=== PATIENT | female | born 1975 | race Caucasian/White ===

== ENCOUNTER → 2016-05-04 | Outpatient (REF) | payer OTHER, MEDICAID ==
[~2016-05-04] MED LIST: /LOR25TA OR; BUDE150T OR; BUTACAP PO; CELE20TA OR; DEPA250C OR; DEPA500T2 PO; DIVA500T9 PO; DULE100A IN; EPIP0.3I2 IJ; HYDR-3565 PO; IBUP80TA PO; MOBI15TA PO; NEUR300C PO; NORCOBULK PO; PERC10TA17 PO; PERC5TAB6 PO; VALI10TA OR; VALI10TA PO; VICOBULK PO; VOLT1GEL24 TOP; WELLTAB40 PO; seroquel PO
[2016-05-04 13:43] LABS: BASO % 0.6 % (0.0-1.0); EOS # 0.2 K/mm3 (0.0-0.50); LYMPH # 3.1 K/mm3 (1.5-4.5); LYMPH % 37.3 % (24.0-44.0); MEAN CORPUSCULAR HEMOGLOBIN 30.4 pg (27.0-33.0); MEAN CORPUSCULAR HGB CONC 33.1 g/dl (32.0-36.5); MEAN CORPUSCULAR VOLUME 91.7 fl (80.0-96.0); MONO # 0.4 K/mm3 (0.0-0.8); MONO % 4.6 % (0.0-5.0); NEUTROPHILS # 4.3 K/mm3 (1.8-7.7); NEUTROPHILS % 51.4 % (36.0-66.0); WHITE BLOOD COUNT 8.3 K/mm3 (4.0-10.0)
[2016-05-04 13:55] LABS: VITAMIN B12 LEVEL 524 PG/ML
[2016-05-04 13:56] LABS: FOLATE 9.6 NG/ML
[2016-05-04 14:04] LABS: ALBUMIN 4.1 GM/DL (3.2-5.2); ALBUMIN/GLOBULIN RATIO 1.24 (1.00-1.93); ALKALINE PHOSPHATASE 85 U/L (45-117); ALT/SGPT 21 U/L (12-78); ANION GAP 9 MEQ/L (8-16); AST/SGOT 9 U/L (15-37); BILIRUBIN,TOTAL 0.6 MG/DL (0.2-1.0); BLOOD UREA NITROGEN 10 MG/DL (7-18); CALCIUM LEVEL 8.8 MG/DL (8.5-10.1); CARBON DIOXIDE LEVEL 24 MEQ/L (21-32); CHLORIDE LEVEL 108 MEQ/L (98-107); CHOLESTEROL LEVEL 209 MG/DL (<200); CREATININE FOR GFR 0.87 MG/DL (0.55-1.02); FERRITIN 54 NG/ML (8-252); GLOMERULAR FILTRATION RATE > 60.0 (>60); GLUCOSE, FASTING 79 MG/DL (70-105); POTASSIUM SERUM 4.2 MEQ/L (3.5-5.1); SODIUM LEVEL 141 MEQ/L (136-145); TOTAL PROTEIN 7.4 GM/DL (6.4-8.2); TRIGLYCERIDES LEVEL 225 MG/DL (<150)
== END | disposition home or self-care (01) ==
LOC: M LABDRAW1 12:46 → M LABNEURO 12:46
PROVIDERS: ATTEND Physician Assistant Medical
DX: R63.5 Abnormal weight gain (principal); E78.2 Mixed hyperlipidemia

== ENCOUNTER → 2016-05-21 | Outpatient (CLI) | payer OTHER, MEDICAID ==
[~2016-05-21] MED LIST changes: -HYDR-3565 PO; +HYDR-3719 PO
== END ==
LOC: M PAIN 10:20
PROVIDERS: ATTEND Nurse Practitioner Family
DX: Z09 Encounter for follow-up examination after completed treatment for conditions other than malignant neoplasm (principal); M79.601 Pain in right arm; G89.28 Other chronic postprocedural pain; F17.200 Nicotine dependence, unspecified, uncomplicated; Z91.030 Bee allergy status; Z88.8 Allergy status to other drugs, medicaments and biological substances; Z79.891 Long term (current) use of opiate analgesic; Z79.899 Other long term (current) drug therapy

== ENCOUNTER 2016-05-24 22:11 | Emergency (ER) | payer OTHER, MEDICAID ==
[2016-05-24 23:36] LABS: BASO # 0.2 K/mm3 (0.0-0.2); BASO % 2.3 % (0.0-1.0); EOS # 0.3 K/mm3 (0.0-0.50); EOS % 3.6 % (0.0-3.0); LARGE UNSTAINED CELL # 0.2 K/mm3 (0.0-0.4); LARGE UNSTAINED CELL % 2.9 % (0.0-4.0); LYMPH # 3.2 K/mm3 (1.5-4.5); LYMPH % 41.1 % (24.0-44.0); MEAN CORPUSCULAR HEMOGLOBIN 29.8 pg (27.0-33.0); MEAN CORPUSCULAR HGB CONC 33.2 g/dl (32.0-36.5); MEAN CORPUSCULAR VOLUME 89.8 fl (80.0-96.0); MONO # 0.4 K/mm3 (0.0-0.8); NEUTROPHILS # 3.3 K/mm3 (1.8-7.7); NEUTROPHILS % 44.2 % (36.0-66.0); PLATELET COUNT, AUTOMATED 205 k/mm3 (150-450); RED CELL DISTRIBUTION WIDTH 12.8 % (11.5-14.5); WHITE BLOOD COUNT 7.4 K/mm3 (4.0-10.0)
[2016-05-24 23:55] LABS: CONTROL LINE HCG INT CTR LINE PRESENT
[2016-05-24 23:59] LABS: ANION GAP 8 MEQ/L (8-16); BLOOD UREA NITROGEN 9 MG/DL (7-18); CALCIUM LEVEL 8.8 MG/DL (8.5-10.1); CARBON DIOXIDE LEVEL 29 MEQ/L (21-32); CHLORIDE LEVEL 108 MEQ/L (98-107); CREATININE FOR GFR 0.88 MG/DL (0.55-1.02); GLOMERULAR FILTRATION RATE > 60.0 (>60); GLUCOSE, FASTING 87 MG/DL (70-105); POTASSIUM SERUM 3.9 MEQ/L (3.5-5.1); SODIUM LEVEL 145 MEQ/L (136-145)
[2016-05-25] MEDS ORDERED: methylPREDNISolone INJ 125 MG/2 ML VIAL (J2930) As Ordered ONE (00:10)
[2016-05-25] MEDS ORDERED: MORPHINE 4 MG/ML 1ML SYRINGE As Ordered ONE (00:10)
[2016-05-25 00:14] LABS: ERYTHROCYTE SEDIMENTATION RATE 3 mm/hr (0-20)
--- NOTE | 2016-05-25 00:46 | REP ---
Clinical: Chest pain . Comparison: 07/15/2014 . Technique: PA and lateral. Findings: The mediastinum and cardiac silhouette are normal. The lung lopez are clear and without acute consolidation, effusion, or pneumothorax. The skeletal structures are intact and normal. Impression: 1. No acute cardiopulmonary process. Signed by Abraham Sanchez MD 05/25/2016 12:37 A
--- NOTE | 2016-05-25 04:08 | EDDOCDS ---
Physician Documentation [facility] Name: Fariha Yanez Age: 40 yrs Sex: Female : 1975 Arrival Date: 05/24/2016 Time: 22:11 Bed 8 Private MD: Gail Clemons C Disposition: 05/25/16 03:44 Discharged to Home/Self Care. Impression: Chest pain, unspecified. - Condition is Stable. - Discharge Instructions: Angina Pectoris, Nonspecific Chest Pain, Chest Wall Pain, Nonspecific Chest Pain, [id number]. - Prescriptions for Prednisone 20 mg Oral Tablet - take 2 tablet by ORAL route once daily for 5 days; 10 tablet. - Medication Reconciliation, Local Pharmacy Hours form. - Follow up: Jasbir Marion; When: Call to arrange an appointment; Reason: Continuance of care. - Problem is an acute exacerbation. - Symptoms have improved. Historical: - Allergies: Cipro PO; Macrobid; seafood; Toradol; - Home Meds: 1. Depakote 500 mg Oral TbEC 1 tab 2 times per day 2. Valium 10 mg Oral tab (Last dose: 05/24/2016 08:00) 3. Wellbutrin SR 150 mg Oral TbER 2 tab once daily - PMHx: Migraine Headaches; pericarditis; - PSHx: Hysterectomy; arm surgery; dorsal column; head surgery; - Social history: Smoking status: Patient uses tobacco products, light tobacco smoker. No barriers to communication noted, The patient speaks fluent Frisian, Speaks appropriately for age. - Family history: Not pertinent. - : The pt / caregiver states he / she is not on anticoagulants. Home medication list is obtained from the patient. - Exposure Risk Screening:: None identified. 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 2 in. (157.48 cm) (R); Pain 9/10; 05/25 00:23 BP 162 / 83 (auto/); ko2 00:25 Pulse 80 MON; Pulse Ox 100% ; ko2 00:53 BP 128 / 76 (auto/); ko2 00:53 Pulse 80 MON; Pulse Ox 97% ; ko2 01:23 BP 138 / 83 (auto/); ko2 01:23 Pulse 80 MON; Pulse Ox 96% ; ko2 01:53 BP 127 / 80 (auto/); ko2 01:53 Pulse 84 MON; Pulse Ox 96% ; ko2 02:23 BP 135 / 67 (auto/); ko2 02:23 Pulse 80 MON; Pulse Ox 96% ; ko2 02:53 Pulse 82 MON; Pulse Ox 96% ; mlc 02:53 BP 110 / 65 (auto/); mlc 03:23 BP 107 / 65 (auto/); mlc 03:24 Pulse 78 MON; Pulse Ox 95% ; mlc 03:50 BP 106 / 60 LA Supine (auto/reg); Pulse 78 MON; Resp 18 S; Temp 98.0(TE); Pulse Ox 92% cln on R/A; Pain 10/02; 05/24 22:13 Body Mass Index 25.61 (63.50 kg, 157.48 cm) gr2 MDM: 05/24 22:22 ECG WITH READING ER PHYS+CARDIAG ordered. EDMS 22:58 Storage Center Manager/Pulse Ox/q 30 min VS ordered. mm11 22:58 IV Saline Lock ordered. mm11 22:58 Rhythm Strip to chart ordered. mm11 22:58 Undress patient appropriately for examination ordered. mm11 22:59 Basic Metabolic Profile Ordered. EDMS 22:59 CBC with Diff Ordered. EDMS 22:59 Cardiac Injury Profile Ordered. EDMS 22:59 Troponin Ordered. EDMS 22:59 HCG,Serum Qualitative Ordered. EDMS 22:59 ESR Ordered. EDMS 22:59 CRP Ordered. EDMS 22:59 Chest, 2 View (pa\E\lat) Ordered. EDMS 23:43 CBC with Diff Reviewed. mm11 23:56 HCG,Serum Qualitative Reviewed. mm11 05/25 00:06 Basic Metabolic Profile Reviewed. mm11 00:06 Troponin Reviewed. mm11 00:06 HCG,Serum Qualitative Reviewed. mm11 00:06 CRP Reviewed. mm11 00:07 morphine 4 mg IVP every 30 minutes; Document pain score/vitals after each dose (Hold if mm11 SBP < 90mmHg) x2 ordered. 00:07 Solu-MEDROL 125 mg IVP once ordered. mm11 00:08 CT Chest Angio R/O PE Ordered. EDMS 00:25 Basic Metabolic Profile Reviewed. mm11 00:25 CBC with Diff Reviewed. mm11 00:25 Cardiac Injury Profile Reviewed. mm11 00:25 Troponin Reviewed. mm11 00:25 HCG,Serum Qualitative Reviewed. mm11 00:25 ESR Reviewed. mm11 00:25 CRP Reviewed. mm11 00:31 Financial registration complete. hs2 01:29 [facility] Payment Agreement was scanned into [employer] and attached to record. hs2 03:42 Chest, 2 View (pa\E\lat) Reviewed. mm11 03:42 CT Chest Angio R/O PE Reviewed. mm11 Administered Medications: 00:20 Drug: morphine 4 mg [morphine 4 mg/mL intravenous cartridge (1 mL)] Route: IVP; Site: ko2 left antecubital; 00:20 Drug: Solu-MEDROL 125 mg [Solu-Medrol 500 mg intravenous solution (125 mg)] Route: IVP; ko2 Site: left antecubital; Signatures: Dispatcher [employer] EDNJ Saul Arceo RN RN cz Marcus Mackenzie, DO DO mm11 Carlie Chaparro RN RN [facility] [place] Barbara Zhou RN RN ko2 Jaymie Hameed, Reg Reg hs2 The chart was reviewed and I authenticate all verbal orders and agree with the evaluation and treatment provided.Attachments: 01:29 [facility] Payment Agreement hs2 MTDD
--- NOTE | 2016-05-25 04:08 | EDDOCDS ---
Nurse's Notes [facility] Name: Fariha Yanez Age: 40 yrs Sex: Female : 1975 Arrival Date: 05/24/2016 Time: 22:11 Bed 8 Private MD: Gail Clemons C Diagnosis: Chest pain, unspecified Presentation: 05/24 22:16 Presenting complaint: Friend states: pt states that around 1900 tonight developed chest cz pain s.o. states pt has history of pericarditis. Aspirin was not taken prior to arrival. Adult Sepsis Screening: The patient does not have new or worsening altered mentation. Patient's respiratory rate is less than 22. Systolic blood pressure is greater than 100. Patient has a qSOFA score of 0- Negative Sepsis Screen. Suicide/Homicide risk assessment- the patient denies having any suicidal and/or homicidal ideations and does not present with any other emotional, behavioral or mental health complaints. Status: Patient is not a park services specialist or dependent. Transition of care: patient was not received from another setting of care. 22:16 Method Of Arrival: Walkin/Carried/Asstd cz 22:25 Acuity: IZABELLA Level 2 cz Triage Assessment: 22:20 General: Appears uncomfortable. Pain: Location: chest Pain currently is 9 out of 10 on cz a pain scale. HIV screening NA for this visit Offered previously. 05/25 00:04 Cardiovascular: Chest pain is described as Pain is 10 out of 10 on a pain scale. ko2 radiates Does not radiate. episodes are continuous began. 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 Depakote 500 mg Oral TbEC 1 tab 2 times per day 2. Valium 10 mg Oral tab (Last dose: 05/24/2016 08:00) 3. Wellbutrin SR 150 mg Oral TbER 2 tab once daily - PMHx: Migraine Headaches; pericarditis; - PSHx: Hysterectomy; arm surgery; dorsal column; head surgery; - Social history: Smoking status: Patient uses tobacco products, light tobacco smoker. No barriers to communication noted, The patient speaks fluent Senegalese, Speaks appropriately for age. - Family history: Not pertinent. - : The pt / caregiver states he / she is not on anticoagulants. Home medication list is obtained from the patient. - Exposure Risk Screening:: None identified. Screenin/31 00:04 Screening information is obtained from the patient. Fall risk: No risks identified. ko2 Assistance ADL's: requires no assistance with activities of daily living. Abuse/DV Screen: The patient / caregiver reports he/she is: not in a situation that causes fear, pain or injury. Nutritional screening: No deficits noted. Advance Directives: Currently, there is no health care proxy. There is no active DNR order. There is no living will. There is no Power of Communications Strategist. home support is adequate. Assessment: 05/24 22:30 General: Appears in no apparent distress, Behavior is appropriate for age, cooperative. ko2 Pain: Location: chest Pain currently is 10 out of 10 on a pain scale. Pain does not radiate. Neurological: Level of Consciousness is awake, alert. Respiratory: Airway is patent Respiratory effort is even, unlabored. Derm: Skin is pink, warm & dry. Musculoskeletal: Range of motion intact in all except right hand in cast. 23:30 General: Appears in no apparent distress, Behavior is appropriate for age, cooperative. ko2 Neurological: Level of Consciousness is awake, alert. Cardiovascular: Rhythm is sinus rhythm. Respiratory: Airway is patent Respiratory effort is even, unlabored. Derm: Skin is normal. 05/25 00:30 General: Appears in no apparent distress, pt resting on stretcher, appears to be ko2 asleep. No concerns at this time.. 01:30 General: Appears in no apparent distress, Behavior is appropriate for age, cooperative, ko2 pt asked how her pain was and pt stated "eh". Pt states the pain is intermittent and not continuous at this time. Pt asked if it hurts more when she takes a deep breath and she states yes that she can't take a breath due to the pain. 02:45 General: Appears in no apparent distress, Behavior is cooperative. Pain: Location: ko2 chest Pain currently is 8 out of 10 on a pain scale. Cardiovascular: Rhythm is sinus rhythm. Derm: Skin is normal. 04:05 General: Appears in no apparent distress, comfortable, Behavior is cooperative. mlc Neurological: Level of Consciousness is awake, alert, Oriented to person, place, time. Respiratory: Airway is patent Respiratory effort is even, unlabored, Respiratory pattern is regular. Vital Signs: 05/24 22:13 BP 111 / 84; Pulse 97; Resp 18 S; Temp 96.9(O); Pulse Ox 100% on R/A; Weight 63.5 kg gr2 (R); Height 5 ft. 2 in. (157.48 cm) (R); Pain 9/10; 05/25 00:23 BP 162 / 83 (auto/); ko2 00:25 Pulse 80 MON; Pulse Ox 100% ; ko2 00:53 BP 128 / 76 (auto/); ko2 00:53 Pulse 80 MON; Pulse Ox 97% ; ko2 01:23 BP 138 / 83 (auto/); ko2 01:23 Pulse 80 MON; Pulse Ox 96% ; ko2 01:53 BP 127 / 80 (auto/); ko2 01:53 Pulse 84 MON; Pulse Ox 96% ; ko2 02:23 BP 135 / 67 (auto/); ko2 02:23 Pulse 80 MON; Pulse Ox 96% ; ko2 02:53 Pulse 82 MON; Pulse Ox 96% ; mlc 02:53 BP 110 / 65 (auto/); mlc 03:23 BP 107 / 65 (auto/); mlc 03:24 Pulse 78 MON; Pulse Ox 95% ; mlc 03:50 BP 106 / 60 LA Supine (auto/reg); Pulse 78 MON; Resp 18 S; Temp 98.0(TE); Pulse Ox 92% cln on R/A; Pain 6/10; 05/24 22:13 Body Mass Index 25.61 (63.50 kg, 157.48 cm) gr2 Vitals: 05/24 22:13 Log In Time: May 24, 2016 at 22:13. RN notified that patient meets Red Flag gr2 criteria. ED Course: 22:13 Patient visited by Rigoberto Macdonald. gr2 22:13 Gail Clemons is Private Physician. gr2 22:13 Patient moved to Waiting gr2 22:15 Patient visited by Rigoberto Macdonald. gr2 22:15 Patient moved to Pre RCE gr2 22:21 Patient moved to PD2 / cz 22:25 Triage Initiated cz 22:28 EKG done. (by ED staff). Reviewed by Marcus Mackenzie DO. ar3 22:34 Patient moved to Pre RCE ar3 22:37 Barbara Zhou,RN is Primary Nurse. apr 22:37 Patient moved to 8 apr 22:40 Marcus Mackenzie DO is Attending Physician. mm11 22:40 Patient visited by Marcus Mackenzie DO. mm11 22:55 Patient visited by Marcus Mackenzie DO. mm11 23:04 Patient moved to Radiology nena 23:12 Patient moved to 8 nena 23:32 CRP Sent. ko2 23:32 ESR Sent. ko2 23:32 HCG,Serum Qualitative Sent. ko2 23:32 Basic Metabolic Profile Sent. ko2 23:32 CBC with Diff Sent. ko2 23:32 Cardiac Injury Profile Sent. ko2 23:32 Troponin Sent. ko2 23:54 Patient visited by Barbara Zhou RN. ko2 05/25 00:04 Inserted saline lock: 20 gauge in left antecubital area and blood collected. The ko2 patient tolerated the procedure well. 00:25 Patient visited by Marcus Mackenzie DO. mm11 01:10 Patient visited by Marcus Mackenzie DO. mm11 01:20 Chest, 2 View (pa\\E\\lat) Returned. EDMS 01:20 CT Chest Angio R/O PE Returned. EDMS 01:29 [facility] was scanned into [employer] and attached to record. hs2 01:32 The patient / caregiver is instructed regarding the plan of care and ED course. Cardiac ko2 monitor on. Pulse ox on. NIBP on. 02:09 Patient visited by Barbara Zhou RN. ko2 02:46 Patient visited by Barbara Zhou RN. ko2 03:37 Patient visited by Marcus Mackenzie DO. mm11 03:43 Jasbir Marion is Referral Physician. mm11 04:05 Discontinued IV lock intact, bleeding controlled, pressure dressing applied, No mlc redness/swelling at site. No procedures done that require assistance. Administered Medications: 00:20 Drug: morphine 4 mg [morphine 4 mg/mL intravenous cartridge (1 mL)] Route: IVP; Site: ko2 left antecubital; 00:20 Drug: Solu-MEDROL 125 mg [Solu-Medrol 500 mg intravenous solution (125 mg)] Route: IVP; ko2 Site: left antecubital; Order Results: Lab Order: Basic Metabolic Profile; SPEC'M 05/24/16 23:23 Test: GLUCOSE, FASTING; Value: 87; Range: 70-105; Units: MG/DL; Status: F Test: BLOOD UREA NITROGEN; Value: 9; Range: 7-18; Units: MG/DL; Status: F Test: CREATININE FOR GFR; Value: 0.88; Range: 0.55-1.02; Units: MG/DL; Status: F Test: SODIUM LEVEL; Range: 136-145; Units: MEQ/L; Status: I Test: POTASSIUM SERUM; Range: 3.5-5.1; Units: MEQ/L; Status: I Test: CHLORIDE LEVEL; Range: 98-107; Units: MEQ/L; Status: I Test: CARBON DIOXIDE LEVEL; Range: 21-32; Units: MEQ/L; Status: I Test: ANION GAP; Range: 8-16; Units: MEQ/L; Status: I Test: CALCIUM LEVEL; Range: 8.5-10.1; Units: MG/DL; Status: I Test: GLOMERULAR FILTRATION RATE; Value: > 60.0; Range: >60; Status: F Test: SODIUM LEVEL; Value: 145; Range: 136-145; Units: MEQ/L; Status: F Test: POTASSIUM SERUM; Value: 3.9; Range: 3.5-5.1; Units: MEQ/L; Status: F Test: CHLORIDE LEVEL; Value: 108; Range: 98-107; Abnormal: Above high normal; Units: MEQ/L; Status: F Test: CARBON DIOXIDE LEVEL; Value: 29; Range: 21-32; Units: MEQ/L; Status: F Test: ANION GAP; Value: 8; Range: 8-16; Units: MEQ/L; Status: F Test: CALCIUM LEVEL; Value: 8.8; Range: 8.5-10.1; Units: MG/DL; Status: F Test Note: ; Units are mL/min/1.73 m2 Chronic Kidney Disease Staging per NKF: Stage I & II GFR >=60 Normal to Mildly Decreased Stage III GFR 30-59 Moderately Decreased Stage IV GFR 15-29 Severely Decreased Stage V GFR <15 Very Little GFR Left ESRD GFR <15 on SKEINS YARN EXAMINER Lab Order: CBC with Diff; SPEC'M 01/30/17 23:23 Test: WHITE BLOOD COUNT; Value: 7.4; Range: 4.0-10.0; Units: K/mm3; Status: F Test: RED BLOOD COUNT; Value: 5.01; Range: 4.00-5.40; Units: M/mm3; Status: F Test: HEMOGLOBIN; Value: 15.0; Range: 12.0-16.0; Units: g/dl; Status: F Test: HEMATOCRIT; Value: 45.0; Range: 36.0-47.0; Units: %; Status: F Test: MEAN CORPUSCULAR VOLUME; Value: 89.8; Range: 80.0-96.0; Units: fl; Status: F Test: MEAN CORPUSCULAR HEMOGLOBIN; Value: 29.8; Range: 27.0-33.0; Units: pg; Status: F Test: MEAN CORPUSCULAR HGB CONC; Value: 33.2; Range: 32.0-36.5; Units: g/dl; Status: F Test: RED CELL DISTRIBUTION WIDTH; Value: 12.8; Range: 11.5-14.5; Units: %; Status: F Test: PLATELET COUNT, AUTOMATED; Value: 205; Range: 150-450; Units: k/mm3; Status: F Test: NEUTROPHILS %; Value: 44.2; Range: 36.0-66.0; Units: %; Status: F Test: LYMPH %; Value: 41.1; Range: 24.0-44.0; Units: %; Status: F Test: MONO %; Value: 6.0; Range: 0.0-5.0; Abnormal: Above high normal; Units: %; Status: F Test: EOS %; Value: 3.6; Range: 0.0-3.0; Abnormal: Above high normal; Units: %; Status: F Test: BASO %; Value: 2.3; Range: 0.0-1.0; Abnormal: Above high normal; Units: %; Status: F Test: LARGE UNSTAINED CELL %; Value: 2.9; Range: 0.0-4.0; Units: %; Status: F Test: NEUTROPHILS #; Value: 3.3; Range: 1.8-7.7; Units: K/mm3; Status: F Test: LYMPH #; Value: 3.2; Range: 1.5-4.5; Units: K/mm3; Status: F Test: MONO #; Value: 0.4; Range: 0.0-0.8; Units: K/mm3; Status: F Test: EOS #; Value: 0.3; Range: 0.0-0.50; Units: K/mm3; Status: F Test: BASO #; Value: 0.2; Range: 0.0-0.2; Units: K/mm3; Status: F Test: LARGE UNSTAINED CELL #; Value: 0.2; Range: 0.0-0.4; Units: K/mm3; Status: F Lab Order: Cardiac Injury Profile; [facility] 05/24/16 23: Test: CPK CREATINE PHOSPHOKINASE; Value: 48; Range: 26-192; Units: U/L; Status: F Test: CK-MB VALUE MASS; Value: < 1.0; Range: 0.0-3.6; Units: NG/ML; Status: F Test Note: ; --- 05/25/16 0019 --- CK-MB MASS previously reported as: 1.0 NG/ML Test: MB/CK RELATIVE INDEX; Range: < OR =4; Status: I Lab Order: Troponin; [facility] 05/24/16 23: Test: TROPONIN I; Value: < 0.02; Range: < 0.10; Units: NG/ML; Status: F Test Note: ; Troponin I Reference Interval for AIM LOCI: 99th Percentile= 0.00-0.045 ng/ml Risk Stratification: <= 0.10 ng/ml Decreased Risk for Adverse Clinical Events. 0.10-1.50 ng/ml Increased Risk for Adverse Clinical Events. Evaluation of additional criterion and/or repeat testing in 2-6 hours is suggested to rule out myocardial damage. >= 1.50 ng/ml Indicative of Myocardial Injury. Lab Order: HCG,Serum Qualitative; [facility] 23:23 Test: HCG, SERUM QUALITATIVE; Value: NEGATIVE; Range: NEGATIVE; Status: F Lab Order: ESR; [facility] 05/24/16 23:23 Test: ERYTHROCYTE SEDIMENTATION RATE; Value: 3; Range: 0-20; Units: mm/hr; Status: F Lab Order: CRP; SPEC'M 05/24/16 23:23 Test: C REACTIVE PROTEIN QUANTITATIV; Value: < 0.30; Range: 0.00-0.30; Units: MG/DL; Status: F Radiology Order: Chest, 2 View (pa\\E\\lat) Test: Chest, 2 View (pa\\E\\lat) REASON FOR EXAMINATION: Chest Pain; Clinical: Chest pain .; ; Comparison: 07/15/2014 .; ; Technique: PA and lateral.; ; Findings:; The mediastinum and cardiac silhouette are normal. The lung lopez are clear and; without acute consolidation, effusion, or pneumothorax. The skeletal structures; are intact and normal.; ; Impression:; 1. No acute cardiopulmonary process.; ; ; Signed by; Abraham Sanchez MD 05/25/2016 12:37 A; Radiology Order: CT Chest Angio R/O PE Test: CT Chest Angio R/O PE REASON FOR EXAMINATION: Chest Pain; ; CLINICAL HISTORY: Dyspnea, exclude PE.; TECHNIQUE: Multiple incremental axial, coronal and oblique images are obtained from the thoracic inle; t to the upper abdomen. Intravenous contrast material was administered as per pulmonary embolism prot; ocol.; COMMENTS:; There is excellent opacification of pulmonary arterial system without evidence for pulmonary embolism; . Aorta is of normal caliber without evidence for dissection or aneurysm.; There is no evidence of pleural or parenchymal mass. Bilateral basilar atelectatic pulmonary changes.; There are no pleural effusions. There is no evidence of hilar or mediastinal lymphadenopathy. The he; art and great vessels are within normal limits.; Images of the upper abdomen demonstrate no evidence of adrenal mass.; The bony structures are free of lytic or blastic lesions.; IMPRESSION:; No evidence for pulmonary embolism.; Bilateral basilar atelectatic pulmonary changes.; Thank you for your kind referral of this patient.; ; Outcome: 03:21 CT Study completed. ko2 03:44 Discharge ordered by Provider. mm11 04:05 Discharge Assessment: Patient awake, alert and oriented x 3. No cognitive and/or mlc functional deficits noted. Patient verbalized understanding of disposition instructions. patient administered narcotics -. The following High Risk Discharge criteria are identified: None. Discharged to home ambulatory, with significant other. Condition: good Condition: stable. Discharge instructions given to patient, Instructed on discharge instructions, follow up and referral plans. medication usage, Demonstrated understanding of instructions, medications, Pt was receptive of discharge instructions/ teaching. Prescriptions given X 1. Property sent home with patient. 04:06 Discharge Assessment: patient administered narcotics - yes. Pt provided with safe mlc discharge. 04:06 Patient left the ED. mlc Signatures: Dispatcher [employer] EDMS Jessica Mata RN RN jan Zecher, Calvin, RN RN cz Bartlett, Floyd fab Maynard, Matthew, DO mm11 Meng, Marcie, TOWER LOADER OPERATOR TOWER LOADER OPERATOR ar3 Rigoberto Macdonald gr2 Carlie ChaparroRN RN Barbara Wilson RN RN ko2 Jaymie Hameed, Reg Reg hs2 Vielka Eric, TOWER LOADER OPERATOR TOWER LOADER OPERATOR cln MTDD
--- NOTE | 2016-05-25 20:46 | ECGEPIP ---
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
--- NOTE | 2016-05-27 05:07 | EDDOCDS ---
Physician Documentation [facility] Name: Fariha Yanez Age: 40 yrs Sex: Female : 1975 Arrival Date: 05/24/2016 Time: 22:11 Bed 8 Private MD: Gail Clemons C Disposition: 05/25/16 03:44 Discharged to Home/Self Care. Impression: Chest pain, unspecified. - Condition is Stable. - Discharge Instructions: Angina Pectoris, Nonspecific Chest Pain, Chest Wall Pain, Nonspecific Chest Pain, [id number]. - Prescriptions for Prednisone 20 mg Oral Tablet - take 2 tablet by ORAL route once daily for 5 days; 10 tablet. - Medication Reconciliation, Local Pharmacy Hours form. - Follow up: Jasbir Marion; When: Call to arrange an appointment; Reason: Continuance of care. - Problem is an acute exacerbation. - Symptoms have improved. Historical: - Allergies: Cipro PO; Macrobid; seafood; Toradol; - Home Meds: 1. Depakote 500 mg Oral TbEC 1 tab 2 times per day 2. Valium 10 mg Oral tab (Last dose: 05/24/2016 08:00) 3. Wellbutrin SR 150 mg Oral TbER 2 tab once daily - PMHx: Migraine Headaches; pericarditis; - PSHx: Hysterectomy; arm surgery; dorsal column; head surgery; - Social history: Smoking status: Patient uses tobacco products, light tobacco smoker. No barriers to communication noted, The patient speaks fluent Thai, Speaks appropriately for age. - Family history: Not pertinent. - : The pt / caregiver states he / she is not on anticoagulants. Home medication list is obtained from the patient. - Exposure Risk Screening:: None identified. 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 2 in. (157.48 cm) (R); Pain 9/10; 05/25 00:23 BP 162 / 83 (auto/); ko2 00:25 Pulse 80 MON; Pulse Ox 100% ; ko2 00:53 BP 128 / 76 (auto/); ko2 00:53 Pulse 80 MON; Pulse Ox 97% ; ko2 01:23 BP 138 / 83 (auto/); ko2 01:23 Pulse 80 MON; Pulse Ox 96% ; ko2 01:53 BP 127 / 80 (auto/); ko2 01:53 Pulse 84 MON; Pulse Ox 96% ; ko2 02:23 BP 135 / 67 (auto/); ko2 02:23 Pulse 80 MON; Pulse Ox 96% ; ko2 02:53 Pulse 82 MON; Pulse Ox 96% ; mlc 02:53 BP 110 / 65 (auto/); mlc 03:23 BP 107 / 65 (auto/); mlc 03:24 Pulse 78 MON; Pulse Ox 95% ; mlc 03:50 BP 106 / 60 LA Supine (auto/reg); Pulse 78 MON; Resp 18 S; Temp 98.0(TE); Pulse Ox 92% cln on R/A; Pain 10/02; 05/24 22:13 Body Mass Index 25.61 (63.50 kg, 157.48 cm) gr2 MDM: 05/24 22:22 ECG WITH READING ER PHYS+CARDIAG ordered. EDMS 22:58 Big Data Developer/Pulse Ox/q 30 min VS ordered. mm11 22:58 IV Saline Lock ordered. mm11 22:58 Rhythm Strip to chart ordered. mm11 22:58 Undress patient appropriately for examination ordered. mm11 22:59 Basic Metabolic Profile Ordered. EDMS 22:59 CBC with Diff Ordered. EDMS 22:59 Cardiac Injury Profile Ordered. EDMS 22:59 Troponin Ordered. EDMS 22:59 HCG,Serum Qualitative Ordered. EDMS 22:59 ESR Ordered. EDMS 22:59 CRP Ordered. EDMS 22:59 Chest, 2 View (pa\E\lat) Ordered. EDMS 23:43 CBC with Diff Reviewed. mm11 23:56 HCG,Serum Qualitative Reviewed. mm11 05/25 00:06 Basic Metabolic Profile Reviewed. mm11 00:06 Troponin Reviewed. mm11 00:06 HCG,Serum Qualitative Reviewed. mm11 00:06 CRP Reviewed. mm11 00:07 morphine 4 mg IVP every 30 minutes; Document pain score/vitals after each dose (Hold if mm11 SBP < 90mmHg) x2 ordered. 00:07 Solu-MEDROL 125 mg IVP once ordered. mm11 00:08 CT Chest Angio R/O PE Ordered. EDMS 00:25 Basic Metabolic Profile Reviewed. mm11 00:25 CBC with Diff Reviewed. mm11 00:25 Cardiac Injury Profile Reviewed. mm11 00:25 Troponin Reviewed. mm11 00:25 HCG,Serum Qualitative Reviewed. mm11 00:25 ESR Reviewed. mm11 00:25 CRP Reviewed. mm11 00:31 Financial registration complete. hs2 01:29 [facility] Payment Agreement was scanned into MED[employer] and attached to record. hs2 03:42 Chest, 2 View (pa\E\lat) Reviewed. mm11 03:42 CT Chest Angio R/O PE Reviewed. mm11 09:18 T-Sheet-- Draft Copy was scanned into MEDHOST and attached to record. gb 09:19 ECG/EKG was scanned into [employer] and attached to record. gb 09:19 Radiology Report was scanned into [employer] and attached to record. gb Administered Medications: 00:20 Drug: morphine 4 mg [morphine 4 mg/mL intravenous cartridge (1 mL)] Route: IVP; Site: ko2 left antecubital; 00:20 Drug: Solu-MEDROL 125 mg [Solu-Medrol 500 mg intravenous solution (125 mg)] Route: IVP; ko2 Site: left antecubital; Signatures: Dispatcher [employer]Host EDMS Saul Arceo RN RN Madelin Pinzon, Reg Reg gb Marcus Mcakenzie DO DO mm11 Carlie Chaparro RN RN [facility] Barbara Zhou RN RN ko2 Jaymie Hameed, Reg Reg hs2 The chart was reviewed and I authenticate all verbal orders and agree with the evaluation and treatment provided.Attachments: : [facility] Payment Agreement hs2 09:18 T-Sheet-- Draft Copy gb 09:19 ECG/EKG gb Chart Complete MTDD
--- NOTE | 2016-05-27 05:07 | EDDOCDS ---
Nurse's Notes [facility] Name: Gurwinder Swann Age: 40 yrs Sex: Female : 1975 Arrival Date: 05/24/2016 Time: 22:11 Bed 8 Private MD: Gail Clemons C Diagnosis: Chest pain, unspecified Presentation: 05/24 22:16 Presenting complaint: Friend states: pt states that around 1900 tonight developed chest cz pain s.o. states pt has history of pericarditis. Aspirin was not taken prior to arrival. Adult Sepsis Screening: The patient does not have new or worsening altered mentation. Patient's respiratory rate is less than 22. Systolic blood pressure is greater than 100. Patient has a qSOFA score of 0- Negative Sepsis Screen. Suicide/Homicide risk assessment- the patient denies having any suicidal and/or homicidal ideations and does not present with any other emotional, behavioral or mental health complaints. Status: Patient is not a manufacturers service representative or dependent. Transition of care: patient was not received from another setting of care. 22:16 Method Of Arrival: Walkin/Carried/Asstd cz 22:25 Acuity: IZABELLA Level 2 cz Triage Assessment: 22:20 General: Appears uncomfortable. Pain: Location: chest Pain currently is 9 out of 10 on cz a pain scale. HIV screening NA for this visit Offered previously. 05/25 00:04 Cardiovascular: Chest pain is described as Pain is 10 out of 10 on a pain scale. ko2 radiates Does not radiate. episodes are continuous began. 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 Depakote 500 mg Oral TbEC 1 tab 2 times per day 2. Valium 10 mg Oral tab (Last dose: 05/24/2016 08:00) 3. Wellbutrin SR 150 mg Oral TbER 2 tab once daily - PMHx: Migraine Headaches; pericarditis; - PSHx: Hysterectomy; arm surgery; dorsal column; head surgery; - Social history: Smoking status: Patient uses tobacco products, light tobacco smoker. No barriers to communication noted, The patient speaks fluent Dutch, Speaks appropriately for age. - Family history: Not pertinent. - : The pt / caregiver states he / she is not on anticoagulants. Home medication list is obtained from the patient. - Exposure Risk Screening:: None identified. Screenin/31 00:04 Screening information is obtained from the patient. Fall risk: No risks identified. ko2 Assistance ADL's: requires no assistance with activities of daily living. Abuse/DV Screen: The patient / caregiver reports he/she is: not in a situation that causes fear, pain or injury. Nutritional screening: No deficits noted. Advance Directives: Currently, there is no health care proxy. There is no active DNR order. There is no living will. There is no Power of Human Geography Faculty Member. home support is adequate. Assessment: 05/24 22:30 General: Appears in no apparent distress, Behavior is appropriate for age, cooperative. ko2 Pain: Location: chest Pain currently is 10 out of 10 on a pain scale. Pain does not radiate. Neurological: Level of Consciousness is awake, alert. Respiratory: Airway is patent Respiratory effort is even, unlabored. Derm: Skin is pink, warm & dry. Musculoskeletal: Range of motion intact in all except right hand in cast. 23:30 General: Appears in no apparent distress, Behavior is appropriate for age, cooperative. ko2 Neurological: Level of Consciousness is awake, alert. Cardiovascular: Rhythm is sinus rhythm. Respiratory: Airway is patent Respiratory effort is even, unlabored. Derm: Skin is normal. 05/25 00:30 General: Appears in no apparent distress, pt resting on stretcher, appears to be ko2 asleep. No concerns at this time.. 01:30 General: Appears in no apparent distress, Behavior is appropriate for age, cooperative, ko2 pt asked how her pain was and pt stated "eh". Pt states the pain is intermittent and not continuous at this time. Pt asked if it hurts more when she takes a deep breath and she states yes that she can't take a breath due to the pain. 02:45 General: Appears in no apparent distress, Behavior is cooperative. Pain: Location: ko2 chest Pain currently is 8 out of 10 on a pain scale. Cardiovascular: Rhythm is sinus rhythm. Derm: Skin is normal. 04:05 General: Appears in no apparent distress, comfortable, Behavior is cooperative. mlc Neurological: Level of Consciousness is awake, alert, Oriented to person, place, time. Respiratory: Airway is patent Respiratory effort is even, unlabored, Respiratory pattern is regular. Vital Signs: 05/24 22:13 BP 111 / 84; Pulse 97; Resp 18 S; Temp 96.9(O); Pulse Ox 100% on R/A; Weight 63.5 kg gr2 (R); Height 5 ft. 2 in. (157.48 cm) (R); Pain 9/10; 05/25 00:23 BP 162 / 83 (auto/); ko2 00:25 Pulse 80 MON; Pulse Ox 100% ; ko2 00:53 BP 128 / 76 (auto/); ko2 00:53 Pulse 80 MON; Pulse Ox 97% ; ko2 01:23 BP 138 / 83 (auto/); ko2 01:23 Pulse 80 MON; Pulse Ox 96% ; ko2 01:53 BP 127 / 80 (auto/); ko2 01:53 Pulse 84 MON; Pulse Ox 96% ; ko2 02:23 BP 135 / 67 (auto/); ko2 02:23 Pulse 80 MON; Pulse Ox 96% ; ko2 02:53 Pulse 82 MON; Pulse Ox 96% ; mlc 02:53 BP 110 / 65 (auto/); mlc 03:23 BP 107 / 65 (auto/); mlc 03:24 Pulse 78 MON; Pulse Ox 95% ; mlc 03:50 BP 106 / 60 LA Supine (auto/reg); Pulse 78 MON; Resp 18 S; Temp 98.0(TE); Pulse Ox 92% cln on R/A; Pain 6/10; 05/24 22:13 Body Mass Index 25.61 (63.50 kg, 157.48 cm) gr2 Vitals: 05/24 22:13 Log In Time: May 24, 2016 at 22:13. RN notified that patient meets Red Flag gr2 criteria. ED Course: 22:13 Patient visited by Rigoberto Macdonald. gr2 22:13 Gail Clemons is Private Physician. gr2 22:13 Patient moved to Waiting gr2 22:15 Patient visited by Rigoberto Macdonald. gr2 22:15 Patient moved to Pre RCE gr2 22:21 Patient moved to PD2 / cz 22:25 Triage Initiated cz 22:28 EKG done. (by ED staff). Reviewed by Tana Mackenzie DO. ar3 22:34 Patient moved to Pre RCE ar3 22:37 Barbara Zhou,RN is Primary Nurse. apr 22:37 Patient moved to 8 apr 22:40 Tana Mackenzie DO is Attending Physician. mm11 22:40 Patient visited by Tana Mackenzie DO. mm11 22:55 Patient visited by Tana Mackenzie DO. mm11 23:04 Patient moved to Radiology nena 23:12 Patient moved to 8 nena 23:32 CRP Sent. ko2 23:32 ESR Sent. ko2 23:32 HCG,Serum Qualitative Sent. ko2 23:32 Basic Metabolic Profile Sent. ko2 23:32 CBC with Diff Sent. ko2 23:32 Cardiac Injury Profile Sent. ko2 23:32 Troponin Sent. ko2 23:54 Patient visited by Barbara Zhou RN. ko2 05/25 00:04 Inserted saline lock: 20 gauge in left antecubital area and blood collected. The ko2 patient tolerated the procedure well. 00:25 Patient visited by Tana Mackenzie DO. mm11 01:10 Patient visited by Tana Mackenzie DO. mm11 01:20 Chest, 2 View (pa\\E\\lat) Returned. EDMS 01:20 CT Chest Angio R/O PE Returned. EDMS 01:29 [facility] Payment Agreement was scanned into [employer] and attached to record. hs2 01:32 The patient / caregiver is instructed regarding the plan of care and ED course. Cardiac ko2 monitor on. Pulse ox on. NIBP on. 02:09 Patient visited by Barbara Zhou RN. ko2 02:46 Patient visited by Barbara Zhou RN. ko2 03:37 Patient visited by Tana Mackenzie DO. mm11 03:43 Jasbir Marion is Referral Physician. mm11 04:05 Discontinued IV lock intact, bleeding controlled, pressure dressing applied, No mlc redness/swelling at site. No procedures done that require assistance. 09:18 T-Sheet-- Draft Copy was scanned into [employer] and attached to record. gb 09:19 ECG/EKG was scanned into [employer] and attached to record. gb 09:19 Radiology Report was scanned into [employer] and attached to record. gb 21:23 EKG-ADULT Returned. EDMS Administered Medications: 00:20 Drug: morphine 4 mg [morphine 4 mg/mL intravenous cartridge (1 mL)] Route: IVP; Site: ko2 left antecubital; 00:20 Drug: Solu-MEDROL 125 mg [Solu-Medrol 500 mg intravenous solution (125 mg)] Route: IVP; ko2 Site: left antecubital; Order Results: Lab Order: Basic Metabolic Profile; SPEC'M 05/24/16 23:23 Test: GLUCOSE, FASTING; Value: 87; Range: 70-105; Units: MG/DL; Status: F Test: BLOOD UREA NITROGEN; Value: 9; Range: 7-18; Units: MG/DL; Status: F Test: CREATININE FOR GFR; Value: 0.88; Range: 0.55-1.02; Units: MG/DL; Status: F Test: SODIUM LEVEL; Range: 136-145; Units: MEQ/L; Status: I Test: POTASSIUM SERUM; Range: 3.5-5.1; Units: MEQ/L; Status: I Test: CHLORIDE LEVEL; Range: 98-107; Units: MEQ/L; Status: I Test: CARBON DIOXIDE LEVEL; Range: 21-32; Units: MEQ/L; Status: I Test: ANION GAP; Range: 8-16; Units: MEQ/L; Status: I Test: CALCIUM LEVEL; Range: 8.5-10.1; Units: MG/DL; Status: I Test: GLOMERULAR FILTRATION RATE; Value: > 60.0; Range: >60; Status: F Test: SODIUM LEVEL; Value: 145; Range: 136-145; Units: MEQ/L; Status: F Test: POTASSIUM SERUM; Value: 3.9; Range: 3.5-5.1; Units: MEQ/L; Status: F Test: CHLORIDE LEVEL; Value: 108; Range: 98-107; Abnormal: Above high normal; Units: MEQ/L; Status: F Test: CARBON DIOXIDE LEVEL; Value: 29; Range: 21-32; Units: MEQ/L; Status: F Test: ANION GAP; Value: 8; Range: 8-16; Units: MEQ/L; Status: F Test: CALCIUM LEVEL; Value: 8.8; Range: 8.5-10.1; Units: MG/DL; Status: F Test Note: ; Units are mL/min/1.73 m2 Chronic Kidney Disease Staging per NKF: Stage I & II GFR >=60 Normal to Mildly Decreased Stage III GFR 30-59 Moderately Decreased Stage IV GFR 15-29 Severely Decreased Stage V GFR <15 Very Little GFR Left ESRD GFR <15 on MILL TENDER SECOND OPERATOR Lab Order: CBC with Diff; SPEC'M 05/24/16 23:23 Test: WHITE BLOOD COUNT; Value: 7.4; Range: 4.0-10.0; Units: K/mm3; Status: F Test: RED BLOOD COUNT; Value: 5.01; Range: 4.00-5.40; Units: M/mm3; Status: F Test: HEMOGLOBIN; Value: 15.0; Range: 12.0-16.0; Units: g/dl; Status: F Test: HEMATOCRIT; Value: 45.0; Range: 36.0-47.0; Units: %; Status: F Test: MEAN CORPUSCULAR VOLUME; Value: 89.8; Range: 80.0-96.0; Units: fl; Status: F Test: MEAN CORPUSCULAR HEMOGLOBIN; Value: 29.8; Range: 27.0-33.0; Units: pg; Status: F Test: MEAN CORPUSCULAR HGB CONC; Value: 33.2; Range: 32.0-36.5; Units: g/dl; Status: F Test: RED CELL DISTRIBUTION WIDTH; Value: 12.8; Range: 11.5-14.5; Units: %; Status: F Test: PLATELET COUNT, AUTOMATED; Value: 205; Range: 150-450; Units: k/mm3; Status: F Test: NEUTROPHILS %; Value: 44.2; Range: 36.0-66.0; Units: %; Status: F Test: LYMPH %; Value: 41.1; Range: 24.0-44.0; Units: %; Status: F Test: MONO %; Value: 6.0; Range: 0.0-5.0; Abnormal: Above high normal; Units: %; Status: F Test: EOS %; Value: 3.6; Range: 0.0-3.0; Abnormal: Above high normal; Units: %; Status: F Test: BASO %; Value: 2.3; Range: 0.0-1.0; Abnormal: Above high normal; Units: %; Status: F Test: LARGE UNSTAINED CELL %; Value: 2.9; Range: 0.0-4.0; Units: %; Status: F Test: NEUTROPHILS #; Value: 3.3; Range: 1.8-7.7; Units: K/mm3; Status: F Test: LYMPH #; Value: 3.2; Range: 1.5-4.5; Units: K/mm3; Status: F Test: MONO #; Value: 0.4; Range: 0.0-0.8; Units: K/mm3; Status: F Test: EOS #; Value: 0.3; Range: 0.0-0.50; Units: K/mm3; Status: F Test: BASO #; Value: 0.2; Range: 0.0-0.2; Units: K/mm3; Status: F Test: LARGE UNSTAINED CELL #; Value: 0.2; Range: 0.0-0.4; Units: K/mm3; Status: F Lab Order: Cardiac Injury Profile; SPEC'M 05/24/16 23:23 Test: CPK CREATINE PHOSPHOKINASE; Value: 48; Range: 26-192; Units: U/L; Status: F Test: CK-MB VALUE MASS; Value: < 1.0; Range: 0.0-3.6; Units: NG/ML; Status: F Test Note: ; --- 05/25/16 0019 --- CK-MB MASS previously reported as: 1.0 NG/ML Test: MB/CK RELATIVE INDEX; Range: < OR =4; Status: I Lab Order: Troponin; SPEC'M 05/24/16 23:23 Test: TROPONIN I; Value: < 0.02; Range: < 0.10; Units: NG/ML; Status: F Test Note: ; Troponin I Reference Interval for [place] LOCI: 99th Percentile= 0.00-0.045 ng/ml Risk Stratification: <= 0.10 ng/ml Decreased Risk for Adverse Clinical Events. 0.10-1.50 ng/ml Increased Risk for Adverse Clinical Events. Evaluation of additional criterion and/or repeat testing in 2-6 hours is suggested to rule out myocardial damage. >= 1.50 ng/ml Indicative of Myocardial Injury. Lab Order: HCG,Serum Qualitative; SPEC'M 05/24/16 23:23 Test: HCG, SERUM QUALITATIVE; Value: NEGATIVE; Range: NEGATIVE; Status: F Lab Order: ESR; SPEC'M 05/24/16 23:23 Test: ERYTHROCYTE SEDIMENTATION RATE; Value: 3; Range: 0-20; Units: mm/hr; Status: F Lab Order: CRP; SPEC'M 05/24/16 23:23 Test: C REACTIVE PROTEIN QUANTITATIV; Value: < 0.30; Range: 0.00-0.30; Units: MG/DL; Status: F Radiology Order: EKG-ADULT Test: EKG-ADULT REASON FOR EXAMINATION: Chest Pain; Stationary ECG Study; [facility] - ED; ; Test Date: 2016-05-24; Pat Name: GURWINDER SWANN Department:; Room: -; Gender: F 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 The lung lopez are clear and; without acute consolidation, effusion, or pneumothorax. The skeletal structures; are intact and normal.; ; Impression:; 1. No acute cardiopulmonary process.; ; ; Signed by; Abraham Sanchez MD 05/25/2016 12:37 A; Radiology Order: CT Chest Angio R/O PE Test: CT Chest Angio R/O PE REASON FOR EXAMINATION: Chest Pain; ; CLINICAL HISTORY: Dyspnea, exclude PE.; TECHNIQUE: Multiple incremental axial, coronal and oblique images are obtained from the thoracic inle; t to the upper abdomen. Intravenous contrast material was administered as per pulmonary embolism prot; ocol.; COMMENTS:; There is excellent opacification of pulmonary arterial system without evidence for pulmonary embolism; . Aorta is of normal caliber without evidence for dissection or aneurysm.; There is no evidence of pleural or parenchymal mass. Bilateral basilar atelectatic pulmonary changes.; There are no pleural effusions. There is no evidence of hilar or mediastinal lymphadenopathy. The he; art and great vessels are within normal limits.; Images of the upper abdomen demonstrate no evidence of adrenal mass.; The bony structures are free of lytic or blastic lesions.; IMPRESSION:; No evidence for pulmonary embolism.; Bilateral basilar atelectatic pulmonary changes.; Thank you for your kind referral of this patient.; ; Outcome: 03:21 CT Study completed. ko2 03:44 Discharge ordered by Provider. mm11 04:05 Discharge Assessment: Patient awake, alert and oriented x 3. No cognitive and/or mlc functional deficits noted. Patient verbalized understanding of disposition instructions. patient administered narcotics -. The following High Risk Discharge criteria are identified: None. Discharged to home ambulatory, with significant other. Condition: good Condition: stable. Discharge instructions given to patient, Instructed on discharge instructions, follow up and referral plans. medication usage, Demonstrated understanding of instructions, medications, Pt was receptive of discharge instructions/ teaching. Prescriptions given X 1. Property sent home with patient. 04:06 Discharge Assessment: patient administered narcotics - yes. Pt provided with safe mlc discharge. 04:06 [place] [facility] [place] Signatures: Dispatcher Med[employer] EDMS Jessica Mata RN RN jan Zecher, Calvin, RN RN cz Bartlett, Floyd fab Barnhardt, Gloria, Reg Reg gb Tana Mackenzie, DO mm11 Marcie Fan, WHITTLING ROOM OPERATOR WHITTLING ROOM OPERATOR ar3 Rigoberto Macdonald gr2 Carlie Chaparro RN RN [facility] Barbara Zhou RN RN ko2 Jaymie Hameed, Reg Reg hs2 Vielka Eric, WHITTLING ROOM OPERATOR WHITTLING ROOM OPERATOR cln Chart Complete MTDD
--- NOTE | 2016-05-27 05:07 | EDDOCDS ---
Physician Documentation [facility] Name: Fariha Yanez Age: 40 yrs Sex: Female : 1975 Arrival Date: 05/24/2016 Time: 22:11 Bed 8 Private MD: Gail Clemons C Disposition: 05/25/16 03:44 Discharged to Home/Self Care. Impression: Chest pain, unspecified. - Condition is Stable. - Discharge Instructions: Angina Pectoris, Nonspecific Chest Pain, Chest Wall Pain, Nonspecific Chest Pain, Lyal-ho-Iblh. - Prescriptions for Prednisone 20 mg Oral Tablet - take 2 tablet by ORAL route once daily for 5 days; 10 tablet. - Medication Reconciliation, Local Pharmacy Hours form. - Follow up: Jasbir Marion; When: Call to arrange an appointment; Reason: Continuance of care. - Problem is an acute exacerbation. - Symptoms have improved. Historical: - Allergies: Cipro PO; Macrobid; seafood; Toradol; - Home Meds: 1. Depakote 500 mg Oral TbEC 1 tab 2 times per day 2. Valium 10 mg Oral tab (Last dose: 05/24/2016 08:00) 3. Wellbutrin SR 150 mg Oral TbER 2 tab once daily - PMHx: Migraine Headaches; pericarditis; - PSHx: Hysterectomy; arm surgery; dorsal column; head surgery; - Social history: Smoking status: Patient uses tobacco products, light tobacco smoker. No barriers to communication noted, The patient speaks fluent Persian, Speaks appropriately for age. - Family history: Not pertinent. - : The pt / caregiver states he / she is not on anticoagulants. Home medication list is obtained from the patient. - Exposure Risk Screening:: None identified. 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 2 in. (157.48 cm) (R); Pain 9/10; 05/25 00:23 BP 162 / 83 (auto/); ko2 00:25 Pulse 80 MON; Pulse Ox 100% ; ko2 00:53 BP 128 / 76 (auto/); ko2 00:53 Pulse 80 MON; Pulse Ox 97% ; ko2 01:23 BP 138 / 83 (auto/); ko2 01:23 Pulse 80 MON; Pulse Ox 96% ; ko2 01:53 BP 127 / 80 (auto/); ko2 01:53 Pulse 84 MON; Pulse Ox 96% ; ko2 02:23 BP 135 / 67 (auto/); ko2 02:23 Pulse 80 MON; Pulse Ox 96% ; ko2 02:53 Pulse 82 MON; Pulse Ox 96% ; mlc 02:53 BP 110 / 65 (auto/); mlc 03:23 BP 107 / 65 (auto/); mlc 03:24 Pulse 78 MON; Pulse Ox 95% ; mlc 03:50 BP 106 / 60 LA Supine (auto/reg); Pulse 78 MON; Resp 18 S; Temp 98.0(TE); Pulse Ox 92% cln on R/A; Pain 10/02; 05/24 22:13 Body Mass Index 25.61 (63.50 kg, 157.48 cm) gr2 MDM: 05/24 22:22 ECG WITH READING ER PHYS+CARDIAG ordered. EDMS 22:58 Overlay Operator/Pulse Ox/q 30 min VS ordered. mm11 22:58 IV Saline Lock ordered. mm11 22:58 Rhythm Strip to chart ordered. mm11 22:58 Undress patient appropriately for examination ordered. mm11 22:59 Basic Metabolic Profile Ordered. EDMS 22:59 CBC with Diff Ordered. EDMS 22:59 Cardiac Injury Profile Ordered. EDMS 22:59 Troponin Ordered. EDMS 22:59 HCG,Serum Qualitative Ordered. EDMS 22:59 ESR Ordered. EDMS 22:59 CRP Ordered. EDMS 22:59 Chest, 2 View (pa\E\lat) Ordered. EDMS 23:43 CBC with Diff Reviewed. mm11 23:56 HCG,Serum Qualitative Reviewed. mm11 05/25 00:06 Basic Metabolic Profile Reviewed. mm11 00:06 Troponin Reviewed. mm11 00:06 HCG,Serum Qualitative Reviewed. mm11 00:06 CRP Reviewed. mm11 00:07 morphine 4 mg IVP every 30 minutes; Document pain score/vitals after each dose (Hold if mm11 SBP < 90mmHg) x2 ordered. 00:07 Solu-MEDROL 125 mg IVP once ordered. mm11 00:08 CT Chest Angio R/O PE Ordered. EDMS 00:25 Basic Metabolic Profile Reviewed. mm11 00:25 CBC with Diff Reviewed. mm11 00:25 Cardiac Injury Profile Reviewed. mm11 00:25 Troponin Reviewed. mm11 00:25 HCG,Serum Qualitative Reviewed. mm11 00:25 ESR Reviewed. mm11 00:25 CRP Reviewed. mm11 00:31 Financial registration complete. hs2 01:29 [facility] Payment Agreement was scanned into [employer] and attached to record. hs2 03:42 Chest, 2 View (pa\E\lat) Reviewed. mm11 03:42 CT Chest Angio R/O PE Reviewed. mm11 09:18 T-Sheet-- Draft Copy was scanned into [employer] and attached to record. gb 09:19 ECG/EKG was scanned into [employer] and attached to record. gb 09:19 Radiology Report was scanned into [employer] and attached to record. gb Administered Medications: 00:20 Drug: morphine 4 mg [morphine 4 mg/mL intravenous cartridge (1 mL)] Route: IVP; Site: ko2 left antecubital; 00:20 Drug: Solu-MEDROL 125 mg [Solu-Medrol 500 mg intravenous solution (125 mg)] Route: IVP; ko2 Site: left antecubital; Signatures: Dispatcher [employer] EDMS Saul Arceo RN RN Madelin Pinzon, Reg Reg gb Marcus Mackenzie DO DO mm11 Carlie Chaparro RN RN [facility] Barbara Zhou RN RN ko2 Jaymie Hameed, Reg Reg hs2 The chart was reviewed and I authenticate all verbal orders and agree with the evaluation and treatment provided.Attachments: : [facility] Payment Agreement hs2 09:18 T-Sheet-- Draft Copy gb 09:19 ECG/EKG gb Chart Complete MTDD
== END 2016-05-25 04:06 | disposition home or self-care (01) ==
LOC: M ED 22:11
DX: R07.89 Other chest pain (principal); G43.909 Migraine, unspecified, not intractable, without status migrainosus; Z72.0 Tobacco use; Z79.891 Long term (current) use of opiate analgesic; Z79.899 Other long term (current) drug therapy; Z88.1 Allergy status to other antibiotic agents; Z88.5 Allergy status to narcotic agent; Z88.8 Allergy status to other drugs, medicaments and biological substances; Z91.013 Allergy to seafood
CPT/HCPCS: 36415; 71020; 71275; 80048; 82550; 82553; 84703; 85025; 85652; 86140; 93005; 93041; 96374; 96375; 99285; J2930; Q9967

== ENCOUNTER → 2016-06-24 | Outpatient (CLI) | payer OTHER, MEDICAID ==
--- NOTE | 2016-06-24 23:39 | ECWPNPC ---
PATIENT NAME: GURWINDER SWANN : 1975 GENDER: FEMALE VISIT DATE: 06/24/2016 DISCHARGE DATE: 06/24/16 1110 VISIT LOCKED DATE TIME: PHYSICIAN: SYED EDOUARD RESOURCE: SYED EDOUARD REASON FOR APPOINTMENT 1. R ARM HISTORY OF PRESENT ILLNESS HISTORY OF PRESENT ILLNESS: PAIN THE PATIENT DESCRIBES THE PAIN... THE PATIENT DESCRIBES THE PAIN... THE PATIENT DESCRIBES THE PAIN... THE PATIENT DESCRIBES THE PAIN... PAIN THE PATIENT DESCRIBES THE PAIN... THE PATIENT DESCRIBES THE PAIN... THE PATIENT DESCRIBES THE PAIN... THE PATIENT DESCRIBES THE PAIN... HERE FOR F/U AND MANAGEMENT OF PERSISTENT RIGHT ARM PAIN AND CHRONIC LBP.RATING PAIN VAS 7/10.USING MS CONTIN 15MG DAILY AND PERCOCET 5/325 PRN.COULD NOT TOLERATE MS CONTIN BID IT CAUSED TOO MUCH FATIGUE.FRACTURED RIGHT 4TH AND 5TH DIGIT AFTER FALL ON ICE 2WKS AGO.FOLLOWING DR. RACHEL DUBON BONE AND JOINT. FALL RISK SCREENING: SCREENING :NO FALLS IN THE PAST YEAR CURRENT MEDICATIONS TAKING WELLBUTRIN XL 300 MG TABLET EXTENDED RELEASE 24 HOUR 1 TABLET IN THE MORNING ORALLY ONCE A DAY TAKING DIAZEPAM 10 MG TABLET 1 TABLET NEEDED ORALLY EVERY 4 HOURS NEEDED TAKING DIVALPROEX SODIUM ER 500 MG TABLET EXTENDED RELEASE 24 HOUR ORALLY BID TAKING EPIPEN 2-DAMIAN 0.3 MG/0.3ML DEVICE INJECTION DIRECTED TAKING LIPITOR 20 MG TABLET 1 TABLET ORALLY ONCE A DAY TAKING MORPHINE SULFATE ER 15 MG TABLET EXTENDED RELEASE 1 TABLET ORALLY ONCE DAILY MDD1 TAKING PERCOCET 5-325 MG TABLET 1 TABLET NEEDED ORALLY Q8H PRN MDD2 NOT-TAKING LYRICA 50 MG CAPSULE 1 CAPSULE ORALLY DAILY NOT-TAKING VITAMIN D 1000 UNIT TABLET 1 TABLET ORALLY ONCE A DAY NOT-TAKING BUTALBITAL COMPOUND/CODEINE 74-550-16-30 MG CAPSULE 1 CAPSULE NEEDED ORALLY DIRECTED NOT-TAKING DULERA 100-5 MCG/ACT AEROSOL 2 PUFFS INHALATION TWICE A DAY NOT-TAKING IBUPROFEN 800 MG TABLET 1 TABLET NEEDED ORALLY THREE TIMES A DAY NOT-TAKING MELOXICAM 15 MG TABLET 1 TABLET ORALLY ONCE A DAY MEDICATION LIST REVIEWED AND RECONCILED WITH THE PATIENT ALLERGIES CYCLOBENZAPRINE HCL: PASSED OUT: ALLERGY GABAPENTIN: NAUSEA/VOMITING: SIDE EFFECTS LAMOTRIGINE: UNKNOWN NITROFURANTOIN: UNKNOWN BEE VENOM: ANAPHYLAXIS MACROBID: PASSED OUT: ALLERGY SOCIAL HISTORY GENERAL: TOBACCO USE ARE YOU A:NONSMOKER LEARNING BARRIERS / SPECIAL NEEDS ORIENTED TO PLAN OF CARE: PATIENT, PAIN MANAGEMENT PATIENT, ORIENTED TO PLAN OF CARE: PATIENT, PAIN MANAGEMENT PATIENT. NEW PATIENT PAIN DIARY TODAY'S VISITNOTES FROM 0-10, WHAT LEVEL IS YOUR PAIN TODAY?0 PAIN CLINIC PFS, CLERGY, PUBLIC HEALTH REFERRALS PFS REFERRAL NEEDED?NO CLERGY REFERRAL NEEDED?NO PUBLIC HEALTH REFERRAL NEEDED?NO WAS THE PROVIDER NOTIFIED OF ANY PERTINENT INFO?NO PFS REFERRAL NEEDED?NO CLERGY REFERRAL NEEDED?NO PUBLIC HEALTH REFERRAL NEEDED?NO WAS THE PROVIDER NOTIFIED OF ANY PERTINENT INFO?NO REVIEW OF SYSTEMS CONSTITUTIONAL: ANY CHANGE IN YOUR MEDICAL CONDITION? YES BLADDER STUDIES PERFORMED-&QUOT;WILL NEED NEW STIMULATOR&QUOT; . CHILLS NO . FEVER NO . INFECTION: DO YOU HAVE NEW INFECTIONS? YES SINUS INFECTION ON ANTIBIOTIC 2 WKS AGO. . DO YOU HAVE HISTORY OF MRSA? NO . MUSCULOSKELETAL: ANY NEW PATTERNS OF PAIN OR NUMBNESS? NO . GASTROENTEROLOGY: ANY NEW CHANGE IN BOWEL CONTROL? NO . GENITOURINARY: ANY NEW CHANGE IN BLADDER CONTROL? YES RECENT BLADDER STUDIES-NOT RECCOGNIZING NEED TO VOID. WILL NEED NEW DCS PER PT. . IS THERE A CHANCE YOU COULD BE ? NO . HEMATOLOGY/LYMPH: DO YOU TAKE ANY BLOOD THINNERS? (FOR EXAMPLE- COUMADIN, PLAVIX, AGGRENOX, PLATEL, PRADAXA, OR XARELTO) NO . WHEN WAS YOUR LAST DOSE? DATE: TIME: . NEUROLOGY: HAVE YOU FALLEN IN THE PAST 6 MONTHS? YES ON ICE -FX'D RIGHT 4TH/5TH FINGERS&NBSP;. ANY NEW EXTREMITY NUMBNESS OR WEAKNESS? &NBSP;&NBSP; NO&NBSP;. CARDIOLOGY: DO YOU HAVE A PACEMAKER OR DEFIBRILLATOR? NO . RESPIRATORY: HAVE YOU BEEN SICK IN THE PAST WEEK? NO . FEVER NO . FLU LIKE SYMPTOMS? NO . COUGH NO . INTEGUMENTARY: DO YOU HAVE ANY RASHES OR OPEN SORES? NO . ALLERGIC/IMMUNO: ARE YOU ALLERGIC TO SHELLFISH OR IV DYE? NO . ANY NEW ALLERGIES? NO . PSYCHIATRIC: DO YOU HAVE THOUGHTS OF HURTING YOURSELF OR SOMEONE ELSE? NO . ARE YOU ABUSED, NEGLECTED, OR IN AN UNSAFE ENVIRONMENT? NO . ENDOCRINOLOGY: ARE YOU DIABETIC? NO . OTHER: DO YOU NEED ANY PRESCRIPTIONS? NO . IF YES, PLEASE LIST: ____ . ANY NEW PROBLEMS WITH YOUR MEDICATIONS? NO . WHEN DID YOU LAST EAT? ____ . WHEN DID YOU LAST DRINK? ____ . WHAT DID YOU LAST DRINK? ____ . NAME OF PERSON DRIVING YOU HOME? ____ . DO YOU HAVE ANY OTHER QUESTIONS OR CONCERNS NO . REVIEWED BY: PROVIDER: SYED MOHAN . VITAL SIGNS WT 143.8 LBS, HT 62 IN, BMI 26.30 INDEX, BP 109/66 MM HG, HR 84 /MIN, RR 18 /MIN, TEMP 97.3 F, OXYGEN SAT % 98%, NA INITIALS SC 10:34, REVIEWED BY: MLF. EXAMINATION GENERAL EXAMINATION: LUNGS:LUNG SOUNDS ARE CLEAR. HEART:HEART RATE REGULAR. MUSCULOSKELETAL:CAST OVER RIGHT HAND. 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 BRINGS IN MEDICATIONS WHICH IS APPROPRIATE FOR WHAT WAS DISPENSED. RECENT URINE TOXICOLOGY REVIEWED. NO UNAUTHORIZED MEDICATIONS. NO ILLICIT SUBSTANCES AND PRESCRIBED MEDICATIONS WERE PRESENT. , RISKS AND BENEFITS OF NARCOTIC/OPIOD MEDICATIONS WERE REVIEWED WITH PATIENT - THIS INCLUDES BUT IS NOT LIMITED TO RISK OF DEPENDANCE/DEVELOPMENT OF ADDICTION, MOOD DISTURBANCE AND DEPRESSION, OSTEOPOROSIS, HORMONAL AND LABIDAL CHANGES, RESPIRATORY DEPRESSION AND . PATIENT IS ADVISED NOT TO DRIVE WHILE ON THESE MEDICATIONS. PROCEDURE CODES FA211 ESTABILISHED PATIENT [facility] CHARGE DISPOSITION & COMMUNICATION FOLLOW UP 3 MONTHS ELECTRONICALLY SIGNED BY MARQUES BURCIAGA ON 06/24/2016 AT 11:23 AM EST DISCLAIMER : THIS IS A VISIT SUMMARY EXTRACTED FROM THE [employer] CHART. IT IS NOT A COPY OF THE [employer] PROGRESS NOTE. AJ
== END ==
LOC: M PAIN 10:20
PROVIDERS: ATTEND Nurse Practitioner Family
DX: Z09 Encounter for follow-up examination after completed treatment for conditions other than malignant neoplasm (principal); G89.28 Other chronic postprocedural pain; M79.601 Pain in right arm; Z88.8 Allergy status to other drugs, medicaments and biological substances; Z91.030 Bee allergy status; Z79.891 Long term (current) use of opiate analgesic; Z79.899 Other long term (current) drug therapy

== ENCOUNTER → 2016-09-24 | Outpatient (CLI) | payer OTHER, MEDICAID | LOC: M PAIN 14:00 | PROVIDERS: ATTEND Nurse Practitioner Family | DX: G89.29 Other chronic pain (principal); M79.601 Pain in right arm; Z79.891 Long term (current) use of opiate analgesic; M54.5 Low back pain; Z79.899 Other long term (current) drug therapy; Z91.030 Bee allergy status; Z88.8 Allergy status to other drugs, medicaments and biological substances; Z88.1 Allergy status to other antibiotic agents ==

== ENCOUNTER → 2016-11-24 | Outpatient (CLI) | payer OTHER, MEDICAID ==
[~2016-11-24] MED LIST changes: -PERC10TA17 PO; +PERC10TA26 PO; +PERC5TAB12 PO; -PERC5TAB6 PO; +VOLT1GEL15 TOP; -VOLT1GEL24 TOP
--- NOTE | 2016-12-12 00:26 | ECWPNPC ---
PATIENT NAME: GURWINDER SWANN : 1975 GENDER: FEMALE VISIT DATE: 11/24/2016 DISCHARGE DATE: 11/24/16 1609 VISIT LOCKED DATE TIME: PHYSICIAN: SYED EDOUARD RESOURCE: SYED EDOUARD REASON FOR APPOINTMENT 1. 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 PAIN THE PATIENT DESCRIBES THE PAIN... FALL RISK SCREENING: SCREENING :NO FALLS IN THE PAST YEAR CURRENT MEDICATIONS TAKING WELLBUTRIN XL 300 MG TABLET EXTENDED RELEASE 24 HOUR 1 TABLET IN THE MORNING ORALLY ONCE A DAY TAKING DIAZEPAM 10 MG TABLET 1 TABLET NEEDED ORALLY EVERY 4 HOURS NEEDED TAKING DIVALPROEX SODIUM ER 500 MG TABLET EXTENDED RELEASE 24 HOUR ORALLY BID TAKING EPIPEN 2-DAMIAN 0.3 MG/0.3ML DEVICE INJECTION DIRECTED TAKING MORPHINE SULFATE ER 15 MG TABLET EXTENDED RELEASE 1 TABLET ORALLY ONCE DAILY MDD1 TAKING PERCOCET 5-325 MG TABLET 1 TABLET NEEDED ORALLY Q8H PRN MDD2 NOT-TAKING LIPITOR 20 MG TABLET 1 TABLET ORALLY ONCE A DAY NOT-TAKING LYRICA 50 MG CAPSULE 1 CAPSULE ORALLY DAILY NOT-TAKING VITAMIN D 1000 UNIT TABLET 1 TABLET ORALLY ONCE A DAY NOT-TAKING BUTALBITAL COMPOUND/CODEINE [id number] MG CAPSULE 1 CAPSULE NEEDED ORALLY DIRECTED NOT-TAKING DULERA 100-5 MCG/ACT AEROSOL 2 PUFFS INHALATION TWICE A DAY NOT-TAKING IBUPROFEN 800 MG TABLET 1 TABLET NEEDED ORALLY THREE TIMES A DAY NOT-TAKING MELOXICAM 15 MG TABLET 1 TABLET ORALLY ONCE A DAY MEDICATION LIST REVIEWED AND RECONCILED WITH THE PATIENT PAST MEDICAL HISTORY CHRONIC BACK PAIN ALLERGIES CYCLOBENZAPRINE HCL: PASSED OUT: ALLERGY GABAPENTIN: NAUSEA/VOMITING: SIDE EFFECTS LAMOTRIGINE: UNKNOWN NITROFURANTOIN: UNKNOWN BEE VENOM: ANAPHYLAXIS MACROBID: PASSED OUT: ALLERGY SURGICAL HISTORY HYSTERECTOMY 2012 RIGHT ARM SURGERY 2015 BLADDER STIMULATOR 2014 HEAD SURGERY FOR CRACKED SKULL RIGHT ARM HARDWARE REMOVED. 2016 DORSAL COLUMN STIMULATOR DORSAL COLUMN STIMULATOR MANIPULATION 11/19/16 HOSPITALIZATION/MAJOR DIAGNOSTIC PROCEDURE SURGERY RELATED REVIEW OF SYSTEMS REVIEWED BY: PROVIDER: SYED MOHAN . CONSTITUTIONAL: ANY CHANGE IN YOUR MEDICAL CONDITION? YES, DORSAL COLUMN STIMULATOR MANIPULATION 11/19/16, PT STATES SHE IS ON KEFLEX POST OP, DOSE UNKNOWN . CHILLS NO . FEVER NO . INFECTION: DO YOU HAVE NEW INFECTIONS? NO . DO YOU HAVE HISTORY OF MRSA? NO . MUSCULOSKELETAL: ANY NEW PATTERNS OF PAIN OR NUMBNESS? YES, BOTH ARMS ARE NUMB LEFT CARE HOME, RIGHT MORE RECENT . GASTROENTEROLOGY: ANY NEW CHANGE IN BOWEL CONTROL? NO . GENITOURINARY: ANY NEW CHANGE IN BLADDER CONTROL? YES, URINARY CATHETERIZED . IS THERE A CHANCE YOU COULD BE ? NO . HEMATOLOGY/LYMPH: DO YOU TAKE ANY BLOOD THINNERS? (FOR EXAMPLE- COUMADIN, PLAVIX, AGGRENOX, PLATEL, PRADAXA, OR XARELTO) NO . WHEN WAS YOUR LAST DOSE? DATE: TIME: . NEUROLOGY: HAVE YOU FALLEN IN THE PAST 6 MONTHS? NO . ANY NEW EXTREMITY NUMBNESS OR WEAKNESS? NO . CARDIOLOGY: DO YOU HAVE A PACEMAKER OR DEFIBRILLATOR? NO . RESPIRATORY: HAVE YOU BEEN SICK IN THE PAST WEEK? NO . FEVER NO . FLU LIKE SYMPTOMS? NO . COUGH NO . INTEGUMENTARY: DO YOU HAVE ANY RASHES OR OPEN SORES? NO . ALLERGIC/IMMUNO: ARE YOU ALLERGIC TO SHELLFISH OR IV DYE? NO . ANY NEW ALLERGIES? NO . PSYCHIATRIC: DO YOU HAVE THOUGHTS OF HURTING YOURSELF OR SOMEONE ELSE? NO . ARE YOU ABUSED, NEGLECTED, OR IN AN UNSAFE ENVIRONMENT? NO . ENDOCRINOLOGY: ARE YOU DIABETIC? NO . OTHER: DO YOU NEED ANY PRESCRIPTIONS? NO . IF YES, PLEASE LIST: ____ . ANY NEW PROBLEMS WITH YOUR MEDICATIONS? NO . WHEN DID YOU LAST EAT? ____ . WHEN DID YOU LAST DRINK? ____ . WHAT DID YOU LAST DRINK? ____ . NAME OF PERSON DRIVING YOU HOME? ____ . DO YOU HAVE ANY OTHER QUESTIONS OR CONCERNS NO . VITAL SIGNS WT 138.2 LBS, HT 62 IN, BMI 25.27 INDEX, BP 111/62 MM HG, HR 87 /MIN, RR 16 /MIN, TEMP 97.6 F, OXYGEN SAT % 93%, SAFE IN ENV? (Y/N) Y, NA INITIALS AW 1513, REVIEWED BY: EM. EXAMINATION : DEFERRED DUE TO HER ACUTE SEVERE PAIN. ASSESSMENTS ACUTE POST-OPERATIVE PAIN - G89.18 (PRIMARY) TREATMENT ACUTE POST-OPERATIVE PAIN STOP MORPHINE SULFATE ER TABLET EXTENDED RELEASE, 15 MG, 1 TABLET, ORALLY, ONCE DAILY MDD1 STOP PERCOCET TABLET, 5-325 MG, 1 TABLET NEEDED, ORALLY, Q8H PRN MDD2 START MORPHINE SULFATE TABLET, 15 MG, 1 TABLET NEEDED, ORALLY, EVERY 6H PRN MDD4, 30 DAY(S), 120, REFILLS 0 START TIZANIDINE HCL TABLET, 4 MG, 1 TABLET NEEDED, ORALLY, THREE TIMES A DAY, 30 DAY(S), 90 TABLET, REFILLS 0 PROCEDURE CODES FA211 ESTABILISHED PATIENT [facility] CHARGE DISPOSITION & COMMUNICATION FOLLOW UP FIRST AVAILABLE IN DEC ELECTRONICALLY SIGNED BY MARQUES BURCIAGA ON 12/09/2016 AT 07:31 PM EDT DISCLAIMER : THIS IS A VISIT SUMMARY EXTRACTED FROM THE [employer] CHART. IT IS NOT A COPY OF THE [employer] PROGRESS NOTE. MTDD
== END ==
LOC: M PAIN 14:00
PROVIDERS: ATTEND Nurse Practitioner Family
DX: G89.18 Other acute postprocedural pain (principal); M54.9 Dorsalgia, unspecified; M79.601 Pain in right arm; Z79.891 Long term (current) use of opiate analgesic; Z79.899 Other long term (current) drug therapy; Z91.030 Bee allergy status; Z88.1 Allergy status to other antibiotic agents; Z88.8 Allergy status to other drugs, medicaments and biological substances

== ENCOUNTER → 2017-01-14 | Outpatient (CLI) | payer MEDICAID, OTHER ==
--- NOTE | 2017-02-06 23:57 | ECWPNPC ---
PATIENT NAME: GURWINDER SWANN : 1975 GENDER: FEMALE VISIT DATE: 01/14/2017 DISCHARGE DATE: 01/14/17 1533 VISIT LOCKED DATE TIME: PHYSICIAN: SYED EDOUARD RESOURCE: SYED EDOUARD REASON FOR APPOINTMENT 1. MEDS HISTORY OF PRESENT ILLNESS HISTORY OF PRESENT ILLNESS: HERE FOR F/U OF CHRONIC RIGHT ARM PAIN STATUS POST MULTIPLE SURGERIES.RATING PAIN VAS 8/10.DESCRIBES PAIN CONSTANT BURNING AND ACHING.REPORTS CURRENT PAIN MEDICINE IS TOO STRONG.DISCUSSED MEDICINE AND TREATMENT OPTIONS. PAIN THE PATIENT DESCRIBES THE PAIN... THE PATIENT DESCRIBES THE PAIN... FALL RISK SCREENING: SCREENING :NO FALLS IN THE PAST YEAR CURRENT MEDICATIONS TAKING WELLBUTRIN XL 300 MG TABLET EXTENDED RELEASE 24 HOUR 1 TABLET IN THE MORNING ORALLY ONCE A DAY TAKING DIAZEPAM 10 MG TABLET 1 TABLET NEEDED ORALLY EVERY 4 HOURS NEEDED TAKING DIVALPROEX SODIUM ER 500 MG TABLET EXTENDED RELEASE 24 HOUR ORALLY BID TAKING EPIPEN 2-DAMIAN 0.3 MG/0.3ML DEVICE INJECTION DIRECTED TAKING TIZANIDINE HCL 4 MG TABLET 1 TABLET NEEDED ORALLY THREE TIMES A DAY TAKING MORPHINE SULFATE 15 MG TABLET 1 TABLET NEEDED ORALLY EVERY 6H PRN MDD4 NOT-TAKING LIPITOR 20 MG TABLET 1 TABLET ORALLY ONCE A DAY NOT-TAKING LYRICA 50 MG CAPSULE 1 CAPSULE ORALLY DAILY NOT-TAKING VITAMIN D 1000 UNIT TABLET 1 TABLET ORALLY ONCE A DAY NOT-TAKING BUTALBITAL COMPOUND/CODEINE 27-176-29-30 MG CAPSULE 1 CAPSULE NEEDED ORALLY DIRECTED NOT-TAKING DULERA 100-5 MCG/ACT AEROSOL 2 PUFFS INHALATION TWICE A DAY NOT-TAKING IBUPROFEN 800 MG TABLET 1 TABLET NEEDED ORALLY THREE TIMES A DAY NOT-TAKING MELOXICAM 15 MG TABLET 1 TABLET ORALLY ONCE A DAY MEDICATION LIST REVIEWED AND RECONCILED WITH THE PATIENT PAST MEDICAL HISTORY CHRONIC BACK PAIN ALLERGIES CYCLOBENZAPRINE HCL: PASSED OUT: ALLERGY GABAPENTIN: NAUSEA/VOMITING: SIDE EFFECTS LAMOTRIGINE: UNKNOWN NITROFURANTOIN: UNKNOWN BEE VENOM: ANAPHYLAXIS MACROBID: PASSED OUT: ALLERGY SURGICAL HISTORY HYSTERECTOMY 2012 RIGHT ARM SURGERY 2015 BLADDER STIMULATOR 2014 HEAD SURGERY FOR CRACKED SKULL RIGHT ARM HARDWARE REMOVED. 2016 DORSAL COLUMN STIMULATOR DORSAL COLUMN STIMULATOR MANIPULATION 11/19/16 RIGHT INTERSTIM REPLACED 01/14/17 HOSPITALIZATION/MAJOR DIAGNOSTIC PROCEDURE SURGERY RELATED REVIEW OF SYSTEMS REVIEWED BY: PROVIDER: SYED EDOUARD LABOR RELATIONS TEACHER . CONSTITUTIONAL: ANY CHANGE IN YOUR MEDICAL CONDITION? NEW INTERSTEM TODAY . CHILLS NO . FEVER NO . INFECTION: DO YOU HAVE NEW INFECTIONS? NO . DO YOU HAVE HISTORY OF MRSA? NO . MUSCULOSKELETAL: ANY NEW PATTERNS OF PAIN OR NUMBNESS? YES, ARM . GASTROENTEROLOGY: ANY NEW CHANGE IN BOWEL CONTROL? NO . GENITOURINARY: ANY NEW CHANGE IN BLADDER CONTROL? NO . IS THERE A CHANCE YOU COULD BE ? NO . HEMATOLOGY/LYMPH: DO YOU TAKE ANY BLOOD THINNERS? (FOR EXAMPLE- COUMADIN, PLAVIX, AGGRENOX, PLATEL, PRADAXA, OR XARELTO) NO . WHEN WAS YOUR LAST DOSE? DATE: TIME: . NEUROLOGY: HAVE YOU FALLEN IN THE PAST 6 MONTHS? NO . ANY NEW EXTREMITY NUMBNESS OR WEAKNESS? NO . CARDIOLOGY: DO YOU HAVE A PACEMAKER OR DEFIBRILLATOR? NO . RESPIRATORY: HAVE YOU BEEN SICK IN THE PAST WEEK? NO . FEVER NO . FLU LIKE SYMPTOMS? NO . COUGH NO . INTEGUMENTARY: DO YOU HAVE ANY RASHES OR OPEN SORES? NO . ALLERGIC/IMMUNO: ARE YOU ALLERGIC TO SHELLFISH OR IV DYE? NO . ANY NEW ALLERGIES? NO . PSYCHIATRIC: DO YOU HAVE THOUGHTS OF HURTING YOURSELF OR SOMEONE ELSE? NO . ARE YOU ABUSED, NEGLECTED, OR IN AN UNSAFE ENVIRONMENT? NO . ENDOCRINOLOGY: ARE YOU DIABETIC? NO . OTHER: DO YOU NEED ANY PRESCRIPTIONS? NO . IF YES, PLEASE LIST: ____ . ANY NEW PROBLEMS WITH YOUR MEDICATIONS? NO . WHEN DID YOU LAST EAT? ____ . WHEN DID YOU LAST DRINK? ____ . WHAT DID YOU LAST DRINK? ____ . NAME OF PERSON DRIVING YOU HOME? ____ . DO YOU HAVE ANY OTHER QUESTIONS OR CONCERNS NO . VITAL SIGNS WT 135 LBS, HT 62 IN, BMI 24.69 INDEX, BP 119/76 MM HG, HR 78 /MIN, RR 18 /MIN, TEMP 97.2 F, OXYGEN SAT % 100, REVIEWED BY: NL. EXAMINATION ELBOW/ARM: PALPATION:TENDER OVER RIGHT WRIST. NEUROVASCULAR EXAM:HYPERSENSITIVE TO LIGHT TOUCH OVER ULNAR INCISION RIGHT FOREARM. GENERAL EXAMINATION: LUNGS:LUNG JIMENEZ ARE CLEAR TO AUSCULTATION BILATERALLY. GOOD MOVEMENT OF AIR. HEART:S1, S2 IN A REGULAR RATE AND RHYTHM. NO SIGNIFICANT MURMURS, RUBS OR GALLOPS NOTED. ASSESSMENTS ACUTE POST-OPERATIVE PAIN - G89.18 (PRIMARY) RIGHT ARM PAIN - M79.601 TREATMENT ACUTE POST-OPERATIVE PAIN START PERCOCET TABLET, 5-325 MG, 1 TABLET NEEDED, ORALLY, EVERY 6 HRS PRN MDD4, 30 DAY(S), 60, REFILLS 0 START MS CONTIN TABLET EXTENDED RELEASE, 15 MG, 1 TABLET, ORALLY, DAILY, 30 DAY(S), 30 TABLET, REFILLS 0 NOTES: ISTOP REGISTRY REVIEWED [id number] AND DEMNOSTRATES COMPLLIANCE. BRINGS IN MEDICATIONS WHICH IS APPROPRIATE FOR WHAT WAS DISPENSED. RECENT URINE TOXICOLOGY REVIEWED. NO UNAUTHORIZED MEDICATIONS. NO ILLICIT SUBSTANCES AND PRESCRIBED MEDICATIONS WERE PRESENT. , RISKS AND BENEFITS OF NARCOTIC/OPIOD MEDICATIONS WERE REVIEWED WITH PATIENT - THIS INCLUDES BUT IS NOT LIMITED TO RISK OF DEPENDANCE/DEVELOPMENT OF ADDICTION, MOOD DISTURBANCE AND DEPRESSION, OSTEOPOROSIS, HORMONAL AND LABIDAL CHANGES, RESPIRATORY DEPRESSION AND . PATIENT IS ADVISED NOT TO DRIVE WHILE ON THESE MEDICATIONS. PROCEDURE CODES FA211 ESTABILISHED PATIENT [facility] CHARGE DISPOSITION & COMMUNICATION FOLLOW UP 2 MONTHS ELECTRONICALLY SIGNED BY MARQUES BURCIAGA ON 02/06/2017 AT 07:59 PM EDT DISCLAIMER : THIS IS A VISIT SUMMARY EXTRACTED FROM THE [employer] CHART. IT IS NOT A COPY OF THE [employer] PROGRESS [employer]. AJ
== END ==
LOC: M PAIN 14:15
PROVIDERS: ATTEND Nurse Practitioner Family
DX: G89.18 Other acute postprocedural pain (principal); M79.601 Pain in right arm; Z79.899 Other long term (current) drug therapy; Z79.891 Long term (current) use of opiate analgesic

== ENCOUNTER → 2017-03-25 | Outpatient (CLI) | payer OTHER, MEDICAID ==
--- NOTE | 2017-04-15 01:39 | ECWPNPC ---
PATIENT NAME: GURWINDER SWANN : 1975 GENDER: FEMALE VISIT DATE: 03/25/2017 DISCHARGE DATE: 03/25/17 1527 VISIT LOCKED DATE TIME: PHYSICIAN: SYED EDOUARD RESOURCE: SYED EDOUARD REASON FOR APPOINTMENT 1. BACK HISTORY OF PRESENT ILLNESS HISTORY OF PRESENT ILLNESS: HERE FOR F/U OF CHRONIC RIGHT ARM PAIN STATUS POST MULTIPLE SURGERIES.RATING PAIN VAS 7/10.DESCRIBES PAIN CONSTANT BURNING AND ACHING.FINDS CURRENT MEDICATION SOMEWHAT HELPFUL.CURRENTLY TAKING MS CONTIN 15MG DAILY AND PERCOCET 5/325 Q12H PRN MDD2.DENIES SIDE EFFECTS.HAVING A FLARE UP OF RIGHT ARM PAIN PAST TWO WEEKS.DISCUSSED MEDICINE AND TREATMENT OPTIONS.FOLLOWS WITH DR. RACHEL DUBON BONE/JOINT IN [place]. PAIN THE PATIENT DESCRIBES THE PAIN... THE PATIENT DESCRIBES THE PAIN... THE PATIENT DESCRIBES THE PAIN... FALL RISK SCREENING: SCREENING :NO FALLS IN THE PAST YEAR CURRENT MEDICATIONS TAKING DIAZEPAM 10 MG TABLET 1 TABLET NEEDED ORALLY EVERY 4 HOURS NEEDED TAKING EPIPEN 2-DAMIAN 0.3 MG/0.3ML DEVICE INJECTION DIRECTED TAKING MS CONTIN 15 MG TABLET EXTENDED RELEASE 1 TABLET ORALLY DAILY TAKING PERCOCET 5-325 MG TABLET 1 TABLET NEEDED ORALLY EVERY 6 HRS PRN MDD4 TAKING VALIUM 10 MG TABLET 1 TABLET NEEDED ORALLY FOUR TIMES DAILY NOT-TAKING MORPHINE SULFATE 15 MG TABLET 1 TABLET NEEDED ORALLY EVERY 6H PRN MDD4 NOT-TAKING WELLBUTRIN XL 300 MG TABLET EXTENDED RELEASE 24 HOUR 1 TABLET IN THE MORNING ORALLY ONCE A DAY NOT-TAKING DIVALPROEX SODIUM ER 500 MG TABLET EXTENDED RELEASE 24 HOUR ORALLY BID NOT-TAKING TIZANIDINE HCL 4 MG TABLET 1 TABLET NEEDED ORALLY THREE TIMES A DAY NOT-TAKING MS CONTIN 15 MG TABLET EXTENDED RELEASE 1 TABLET ORALLY ONE DAILY=MDD NOT-TAKING LIPITOR 20 MG TABLET 1 TABLET ORALLY ONCE A DAY NOT-TAKING LYRICA 50 MG CAPSULE 1 CAPSULE ORALLY DAILY NOT-TAKING VITAMIN D 1000 UNIT TABLET 1 TABLET ORALLY ONCE A DAY NOT-TAKING BUTALBITAL COMPOUND/CODEINE [id number] MG CAPSULE 1 CAPSULE NEEDED ORALLY DIRECTED NOT-TAKING DULERA 100-5 MCG/ACT AEROSOL 2 PUFFS INHALATION TWICE A DAY NOT-TAKING IBUPROFEN 800 MG TABLET 1 TABLET NEEDED ORALLY THREE TIMES A DAY NOT-TAKING MELOXICAM 15 MG TABLET 1 TABLET ORALLY ONCE A DAY MEDICATION LIST REVIEWED AND RECONCILED WITH THE PATIENT PAST MEDICAL HISTORY CHRONIC BACK PAIN ALLERGIES CYCLOBENZAPRINE HCL: PASSED OUT: ALLERGY GABAPENTIN: NAUSEA/VOMITING: SIDE EFFECTS LAMOTRIGINE: UNKNOWN NITROFURANTOIN: UNKNOWN BEE VENOM: ANAPHYLAXIS MACROBID: PASSED OUT: ALLERGY SURGICAL HISTORY HYSTERECTOMY 2012 RIGHT ARM SURGERY 2015 BLADDER STIMULATOR 2014 HEAD SURGERY FOR CRACKED SKULL RIGHT ARM HARDWARE REMOVED. 2016 DORSAL COLUMN STIMULATOR DORSAL COLUMN STIMULATOR MANIPULATION 11/19/16 RIGHT INTERSTIM REPLACED 01/14/17 SOCIAL HISTORY GENERAL: TOBACCO USE ARE YOU A:CURRENT SMOKER ARE YOU INTERESTED IN QUITTING?NOT READY TO QUIT COUNSELED THE PATIENT ON SMOKING EFFECTS, EDUCATION [id number]/01/2017 HOW MANY CIGARETTES A DAY DO YOU SMOKE?5 OR LESS PATIENT COUNSELED ON THE DANGERS OF TOBACCO USE AND URGED TO QUIT:03/25/2017 TAOISM [id number] EVANGELICAL LANGUAGE LANGUAGES SPOKEN:[place] LEARNING BARRIERS / SPECIAL NEEDS ORIENTED TO PLAN OF CARE: PATIENT, PAIN MANAGEMENT PATIENT, ORIENTED TO PLAN OF CARE: PATIENT, PAIN MANAGEMENT PATIENT. NEW PATIENT PAIN DIARY TODAY'S VISITNOTES FROM 0-10, WHAT LEVEL IS YOUR PAIN TODAY?0 PAIN CLINIC PFS, CLERGY, PUBLIC HEALTH REFERRALS PFS REFERRAL NEEDED?NO CLERGY REFERRAL NEEDED?NO PUBLIC HEALTH REFERRAL NEEDED?NO WAS THE PROVIDER NOTIFIED OF ANY PERTINENT INFO?NO HAS THE PATIENT BEEN EDUCATED REGARDING HIS/HER PLAN OF CARE?YES HAS THE PATIENT BEEN EDUCATED REGARDING PAIN, THE RISK FOR PAIN, THE IMPORTANCE OF EFFECTIVE PAIN MANAGEMENT, AND THE PAIN ASSESSMENT PROCESS?YES ADVANCE DIRECTIVES HEALTH CARE PROXY?YES NAME OF HCP NELLI ESCUDERO DO YOU HAVE A DNR?NO LIVING WILL?NO POWER OF ACCOUNTANT CONTROLLER?NO HOSPITALIZATION/MAJOR DIAGNOSTIC PROCEDURE SURGERY RELATED REVIEW OF SYSTEMS REVIEWED BY: PROVIDER: SYED MOHAN . CONSTITUTIONAL: ANY CHANGE IN YOUR MEDICAL CONDITION? NO . CHILLS NO . FEVER NO . INFECTION: DO YOU HAVE NEW INFECTIONS? NO . DO YOU HAVE HISTORY OF MRSA? NO . MUSCULOSKELETAL: ANY NEW PATTERNS OF PAIN OR NUMBNESS? YES, PAIN IS WORSE. PT REPORTS EMG DONE 12/2016 AT [facility]. PT REPORTS NERVES ARE NOT WORKING PROPERLY AND SCARRING IS PRESENT FROM MULTIPLE SURGERIES . GASTROENTEROLOGY: ANY NEW CHANGE IN BOWEL CONTROL? YES, DIARRHEA . GENITOURINARY: ANY NEW CHANGE IN BLADDER CONTROL? NO . IS THERE A CHANCE YOU COULD BE ? NO . HEMATOLOGY/LYMPH: DO YOU TAKE ANY BLOOD THINNERS? (FOR EXAMPLE- COUMADIN, PLAVIX, AGGRENOX, PLATEL, PRADAXA, OR XARELTO) NO . WHEN WAS YOUR LAST DOSE? DATE: TIME: . NEUROLOGY: HAVE YOU FALLEN IN THE PAST 6 MONTHS? YES, PT REPORTS FALLING POST OP FROM PAIN AND [place]NC[place]. PT WAS BROUGHT TO HOSPITAL IN [place] . ANY NEW EXTREMITY NUMBNESS OR WEAKNESS? NO . CARDIOLOGY: DO YOU HAVE A PACEMAKER OR DEFIBRILLATOR? NO, INTERSTEM IN PLACE . RESPIRATORY: HAVE YOU BEEN SICK IN THE PAST WEEK? YES, PT IS RECOVERING FROM SINUSITIS. PT STATES SHE IS TAKING ABX AUGMENTIN, PREDNISONE AND TESSELON PEARLS FOR THIS. PT DOES NOT KNOW DOSES OF ANY OF THEM . FEVER NO . FLU LIKE SYMPTOMS? NO . COUGH NO . INTEGUMENTARY: DO YOU HAVE ANY RASHES OR OPEN SORES? NO . ALLERGIC/IMMUNO: ARE YOU ALLERGIC TO SHELLFISH OR IV DYE? NO . ANY NEW ALLERGIES? NO . PSYCHIATRIC: DO YOU HAVE THOUGHTS OF HURTING YOURSELF OR SOMEONE ELSE? NO . ARE YOU ABUSED, NEGLECTED, OR IN AN UNSAFE ENVIRONMENT? NO . ENDOCRINOLOGY: ARE YOU DIABETIC? NO . OTHER: DO YOU NEED ANY PRESCRIPTIONS? YES . IF YES, PLEASE LIST: ____ . ANY NEW PROBLEMS WITH YOUR MEDICATIONS? NO . WHEN DID YOU LAST EAT? ____ . WHEN DID YOU LAST DRINK? ____ . WHAT DID YOU LAST DRINK? ____ . NAME OF PERSON DRIVING YOU HOME? ____ . DO YOU HAVE ANY OTHER QUESTIONS OR CONCERNS NO . VITAL SIGNS WT 135 LBS, HT 62 IN, BMI 24.69 INDEX, BP 118/75 MM HG, HR 83 /MIN, RR 18 /MIN, TEMP 97.5 F, OXYGEN SAT % 99%, NA INITIALS SC 14:04, REVIEWED BY: EM. EXAMINATION ELBOW/ARM: PALPATION:TENDER OVER RIGHT WRIST. NEUROVASCULAR EXAM:HYPERSENSITIVE TO LIGHT TOUCH OVER ULNAR INCISION RIGHT FOREARM. GENERAL EXAMINATION: LUNGS:LUNG JIMENEZ ARE CLEAR TO AUSCULTATION BILATERALLY. GOOD MOVEMENT OF AIR. HEART:S1, S2 IN A REGULAR RATE AND RHYTHM. NO SIGNIFICANT MURMURS, RUBS OR GALLOPS NOTED. ASSESSMENTS ACUTE POST-OPERATIVE PAIN - G89.18 (PRIMARY) RIGHT ARM PAIN - M79.601 CHRONIC PRESCRIPTION OPIATE USE - Z79.891 TREATMENT ACUTE POST-OPERATIVE PAIN REFILL MS CONTIN TABLET EXTENDED RELEASE, 15 MG, 1 TABLET, ORALLY, DAILY, 30 DAY(S), 30 TABLET, REFILLS 0 REFILL PERCOCET TABLET, 5-325 MG, 1 TABLET NEEDED, ORALLY, EVERY 6 HRS PRN MDD4, 30 DAY(S), 60, REFILLS 0 NOTES: ISTOP REGISTRY REVIEWED [id number] AND DEMNOSTRATES COMPLLIANCE. BRINGS IN MEDICATIONS WHICH IS APPROPRIATE FOR WHAT WAS DISPENSED. RECENT URINE TOXICOLOGY REVIEWED. NO UNAUTHORIZED MEDICATIONS. NO ILLICIT SUBSTANCES AND PRESCRIBED MEDICATIONS WERE PRESENT.RISKS AND BENEFITS OF NARCOTIC/OPIOD MEDICATIONS WERE REVIEWED WITH PATIENT - THIS INCLUDES BUT IS NOT LIMITED TO RISK OF DEPENDANCE/DEVELOPMENT OF ADDICTION, MOOD DISTURBANCE AND DEPRESSION, OSTEOPOROSIS, HORMONAL AND LABIDAL CHANGES, RESPIRATORY DEPRESSION AND . PATIENT IS ADVISED NOT TO DRIVE WHILE ON THESE MEDICATIONS, URINE TOX TODAY/NARC AGREEMENT. PROCEDURE CODES FA211 ESTABILISHED PATIENT [facility] CHARGE DISPOSITION & COMMUNICATION FOLLOW UP 2 MONTHS ELECTRONICALLY SIGNED BY MARQUES BURCIAGA ON 04/14/2017 AT 03:47 PM EST DISCLAIMER : THIS IS A VISIT SUMMARY EXTRACTED FROM THE [employer] CHART. IT IS NOT A COPY OF THE [employer] PROGRESS NOTE. AJ
== END ==
LOC: M PAIN 14:15
PROVIDERS: ATTEND Nurse Practitioner Family
DX: G89.18 Other acute postprocedural pain (principal); M79.601 Pain in right arm; F17.210 Nicotine dependence, cigarettes, uncomplicated; Z79.891 Long term (current) use of opiate analgesic; Z79.899 Other long term (current) drug therapy; Z88.8 Allergy status to other drugs, medicaments and biological substances; Z91.030 Bee allergy status; Z88.1 Allergy status to other antibiotic agents

== ENCOUNTER → 2017-05-26 | Outpatient (CLI) | payer OTHER, MEDICAID | LOC: M PAIN 13:30 | DX: G89.18 Other acute postprocedural pain (principal); M79.601 Pain in right arm; F17.210 Nicotine dependence, cigarettes, uncomplicated; Z88.8 Allergy status to other drugs, medicaments and biological substances; Z91.030 Bee allergy status; Z79.891 Long term (current) use of opiate analgesic; Z79.899 Other long term (current) drug therapy | CPT/HCPCS: G0463 ==

== ENCOUNTER → 2017-07-25 | Outpatient (CLI) | payer OTHER, MEDICAID | LOC: M PAIN 13:00 | DX: G89.28 Other chronic postprocedural pain (principal); G62.9 Polyneuropathy, unspecified; M79.601 Pain in right arm; F17.210 Nicotine dependence, cigarettes, uncomplicated; Z79.899 Other long term (current) drug therapy; Z88.1 Allergy status to other antibiotic agents; Z88.8 Allergy status to other drugs, medicaments and biological substances; Z91.040 Latex allergy status | CPT/HCPCS: G0463 ==

== ENCOUNTER → 2017-10-21 | Outpatient (CLI) | payer OTHER, MEDICAID | LOC: M PAIN 10:30 | DX: G89.28 Other chronic postprocedural pain (principal); M79.601 Pain in right arm; F17.210 Nicotine dependence, cigarettes, uncomplicated; Z79.891 Long term (current) use of opiate analgesic; Z79.899 Other long term (current) drug therapy; Z88.8 Allergy status to other drugs, medicaments and biological substances; Z91.030 Bee allergy status; Z87.820 Personal history of traumatic brain injury | CPT/HCPCS: G0463 ==

== ENCOUNTER → 2018-01-20 | Outpatient (CLI) | payer OTHER, MEDICAID | LOC: M PAIN 14:00 | DX: G89.28 Other chronic postprocedural pain (principal); M79.601 Pain in right arm; F17.210 Nicotine dependence, cigarettes, uncomplicated; Z79.891 Long term (current) use of opiate analgesic; Z79.899 Other long term (current) drug therapy; Z88.8 Allergy status to other drugs, medicaments and biological substances; Z91.030 Bee allergy status; Z91.013 Allergy to seafood; Z87.820 Personal history of traumatic brain injury | CPT/HCPCS: G0463 ==

== ENCOUNTER → 2018-07-26 | Outpatient (CLI) | payer OTHER, MEDICAID ==
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
== END ==
LOC: M PAIN 13:15
PROVIDERS: ATTEND Nurse Practitioner Family
DX: M79.601 Pain in right arm (principal); G89.28 Other chronic postprocedural pain; F17.210 Nicotine dependence, cigarettes, uncomplicated; Z88.1 Allergy status to other antibiotic agents; Z88.8 Allergy status to other drugs, medicaments and biological substances; Z91.030 Bee allergy status; Z91.013 Allergy to seafood; Z79.891 Long term (current) use of opiate analgesic; Z79.899 Other long term (current) drug therapy

== ENCOUNTER → 2019-02-26 | Outpatient (CLI) | payer OTHER, MEDICAID ==
--- NOTE | 2019-03-14 01:03 | ECWPNPC ---
PATIENT NAME: GURWINDER SWANN : 1975 GENDER: FEMALE VISIT DATE: 02/26/2019 DISCHARGE DATE: 02/26/19 1533 VISIT LOCKED DATE TIME: PHYSICIAN: SYED EDOUARD RESOURCE: SYED EDOUARD REASON FOR APPOINTMENT 1. MED MGMT HISTORY OF PRESENT ILLNESS HISTORY OF PRESENT ILLNESS: HERE FOR F/U OF CHRONIC RIGHT ARM PAIN STATUS POST MULTIPLE SURGERIES.RATING PAIN VAS 6/10.DESCRIBES PAIN CONSTANT BURNING AND ACHING.FINDS CURRENT MEDICATION SOMEWHAT HELPFUL.CURRENTLY TAKING MS CONTIN 15MG DAILY AND PERCOCET 5/325 Q12H PRN MDD2.UNABLE TO TOLERATE GABAPENTIN.RECENT TRIAL OF LYRICA CAUSED SEVERE MENTAL CHANGES.HAS TRIALED NSAIDS WITHOUT IMPROVEMENT.DENIES SIDE EFFECTS.DISCUSSED MEDICINE AND TREATMENT OPTIONS.FOLLOWS WITH DR. RACHEL DUBON BONE/JOINT IN [place].HAD RIGHT ARM SURGERY ON APRIL 04 2018.HAS HAD A TOTAL OF 7 RIGHT ARM SURGEIES 2 OF WHICH WERE ON HER HAND.RECENT ISSUES WITH KIDNEYS WITH STENTS PLACED AND EVALUATION FOR LEFT RENAL CYST. PAIN THE PATIENT DESCRIBES THE PAIN... THE PATIENT DESCRIBES THE PAIN... THE PATIENT DESCRIBES THE PAIN... THE PATIENT DESCRIBES THE PAIN... THE PATIENT DESCRIBES THE PAIN... THE PATIENT DESCRIBES THE PAIN... THE PATIENT DESCRIBES THE PAIN... THE PATIENT DESCRIBES THE PAIN... THE PATIENT DESCRIBES THE PAIN... THE PATIENT DESCRIBES THE PAIN... FALL RISK SCREENING: SCREENING :NO FALLS REPORTED IN THE LAST YEAR CURRENT MEDICATIONS TAKING DIAZEPAM 10 MG TABLET 2 TABLETS NEEDED ORALLY TWICE A DAY NEEDED MDD=4 TAKING EPIPEN 2-DAMIAN 0.3 MG/0.3ML DEVICE INJECTION DIRECTED TAKING COLACE 100 MG CAPSULE 1 CAPSULE NEEDED ORALLY TWICE DAILY TAKING PERCOCET 5-325 MG TABLET 1 TABLET NEEDED ORALLY EVERY 6 HRS PRN MDD4 TAKING MS CONTIN 15 MG TABLET EXTENDED RELEASE 1 TABLET ORALLY DAILY TAKING OXYBUTYNIN CHLORIDE ER 15 MG TABLET EXTENDED RELEASE 24 HOUR 1 TABLET ORALLY ONCE A DAY NOT-TAKING POTASSIUM CITRATE ER 15 MEQ (1620 MG) TABLET EXTENDED RELEASE 1 TABLET WITH MEALS ORALLY TWICE A DAY MEDICATION LIST REVIEWED AND RECONCILED WITH THE PATIENT PAST MEDICAL HISTORY CHRONIC BACK PAIN KIDNEY STONES LEFT KIDNEY CYST NON-FUNCTIONING BLADDER ALLERGIES CYCLOBENZAPRINE HCL: PASSED OUT - ALLERGY GABAPENTIN: NAUSEA/VOMITING - SIDE EFFECTS LAMOTRIGINE: UNKNOWN NITROFURANTOIN: UNKNOWN BEE VENOM: ANAPHYLAXIS MACROBID: PASSED OUT - ALLERGY LYRICA: MEMORY LOSS, VOMITING - SIDE EFFECTS SHELLFISH SURGICAL HISTORY HYSTERECTOMY 2011 RIGHT ARM SURGERY 2014 BLADDER STIMULATOR 2013 HEAD SURGERY FOR CRACKED SKULL RIGHT ARM HARDWARE REMOVED. 2015 DORSAL COLUMN STIMULATOR DORSAL COLUMN STIMULATOR MANIPULATION 11/19/16 RIGHT INTERSTIM REPLACED 01/14/17 LITHOTRIPSY & STENT PLACEMENT 04/2018 RIGHT ARM SURGERY - RELEASE & NERVE TYING 04/2018 RIGHT KIDNEY STENT PLACEMENT & REMOVAL 01/2019 FAMILY HISTORY MOTHER: ALIVE, DIAGNOSED WITH UNSPECIFIED HEART DISEASE 1 SON(S) , 4 DAUGHTER(S) - HEALTHY. CHILDREN - ASTHMA. SOCIAL HISTORY GENERAL: TOBACCO USE ARE YOU A:FORMER SMOKER CURRENTLY VAPING OTHERS AT HOME: CHILDREN, OTHER NON-RELATIVE. DIET: LOW CHOLESTEROL. LANGUAGE LANGUAGES SPOKEN:SAMI NEW PATIENT PAIN DIARY TODAY'S VISITNOTES FROM 0-10, WHAT LEVEL IS YOUR PAIN TODAY?7 RECREATIONAL DRUG USE DRUG USE?NO EXERCISE: DAILY, GYM. LEARNING BARRIERS / SPECIAL NEEDS BARRIERS TO LEARNING?NO HEARING IMPAIRED?NO VISION IMPAIRED?NO COGNITIVELY IMPAIRED?NO READINESS TO LEARN?YES LEARNING PREFERENCES?NO LEARNING CAPABILITIES PRESENT?YES EMOTIONAL BARRIERS?NO SPECIAL DEVICES?NO BEAVER TRAPPER NEEDED?NO PAIN CLINIC PFS, CLERGY, PUBLIC HEALTH REFERRALS PFS REFERRAL NEEDED?NO CLERGY REFERRAL NEEDED?NO PUBLIC HEALTH REFERRAL NEEDED?NO WAS THE PROVIDER NOTIFIED OF ANY PERTINENT INFO?NO HAS THE PATIENT BEEN EDUCATED REGARDING HIS/HER PLAN OF CARE?YES HAS THE PATIENT BEEN EDUCATED REGARDING PAIN, THE RISK FOR PAIN, THE IMPORTANCE OF EFFECTIVE PAIN MANAGEMENT, AND THE PAIN ASSESSMENT PROCESS?YES LATEX QUESTIONNAIRE LATEX ALLERGY : HAVE YOU EVER DEVELOPED ANY TYPE OF REACTION AFTER HANDLING LATEX PRODUCTS SUCH RUBBER GLOVES, CONDOMS, DIAPHRAGMS, BALLOONS, SOCKS, OR UNDERWEAR?NO LATEX ALLERGY : HAVE YOU EVER DEVELOPED ANY TYPE OF REACTION DURING OR AFTER DENTAL APPOINTMENT, VAGINAL/RECTAL EXAMINATION, SURGICAL PROCEDURE, OR ANY OTHER EXPOSURE?NO LATEX RISK : HAVE YOU EVER HAD ANY DIFFICULTY BREATHING OR HIVES AFTER EATING OR HANDLING ANY FRUITS, OR VEGETABLES; SUCH KIWI, BANANAS, STONE FRUITS, OR CHESTNUTSNO LATEX RISK : DO YOU HAVE A PREVIOUS PERSONAL HISTORY OF MORE THAN NINE SURGERIES, SPINA BIFIDA, OR REPEATED CATHERIZATIONS? YES - PLEASE INDICATE : > 9 SURGERIES LATEX RISK : ARE YOU FREQUENTLY EXPOSED TO LATEX PRODUCTS IN YOUR OCCUPATION?NO DATE ASKED : 07/26/2018 ADVANCE DIRECTIVE ADVANCE DIRECTIVE DISCUSSED WITH PATIENT:YES HCP - NELLI ESCUDERO & ASHLIE CHANG BUDDHIST [id number] JEHOVAH'S WITNESS ALCOHOL SCREENING DID YOU HAVE A DRINK CONTAINING ALCOHOL IN THE PAST YEAR?NO POINTS0 INTERPRETATIONNEGATIVE REVIWED WITH PT 1405REVIEWED WITH PATIENT 07/26/18 1355 JSREVIEWED WITH PATIENT 02/26/19 1442 JS. HOSPITALIZATION/MAJOR DIAGNOSTIC PROCEDURE SURGERY RELATED SURGERY RELATED 04/2018 SURGERY RELATED/COMPLICATIONS 01/2019 REVIEW OF SYSTEMS REVIEWED BY: PROVIDER: SYED MOHAN . CONSTITUTIONAL: ANY CHANGE IN YOUR MEDICAL CONDITION? NO . CHILLS NO . FEVER NO . INFECTION: DO YOU HAVE NEW INFECTIONS? YES, POST-SURGERY INFECTION OF STENT . DO YOU HAVE HISTORY OF MRSA? NO . MUSCULOSKELETAL: ANY NEW PATTERNS OF PAIN OR NUMBNESS? YES, STATES PAIN WORSENING . GASTROENTEROLOGY: ANY NEW CHANGE IN BOWEL CONTROL? NO . GENITOURINARY: ANY NEW CHANGE IN BLADDER CONTROL? NO . IS THERE A CHANCE YOU COULD BE ? NO . HEMATOLOGY/LYMPH: DO YOU TAKE ANY BLOOD THINNERS? (FOR EXAMPLE- COUMADIN, PLAVIX, AGGRENOX, PLATEL, PRADAXA, OR XARELTO) NO . WHEN WAS YOUR LAST DOSE? DATE: TIME: . NEUROLOGY: HAVE YOU FALLEN IN THE PAST 12 MONTHS? NO . ANY NEW EXTREMITY NUMBNESS OR WEAKNESS? YES, INCREASED WEAKNESS AND MORE INTENSE PAIN TO RIGHT ARM . CARDIOLOGY: DO YOU HAVE A PACEMAKER OR DEFIBRILLATOR? INTERSTIM . RESPIRATORY: HAVE YOU BEEN SICK IN THE PAST WEEK? NO . FEVER NO . FLU LIKE SYMPTOMS? NO . COUGH NO . INTEGUMENTARY: DO YOU HAVE ANY RASHES OR OPEN SORES? NO . ALLERGIC/IMMUNO: ARE YOU ALLERGIC TO IV DYE? NO . ANY NEW ALLERGIES? NO . PSYCHIATRIC: DO YOU HAVE THOUGHTS OF HURTING YOURSELF OR SOMEONE ELSE? NO . ARE YOU ABUSED, NEGLECTED, OR IN AN UNSAFE ENVIRONMENT? NO . ENDOCRINOLOGY: ARE YOU DIABETIC? NO . OTHER: DO YOU NEED ANY PRESCRIPTIONS? YES . IF YES, PLEASE LIST: ____OXYCODONE . ANY NEW PROBLEMS WITH YOUR MEDICATIONS? NO . WHEN DID YOU LAST EAT? ____ . WHEN DID YOU LAST DRINK? ____ . WHAT DID YOU LAST DRINK? ____ . NAME OF PERSON DRIVING YOU HOME? ____ . DO YOU HAVE ANY OTHER QUESTIONS OR CONCERNS NO . VITAL SIGNS WT 132.4 LBS, HT 62 IN, BMI 24.21 INDEX, BP 132/77 MM HG, HR 96 /MIN, RR 16 /MIN, TEMP 96.6 F, OXYGEN SAT % 99%, NA INITIALS SC 14:50. EXAMINATION GENERAL EXAMINATION: GENERALAWAKE,ALERT ,PLEAASANT . PSYCHAFFECT NORMAL . LUNGS:LUNG JIMENEZ ARE CLEAR TO AUSCULTATION BILATERALLY. GOOD MOVEMENT OF AIR . HEART:S1, S2 IN A REGULAR RATE AND RHYTHM. NO SIGNIFICANT MURMURS, RUBS OR GALLOPS NOTED . ASSESSMENTS CHRONIC POST-OPERATIVE PAIN - G89.28 (PRIMARY) TREATMENT CHRONIC POST-OPERATIVE PAIN CONTINUE MS CONTIN TABLET EXTENDED RELEASE, 15 MG, 1 TABLET, ORALLY, DAILY REFILL PERCOCET TABLET, 5-325 MG, 1 TABLET NEEDED, ORALLY, EVERY 6 HRS PRN MDD4, 30 DAY(S), 60, REFILLS 0 NOTES: ISTOP REGISTRY REVIEWED AND DEMONSTRATES COMPLLIANCE. BRINGS IN MEDICATIONS WHICH IS APPROPRIATE FOR WHAT WAS DISPENSED. RECENT URINE TOXICOLOGY REVIEWED. NO UNAUTHORIZED MEDICATIONS. NO ILLICIT SUBSTANCES AND PRESCRIBED MEDICATIONS WERE PRESENT. , RISKS OF NARCOTIC/OPIOD MEDICATIONS INCLUDES BUT IS NOT LIMITED TO RISK OF DEPENDANCE/DEVELOPMENT OF ADDICTION, MOOD DISTURBANCE AND DEPRESSION, OSTEOPOROSIS, HORMONAL AND LABIDAL CHANGES, RESPIRATORY DEPRESSION AND . PATIENT IS ADVISED NOT TO DRIVE OR DRINK ALCOHOL WHILE ON THESE MEDICATIONS. REFERRAL TO:[facility] REASON:CHRONIC RIGHT ARM PAIN S/P MULTIPLE RIGHT ARM SURGERIES-CHRONIC OPIATE THERAPY PROCEDURE CODES FA211 ESTABILISHED PATIENT [facility] CHARGE DISPOSITION & COMMUNICATION FOLLOW UP REFER TO STAR PROGRAM ELECTRONICALLY SIGNED BY MARQUES CENTENO ON 03/13/2019 AT 08:50 AM EST DISCLAIMER : THIS IS A VISIT SUMMARY EXTRACTED FROM THE [employer] CHART. IT IS NOT A COPY OF THE [employer] PROGRESS NOTE. AJ
== END ==
LOC: M PAIN 14:30
PROVIDERS: ATTEND Nurse Practitioner Family
DX: G89.28 Other chronic postprocedural pain (principal); F17.290 Nicotine dependence, other tobacco product, uncomplicated; Z88.1 Allergy status to other antibiotic agents; Z88.8 Allergy status to other drugs, medicaments and biological substances; Z91.013 Allergy to seafood; Z91.030 Bee allergy status; Z79.891 Long term (current) use of opiate analgesic; Z79.899 Other long term (current) drug therapy

== ENCOUNTER → 2021-03-09 | Outpatient (CLI) | payer MEDICAID, OTHER ==
[~2021-03-09] MED LIST changes: +ATOR1TAB21 PO; +OXYC1TAB23 PO
== END ==
LOC: M LABSMTC 09:51
PROVIDERS: ATTEND Anesthesiology
DX: Z01.818 Encounter for other preprocedural examination (principal); Z11.52 Encounter for screening for COVID-19

== ENCOUNTER 2021-03-13 09:39 | Day surgery (SDC) | payer OTHER ==
[~2021-03-13] VITALS: Ht 157.5 cm; Wt 64.1 kg
[~2021-03-13 09:39] MED LIST changes: +NS 1,000 ML IV ONE
--- OUTSIDE RECORDS SUMMARY | 2021-03-13 09:44 | CCD | Summary of Care ---
Author Author [facility] Organization [facility] Address Unknown Phone Unavailable Care Team Providers Care Finding Fastener Name Role Phone Misha Weller MD PCP Reason for Visit * Reason Onset Date Comments scheduled COVID test 01/28/2021 Encounter Details Care Team Description Date Type Department Gallo Valero NP [address] [place] [address] scheduled COVID test 01/28/2021 Telephone [facility] [address] [facility] [address] [place] [address] Allergies Comments Active Allergy Reactions Severity Noted Date Bee Venom Protein (Honey Anaphylaxis, High 01/10 Bee) Throat Swelling Ciprofloxacin Hives, Medium 09/25/2010 Dizziness passes out Cyclobenzaprine Hives, Nausea Medium 04/12/2012 And Vomiting Gabapentin Anxiety, Low 11/19/2016 Confusion Ketorolac Tromethamine Palpitations Medium 015 Other reaction(s): "passes out" Severity: Hives - Moderate; Ingredients: Nitrofurantoin; Type: Drug; Nitrofurantoin Hives, 04/12/2012 Monohyd/M-Cryst Dizziness Pregabalin Confusion Medium 10/12/2017 Shellfish Containing Anaphylaxis, High 3 Products Hives documented as of this encounter (statuses as of 03/02/2021) Medications End Date Status Medication Sig Dispensed Refills Start Date Active diazePAM (Valium) 10 mg Take 1 tablet 0 tablet by mouth 3 3 times a day. 05/21/2021 Active albuterol (PROVENTIL) 90 Inhale 2 6.7 g 0 0 mcg/actuation puffs every 4 1 inhalerIndications: (four) hours Encounter for observation if needed for for suspected exposure to wheezing or other biological agents shortness of ruled out breath. Active oxyCODONE (ROXICODONE) 5 Take by 0 mg immediate release mouth. tablet documented as of this encounter (statuses as of 03/02/2021) Active Problems Problem Noted Date Acute recurrent maxillary sinusitis 02/25/2021 Last Assessment & Plan: Formatting of this note might be differ ent from the original. Augmentin sent to patient's pharmacy. Advised to take Chata as well as Flon ase every day. Per patient she tried taking Flonase th at gave her migraine headaches. She is advised to follow-up with ENT. Patient had surgery of her sinuses in t he past. Skin lesion 02/25/2021 Last Assessment & Plan: Formatting of this note might be differ ent from the original. Patient requesting dermatology referral . She is not interested in getting them o ut if they are not concerning. Gross hematuria 09/02/2020 Last Assessment & Plan: Formatting of this note might be differ ent from the original. CT urogram demonstrated tiny punctate s tone in the right kidney. Patient was reassured, I do not think she needs surgery at this time, would likely to pass it spontaneously. Cystoscopy was nonrevealing. We will s end urine cytology. Follow-up in 1 year. Essential hypertension 07/29/2020 Last Assessment & Plan: Formatting of this note might be differ ent from the original. BP well controlled at today's visit, not currently on any antihypertensives 1. We recommend you choose low sodium f oods (140 mg of sodium per serving), season your food with spices, herbs, an d remove the saltshaker from the table. Aim for less than 2000 mg of so dium per day. Please avoid highly processed or canned foods, or choose th e lower sodium options if you must Constipation 02/13/2020 Last Assessment & Plan: Formatting of this note might be differ ent from the original. Complete abdominal xray prior to starti ng the Linzess. Start Linzess 145 mcg daily Colonoscopy ordered Epigastric pain 02/13/2020 Last Assessment & Plan: Formatting of this note might be differ ent from the original. Start omeprazole 40 mg by mouth once da octaviano, 30 minutes before breakfast and 1 to 2 hours before other medications EGD ordered Chest pain 01/31/2020 Overview: Formatting of this note might be differ ent from the original. Echocardiogram 07/24/2020: normal biven tricular systolic function, LVEF 55-60%, normal diastolic function, trac e-mild MR Exercise Stress Test 07/24/2020: normal myocardial perfusion study without any evidence of myocardial ischemia/sca r; achieved 13.4 METS with normal hemodynamic response, stress EKG negati ve for ischemia L ast Assessment & Plan: Formatting of this note might be differ ent from the original. 45-year-old female who quit smoking 4 y ears ago was initially seen for chest pain. Stress test showed no evid ence of ischemia ejection fraction was normal. Echocardiogram was unremar kable. Today she comes in for follow-up visit. She is not taking any medications. She was initially diagnosed with hypertension hyperlipide patience but her blood pressure is normal. She is not taking anything for high cholesterol. She has no history of diabetes. She takes some in halers for underlying bronchial asthma. EKG shows normal sinus rhythm examination is unremarkable. All noninvasive cardiac testing was normal. No further cardiac work-up needed follow-up. Annual physical exam 01/31/2020 Last Assessment & Plan: Formatting of this note might be differ ent from the original. Dentist follow-up recommended every 6 m onths. Eye doctor follow-up recommended every 1 to 2 years. Try to do moderate intensity exercise 4 0 to 45 minutes 4-5 times a week. Cut down on carbohydrates and free suga rs. Try to eat diet rich in proteins. Subacute sinusitis 01/31/2020 Last Assessment & Plan: Formatting of this note might be differ ent from the original. Augmentin sent to patient's pharmacy. At risk for falls 01/31/2020 Bipolar disorder 01/31/2020 Overview: Formatting of this note might be differ ent from the original. Follows up with psychiatrist Stevo graves at [place] for bipolar disorder and anxiety and depression. Interstitial cystitis 01/16/2020 Mixed anxiety and depressive disorder 12/26/2019 Overview: Formatting of this note might be differ ent from the original. Problem Description: Anxiety with depre ssion Neurogenic bladder 09/07/2016 Last Assessment & Plan: Formatting of this note might be differ ent from the original. Patient has neurogenic bladder secondar y to during severed nerves during hysterectomy many years ago. This is m anaged by clean intermittent catheterization. She states she is run [place] low on catheter supplies and we will work to resupply her. I recommend catheterizing 4 times daily. Nasal septal deviation 01/21/2015 Wrist pain, chronic 03/14/2014 Female genital symptoms 11/17/2013 Overview: Formatting of this note might be differ ent from the original. Follows up with SURGICAL SCRUB TECH status post hystere ctomy Kidney stone 11/17/2013 Last Assessment & Plan: Formatting of this note might be differ ent from the original. Patient CT scan reveals a punctate nono bstructing calculi in the right kidney. There is no CT evidence of obs tructive uropathy. Patient continues to have right-sided flank marisol n and I explained to her that at this point time I do not see evidence o f urologic cause for this. Hyperlipidemia 11/16/2013 Last Assessment & Plan: Formatting of this note might be differ ent from the original. Lipid panel 01/04/2020: Chol 234, TriG 172, HDL 51, LDL 149 10 year estimated ASCVD risk 0.7% - n o need for statin initiation at this time 1. We recommend a diet emphasizing an i ntake of vegetables, fruits, legumes, nuts, whole grains, and fish, with reduced amounts of cholesterol and sodium intake. Replacement of satu rated fat with dietary mono and polyunsaturated fats can be beneficial. Minimizing the intake of trans-fats, processed meats, refined ca rbohydrates, and sweetened beverages as part of a heart healthy diet is also beneficial. 2. It is recommended to engage in at le ast 150 minutes/week of moderate intensity or 75 minutes/week of vigorou s intensity aerobic physical activity. Moderate intensity activity includes brisk walking, biking, active yoga, or recreational swimming. Vigorous intensity physical activity is considered jogging/running, biking, tennis, swimming. 3. If you are unable to meet these phys ical activity recommendations, it is recommended to engage in at least some form of physical activity (walking 5-10 minutes/day or a couple days/week, increasing this by 1-2 minutes every week). Pelvic pain in female 01/10/2013 Overview: Formatting of this note might be differ ent from the original. Follows up with SURGICAL SCRUB TECH status post hystere ctomy documented as of this encounter (statuses as of 03/02/2021) Resolved Problems Problem Noted Date Resolved Date Angina pectoris 01/16/2020 01/31/2020 Cardiac edema 01/16/2020 01/31/2020 Fingers fractured 01/16/2020 01/31/2020 Personality disorder 01/16/2020 01/31/2020 Social anxiety disorder 01/16/2020 01/31/2020 Migraine 12/26/2019 06/20/2020 Last Assessment & Plan: Formatting of this note might be differ ent from the original. Follows up with neurology get Botox inj ections for migraine Pericarditis 07/04/2015 01/31/2020 Hypertrophy of both inferior nasal turbinates 01/21/2015 01/31/2020 Chronic facial pain 01/07/2015 01/31/2020 Chronic frontal sinusitis 01/07/2015 01/31/2020 Chronic maxillary sinusitis 01/07/2015 01/31/2020 Hx of migraines 01/07/2015 01/31/2020 Cervical radiculopathy 11/07/2014 01/31/2020 Backache 11/16/2013 06/20/2020 Last Assessment & Plan: Formatting of this note might be differ ent from the original. Follows up with pain management at [facility] for pain management Patient was on medical marijuana prescr ibed by Karol Baig. Patient is on morphine sulfate extended release 15 mg tablet as well as on oxycodone acetaminophen. She also take s Valium 10 mg 3 times a day as needed Urinary retention 03/07/2013 01/31/2020 documented as of this encounter (statuses as of 03/02/2021) Immunizations Name Administration Dates Next Due Influenza,18Yrs+ Recomb 01/31/2020 Quad Egg Free-Flublok MMR 05/04/2000 Moderna 10/06/2020, 09/08/2020 Bqam-LQE-2-Vaccination (COVID) Tdap 01/31/2020, 07/25/2000 documented as of this encounter Social History Date Tobacco Use Types Packs/Day Years Used Former Smoker Smokeless Tobacco: Never Used Comments Alcohol Use Standard Drinks/Week Not Currently 0 (1 standard drink = 0.6 o z pure alcohol) Sex Assigned at Date Recorded Female 01/16/2020 11:19 AM EDT Date Recorded COVID-19 Exposure Response 02/25/2021 7:35 AM EDT In the last month, have you been in contact with No / Unsure someone who was confirmed or suspected to have Coronavirus / COVID-19? documented as of this encounter Last Filed Vital Signs Not on filedocumented in this encounter Functional Status Date of Assessment Functional Status Response 08/16/2020 Are you deaf or do you have serious difficulty No hearing? 08/16/2020 Are you blind or do you have serious difficulty No seeing, even when wearing glasses? 08/16/2020 Do you have serious difficulty walking or climbing Y es stairs? 08/16/2020 Do you have serious difficulty dressing or No bathing? 08/16/2020 Because of a physical, mental, or emotional No condition, do you have serious difficul ty doing errands alone such as visiting the doct or? Date of Assessment Cognitive Status Response 08/16/2020 Because of a physical, mental, or emotional No condition, do you have serious difficul ty concentrating, remembering, or making d ecisions? (5 years old or older) documented as of this encounter Miscellaneous Notes * Telephone Encounter - Nicole Greyson - 01/28/2021 1:22 PM EDT Pt called to schedule her COVID test. Pt is scheduled for today at 4:15 pm. 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 Pt called from the above number, thank you documented in this encounter Plan of Treatment Care Team Description Date Type Specialty 03/18/2021 Appointment Radiology Adam Jiang NP [address] [facility] [address] [place] [address] 02/15/2022 Office Visit Urology Misha Weller MD [address] [place] [id number] 02/26/2022 Office Visit Family Medicine Health Maintenance Due Date Last Done Comments Mammogram 02/27/2021 02/28/2020, 01/05/2019, 01/05/2019, Additional history exists Influenza Vaccine (#1) 2021 01/31/2020 Postpon ed from 12/24/2020 (Patient Refused) Pneumococcal Vaccine: 02/25/2022 Postponed from 0 1982 (Other Patient Reasons) Pediatrics (0 to 5 Years) and At-Risk Patients (6 to 64 Years) (1 of 2 - PPSV23) DTaP,Tdap,and Td Vaccines 02/25/2031 01/31/2020, Post poned from 07/31/2020 (Other Medical Reasons) (3 - Td or Tdap) 07/25/2000 MMR Vaccines Completed 05/04/2000 COVID-19 Vaccine Completed 10/06/2020, 09/08/2020 Lipid Panel Discontinued 02/25/2021, 01/04/2020 HIB Vaccines Aged Out No longer eligible based on patient's age to complete this topic HIV Screening Discontinued HPV Vaccines Aged Out No longer eligible based on patient's age to complete this topic Hepatitis A Vaccines Aged Out No longer eligibl e based on patient's age to complete this topic Hepatitis B Vaccines Aged Out No longer eligibl e based on patient's age to complete this topic Hepatitis C Screening Discontinued IPV Vaccines Aged Out No longer eligible based on patient's age to complete this topic Meningococcal Vaccine Aged Out No longer eligib le based on patient's age to complete this topic documented as of this encounter Results Not on filedocumented in this encounter Additional Health Concerns Onset Date Resolved Time Infection Last Indicated 01/28/2021 01/29/2021 1:35 AM EDT COVID-19 Rule-Out Moderate risk 01/28/2021 documented as of this encounter Insurance Type Payer Benefit Subscriber ID Effective Phone Address Plan / Dates Group [facility] [id number] 2019-P [address] MEDICAID REPLACEMENT [place] [id number] [place] [address] documented as of this encounter Advance Directives 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 Explanation Type Date Recorded Advance Directives and Living Will Power of Burlesque Dancer Cat Bruno 12/26/2019 Advance Directives 01/15/2020 4:05 PM and Living Will 01/29/2019 Advance Directives 01/07/2020 9:46 AM and Living Will Date Inactivated Comments Code Status Date Activated 04/03/2020 2:41 AM Full Code 04/02/2020 7:29 AM Relationship Healthcare Agent Relationship Communicat ion Name Significant Other Health Care Agent [phone] (Mobile ) Cat Kiana Care Teams Start Date End Date Finding Fastener Relationship Specialty 12/26/19 Misha Weller MD PCP - General documented as of this encounter
--- OUTSIDE RECORDS SUMMARY | 2021-03-13 09:44 | CCD | Summary of Care ---
Author Author [facility] Organization [facility] Address Unknown Phone Unavailable Care Team Providers Care Marine Fitter Name Role Phone Misha Weller MD PP Encounter Details Care Team Description Date Type Department Misha Weller MD [address] [place] [address] 02/25/2021 Orders Only S Primary Care Ve stal [address] [place] [address] [address] [place] [address] Allergies Comments Active Allergy Reactions Severity Noted [...] as of this encounter (statuses as of 02/25/2021) Medications End Date Status Medication Sig Dispensed [...] by 0 mg immediate release mouth. tablet 03/07/2021 Active amoxicillin-pot Take 1 tablet 20 tablet 0 02/26/20 2 clavulanate (AUGMENTIN) by mouth 1 875-125 mg tablet twice a day for 10 days. 02/25/2022 Active atorvastatin (LIPITOR) 20 Take 1 tablet 90 tablet 3 mg tablet by mouth once 1 a day. documented as of this encounter (statuses as of 02/25/2021) Active Problems Problem Noted Date Acute recurrent [...] original. Dentist follow-up recommended every [address] [facility]. Eye doctor follow-up recommended every 1 to [...] Follows up with psychiatrist Stevo graves at [place] for bipolar disorder and anxiety and depression. [...] ent from the original. Follows up with ASSISTANT PROFESSOR OF RADIOLOGY status post hystere ctomy Kidney stone 11/17/2013 [...] ent from the original. Follows up with ASSISTANT PROFESSOR OF RADIOLOGY status post hystere ctomy documented as of this encounter (statuses as of 02/25/2021) Resolved Problems Problem Noted Date Resolved Date [...] original. Follows up with pain management at [facility] palliative care for pain management Patient was on medical marijuana prescr ibed by Karol Baig. Patient is on morphine sulfate extended release 15 mg tablet as well as on oxycodone acetaminophen. She also take s Valium 10 mg 3 times a day as needed Urinary retention 03/07/2013 01/31/2020 documented as of this encounter (statuses as of 02/25/2021) Immunizations Name Administration Dates Next Due Influenza,18Yrs+,Recombin 01/31/2020 ant,Quadrvlnt,PF,INJ MMR 05/04/2000 Moderna 10/06/2020, 09/08/2020 [id number]-[id number]-Vaccination (COVID) Tdap 01/31/2020, 07/25/2000 documented as of [...] / COVID-19? documented as of this encounter Functional Status Date of Assessment [...] or older) documented as of this encounter Plan of Treatment Care Team Description Date Type Specialty 03/18/2021 Appointment Adam Jiang, TAY [address] [facility] [address] [place] [address] 02/15/2022 Office Visit Misha Weller MD [address] [place] [id number] 02/26/2022 Office Visit Health Maintenance Due Date Last Done Comments [...] Results Not on filedocumented in this encounter Insurance Type Payer Benefit Subscriber ID Effective Phone Address Plan / Dates Group [facility] [id number] 2019-P [address] MEDICAID REPLACEMENT [place] [address] [place] [address] documented as of this encounter Advance Directives Patient It Support Technician Explanation Type Date Recorded Advance Directives and Living Will Power of Nuclear Unit Operator Cat Bruno 12/26/2019 Advance Directives 01/15/2020 4:05 PM and Living Will 01/29/2019 Advance Directives 01/07/2020 9:46 AM and Living Will Date Inactivated Comments Code Status Date Activated 04/03/2020 2:41 AM Full Code 04/02/2020 7:29 AM Relationship Healthcare Agent Relationship Communicat ion Name Significant Other Health Care Agent [phone] (Mobile ) Cat Bruno Care Teams Start Date End Date Marine Fitter Relationship Specialty 12/26/19 Misha Weller MD PCP - General documented as of this encounter
--- OUTSIDE RECORDS SUMMARY | 2021-03-13 09:44 | CCD | Summary of Care ---
Author Author [facility] Organization [facility] Address Unknown Phone Unavailable Care Team Providers Care Turret Punch Press Operator Name Role Phone Misha Weller MD PP Encounter Details Care Team Description Date Type Department Encounter for lipid screenin g for cardiovascular disease 02/25/2021 Lab S Lab Services Ve stal [address] [facility] [address] [place] [address] Allergies Comments Active Allergy Reactions Severity Noted [...] as of this encounter (statuses as of 02/26/2021) Medications End Date Status Medication Sig Dispensed [...] tablet twice a day for 10 days. documented as of this encounter (statuses as of 02/26/2021) Active Problems Problem Noted Date Acute recurrent [...] original. Dentist follow-up recommended every 6 m [facility]. Eye doctor follow-up recommended every 1 to [...] Follows up with psychiatrist Stevo graves at [place] for bipolar disorder and anxiety and depression. [...] ent from the original. Follows up with HOT MIX OPERATOR status post hystere ctomy Kidney stone 11/17/2013 [...] ent from the original. Follows up with HOT MIX OPERATOR status post hystere ctomy documented as of this encounter (statuses as of 02/26/2021) Resolved Problems Problem Noted Date Resolved Date [...] original. Follows up with pain management at [facility] palliative care for pain management Patient was on medical marijuana prescr ibed by Karol Baig. Patient is on morphine sulfate extended release 15 mg tablet as well as on oxycodone acetaminophen. She also take s Valium 10 mg 3 times a day as needed Urinary retention 03/07/2013 01/31/2020 documented as of this encounter (statuses as of 02/26/2021) Immunizations Name Administration Dates Next Due Influenza,18Yrs+ Recomb 01/31/2020 Quad Egg Free-Flublok MMR 05/04/2000 Moderna 10/06/2020, 09/08/2020 Tqwc-[id number]-8-Vaccination (COVID) Tdap 01/31/2020, 07/25/2000 documented as of [...] as of this encounter Miscellaneous Notes * Result QuickNote - Misha Weller MD - 02/25/2021 8:50 AM EDT Please call and advise patient that her cholesterol numbers are very high and I would like to start her on atorvastatin 10 mg at bedtime.If patient agrees pleas e confirm the pharmacy and let me know.Hi Fariha,Your LDL cholesterol is elevat ed at 179.I'm really concerned and would like you to start taking cholesterol me dication atorvastatin 10 mg at bedtime.Last year your bad cholesterol which was LDL was 148.I'm not sure how it has increased so much this year.Rest other liver , kidney, electrolyte and blood sugar results are within normal limits.Please le t me know if you would like to go forward with atorvastatin medication confirm t he pharmacy and I'll send it to your pharmacy. Thanks documented in this encounter Plan of Treatment Care Team Description Date Type Specialty 03/18/2021 Appointment Adam Jiang NP [address] [facility] [address] [place] [address] 02/15/2022 Office Visit Misha Weller MD [address] [place] [address] 02/26/2022 Office Visit Health Maintenance Due Date [...] this topic documented as of this encounter Procedures Comments Procedure Name Priority Date/Time Associated Diag nosis LIPID PANEL Routine 02/25/2021 Encounter for l ipid 8:53 AM EDT screening for cardiovascular disease COMPREHENSIVE METABOLIC Routine 02/25/[address] for lipid PANEL 8:53 AM EDT screening for cardiovascular disease documented in this encounter Results * Comprehensive metabolic panel (02/25/2021 8:53 AM EDT) Sodium 137 135 - 146 mmol/L [facility] Potassium 4.5 3.5 - 5.3 mmol/L [facility] Chloride 104 98 - 107 mmol/L [facility] CO2 23 21 - 32 mmol/L [facility] Anion Gap 10 5 - 15 [facility] BUN 12 7 - 23 mg/dL [facility] Creatinine 0.7 0.5 - 1.0 mg/dL [facility] BUN/Creatinine 17 [facility] Glucose 91 65 - 99 mg/dL [facility] Calcium 9.8 8.4 - 10.4 mg/dL [facility] AST 18 <59 U/L [facility] ALT (SGPT) 14 <35 U/L [facility] Alkaline 82 38 - 126 U/L [facility] Total Protein 8.0 6.3 - 8.2 g/dL [facility] Albumin 4.7 3.5 - 5.0 g/dL [facility] A/G Ratio 1.42 [facility] Total Bilirubin 0.6 0.1 - 1.3 mg/dL [facility] eGFR >60 >60 mL/min/1.73m*2 [facility] Specimen Blood - Blood, Venous Performing Organization Address City/[facility] [place]/[facility] Code P zuhair Number [facility] [address] [address] * Lipid panel (02/25/2021 8:53 AM EDT) Triglycerides 130 <200 mg/dL [facility] Cholesterol 270 (H) <200 mg/dL [facility] LDL Calculated 179 (H) <100 mg/dL mg/dL [facility] HDL 65 >40 mg/dL [facility] RISK 4.2 [facility] Non HDL 205 (H) 60 - 100 mg/dL [facility] Specimen Blood - Blood, Venous Performing Organization Address City/[facility] [place]/[facility] P zuhair Number [facility] [address] [address] documented in this encounter Visit Diagnoses Diagnosis Encounter for lipid screening for cardi ovascular disease documented in this encounter Insurance Type Payer Benefit Subscriber ID Effective Phone Address Plan / Dates Group [facility] [id number] 2019-P [address] MEDICAID REPLACEMENT [facility] [id number] [place] [id number] documented as of this encounter Advance Directives Patient Master Chef Explanation Type Date Recorded Advance Directives and Living Will Power of Line Painting Machine Operator Cat Bruno 12/26/2019 Advance Directives 01/15/2020 4:05 PM and Living Will 01/29/2019 Advance Directives 01/07/2020 9:46 AM and Living Will Date Inactivated Comments Code Status Date Activated 04/03/2020 2:41 AM Full Code 04/02/2020 7:29 AM Relationship Healthcare Agent Relationship Communicat ion Name Significant Other Health Care Agent [phone] (Mobile ) Cat Bruno Care Teams Start Date End Date Turret Punch Press Operator Relationship Specialty 12/26/19 Misha Weller MD PCP - General documented as of this encounter
--- OUTSIDE RECORDS SUMMARY | 2021-03-13 09:44 | CCD | Summary of Care ---
Author Author [facility] Organization [facility] Address Unknown Phone Unavailable Care Team Providers Care Boom Worker Name Role Phone Misha Luke MD PP Reason for Referral * Consultation (Routine) - Pending Review Diagnoses / Procedures Referred By Contact Referred To Conta ct Specialty Diagnoses Skin lesion Misha Luke MD [address] [place] [address] [facility] [address] [place] [address] Dermatology Referral ID Status Reason Start Date Expiration Visits Vi sits Date Requested Authorized [id number] Pending Specialty Services 02/25/2021 02/24/2022 1 1 Review Required Reason for Visit * Reason Comments Annual Exam Pain neurogenic bladder. Has a cyst on bladder. Encounter Details Care Team Description Date Type Department Misha Luke MD [address] [place] [address] Annual physical exam (Primary Dx); Encounter for lipid screening for cardiovascular disease; Skin lesion; Acute recurrent maxillary sinusitis 02/25/2021 Office Visit [facility] Primary Care Ve stal [address] [place] [address] [place] [id number] Allergies Comments Active Allergy Reactions Severity Noted [...] tablet twice a day for 10 days. 02/25/2021 Discontinued ondansetron (ZOFRAN) 4 mg Take 1 tablet 5 tablet 0 tablet (4 mg total) 0 by mouth every 8 (eight) hours. 02/25/2021 Discontinued benzonatate (TESSALON) Take 1 30 capsule 0 100 mg capsule capsule by 1 mouth 3 (three) times a day if needed for cough. Do not crush or chew. 02/25/2021 Discontinued orphenadrine (NORFLEX) Take 1 tablet 20 tablet 0 0 100 mg 12 hr tablet by mouth 2 1 (two) times a day if needed for muscle spasms for up to 10 days. Swallow whole. Do not crush, chew, or split. 02/25/2021 Discontinued dexAMETHasone (DECADRON) Take 1 tablet 10 tablet 0 2 mg tablet by mouth 2 1 (two) times a day with meals for 5 days. 02/25/2021 Discontinued plecanatide 3 mg tablet Take 3 mg by 90 tablet 3 0 mouth 1 (one) 1 time each day. 02/25/2021 Discontinued amoxicillin-pot Take 1 tablet 20 tablet 0 [...] Follows up with psychiatrist Stevo graves at [place] for bipolar disorder and anxiety and depression. [...] ent from the original. Follows up with [facility] status post hystere ctomy Kidney stone 11/17/2013 [...] ent from the original. Follows up with [facility] status post hystere ctomy documented as of [...] original. Follows up with pain management at [facility] palliative care for pain management Patient was [...] 01/31/2020 ant,Quadrvlnt,PF,INJ MMR 05/04/2000 Moderna 10/06/2020, 09/08/2020 Mppo-YHK-5-Vaccination (COVID) Tdap 01/31/2020, 07/25/2000 documented as of [...] of this encounter Last Filed Vital Signs Reading Time Taken Comments Vital Sign 107/75 02/25/2021 8:06 AM EDT Blood Pressure 81 02/25/2021 8:06 AM EDT Pulse 36.7 C (98.1 F) 02/25/2021 8:06 AM EDT Temperature 16 02/25/2021 8:06 AM EDT Respiratory Rate 96% 02/25/2021 8:06 AM EDT Oxygen Saturation - - Inhaled Oxygen Concentration 64.9 kg (143 lb) 02/25/2021 8:06 AM EDT Weight 161.3 cm (5' 3.5") 02/25/2021 8:06 AM EDT Height 24.93 02/25/2021 8:06 AM EDT Body Mass Index documented in this encounter Functional Status Date of [...] or older) documented as of this encounter Patient Instructions * Patient Instructions* Misha Luke MD - 02/25/2021 8:00 AM EDT Images from the original note were not included. Thank you for your visit. Dentist follow-up recommended every 6 months. Eye doctor follow-up recommended every 1 to 2 years. Try to do moderate intensity exercise 40 to 45 minutes 4-5 times a week. Cut down on carbohydrates and free sugars. Try to eat diet rich in proteins. Patient Education Health Maintenance, Female Adopting a healthy lifestyle and getting preventive care are important in promot ing health and wellness. Ask your health care provider about: The right schedule for you to have regular tests and exams. Things you can do on your own to prevent diseases and keep yourself healthy . What should I know about diet, weight, and exercise? Eat a healthy diet Eat a diet that includes plenty of vegetables, fruits, low-fat dairy produc ts, and lean protein. Do not eat a lot of foods that are high in solid fats, added sugars, or sod ium. Maintain a healthy weight Body mass index (BMI) is used to identify weight problems. It estimates body fat based on height and weight. Your health care provider can help determine your B MD and help you achieve or maintain a healthy weight. Get regular exercise Get regular exercise. This is one of the most important things you can do for yo ur health. Most adults should: Exercise for at least 150 minutes each week. The exercise should increase y our heart rate and make you sweat (moderate-intensity exercise). Do strengthening exercises at least twice a week. This is in addition to th e moderate-intensity exercise. Spend less time sitting. Even light physical activity can be beneficial. Watch cholesterol and blood lipids Have your blood tested for lipids and cholesterol at 20 years of age, then have this test every 5 years. Have your cholesterol levels checked more often if: Your lipid or cholesterol levels are high. You are older than 40 years of age. You are at high risk for heart disease. What should I know about cancer screening? Depending on your health history and family history, you may need to have cancer screening at various ages. This may include screening for: Breast cancer. Cervical cancer. Colorectal cancer. Skin cancer. Lung cancer. What should I know about heart disease, diabetes, and high blood pressure? Blood pressure and heart disease High blood pressure causes heart disease and increases the risk of stroke. This is more likely to develop in people who have high blood pressure readings, are of descent, or are overweight. Have your blood pressure checked: ? Every 35 years if you are 1839 years of age. ? Every year if you are 40 years old or older. Diabetes Have regular diabetes screenings. This checks your fasting blood sugar level. Crane ve the screening done: Once every three years after age 40 if you are at a normal weight and have a low risk for diabetes. More often and at a younger age if you are overweight or have a high risk f or diabetes. What should I know about preventing infection? Hepatitis B If you have a higher risk for hepatitis B, you should be screened for this virus . Talk with your health care provider to find out if you are at risk for hepatit is B infection. Hepatitis C Testing is recommended for: Everyone born from 1945 through 1965. Anyone with known risk factors for hepatitis C. Sexually transmitted infections (STIs) Get screened for STIs, including gonorrhea and chlamydia, if: ? You are sexually active and are younger than 24 years of age. ? You are older than 24 years of age and your health care provider tells you inge t you are at risk for this type of infection. ? Your sexual activity has changed since you were last screened, and you are at increased risk for chlamydia or gonorrhea. Ask your health care provider if you are at risk. Ask your health care provider about whether you are at high risk for HIV. Y our health care provider may recommend a prescription medicine to help prevent H IV infection. If you choose to take medicine to prevent HIV, you should first ge t tested for HIV. You should then be tested every 3 months for as long as you ar e taking the medicine. If you are about to stop having your period (premenopausal) and you may bec ome , seek counseling before you get . Take 400 to 800 micrograms (mcg) of folic acid every day if you become preg nant. Ask for control (contraception) if you want to prevent . Osteoporosis and menopause Osteoporosis is a disease in which the bones lose minerals and strength with jamie ng. This can result in bone fractures. If you are 65 years old or older, or if y ou are at risk for osteoporosis and fractures, ask your health care provider if you should: Be screened for bone loss. Take a calcium or vitamin D supplement to lower your risk of fractures. Be given hormone replacement therapy (HRT) to treat symptoms of menopause. Follow these instructions at home: Lifestyle Do not use any products that contain nicotine or tobacco, such as cigarette s, e-cigarettes, and chewing tobacco. If you need help quitting, ask your health care provider. Do not use street drugs. Do not share needles. Ask your health care provider for help if you need support or information a bout quitting drugs. Alcohol use Do not drink alcohol if: ? Your health care provider tells you not to drink. ? You are , may be , or are planning to become . If you drink alcohol: ? Limit how much you use to 01 drink a day. ? Limit intake if you are . Be aware of how much alcohol is in your drink. In the [place] one drink equal s one 12 oz bottle of beer (355 mL), one 5 oz glass of wine (148 mL), or one 1 oz glass of hard liquor (44 mL). General instructions Schedule regular health, dental, and eye exams. Stay current with your vaccines. Tell your health care provider if: ? You often feel depressed. ? You have ever been abused or do not feel safe at home. Summary Adopting a healthy lifestyle and getting preventive care are important in p romoting health and wellness. Follow your health care provider's instructions about healthy diet, exercis ing, and getting tested or screened for diseases. Follow your health care provider's instructions on monitoring your choleste rol and blood pressure. This information is not intended to replace advice given to you by your health c are provider. Make sure you discuss any questions you have with your health care provider. Document Revised: 04/04/2019 Document Reviewed: 04/04/2019 [employer] Patient Education 2020 [employer]. documented in this encounter Progress Notes * Misha Luke MD - 02/25/2021 8:00 AM EDT Images from the original note were not included. Subjective Patient ID: Fariha Yanez is a 45 y.o. female. Chief Complaint: Sinusitis This is a new problem. The current episode started 1 to 4 weeks ago. The problem has been gradually worsening since onset. There has been no fever. Associated s ymptoms include chills and sinus pressure. Pertinent negatives include no conges tion or sore throat. Past treatments include acetaminophen (Chata, Advil). Skin lesions Patient has moved 3 on the back, 1 on the right side of her neck and 1 on her be lly present for last few years. With her last PCP patient was keeping an eye on them. Per patient she feels that one of them is changing color and is getting hyperpig mented. ANNUAL EXAM Phq 2 score: 0 Review of Systems Constitutional: Positive for chills. Negative for decreased appetite, fever and malaise/fatigue. HENT: Positive for sinus pressure. Negative for congestion, ear discharge and so re throat. Eyes: Negative for blurred vision, double vision, pain and photophobia. Skin: Negative for rash. Musculoskeletal: Negative for back pain and joint pain. Gastrointestinal: Negative for bloating, abdominal pain, constipation, diarrhea, nausea and vomiting. Genitourinary: Negative for dysuria. Neurological: Negative for dizziness. Psychiatric/Behavioral: Negative for altered mental status. Objective Examination Visit Vitals BP 107/75 (BP Location: Rt Upper Arm, Patient Position: Sitting, BP Cuff Size: A dult) Pulse 81 Temp 36.7 C (98.1 F) (Oral) Resp 16 Ht 5' 3.5" Wt 143 lb (64.9 kg) SpO2 96% BMI 24.93 kg/m OB Status Hysterectomy Smoking Status Former Smoker BSA 1.71 m Physical Exam Constitutional: General: She is not in acute distress. Appearance: She is well-developed. She is not diaphoretic. HENT: Head: Normocephalic and atraumatic. Right Ear: External ear normal. Left Ear: External ear normal. Nose: Nose normal. Cardiovascular: Rate and Rhythm: Normal rate and regular rhythm. Heart sounds: Normal heart sounds. Pulmonary: Effort: Pulmonary effort is normal. No respiratory distress. Breath sounds: Normal breath sounds. No wheezing. Chest: Chest wall: No tenderness. Abdominal: General: Bowel sounds are normal. There is no distension. Palpations: Abdomen is soft. Tenderness: There is no abdominal tenderness. Musculoskeletal: General: Normal range of motion. Cervical back: Normal range of motion and neck supple. Skin: General: Skin is warm and dry. Findings: No rash. Comments: Single, elevated, raised papular skin tag/wart present to over the upper back, 1 over the right side of the neck as well as there is 1 present over the belly. Neurological: Mental Status: She is alert and oriented to person, place, and time. Deep Tendon Reflexes: Reflexes are normal and symmetric. Psychiatric: Behavior: Behavior normal. Labs: Lab Results Component Value Date WBC 11.3 (H) 01/16/2020 HGB 13.2 01/16/2020 HCT 39.1 01/16/2020 MCV 89.1 01/16/2020 PLT 245 01/16/2020 Lab Results Component Value Date GLUCOSE 75 01/16/2020 CALCIUM 9.0 01/16/2020 NA 138 01/16/2020 K 4.0 01/16/2020 CO2 22 01/16/2020 CL 107 01/16/2020 BUN 5 (L) 01/19/2021 CREATININE 0.6 01/19/2021 No results found for: HGBA1C Assessment/Plan Assessment and Plan Problem List Items Addressed This Visit Respiratory Acute recurrent maxillary sinusitis Current Assessment & Plan Augmentin sent to patient's pharmacy. Advised to take Chata as well as Flonase every day. Per patient she tried taking Flonase that gave her migraine headaches. She is advised to follow-up with ENT. Patient had surgery of her sinuses in the past. Musculoskeletal Skin lesion Current Assessment & Plan Patient requesting dermatology referral. She is not interested in getting them out if they are not concerning. Relevant Orders Ambulatory referral to Dermatology Other Annual physical exam - Primary Current Assessment & Plan Dentist follow-up recommended every 6 months. Eye doctor follow-up recommended every 1 to 2 years. Try to do moderate intensity exercise 40 to 45 minutes 4-5 times a week. Cut down on carbohydrates and free sugars. Try to eat diet rich in proteins. Other Visit Diagnoses Encounter for lipid screening for cardiovascular disease Relevant Orders Lipid panel Comprehensive metabolic panel Medications Current Outpatient Medications: albuterol (PROVENTIL) 90 mcg/actuation inhaler, Inhale 2 puffs every 4 ( four) hours if needed for wheezing or shortness of breath., Disp: 6.7 g, Rfl: 0 diazePAM (Valium) 10 mg tablet, Take 1 tablet by mouth 3 times a day., D isp: , Rfl: oxyCODONE (ROXICODONE) 5 mg immediate release tablet, Take by mouth., Di sp: , Rfl: amoxicillin-pot clavulanate (AUGMENTIN) 875-125 mg tablet, Take 1 tablet by mouth twice a day for 10 days., Disp: 20 tablet, Rfl: 0 Allergies Allergen Reactions Bee Venom Protein (Honey Bee) Anaphylaxis and Throat Swelling Shellfish Containing Products Anaphylaxis and Hives Ciprofloxacin Hives and Dizziness Cyclobenzaprine Hives and Nausea And Vomiting passes out Ketorolac Tromethamine Palpitations Pregabalin Confusion Nitrofurantoin Monohyd/M-Cryst Hives and Dizziness Other reaction(s): "passes out" Severity: Hives - Moderate; Ingredients: Nitrofurantoin; Type: Drug; Gabapentin Anxiety and Confusion Past Medical History: Diagnosis Date Alcoholism ([facility]) Allergies Anemia Anxiety Asthma Bipolar disorder ([facility]) Follows up with psychiatrist at [place] [facility] Chronic back pain Chronically on opiate therapy Headache Hemorrhoids Insomnia Lumbago Multiple fractures Nephrolithiasis S/P craniotomy Spinal cord stimulator x7 ,Arm and forearm surgery ,2 ulnar release surgery, 2 wrist surgeries, fractured ankle, fractured ribs Spontaneous x2 Past Surgical History: Procedure Laterality Date SECTION, LOW TRANSVERSE x2 HYSTERECTOMY Total hysterectomy for pelvic pain VAGINAL DELIVERY x3 Family History Problem Relation Name Age of Onset Ulcerative colitis Mother Allergies Daughter Asthma Daughter Breast cancer Mother's Sister 40 CAUSE OF Colon cancer Maternal Grandmother Heart disease Maternal Grandmother Alcohol abuse Other Hyperlipidemia Other Hypertension Other Mental illness Other Thyroid disease Other Other (torsion of the bowel) Other Uncle from this Breast cancer Mother's Sister MISHA LUKE MD documented in this encounter Miscellaneous Notes * Assessment & Plan Note - Misha Luke MD - 02/25/2021 10:35 AM EDT Associated Problem(s): Skin lesion Patient requesting dermatology referral. She is not interested in getting them out if they are not concerning. * Assessment & Plan Note - Misha Luke MD - 02/25/2021 10:33 AM EDT Associated Problem(s): Acute recurrent maxillary sinusitis Augmentin sent to patient's pharmacy. Advised to take Chata as well as Flonase every day. Per patient she tried taking Flonase that gave her migraine headaches. She is advised to follow-up with ENT. Patient had surgery of her sinuses in the past. * Assessment & Plan Note - Misha Luke MD - 02/25/2021 10:32 AM EDT Associated Problem(s): Annual physical exam Dentist follow-up recommended every 6 months. Eye doctor follow-up recommended every 1 to 2 years. Try to do moderate intensity exercise 40 to 45 minutes 4-5 times a week. Cut down on carbohydrates and free sugars. Try to eat diet rich in proteins. documented in this encounter Plan of Treatment Care Team Description Date Type Specialty 03/18/2021 Appointment Adam Jiang NP [address] [facility] [address] [place] [address] 02/15/2022 Office Visit Misha Luke MD [address] [place] [id number] 02/26/2022 Office Visit Order Schedule Name Type Priority Associated Diag noses 1 Occurrences starting 02/25/2021 until 02/25/2022 Ambulatory referral to Outpatient Routine Skin le eri Dermatology Referral Health Maintenance Due Date Last Done Comments [...] topic documented as of this encounter Results * Comprehensive metabolic panel (02/25/2021 8:53 AM EDT) Sodium 137 135 - 146 mmol/L [facility] Potassium 4.5 3.5 - 5.3 mmol/L [facility] Chloride 104 98 - 107 mmol/L [facility] CO2 23 21 - 32 mmol/L [facility] Anion Gap 10 5 - 15 [facility] BUN 12 7 - 23 mg/dL [facility] Creatinine 0.7 0.5 - 1.0 mg/dL [facility] BUN/Creatinine 17 [facility] Glucose 91 65 - 99 mg/dL [facility] Calcium 9.8 8.4 - 10.4 mg/dL [facility] AST 18 <59 U/L [facility] ALT (SGPT) 14 <35 U/L [facility] Alkaline 82 38 - 126 U/L [facility] Total Protein 8.0 6.3 - 8.2 g/dL [facility] Albumin 4.7 3.5 - 5.0 g/dL [facility] A/G Ratio 1.42 [facility] Total Bilirubin 0.6 0.1 - 1.3 mg/dL [facility] eGFR >60 >60 mL/min/1.73m*2 [facility] Specimen Blood - Blood, Venous Performing Organization Address City/State/ZIP Code P zuahir Number [facility] [address] [place] [address] * Lipid panel (02/25/2021 8:53 AM EDT) Triglycerides 130 <200 mg/dL [facility] Cholesterol 270 (H) <200 mg/dL [facility] LDL Calculated 179 (H) <100 mg/dL mg/dL [facility] HDL 65 >40 mg/dL [facility] RISK 4.2 [facility] Non HDL 205 (H) 60 - 100 mg/dL [facility] Specimen Blood - Blood, Venous Performing Organization Address City/State/ZIP Code P zuhair Number [facility] [phone] [place] [address] documented in this encounter Visit Diagnoses Diagnosis Annual physical exam - Primary Routine general medical examination at a health care facility Encounter for lipid screening for cardi ovascular disease Skin lesion Unspecified disorder of skin and subcut aneous tissue Acute recurrent maxillary sinusitis documented in this encounter Insurance Type Payer Benefit Subscriber ID Effective Phone Address Plan / Dates Group [facility] [id number] 2019-P [address] MEDICAID REPLACEMENT [place] [address] [place] [id number] documented as of this encounter Advance Directives Patient Briquette Molder Explanation Type Date Recorded Advance Directives and Living Will Power of Living Manager Cat Bruno 12/26/2019 Advance Directives 01/15/2020 4:05 PM and Living Will 01/29/2019 Advance Directives 01/07/2020 9:46 AM and Living Will Date Inactivated Comments Code Status Date Activated 04/03/2020 2:41 AM Full Code 04/02/2020 7:29 AM Relationship Healthcare Agent Relationship Communicat ion Name Significant Other Health Care Agent [phone] (Mobile ) Cat Bruno Care Teams Start Date End Date Boom Worker Relationship Specialty 12/26/19 Misha Luke MD PCP - General documented as of this encounter
--- OUTSIDE RECORDS SUMMARY | 2021-03-13 09:44 | CCD | Summary of Care ---
Author Author [facility] Organization [facility] Address Unknown Phone Unavailable Care Team Providers Care Molecular Biology Professor Name Role Phone Misha Luke MD PP Reason for Visit * Reason Comments cysto Encounter Details Care Team Description Date Type Department Ashish Hood MD [address] [address] Gross hematuria (Primary Dx) 02/11/2021 Procedure Visit [facility] [[email or web address]] Urology [address] [place] [address] Allergies Comments Active Allergy Reactions Severity Noted [...] as of this encounter (statuses as of 02/11/2021) Medications End Date Status Medication Sig Dispensed Refills Start Date Active diazePAM (Valium) 10 mg Take 1 tablet 0 tablet by mouth 3 3 times a day. Active ondansetron (ZOFRAN) 4 mg Take 1 tablet 5 tablet 0 tablet (4 mg total) 0 by mouth every 8 (eight) hours. 05/21/2021 Active albuterol (PROVENTIL) 90 Inhale 2 6.7 g 0 0 mcg/actuation puffs every 4 1 inhalerIndications: (four) hours Encounter for observation if needed for for suspected exposure to wheezing or other biological agents shortness of ruled out breath. Active benzonatate (TESSALON) Take 1 30 capsule 0 100 mg capsule capsule by 1 mouth 3 (three) times a day if needed for cough. Do not crush or chew. Active orphenadrine (NORFLEX) Take 1 tablet 20 tablet 0 0 100 mg 12 hr tablet by mouth 2 1 (two) times a day if needed for muscle spasms for up to 10 days. Swallow whole. Do not crush, chew, or split. Active dexAMETHasone (DECADRON) Take 1 tablet 10 tablet 0 2 mg tablet by mouth 2 1 (two) times a day with meals for 5 days. 08/18/2021 Active plecanatide 3 mg tablet Take 3 mg by 90 tablet 3 0 mouth 1 (one) 1 time each day. Active oxyCODONE (ROXICODONE) 5 Take by 0 mg immediate release mouth. tablet documented as of this encounter (statuses as of 02/11/2021) Active Problems Problem Noted Date Gross hematuria 09/02/2020 Last Assessment & Plan: [...] might be differ ent from the original. No Pap smears as patient has hysterecto my. Last mammogram done on 12/2018. Mammog dmitriy ordered today. HIV declined. Patient will be getting Tdap and flu sh ot today. Healthcare proxy on file. Subacute sinusitis 01/31/2020 Last Assessment & Plan: Formatting of this note might be differ ent from the original. Augmentin sent to patient's pharmacy. At risk for falls 01/31/2020 Bipolar disorder 01/31/2020 Overview: Formatting of this note might be differ ent from the original. Follows up with psychiatrist Stevo graves at [facility] for bipolar disorder and anxiety and depression. [...] ent from the original. Follows up with HOSPITAL EDUCATION COORDINATOR status post hystere ctomy Kidney stone 11/17/2013 [...] ent from the original. Follows up with HOSPITAL EDUCATION COORDINATOR status post hystere ctomy documented as of this encounter (statuses as of 02/11/2021) Resolved Problems Problem Noted Date Resolved Date [...] original. Follows up with pain management at [facility] palliative care for pain management Patient was on medical marijuana prescr ibed by Karol Baig. Patient is on morphine sulfate extended release 15 mg tablet as well as on oxycodone acetaminophen. She also take s Valium 10 mg 3 times a day as needed Urinary retention 03/07/2013 01/31/2020 documented as of this encounter (statuses as of 02/11/2021) Immunizations Name Administration Dates Next Due Influenza,18Yrs+,Recombin 01/31/2020 ant,Quadrvlnt,PF,INJ MMR 05/04/2000 Moderna 10/06/2020, 09/08/2020 Vqnw-GWJ-7-Vaccination (COVID) Tdap 01/31/2020, 07/25/2000 documented as of this encounter Social History Date Tobacco Use Types Packs/Day Years Used Former Smoker Smokeless Tobacco: Never Used Comments Alcohol Use Standard Drinks/Week Not Currently 0 (1 standard drink = 0.6 o z pure alcohol) Sex Assigned at Date Recorded Female 01/16/2020 11:19 AM EDT Date Recorded COVID-19 Exposure Response 02/11/2021 2:30 PM EDT In the last month, have you been in contact with No / Unsure someone who was confirmed or suspected to have Coronavirus / COVID-19? documented as of this encounter Last Filed Vital Signs Reading Time Taken Comments Vital Sign 114/82 02/11/2021 3:03 PM EDT Blood Pressure 87 02/11/2021 3:03 PM EDT Pulse 36.6 C (97.8 F) 02/11/2021 3:03 PM EDT Temperature 16 02/11/2021 3:03 PM EDT Respiratory Rate - - Oxygen Saturation - - Inhaled Oxygen Concentration 65.3 kg (144 lb) 02/11/2021 3:03 PM EDT Weight - - Height 26.34 02/05/2021 10:13 AM EDT Body Mass Index documented in [...] or older) documented as of this encounter Progress Notes * Ashish Hood MD - 02/11/2021 2:45 PM EDT DATE: 02/11/2021 ATTENDING: ASHISH HOOD MD PRIMARY CARE PROVIDER: MISHA LUKE MD [phone] HISTORY OF PRESENT ILLNESS: Fariha Yanez is a 45 y.o. female whom I am meeting for the first time, previo usly patient of Dr. Gan: Follows for nephrolithiasis and neurogenic bladder . History of hysterectomy with damage to the nerves, had issues urinating since. She is managed by [facility]. History of gross hematuria while passing stones. In the past Litholink analysis showed low citrate and acidic urine. She was sta rted on potassium citrate. History of ureteroscopy with Dr. Payne in 2019. Patient has recurrent gross hematuria. CT urogram on 02/10/2021 which I sánchez varela reviewed just showed a tiny right-sided nonobstructing kidney stone. Here for cystoscopy. Urinalysis negative. PAST MEDICAL HISTORY: Past Medical History: Diagnosis Date Alcoholism ([facility]) Allergies Anemia Anxiety Asthma Bipolar disorder ([facility]) Follows up with psychiatrist at [facility] Chronic back pain Chronically on opiate therapy Headache Hemorrhoids Insomnia Lumbago Multiple fractures Nephrolithiasis S/P craniotomy Spinal cord stimulator x7 ,Arm and forearm surgery ,2 ulnar release surgery, 2 wrist surgeries, fractured ankle, fractured ribs Spontaneous x2 Past Surgical History: Procedure Laterality Date SECTION, LOW TRANSVERSE x2 HYSTERECTOMY Total hysterectomy for pelvic pain VAGINAL DELIVERY x3 FAMILY HISTORY: Family History Problem Relation Name Age of Onset Ulcerative colitis Mother Allergies Daughter Asthma Daughter Breast cancer Mother's Sister 40 CAUSE OF Colon cancer Maternal Grandmother Heart disease Maternal Grandmother Alcohol abuse Other Hyperlipidemia Other Hypertension Other Mental illness Other Thyroid disease Other Other (torsion of the bowel) Other Uncle from this Breast cancer Mother's Sister SOCIAL HISTORY: Social History Tobacco Use Smoking status: Former Smoker Smokeless tobacco: Never Used Substance Use Topics Alcohol use: Not Currently Drug use: Defer Comment: Medical Marijuana (has card) ALLERGIES: Allergies Allergen Reactions Bee Venom Protein (Honey Bee) Anaphylaxis and Throat Swelling Shellfish Containing Products Anaphylaxis and Hives Ciprofloxacin Hives and Dizziness Cyclobenzaprine Hives and Nausea And Vomiting passes out Ketorolac Tromethamine Palpitations Pregabalin Confusion Nitrofurantoin Monohyd/M-Cryst Hives and Dizziness Other reaction(s): "passes out" Severity: Hives - Moderate; Ingredients: Nitrofurantoin; Type: Drug; Gabapentin Anxiety and Confusion MEDICATIONS: Current Outpatient Medications: albuterol (PROVENTIL) 90 mcg/actuation inhaler, Inhale 2 puffs every 4 ( four) hours if needed for wheezing or shortness of breath., Disp: 6.7 g, Rfl: 0 diazePAM (Valium) 10 mg tablet, Take 1 tablet by mouth 3 times a day., D isp: , Rfl: oxyCODONE (ROXICODONE) 5 mg immediate release tablet, Take by mouth., Di sp: , Rfl: benzonatate (TESSALON) 100 mg capsule, Take 1 capsule by mouth 3 (three) times a day if needed for cough. Do not crush or chew. (Patient not taking: Rep orted on 08/28/2020), Disp: 30 capsule, Rfl: 0 dexAMETHasone (DECADRON) 2 mg tablet, Take 1 tablet by mouth 2 (two) tristin es a day with meals for 5 days. (Patient not taking: Reported on 08/28/2020), Disp : 10 tablet, Rfl: 0 ondansetron (ZOFRAN) 4 mg tablet, Take 1 tablet (4 mg total) by mouth ev teja 8 (eight) hours. (Patient not taking: Reported on 04/07/2020), Disp: 5 table t, Rfl: 0 orphenadrine (NORFLEX) 100 mg 12 hr tablet, Take 1 tablet by mouth 2 (tw o) times a day if needed for muscle spasms for up to 10 days. Swallow whole. Do not crush, chew, or split. (Patient not taking: Reported on 08/28/2020), Disp: 20 tablet, Rfl: 0 plecanatide 3 mg tablet, Take 3 mg by mouth 1 (one) time each day. (Joyd ent not taking: Reported on 02/05/2021), Disp: 90 tablet, Rfl: 3 LABORATORY DATA: Lab Results Component Value Date/Time CREATININE 0.6 01/19/2021 12:12 PM CREATININE 0.6 10/23/2020 01:30 PM CREATININE 0.6 01/16/2020 02:08 PM No results found for: PSA REVIEW OF SYSTEMS: Constitutional: No fevers or chills Respiratory: No shortness of breath or cough Cardiac: No chest pains Abdominal: No pains or distention Genitourinary: As mentioned in the HPI PHYSICAL EXAM: Constitutional: NAD, conversant Eyes: anicteric sclerae, EOMI ENMT: moist oral mucosa, trachea midline Resp: normal respiratory effort, no intercostal retractions CV: no JVD, no chest heaving Muskuloskeletal: no deformities, non-spastic tone Psych: Appropriate affect, alert and oriented Neuro: moving extremities equally, no facial droop Skin: no rashes, no jaundice ASSESSMENT: Ms. Yanez is a 45 y.o. female with intermittent hematuria, neurogenic bladder, nephrolithiasis PLAN: Problem List Items Addressed This Visit Genitourinary Gross hematuria - Primary Current Assessment & Plan CT urogram demonstrated tiny punctate stone in the right kidney. Patient was reassured, I do not think she needs surgery at this time, would likely to pass i t spontaneously. Cystoscopy was nonrevealing. We will send urine cytology. Follow-up in 1 year. Relevant Orders Non-gynecologic cytology Follow up in about 1 year (around 02/11/2022). No orders of the defined types were placed in this encounter. Cystoscopy Procedure Note PROCEDURE DATE: 02/11/2021 PATIENT: Fariha Yanez : 1975 SURGEON: ASHISH HOOD MD PREOPERATIVE DIAGNOSIS(ES): gross hematuria POSTOPERATIVE DIAGNOSIS(ES): same PROCEDURAL ANTIBIOTIC: KEFLEX 500mg PROCEDURE: Cystoscopy The patient is here today for flexible cystoscopy. Risks of the procedure inclu ding but not limited to bleeding, urinary tract infection, and irritative voidin g symptoms were explained to the patient. Informed consent was obtained. The p atient was identified on the table. A time-out was performed prior to the proce dure to confirm the correct patient, procedure and site. The patient was preppe d and draped in sterile fashion. A 18-Albanian flexible cystoscope was passed per meatus. The bladder was thoroughly examined with the flexible scope. The flexi ble cystocope was removed. The patient tolerated the procedure well. FINDINGS: Anterior Urethra: Normal without stricture Bladder: No abnormalities Ureteral orifices: Orthotopic Retroflexion: No abnormalities Cytology: Urine cytology was sent and pending documented in this encounter Miscellaneous Notes * Assessment & Plan Note - Ashish Hood MD - 02/11/2021 3:28 PM EDT Associated Problem(s): Gross hematuria CT urogram demonstrated tiny punctate stone in the right kidney. Patient was re assured, I do not think she needs surgery at this time, would likely to pass it spontaneously. Cystoscopy was nonrevealing. We will send urine cytology. Follow-up in 1 year. documented in this encounter Plan of Treatment Care Team Description Date Type Specialty Misha Luke MD [address] [place] [id number] 02/25/2021 Office Visit Adam Jiang NP 30 [facility] [address] [place] [address] 02/15/2022 Office Visit Order Schedule Name Type Priority Associated Diag noses Ordered: 02/11/2021 Non-gynecologic cytology Pathology and Routine Gross hematuria Cytology Health Maintenance Due Date Last Done Comments Hepatitis C Screening 1975 Pneumococcal Vaccine: 1982 Pediatrics (0 to 5 Years) and At-Risk Patients (6 to 64 Years) (1 of 2 - PPSV23) DTaP,Tdap,and Td Vaccines 07/31/2020 01/31/2020, (3 - Td or Tdap) 07/25/2000 Influenza Vaccine (#1) 2020 01/31/2020 Mammogram 02/27/2021 02/28/2020, 01/05/2019, 01/05/2019, Additional history exists Diabetes Screening 01/03/2023 01/04/2020 MMR Vaccines Completed 05/04/2000 Lipid Panel Discontinued 01/04/2020 COVID-19 Vaccine Completed 10/06/2020, 09/08/2020 HIB Vaccines Aged Out No longer eligible [...] on patient's age to complete this topic IPV Vaccines Aged Out No longer eligible based on patient's age to complete this topic Meningococcal Vaccine Aged Out No longer eligib le based on patient's age to complete this topic documented as of this encounter Results Not on filedocumented in this encounter Visit Diagnoses Diagnosis Gross hematuria - Primary documented in this encounter Insurance Type Payer Benefit Subscriber ID Effective Phone Address Plan / Dates Group [facility] [id number] 2019-P [address] MEDICAID REPLACEMENT [facility] [address] [place] [id number] documented as of this encounter Advance Directives Patient Card Folder Explanation Type Date Recorded Advance Directives and Living Will Power of Director Print Cat Bruno 12/26/2019 Advance Directives 01/15/2020 4:05 PM and Living Will 01/29/2019 Advance Directives 01/07/2020 9:46 AM and Living Will Date Inactivated Comments Code Status Date Activated 04/03/2020 2:41 AM Full Code 04/02/2020 7:29 AM Relationship Healthcare Agent Relationship Communicat ion Name Significant Other Health Care Agent [phone] (Mobile ) Cat Bruno Care Teams Start Date End Date Molecular Biology Professor Relationship Specialty 12/26/19 Misha Luke MD PCP - General documented as of this encounter
--- OUTSIDE RECORDS SUMMARY | 2021-03-13 09:44 | CCD | Summary of Care ---
Author Author [facility] Organization [facility] Address Unknown Phone Unavailable Care Team Providers Care Learning And Development Intern Name Role Phone Misha Weller MD PCP Encounter Details Care Team Description Date Type Department Ashish Farrell MD [address] [address] 03/06/[address] [facility] Urology 30 [place] [address] Allergies Comments Active Allergy Reactions Severity Noted [...] as of this encounter (statuses as of 03/06/2021) Medications End Date Status Medication Sig Dispensed [...] as of this encounter (statuses as of 03/06/2021) Active Problems Problem Noted Date Acute recurrent [...] original. Dentist follow-up recommended every 6 m [facility]. Eye doctor follow-up recommended every 1 to [...] Follows up with psychiatrist Stevo graves at [place] for bipolar disorder and anxiety and depression. Interstitial cystitis 01/16/2020 Mixed anxiety and depressive disorder 12/26/2019 Overview: Formatting of this note might be differ ent from the original. Problem Description: Anxiety with deprdonovan kiseron Neurogenic bladder 09/07/2016 Last Assessment & Plan: [...] ent from the original. Follows up with MOTION PICTURE SET WORKER status post hystere ctomy Kidney stone 11/17/2013 [...] ent from the original. Follows up with MOTION PICTURE SET WORKER status post hystere ctomy documented as of this encounter (statuses as of 03/06/2021) Resolved Problems Problem Noted Date Resolved Date [...] original. Follows up with pain management at [facility] palliative care for pain management Patient was on medical marijuana prescr ibed by Karol Baig. Patient is on morphine sulfate extended release 15 mg tablet as well as on oxycodone acetaminophen. She also take s Valium 10 mg 3 times a day as needed Urinary retention 03/07/2013 01/31/2020 documented as of this encounter (statuses as of 03/06/2021) Immunizations Name Administration Dates Next Due Influenza,18Yrs+ Recomb 01/31/2020 Quad Egg Free-Flublok MMR 05/04/2000 Moderna 10/06/2020, 09/08/2020 Pnxt-QCI-5-Vaccination (COVID) Tdap 01/31/2020, 07/25/2000 documented as of [...] encounter Miscellaneous Notes * Telephone Encounter - Belgica Izquierdo - 03/06/2021 7:53 AM EST Appeals form received for procedure placed in Dr. Farrell folder for action documented in this encounter Plan of Treatment Care Team Description Date Type Specialty 03/18/2021 Appointment Radiology Adam Jiang NP [address] [address] 02/15/2022 [place] [address] [place] [address] 02/26/2022 Office Visit Family Medicine Health Maintenance [...] Effective Phone Address Plan / Dates Group [facility] [id number] 2019-P [address] MEDICAID REPLACEMENT [place] [address] [place] [address] documented as of this encounter Advance Directives Patient Xray Tech Explanation Type Date Recorded Advance Directives and Living Will Power of Aircraft Dispatcher Cat Bruno 12/26/2019 Advance Directives 01/15/2020 4:05 PM and Living Will 01/29/2019 Advance Directives 01/07/2020 9:46 AM and Living Will Date Inactivated Comments Code Status Date Activated 04/03/2020 2:41 AM Full Code 04/02/2020 7:29 AM Relationship Healthcare Agent Relationship Communicat ion Name Significant Other Health Care Agent [phone] (Mobile ) Cat Kiana Care Teams Start Date End Date Learning And Development Intern Relationship Specialty 12/26/19 Misha Weller MD PCP - General documented as of this encounter
--- OUTSIDE RECORDS SUMMARY | 2021-03-13 09:44 | CCD | Summary of Care ---
Author Author [facility] Organization [facility] Address Unknown Phone Unavailable Care Team Providers Care Fire Watcher Name Role Phone Misha Weller MD PP Reason for Visit * Reason Onset Date Comments appt inquiry 02/11/2021 Encounter Details Care Team Description Date Type Department Misha Weller MD [address] [place], [place] [id number] appt inquiry 02/11/2021 Telephone S Primary Care Ve stal [address] [facility] [address] [place], [place] [id number] Allergies Comments Active Allergy Reactions Severity Noted [...] as of this encounter (statuses as of 02/12/2021) Medications End Date Status Medication Sig Dispensed [...] as of this encounter (statuses as of 02/12/2021) Active Problems Problem Noted Date Gross hematuria [...] Follows up with psychiatrist Stevo graves at [place] for bipolar disorder and anxiety and depression. [...] ent from the original. Follows up with CORPORATE ACCOUNTING MANAGER status post hystere ctomy Kidney stone 11/17/2013 [...] ent from the original. Follows up with CORPORATE ACCOUNTING MANAGER status post hystere ctomy documented as of this encounter (statuses as of 02/12/2021) Resolved Problems Problem Noted Date Resolved Date [...] original. Follows up with pain management at [facility] palliative care for pain management Patient was on medical marijuana prescr ibed by Karol Baig. Patient is on morphine sulfate extended release 15 mg tablet as well as on oxycodone acetaminophen. She also take s Valium 10 mg 3 times a day as needed Urinary retention 03/07/2013 01/31/2020 documented as of this encounter (statuses as of 02/12/2021) Immunizations Name Administration Dates Next Due Influenza,18Yrs+,Recombin 01/31/2020 ant,Quadrvlnt,PF,INJ MMR 05/04/2000 Moderna 10/06/2020, 09/08/2020 Ajmz-[id number]-6-Vaccination (COVID) Tdap 01/31/2020, 07/25/2000 documented as of [...] encounter Miscellaneous Notes * Telephone Encounter - Isabella Zheng MA - 02/12/2021 8:31 AM EDT Please see message from the patient. As of today her appointment with you is le ss than 2 weeks. Please advise * Telephone Encounter - Natalia Parnell - 02/11/2021 3:41 PM EDT Pt calling as she had a CT scan yesterday, which found a kidney stone. Pt stated the Urology office told her she needed a follow up with provider soon. Pt has a PH scheduled for 02/25, is this soon enough? Please call pt back at [phone]. documented in this encounter Plan of Treatment Care Team Description Date Type Specialty Misha Weller MD [facility] [place] [address] 02/25/2021 Office Visit 03/18/2021 Appointment Adam Jiang NP 30 [facility] [address] [place] [phone] 02/15/2022 Office Visit Health Maintenance Due Date Last [...] Effective Phone Address Plan / Dates Group [facility] [id number] 2019-P [address] MEDICAID REPLACEMENT [place] [id number] [place] [address] documented as of this encounter Advance Directives Patient Grove Worker Explanation Type Date Recorded Advance Directives and Living Will Power of Media Planner Cat Bruno 12/26/2019 Advance Directives 01/15/2020 4:05 PM and Living Will 01/29/2019 Advance Directives 01/07/2020 9:46 AM and Living Will Date Inactivated Comments Code Status Date Activated 04/03/2020 2:41 AM Full Code 04/02/2020 7:29 AM Relationship Healthcare Agent Relationship Communicat ion Name Significant Other Health Care Agent [phone] (Mobile ) Cat Bruno Care Teams Start Date End Date Fire Watcher Relationship Specialty 12/26/19 Misha Weller MD PCP - General documented as of this encounter
--- OUTSIDE RECORDS SUMMARY | 2021-03-13 09:44 | CCD | Summary of Care ---
Author Author [facility] Organization [facility] Address Unknown Phone Unavailable Care Team Providers Care Sustainable Systems Analyst Name Role Phone Misha Weller MD PP Reason for Visit * Reason Onset Date Comments regarding message in 02/25/2021 U[employer]zhart Encounter Details Care Team Description Date Type Department Misha Weller MD [address] [place] [address] regarding message in '[employer] 02/25/2021 Telephone S Primary Care Ve stal [address] [facility] [address] [place] [address] Allergies Comments Active Allergy Reactions Severity Noted [...] original. Dentist follow-up recommended every 6 m [facility]. Eye doctor follow-up recommended every 1 to [...] Follows up with psychiatrist Stevo graves at [place] for bipolar disorder and anxiety and depression. Interstitial cystitis 01/16/2020 Mixed anxiety and depressive disorder 12/26/2019 Overview: Formatting of this note might be differ ent from the original. Problem Description: Anxiety with natalie de la cruz Neurogenic bladder 09/07/2016 Last Assessment & Plan: [...] ent from the original. Follows up with REMOTELY PILOTED VEHICLE CONTROLLER status post hystere ctomy Kidney stone 11/17/2013 [...] ent from the original. Follows up with REMOTELY PILOTED VEHICLE CONTROLLER status post hystere ctomy documented as of [...] original. Follows up with pain management at palliative care for pain management Patient was [...] 01/31/2020 ant,Quadrvlnt,PF,INJ MMR 05/04/2000 Moderna 10/06/2020, 09/08/2020 Goif-GAT-6-Vaccination (COVID) Tdap 01/31/2020, 07/25/2000 documented as of [...] encounter Miscellaneous Notes * Telephone Encounter - Sona Taveras - 02/25/2021 12:38 PM EDT Pt called, stated she had a message on [employer] regarding cholesterol medication. She states she is fine taking medication for her cholesterol. Preferred pharmacy- [facility]/pharmacy #[id number] [place] [address] - [address] [place] [address] AT [facility] and [facility] documented in this encounter Plan of Treatment Care Team Description Date Type Specialty 03/18/2021 Appointment Adam Jiang NP [address] [facility] [address] [place] [address] 02/15/2022 Office Visit Misha Weller MD [address] [place] [address] 02/26/2022 Office Visit Health Maintenance Due Date [...] Effective Phone Address Plan / Dates Group [facility] [id number] 2019-P [address] MEDICAID REPLACEMENT [facility] [address] [place] [address] documented as of this encounter Advance Directives Patient Automation Design Engineer Explanation Type Date Recorded Advance Directives and Living Will Power of Evp And Chief Operating Officer Cat Kiana 12/26/2019 Advance Directives 01/15/2020 4:05 PM and Living Will 01/29/2019 Advance Directives 01/07/2020 9:46 AM and Living Will Date Inactivated Comments Code Status Date Activated 04/03/2020 2:41 AM Full Code 04/02/2020 7:29 AM Relationship Healthcare Agent Relationship Communicat ion Name Significant Other Health Care Agent [phone] (Mobile ) Cat Kiana Care Teams Start Date End Date Sustainable Systems Analyst Relationship Specialty 12/26/19 Misha Weller MD PCP - General documented as of this encounter
--- OUTSIDE RECORDS SUMMARY | 2021-03-13 09:45 | CCD | Summary of Care ---
Author Author [facility] Organization [facility] Address Unknown Phone Unavailable Care Team Providers Care Department Chairperson Name Role Phone Misha Weller MD PP Reason for Visit * Reason Comments Follow-up 6 month f/u. Patient denie s chest pain and shortness of breath. Patient is complaining of swelling in the feet that started about a month ago Encounter Details Care Team Description Date Type Department Jordan Kelley MD [address] [address] Chest pain, unspecified type (Primary Dx ) 02/05/2021 Office Visit [facility] [place] [address] [place] [id number] Allergies Comments Active Allergy Reactions Severity Noted [...] as of this encounter (statuses as of 02/05/2021) Medications End Date Status Medication Sig Dispensed Refills Start Date Active diazePAM (Valium) 10 mg Take 1 tablet 0 01/14/ 201 tablet by mouth 3 3 times a [...] as of this encounter (statuses as of 02/05/2021) Active Problems Problem Noted Date Gross hematuria 09/02/2020 Last Assessment & Plan: Formatting of this note might be differ ent from the original. This is a 44-year-old patient who mag nues to have episodes of gross hematuria. She had negative hematuria work-up in 2018 and she reports having recent episodes of gross hematur ia which she associates with stone passage. I do not see any clear radiog raphic evidence that stone passage has occurred I do not understand the et iology of her continued gross hematuria. She is not taking any blood thinners. She reports no history of smoking and no close family history of bladder or kidney cancer. Given the uncertainty of this, I recomm end repeating hematuria work-up as it has been approximately 3 years. Thi s includes CT urogram, urine cytology and cystoscopy. After discuss ion, the patient was agreeable to move forward with this. I would like h er to return to see Dr. Farrell in 4 to 6 weeks for cystoscopy and CT result s. She will go to the lab to obtain cytology. Essential hypertension 07/29/2020 Last Assessment & Plan: [...] Follows up with psychiatrist Stevo graves at [place] for bipolar disorder and anxiety and depression. [...] ent from the original. Follows up with SSIS DEVELOPER status post hystere ctomy Kidney stone 11/17/2013 [...] ent from the original. Follows up with SSIS DEVELOPER status post hystere ctomy documented as of this encounter (statuses as of 02/05/2021) Resolved Problems Problem Noted Date Resolved Date [...] original. Follows up with pain management at [facility] palliative care for pain management Patient was on medical marijuana prescr ibed by Karol Baig. Patient is on morphine sulfate extended release 15 mg tablet as well as on oxycodone acetaminophen. She also take s Valium 10 mg 3 times a day as needed Urinary retention 03/07/2013 01/31/2020 documented as of this encounter (statuses as of 02/05/2021) Immunizations Name Administration Dates Next Due Influenza,18Yrs+,Recombin 01/31/2020 ant,Quadrvlnt,PF,INJ MMR 05/04/2000 Moderna 10/06/2020, 09/08/2020 Kije-CYI-0-Vaccination (COVID) Tdap 01/31/2020, 07/25/2000 documented as of this encounter Social History Date Tobacco Use Types Packs/Day Years Used Former Smoker Smokeless Tobacco: Never Used Comments Alcohol Use Standard Drinks/Week Not Currently 0 (1 standard drink = 0.6 o z pure alcohol) Sex Assigned at Date Recorded Female 01/16/2020 11:19 AM EDT Date Recorded COVID-19 Exposure Response 02/05/2021 9:52 AM EDT In the last month, have you been in contact with No / Unsure someone who was confirmed or suspected to have Coronavirus / COVID-19? documented as of this encounter Last Filed Vital Signs Reading Time Taken Comments Vital Sign 104/77 02/05/2021 10:13 AM EDT Blood Pressure 60 02/05/2021 10:13 AM EDT Pulse 36.3 C (97.4 F) 02/05/2021 10:13 AM EDT Temperature 16 02/05/2021 10:13 AM EDT Respiratory Rate 97% 02/05/2021 10:13 AM EDT Oxygen Saturation - - Inhaled Oxygen Concentration 65.2 kg (143 lb 11.8 oz) 02/05/2021 10:13 AM EDT Weight 157.5 cm (5' 2") 02/05/2021 10:13 AM EDT Height 26.29 02/05/2021 10:13 AM EDT Body Mass Index [...] as of this encounter Progress Notes * Jordan Kelley MD - 02/05/2021 10:00 AM EDT Progress Note Patient: Fariha Yanez : 1975 AGE: 45 y.o. Visit Date: 02/05/2021 Chief Complaint: 45-year-old female with strong family history of coronary arter y disease, hypertension hyperlipidemia currently on no medical therapy who was i nitially seen in the office because of ongoing chest pain, chest pressure shortn ess of breath and abnormal EKG. She was diagnosed with Covid infection in the p ast. She had a stress test that showed no evidence of ischemia ejection fractio n was normal and echocardiogram was pretty much unremarkable [facility] Completely asymptomatic. No chest pain chest pressure s hortness of breath orthopnea PND lower extremity edema or syncope. EKG shows no rmal regular sinus rhythm. Blood pressure 104/77, heart rate 60 bpm and her exa mination is unremarkable. Chief Complaint Patient presents with Follow-up 6 month f/u. Patient denies chest pain and shortness of breath. Patient is c omplaining of swelling in the feet that started about a month ago Assessment/Plan Fariha was seen today for follow-up. Diagnoses and associated orders for this visit: 1. Chest pain, unspecified type (Primary) Overview: Echocardiogram 07/24/2020: normal biventricular systolic function, LVEF 55-60 %, normal diastolic function, trace-mild MR Exercise Stress Test 07/24/2020: normal myocardial perfusion study without an y evidence of myocardial ischemia/scar; achieved 13.4 METS with normal hemodynam ic response, stress EKG negative for ischemia Assessment & Plan: 45-year-old female who quit smoking 4 years ago was initially seen for chest marisol n. Stress test showed no evidence of ischemia ejection fraction was normal. Ec hocardiogram was unremarkable. Today she comes in for follow-up visit. She is not taking any medications. She was initially diagnosed with hypertension hyper lipidemia but her blood pressure is normal. She is not taking anything for high cholesterol. She has no history of diabetes. She takes some inhalers for unde rlying bronchial asthma. EKG shows normal sinus rhythm examination is unremarka ble. All noninvasive cardiac testing was normal. No further cardiac work-up ne eded follow-up. Orders: - ECG 12 lead Follow up if symptoms worsen or fail to improve. Subjective: HPI Past Medical Hx: Past Medical History: Diagnosis Date Alcoholism ([facility]) Allergies Anemia Anxiety Asthma Bipolar disorder ([facility]) Follows up with psychiatrist at [facility] Chronic back pain Chronically on opiate therapy Headache Hemorrhoids Insomnia Lumbago Multiple fractures Nephrolithiasis S/P craniotomy Spinal cord stimulator x7 ,Arm and forearm surgery ,2 ulnar release surgery, 2 wrist surgeries, fractured ankle, fractured ribs Spontaneous x2 Medications: Current Outpatient Medications Medication Sig Dispense Refill albuterol (PROVENTIL) 90 mcg/actuation inhaler Inhale 2 puffs every 4 (fo ur) hours if needed for wheezing or shortness of breath. 6.7 g 0 diazePAM (Valium) 10 mg tablet Take 1 tablet by mouth 3 times a day. oxyCODONE (ROXICODONE) 5 mg immediate release tablet Take by mouth. benzonatate (TESSALON) 100 mg capsule Take 1 capsule by mouth 3 (three) t imes a day if needed for cough. Do not crush or chew. (Patient not taking: Repor ramirez on 08/28/2020) 30 capsule 0 dexAMETHasone (DECADRON) 2 mg tablet Take 1 tablet by mouth 2 (two) times a day with meals for 5 days. (Patient not taking: Reported on 08/28/2020) 10 tabl et 0 ondansetron (ZOFRAN) 4 mg tablet Take 1 tablet (4 mg total) by mouth ever y 8 (eight) hours. (Patient not taking: Reported on 04/07/2020) 5 tablet 0 orphenadrine (NORFLEX) 100 mg 12 hr tablet Take 1 tablet by mouth 2 (two) times a day if needed for muscle spasms for up to 10 days. Swallow whole. Do n ot crush, chew, or split. (Patient not taking: Reported on 08/28/2020) 20 tablet 0 plecanatide 3 mg tablet Take 3 mg by mouth 1 (one) time each day. (Patien t not taking: Reported on 02/05/2021) 90 tablet 3 No current facility-administered medications for this visit. Allergies: Allergies Allergen Reactions Bee Venom Protein (Honey Bee) Anaphylaxis and Throat Swelling Shellfish Containing Products Anaphylaxis and Hives Ciprofloxacin Hives and Dizziness Cyclobenzaprine Hives and Nausea And Vomiting passes out Ketorolac Tromethamine Palpitations Pregabalin Confusion Nitrofurantoin Monohyd/M-Cryst Hives and Dizziness Other reaction(s): "passes out" Severity: Hives - Moderate; Ingredients: Nitrofurantoin; Type: Drug; Gabapentin Anxiety and Confusion Review of Systems All other systems reviewed and are negative. Objective: Vitals: Visit Vitals BP 104/77 (BP Location: Lt Upper Arm, Patient Position: Sitting, BP Cuff Size: A dult) Pulse 60 Temp 36.3 C (97.4 F) (Oral) Resp 16 Ht 5' 2" Wt 143 lb 11.8 oz (65.2 kg) SpO2 97% BMI 26.29 kg/m OB Status Hysterectomy Smoking Status Former Smoker BSA 1.69 m Physical Exam Constitutional: General: She is not in acute distress. Appearance: She is well-developed. She is not diaphoretic. HENT: Head: Normocephalic and atraumatic. Nose: Nose normal. Eyes: General: No scleral icterus. Pupils: Pupils are equal, round, and reactive to light. Neck: Thyroid: No thyromegaly. Vascular: No JVD. Cardiovascular: Rate and Rhythm: Normal rate and regular rhythm. Heart sounds: Normal heart sounds. No murmur heard. No friction rub. No gallop. Pulmonary: Effort: Pulmonary effort is normal. No respiratory distress. Breath sounds: Normal breath sounds. No wheezing or rales. Chest: Chest wall: No tenderness. Abdominal: General: Bowel sounds are normal. There is no distension. Palpations: Abdomen is soft. There is no mass. Tenderness: There is no abdominal tenderness. There is no rebound. Musculoskeletal: General: Normal range of motion. Cervical back: Normal range of motion and neck supple. Lymphadenopathy: Cervical: No cervical adenopathy. Skin: General: Skin is warm and dry. Neurological: Mental Status: She is alert and oriented to person, place, and time. Deep Tendon Reflexes: Reflexes normal. JORDAN KELLEY MD documented in this encounter Miscellaneous Notes * Assessment & Plan Note - Jordan Kelley MD - 02/05/2021 10:32 AM EDT Associated Problem(s): Chest pain 45-year-old female who quit smoking 4 years ago was initially seen for chest marisol n. Stress test showed no evidence of ischemia ejection fraction was normal. Ec hocardiogram was unremarkable. Today she comes in for follow-up visit. She is not taking any medications. She was initially diagnosed with hypertension hyper lipidemia but her blood pressure is normal. She is not taking anything for high cholesterol. She has no history of diabetes. She takes some inhalers for unde rlying bronchial asthma. EKG shows normal sinus rhythm examination is unremarka ble. All noninvasive cardiac testing was normal. No further cardiac work-up ne eded follow-up. documented in this encounter Plan of Treatment Care Team Description Date Type Specialty 02/10/2021 Appointment Misha Weller MD [address] [place] [address] 02/25/2021 Office Visit Order Schedule Name Type Priority Associated Diag noses Ordered: 02/05/2021 ECG 12 lead ECG Routine Chest pain, uns pecified type Health Maintenance Due Date Last Done Comments Hepatitis C Screening 1975 Pneumococcal Vaccine: 1982 Pediatrics (0 to 5 Years) and At-Risk Patients (6 to 64 Years) (1 of 2 - PPSV23) DTaP,Tdap,and Td Vaccines 07/31/2020 01/31/2020, (3 - Td or Tdap) 07/25/2000 Influenza Vaccine (#1) 2020 01/31/2020 Mammogram 02/27/2021 02/28/2020, 01/05/2019, 01/05/2019, Additional history exists MMR Vaccines Completed 05/04/2000 Lipid Panel Discontinued [...] filedocumented in this encounter Visit Diagnoses Diagnosis Chest pain, unspecified type - Primary documented in this encounter Insurance Type Payer Benefit Subscriber ID Effective Phone Address Plan / Dates Group [facility] [id number] 2019-P [address] MEDICAID REPLACEMENT [place] [address] [place] [id number] documented as of this encounter Advance Directives Patient Hat Body Sorter Explanation Type Date Recorded Advance Directives and Living Will Power of Varitype Operator 12/26/2019 Advance Directives 01/15/2020 4:05 PM and Living Will 01/29/2019 Advance Directives 01/07/2020 9:46 AM and Living Will Date Inactivated Comments Code Status Date Activated 04/03/2020 2:41 AM Full Code 04/02/2020 7:29 AM Care Teams Start Date End Date Department Chairperson Relationship Specialty 12/26/19 Misha Weller MD PCP - General documented as of this encounter
--- OUTSIDE RECORDS SUMMARY | 2021-03-13 09:45 | CCD | Summary of Care ---
Author Author [facility] Organization [facility] Address Unknown Phone Unavailable Care Team Providers Care Change Number Operator Name Role Phone Misha Weller MD PP Encounter Details Care Team Description Date Type Department Gallo Valero NP [address] [place] [id number] Cough (Primary Dx); Exposure to 2019 novel coronavirus 01/28/2021 Virtual Visit [facility] Walk-In [facility] [address] [place] [address] (Walk-In) [address] [place] [address] Allergies Comments Active Allergy Reactions Severity Noted [...] as of this encounter (statuses as of 01/28/2021) Medications End Date Status Medication Sig Dispensed [...] as of this encounter (statuses as of 01/28/2021) Active Problems Problem Noted Date Gross hematuria [...] be differ ent from the original. Patient describes chest discomfort as sometimes pleuritic, reproducible with certain motions (twisting) and jovan ewhat relieved with lifting her arms up in the air and using a heating pad. 1. Non cardiac in nature, advised her s he could try a short course of NSAIDs to see if this would help reliev e any discomfort as this chest pain is likely d/t musculoskeletal issues Annual physical exam 01/31/2020 Last Assessment & [...] Follows up with psychiatrist Stevo graves at [place] for bipolar disorder and anxiety and depression. [...] ent from the original. Follows up with BIOLOGY INTERN status post hystere ctomy Kidney stone 11/17/2013 [...] ent from the original. Follows up with BIOLOGY INTERN status post hystere ctomy documented as of this encounter (statuses as of 01/28/2021) Resolved Problems Problem Noted Date Resolved Date [...] original. Follows up with pain management at [facility] palliative care for pain management Patient was on medical marijuana prescr ibed by Karol Baig. Patient is on morphine sulfate extended release 15 mg tablet as well as on oxycodone acetaminophen. She also take s Valium 10 mg 3 times a day as needed Urinary retention 03/07/2013 01/31/2020 documented as of this encounter (statuses as of 01/28/2021) Immunizations Name Administration Dates Next Due Influenza,18Yrs+,Recombin 01/31/2020 ant,Quadrvlnt,PF,INJ MMR 05/04/2000 Moderna 10/06/2020, 09/08/2020 Ssjt-OVR-5-Vaccination (COVID) Tdap 01/31/2020, 07/25/2000 documented as of this encounter Social History Date Tobacco Use Types Packs/Day Years Used Former Smoker Smokeless Tobacco: Never Used Comments Alcohol Use Standard Drinks/Week Not Currently 0 (1 standard drink = 0.6 o z pure alcohol) Sex Assigned at Date Recorded Female 01/16/2020 11:19 AM EDT Date Recorded COVID-19 Exposure Response 01/19/2021 11:55 AM EDT In the last month, have [...] as of this encounter Progress Notes * Gallo Valero NP - 01/28/2021 10:25 AM EDT Patient was seen in the virtual walk in. documented in this encounter Plan of Treatment Care Team Description Date Type Specialty Jordan Kelley MD [address] [place] [address] 02/05/2021 Office Visit Misha Weller MD [facility] [place] [address] 02/25/2021 Office Visit Order Schedule Name Type Priority Associated Diag noses 1 Occurrences starting 01/28/2021 until 01/28/2022 COVID-19 ORDERABLE [facility] Lab Routine Cough Exposure to 2019 novel coronavirus Health Maintenance Due Date Last Done Comments [...] filedocumented in this encounter Visit Diagnoses Diagnosis Cough - Primary Exposure to 2019 novel coronavirus documented in this encounter Insurance Type Payer Benefit Subscriber ID Effective Phone Address Plan / Dates Group [facility] [id number] 2019-P [address] MEDICAID REPLACEMENT [place] [address] [place] [address] (Home) [place], [place] [address] documented as of this encounter Advance Directives Patient Perlite Grinder Explanation Type Date Recorded Advance Directives and Living Will Power of Fire Dispatcher 12/26/2019 Advance Directives 01/15/2020 4:05 PM and Living Will 01/29/2019 Advance Directives 01/07/2020 9:46 AM and Living Will Date Inactivated Comments Code Status Date Activated 04/03/2020 2:41 AM Full Code 04/02/2020 7:29 AM Care Teams Start Date End Date Change Number Operator Relationship Specialty 12/26/19 Misha Weller MD PCP - General documented as of this encounter
--- OUTSIDE RECORDS SUMMARY | 2021-03-13 09:45 | CCD | Summary of Care ---
Author Author [facility] Organization [facility] Address Unknown Phone Unavailable Care Team Providers Care Corporate Tutor Name Role Phone Misha Weller MD PP Reason for Visit * Reason Onset Date Comments Referral 11/27/2020 Encounter Details Care Team Description Date Type Department Misha Weller MD [address] [place] [address] Referral 11/27/2020 Telephone [facility] Primary Care Ve stal [address] [facility] [address] [place], [place] [id number] Allergies Comments Active Allergy Reactions Severity Noted [...] as of this encounter (statuses as of 12/22/2020) Medications End Date Status Medication Sig Dispensed [...] for cough. Do not crush or chew. 08/18/2021 Active plecanatide 3 mg tablet Take 3 mg by 90 tablet 3 0 mouth 1 (one) 1 time each day. Active oxyCODONE (ROXICODONE) 5 Take by 0 mg immediate release mouth. tablet documented as of this encounter (statuses as of 12/22/2020) Active Problems Problem Noted Date Gross hematuria [...] Follows up with psychiatrist Stevo graves at [place] for bipolar disorder and anxiety and depression. [...] ent from the original. Follows up with DRY CLIPPER TENDER status post hystere ctomy Kidney stone 11/17/2013 [...] ent from the original. Follows up with DRY CLIPPER TENDER status post hystere ctomy documented as of this encounter (statuses as of 12/22/2020) Resolved Problems Problem Noted Date Resolved Date [...] Follows up with pain management at [facility] palliative care for pain management Patient was on medical marijuana prescr ibed by Karol Baig. Patient is on morphine sulfate extended release 15 mg tablet as well as on oxycodone acetaminophen. She also take s Valium 10 mg 3 times a day as needed Urinary retention 03/07/2013 01/31/2020 documented as of this encounter (statuses as of 12/22/2020) Immunizations Name Administration Dates Next Due Influenza,18Yrs+,Recombin 01/31/2020 ant,Quadrvlnt,PF,INJ MMR 05/04/2000 Moderna 10/06/2020, 09/08/2020 Zils-NXD-6-Vaccination (COVID) Tdap 01/31/2020, 07/25/2000 documented as of this encounter Social History Date Tobacco Use Types Packs/Day Years Used Former Smoker Smokeless Tobacco: Never Used Comments Alcohol Use Standard Drinks/Week Not Currently 0 (1 standard drink = 0.6 o z pure alcohol) Sex Assigned at Date Recorded Female 01/16/2020 11:19 AM EDT documented as of this encounter Functional Status [...] Telephone Encounter - Isabella Zheng MA - 12/04/2020 1:56 PM EDT Thank you * Telephone Encounter - Sophie Henao - 12/04/2020 12:52 PM EDT Still working on getting insurance authorization for this visit. Paperwork has been submitted to insurance. * Telephone Encounter - Isabella Zheng MA - 12/04/2020 12:21 PM EDT Can you look into this please? * Telephone Encounter - Lynn Dawn - 12/04/2020 8:43 AM EDT Jody Lechuga [facility] has not receive fax 12/01/20. Attempted MOA. Requesting authorization re-faxed #[phone]. Thanks. * Telephone Encounter - Isabella Zheng MA - 12/01/2020 2:42 PM EDT Referral faxed to Jody at * Telephone Encounter - Isabella Zheng MA - 12/01/2020 2:17 PM EDT Please advise * Telephone Encounter - César Webb - 12/01/2020 2:06 PM EDT Jody is still looking for the referral from below message please fax referral to [phone] ATTN: Jody * Telephone Encounter - Isabella Zheng MA - 11/27/2020 2:05 PM EDT No appointment seen for this patient. * Telephone Encounter - Pia Clarke - 11/27/2020 11:31 AM EDT Jody from [facility] pt has appointment today and they need a refer ral sent first. Jody requesting that be faxed to documented in this encounter Plan of Treatment Care Team Description Date Type Specialty Jordan Kelley MD [address] [place] [address] 02/05/2021 Office Visit Health Maintenance Due Date Last [...] ID Effective Phone Address Plan / Dates [facility] [id number] 2019-P [address] MEDICAID REPLACEMENT [place] [address] [place] [address] documented as of this encounter Advance Directives Patient Electrician Sound Explanation Type Date Recorded Advance Directives and Living Will Power of Hogshead Dumper 12/26/2019 Advance Directives 01/15/2020 4:05 PM and Living Will 01/29/2019 Advance Directives 01/07/2020 9:46 AM and Living Will Date Inactivated Comments Code Status Date Activated 04/03/2020 2:41 AM Full Code 04/02/2020 7:29 AM Care Teams Start Date End Date Corporate Tutor Relationship Specialty 12/26/19 Misha Weller MD PCP - General documented as of this encounter
--- OUTSIDE RECORDS SUMMARY | 2021-03-13 09:45 | CCD | Summary of Care ---
Author Author [facility] Organization [facility] Address Unknown Phone Unavailable Care Team Providers Care Chief Deputy Court Clerk Name Role Phone Misha Weller MD PP Encounter Details Care Team Description Date Type Department Adam Jiang NP [address] [address] 02/04/2021 Telephone [facility] Urology [address] [place] [address] Allergies Comments Active Allergy Reactions [...] as of this encounter (statuses as of 02/04/2021) Medications End Date Status Medication Sig Dispensed [...] as of this encounter (statuses as of 02/04/2021) Active Problems Problem Noted Date Gross hematuria [...] Follows up with psychiatrist Stevo graves at [place] for bipolar disorder and anxiety and depression. [...] intermittent catheterization. She states she is run [employer] [facility] on catheter supplies and we will work to resupply her. I recommend catheterizing 4 times daily. Nasal septal deviation 01/21/2015 Wrist pain, chronic 03/14/2014 Female genital symptoms 11/17/2013 Overview: Formatting of this note might be differ ent from the original. Follows up with WELDER MANUFACTURE status post hystere ctomy Kidney stone 11/17/2013 [...] ent from the original. Follows up with WELDER MANUFACTURE status post hystere ctomy documented as of this encounter (statuses as of 02/04/2021) Resolved Problems Problem Noted Date Resolved Date [...] pain management at [facility] palliative care for pain management Patient was on medical marijuana prescr ibed by Karol Baig. Patient is on morphine sulfate extended release 15 mg tablet as well as on oxycodone acetaminophen. She also take s Valium 10 mg 3 times a day as needed Urinary retention 03/07/2013 01/31/2020 documented as of this encounter (statuses as of 02/04/2021) Immunizations Name Administration Dates Next Due Influenza,18Yrs+,Recombin 01/31/2020 ant,Quadrvlnt,PF,INJ MMR 05/04/2000 Moderna 10/06/2020, 09/08/2020 Ympu-VZN-8-Vaccination (COVID) Tdap 01/31/2020, 07/25/2000 documented as of [...] * Telephone Encounter - Belgica Izquierdo - 02/04/2021 2:03 PM EDT Patient tried to schedule her CT URO and was told order is closed. 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
--- OUTSIDE RECORDS SUMMARY | 2021-03-13 09:45 | CCD | Summary of Care ---
Author Author [facility] Organization [facility] Address Unknown Phone Unavailable Care Team Providers Care Curtain Feller Blindstitch Name Role Phone Misha Weller MD PP Reason for Referral * Imaging (Routine) - Authorized Diagnoses / Procedures Referred By Contact Referred To Conta ct Specialty Diagnoses Gross hematuria Procedures CT Urogram Adam Jiang NP [address] [place] [address] Radiology Referral ID Status Reason Start Date Expiration Visits Vi sits Date Requested Authorized [id number] Authorized 09/02/2020 03/21/2021 1 1 Reason for Visit * Imaging (Routine) - Authorized Diagnoses / Procedures Referred By Contact Referred To Conta ct Specialty Diagnoses Gross hematuria Procedures CT Urogram Adam Jiang NP [address] [place] [address] Radiology Referral ID Status Reason Start Date Expiration Visits Vi sits Date Requested Authorized [id number] Authorized 09/02/2020 03/21/2021 1 1 Encounter Details Care Team Description Date Type Department Gross hematuria 02/10/2021 [facility] [address] [place] [address] Allergies Comments Active Allergy Reactions Severity Noted [...] Follows up with psychiatrist Stevo graves at [place] for bipolar disorder and anxiety and depression. [...] ent from the original. Follows up with FENCE MANUFACTURE SUPERVISOR status post hystere ctomy Kidney stone 11/17/2013 [...] ent from the original. Follows up with FENCE MANUFACTURE SUPERVISOR status post hystere ctomy documented as of [...] 01/31/2020 ant,Quadrvlnt,PF,INJ MMR 05/04/2000 Moderna 10/06/2020, 09/08/2020 Epze-PJZ-2-Vaccination (COVID) Tdap 01/31/2020, 07/25/2000 documented as of this encounter Social History Date Tobacco Use Types Packs/Day Years Used Former Smoker Smokeless Tobacco: Never Used Comments Alcohol Use Standard Drinks/Week Not Currently 0 (1 standard drink = 0.6 o z pure alcohol) Sex Assigned at Date Recorded Female 01/16/2020 11:19 AM EDT Date Recorded COVID-19 Exposure Response 02/10/2021 7:34 AM EDT In the last month, have [...] encounter Miscellaneous Notes * Result QuickNote - Adam Jiang NP - 02/10/2021 8:15 AM EDT Please schedule for cysto with Dr. Farrell in 3-4 weeks. Thanks documented in this encounter Plan of Treatment Care Team Description Date Type Specialty Ashish Farrell MD [address] [facility] [address] [place] [id number] 02/11/2021 Procedure Visit Misha Weller MD [address] [place] [address] 02/25/2021 Office Visit Health Maintenance Due Date [...] Procedure Name Priority Date/Time Associated Diag nosis CT UROGRAM Routine 02/10/2021 Gross hematuria 8:34 AM EDT documented in this encounter Results * CT Urogram (02/10/2021 8:34 AM EDT) Modality Anatomical Region Laterality Computed Tomography Body N/A Specimen Impressions IMAGING - 02/10/2021 10:04 AM EDT 1. Mild right renal cortical scarring and tiny right upper pole nonobstructing right stone.. DWS: HMI1 ELECTRONIC SIGNATURE: Augustus Ron MD Narrative IMAGING - 02/10/2021 10:04 AM EDT -REPORT: PROCEDURE: CT UROGRAM DATE AND TIME: 02/10/2021 8:15 AM EDT HISTORY: Gross hematuria. Please evaluate for cause. COMPARISON: Nonenhanced CT from September 01, 2020 TECHNIQUE: CT Urogram was performed. Nonenhanced exam was performed through abdomen and pelvis. After contrast injection, venous phase images were obtained through the kidneys and delayed images through abdomen and pelvis. 150 ml of Omnipaque 350 was injected intravenously. No oral contrast was administered. Coronal and sagittal reformatted images and coronal MIP reconstructed images were created and reviewed. This CT exam was performed using one or more of the following dose reduction techniques: automated exposure control, adjustment of the mA and/or kV according to patient size, and/or use iterative reconstruction techniques. FINDINGS: There is no acute disease at the lung bases. A tiny hypodensity in the lateral segment of the liver is likely a cyst. There are no calcified gallstones. The spleen, pancreas and adrenals are unremarkable. There is a tiny faint, roughly 2 mm calcification in right upper pole kidney and there is scattered right renal cortical scarring, mostly upper pole. There is no renal mass or cyst. There is no obstructive uropathy. There is mild fullness of the right extrarenal pelvis. There are no filling defects within the collecting systems. The urinary bladder is normal. There is no appreciable atherosclerosis and renal arteries and veins are unremarkable. The uterus is absent. There are few tiny left follicles and physiologic fluid in the cul-de-sac. There is no acute bowel gas pathology. There is scattered stool. Normal appendix is seen. There is no abdominal mass or adenopathy. There is an implanted device in the left buttocks with left spinal stimulator lead. There is calcifying fat necrosis in the right buttocks. There are no acute bony findings. Procedure Note Augustus Ron MD - 02/10/2021 -REPORT: PROCEDURE: CT UROGRAM DATE AND TIME: 02/10/2021 8:15 AM EDT HISTORY: Gross hematuria. Please evaluate for cause. COMPARISON: Nonenhanced CT from September 01, 2020 TECHNIQUE: CT Urogram was performed. Nonenhanced exam was performed through abdomen and pelvis. After contrast injection, venous phase images were obtained through the kidneys and delayed images through abdomen and pelvis. 150 ml of Omnipaque 350 was injected intravenously. No oral contrast was administered. Coronal and sagittal reformatted images and coronal MIP reconstructed images were created and reviewed. This CT exam was performed using one or more of the following dose reduction techniques: automated exposure control, adjustment of the mA and/or kV according to patient size, and/or use iterative reconstruction techniques. FINDINGS: There is no acute disease at the lung bases. A tiny hypodensity in the lateral segment of the liver is likely a cyst. There are no calcified gallstones. The spleen, pancreas and adrenals are unremarkable. There is a tiny faint, roughly 2 mm calcification in right upper pole kidney and there is scattered right renal cortical scarring, mostly upper pole. There is no renal mass or cyst. There is no obstructive uropathy. There is mild fullness of the right extrarenal pelvis. There are no filling defects within the collecting systems. The urinary bladder is normal. There is no appreciable atherosclerosis and renal arteries and veins are unremarkable. The uterus is absent. There are few tiny left follicles and physiologic fluid in the cul-de-sac. There is no acute bowel gas pathology. There is scattered stool. Normal appendix is seen. There is no abdominal mass or adenopathy. There is an implanted device in the left buttocks with left spinal stimulator lead. There is calcifying fat necrosis in the right buttocks. There are no acute bony findings. IMPRESSION: 1. Mild right renal cortical scarring an d tiny right upper pole nonobstructing right stone.. DWS: HMI1 ELECTRONIC SIGNATURE: Augustus Ron MD Performing Organization Address City/State/ZIP Code P zuhair Number IMAGING documented in this encounter Visit Diagnoses Diagnosis Gross hematuria documented in this encounter Administered Medications Action Date Dose Rate Site Medication Order MAR Action 02/10/2021 8:35 AM EDT 150 mL iohexoL (OMNIPAQUE-350) 350 mg iodine/mL Given injection 100 mL 100 mL, intravenous, Once in imaging, Starting on Tue02/10/21 at 0834, For 1 dose, Imaging Protocol Orders documented in this encounter Insurance Type Payer Benefit Subscriber ID Effective Phone Address Plan / Dates Group [facility] [id number] 2019-P [address] MEDICAID REPLACEMENT [place] [address] [place] [id number] 2 documented as of this encounter 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
--- OUTSIDE RECORDS SUMMARY | 2021-03-13 09:45 | CCD | Summary of Care ---
Author Author [facility] Organization [facility] Address Unknown Phone Unavailable Care Team Providers Care Background Investigator Name Role Phone Misha Weller MD PP Encounter Details Care Team Description Date Type Department Adam Jiang NP [address] [address] 02/10/2021 Telephone [facility] Urology [address] [place] [address] Allergies Comments Active Allergy Reactions [...] as of this encounter (statuses as of 02/10/2021) Medications End Date Status Medication Sig Dispensed [...] as of this encounter (statuses as of 02/10/2021) Active Problems Problem Noted Date Gross hematuria [...] Follows up with psychiatrist Stevo graves at [place] for bipolar disorder and anxiety and depression. [...] ent from the original. Follows up with BRICK TENDER status post hystere ctomy Kidney stone [...] ent from the original. Follows up with BRICK TENDER status post hystere ctomy documented as of this encounter (statuses as of 02/10/2021) Resolved Problems Problem Noted Date Resolved Date [...] Follows up with pain management at [facility] palliative care for pain management Patient was on medical marijuana prescr ibed by Karol Baig. Patient is on morphine sulfate extended release 15 mg tablet as well as on oxycodone acetaminophen. She also take s Valium 10 mg 3 times a day as needed Urinary retention 03/07/2013 01/31/2020 documented as of this encounter (statuses as of 02/10/2021) Immunizations Name Administration Dates Next Due Influenza,18Yrs+,Recombin 01/31/2020 ant,Quadrvlnt,PF,INJ MMR 05/04/2000 Moderna 10/06/2020, 09/08/2020 Diml-XGW-2-Vaccination (COVID) Tdap 01/31/2020, 07/25/2000 documented as of [...] encounter Miscellaneous Notes * Telephone Encounter - Comfort Wilhelm - 02/10/2021 4:34 PM EDT LMOM for pt to call office to advise of appt tomorrow at 2:45 If pt does not return call please cancel appt and if appt date and time is not g ood for pt please reschedule per adam for the next 3-4 weeks documented in this encounter Plan of Treatment Care Team Description Date Type Specialty Ashish Farrell MD [address] [facility] [address] [place] [address] 02/11/2021 Procedure Visit Misha Weller MD [address] [place] [address] 02/25/2021 Office Visit Health Maintenance Due Date [...] Effective Phone Address Plan / Dates Group [facility] [id number] 2019-P [address] MEDICAID REPLACEMENT [place] [address] [place] [address] documented as of this encounter Advance Directives 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
--- OUTSIDE RECORDS SUMMARY | 2021-03-13 09:45 | CCD | Continuity of Care Document ---
Author Author Fariha SOAR[facility]- Organization Unknown Address [address] [place] [address], [address] [place] [address] Phone [phone] Care Team Providers Care Steam Setter Name Role Phone Gail Pena AUTM [phone] Misha Weller M.D. AUTM [phone] Problems Active Problems Provider Date Chronic pansinusitis Cuong Fowler MD Onset: 10/14/2014 Allergic rhinitis Cuong Fowler MD Onset: 10/14/2014 Allergic asthma without status asthmaticus Haim Guillaume Onset: 11/20/2014 Breast lump Gail Oliveira D.O. Onset: 11/26/2014 Fibrocystic disease of breast Gail Oliveira D.O. Onset: Family history of breast cancer Gail Oliveira D.O. Onset: 11/26/2014 Gynecologic examination Isabel Werner CNM Onset: 5 Refractory migraine Cuong Fowler MD Onset: 11/26/2014 Social History Type Date Description Comments Sex Unknown Tobacco Use Start: Unknown 1 [address] ETOH Use Negative For 1 A Week ETOH Use Denies alcohol use Quit Tobacco Use Start: Unknown 2014 Recreational Drug Use Denies Drug Use Exercise Type/Frequency Occasional Mild Exercise Allergies, Adverse Reactions, Alerts Active Allergies Criticality Reaction | Severity Comments Date Macrobid Unable to assess criticality 10/14/2014 Seafood Unable to assess criticality 10/14/2014 Bee Sting Unable to assess criticality 10/14/2014 Cipro Unable to assess criticality 10/14/2014 Flexeril Unable to assess criticality HIVES, PASSED OUT 11/20/2014 Toradol Unable to assess criticality 11/20/2014 Medications Active Medications SIG Qnty Indications Ordering Provide r Date Xanax 1mg Tablets 4 times a d ay Unknown Oxycodone-Acetaminophen 5-325mg Ta blets one tab by mouth every 4-6 hours as needed pain Unknown Trulance 3mg Tablets 1 by mouth every day for irritable bowel with constipation Unknown Immunizations Description No Information Available Vital Signs Date Vital Result Comment 11/27/2020 11:11am BP Systolic 110 mmHg BP Diastolic 80 mmHg Height 62 inches 5'2" Weight 140.00 lb BMI (Body Mass Index) 25.6 kg/m2 [place] Body Weight 110 lb Weight 63.504 kg BSA (Body Surface Area) 1.64 m2 02/27/2016 9:56am BP Systolic 119 mmHg BP Diastolic 83 mmHg Height 62 inches 5'2" Weight 142.25 lb BMI (Body Mass Index) 26.0 kg/m2 [place] Body Weight 110 lb Weight 64.525 kg BSA (Body Surface Area) 1.65 m2 Results Description No Information Available Procedures Date Code Description Status 11/27/2020 37982 Office/Outpatient Established Lo w MDM 20-29 Min Completed Medical Devices Description No Information Available Encounters Type Date Location Provider Dx Diagnosis Office Visit 11/27/2020 11:00a [facility] G[facility] ctice Lashay Britton NIC Soares Z12.11 Encounter for screening for malignant neoplasm of colon Z86.010 Personal history of colonic polyps Z80.0 Family history of malignant neoplasm of digestive organs K21.9 Gastro-esophageal reflux dis ease without esophagitis R11.0 Nausea R68.81 Early satiety R13.10 Dysphagia, unspecified R10.84 Generalized abdominal pain K59.00 Constipation, unspecified Assessments Date Code Description Provider 11/27/2020 Z12.11 Encounter for screening for sabrina gnant neoplasm of colon Lashay Britton NIC Soares 11/27/2020 Z86.010 Personal history of colonic poly ps Lashay Britton NIC Soares 11/27/2020 Z80.0 Family history of malignant neop lasm of digestive organs Lashay NIC [place] 11/27/2020 K21.9 Gastro-esophageal reflux disease without esophagitis Lashay Heinrolo, FREDIS-C 11/27/2020 R11.0 Nausea Lashayshakria chisholm, FREDIS-C 11/27/2020 R68.81 Early satiety Lashayshakira chisholm, FREDIS-C 11/27/2020 R13.10 Dysphagia, unspecified Lashay Reba Soares, RPA-C 11/27/2020 R10.84 Generalized abdominal pain Edel Soares, FREDIS-C 11/27/2020 K59.00 Constipation, unspecified Meliss a Reba Sorianoborolo, RPA-C Plan of Treatment Future Appointment(s):* 03/13/2021 2:00 am - Ye Murillo MD at [facility] 11/27/2020 - Lashay Britton TaniastephanieNIC chisholm* Z12.11 Encounter for screening for malignant neoplasm of colon * Z86.010 Personal history of colonic polyps * Z80.0 Family history of malignant neoplasm of digestive organs * K21.9 Gastro-esophageal reflux disease without esophagitis * R11.0 Nausea * R68.81 Early satiety * R13.10 Dysphagia, unspecified * R10.84 Generalized abdominal pain * K59.00 Constipation, unspecified * * New Orders:* Colonoscopy, Ordered: 11/27/20 * Comments:* Will arrange for upper endoscopy and colonoscopy. Reviewed risks and benefits of the procedures, as well as other options, with the patient. Prep for this procedure was discussed with patient, including risks and side effects associated with the prep. Patient verbalized understanding of all of the above and is in agreement to proceed. Patient will seek medical attention for any acute changes. Will monitor. * Follow up:* As scheduled, sooner if needed. Functional Status Description No Information Available Mental Status Description No Information Available Referrals Refer to Dr Reason for Referral Status Appt Date Ye Murillo M.D. Z12.11-COLO SCREENING Z86.01 0-PERSONAL HX OF COLONIC POLYPS Scheduled 11/27/2020 [facility], Gastroenterology [address], [address] [place] [address] [phone]
--- OUTSIDE RECORDS SUMMARY | 2021-03-13 09:45 | CCD | Summary of Care ---
Author Author [facility] Organization [facility] Address Unknown Phone Unavailable Care Team Providers Care Strip Polisher Name Role Phone Misha Weller MD PP Encounter Details Care Team Description Date Type Department Misha Weller MD [address] [place], [place] [id number] 02/05/2021 Telephone S Primary Care Ve stal [address] [facility] [address] [place], [place] [id number] Allergies Comments Active Allergy Reactions Severity Noted [...] Follows up with psychiatrist Stevo graves at [place] for bipolar disorder and anxiety and depression. [...] ent from the original. 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 Follows up with PLISSE MACHINE OPERATOR status post hystere ctomy documented as [...] pain management at [facility] palliative care for pain management Patient was [...] 01/31/2020 ant,Quadrvlnt,PF,INJ MMR 05/04/2000 Moderna 10/06/2020, 09/08/2020 Cmwe-FIV-1-Vaccination (COVID) Tdap 01/31/2020, 07/25/2000 documented as of [...] encounter Miscellaneous Notes * Telephone Encounter - Augustus Neff - 02/05/2021 2:26 PM EDT Called pt and LMOM regarding February appt. 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
--- OUTSIDE RECORDS SUMMARY | 2021-03-13 09:45 | CCD | Summary of Care ---
Author Author [facility] Organization [facility] Address Unknown Phone Unavailable Care Team Providers Care Health Screener Name Role Phone Misha Weller MD PP Encounter Details Care Team Description Date Type Department Adam Jiang NP [address] [address] 02/05/2021 Telephone [facility] Urology [address] [place] [address] Allergies Comments Active Allergy Reactions [...] Follows up with psychiatrist Stevo graves at [place] for bipolar disorder and anxiety and depression. [...] intermittent catheterization. She states she is run [employer] on catheter supplies and we will work to resupply her. I recommend catheterizing 4 times daily. Nasal septal deviation 01/21/2015 Wrist pain, chronic 03/14/2014 Female genital symptoms 11/17/2013 Overview: Formatting of this note might be differ ent from the original. Follows up with CHEMICAL MAKER status post hystere ctomy Kidney stone 11/17/2013 [...] ent from the original. Follows up with CHEMICAL MAKER status post hystere ctomy documented as of [...] with pain management at [facility] palliative care for pain management Patient was [...] 01/31/2020 ant,Quadrvlnt,PF,INJ MMR 05/04/2000 Moderna 10/06/2020, 09/08/2020 Hppc-QUY-9-Vaccination (COVID) Tdap 01/31/2020, 07/25/2000 documented as of [...] * Telephone Encounter - [place] Izquierdo - 02/05/2021 7:43 AM EDT Fax received from [facility] placed in auth folder up front documented in this encounter Plan of Treatment Care Team Description Date Type Specialty Jordan Kelley MD [address] [place] [address] 02/05/2021 Office Visit 02/10/2021 Appointment Misha Weller MD [address] [place] [address] 02/25/2021 Office Visit Health Maintenance Due Date [...] Effective Phone Address Plan / Dates Group [facility] [id number] 2019-P [address] MEDICAID REPLACEMENT [facility] [address] [place] [address] documented as of this encounter 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
--- OUTSIDE RECORDS SUMMARY | 2021-03-13 09:45 | CCD | Summary of Care ---
Author Author [facility] Organization [facility] Address Unknown Phone Unavailable Care Team Providers Care Social Media Manager Name Role Phone Misha Weller MD PP Encounter Details Care Team Description Date Type Department Gross hematuria 01/19/2021 Lab [facility] Lab Services Ve stal [address] [facility] [address] [place] [address] Allergies Comments Active Allergy Reactions Severity Noted [...] as of this encounter (statuses as of 01/20/2021) Medications End Date Status Medication Sig Dispensed [...] as of this encounter (statuses as of 01/20/2021) Active Problems Problem Noted Date Gross hematuria [...] Follows up with psychiatrist Stevo graves at [place] for bipolar disorder and anxiety and depression. [...] ent from the original. Follows up with NATURAL GAS INSPECTOR status post hystere ctomy Kidney stone 11/17/2013 [...] ent from the original. Follows up with NATURAL GAS INSPECTOR status post hystere ctomy documented as of this encounter (statuses as of 01/20/2021) Resolved Problems Problem Noted Date Resolved Date [...] with pain management at [facility] palliative care for pain management Patient was on medical marijuana prescr ibed by Karol Baig. Patient is on morphine sulfate extended release 15 mg tablet as well as on oxycodone acetaminophen. She also take s Valium 10 mg 3 times a day as needed Urinary retention 03/07/2013 01/31/2020 documented as of this encounter (statuses as of 01/20/2021) Immunizations Name Administration Dates Next Due Influenza,18Yrs+,Recombin 01/31/2020 ant,Quadrvlnt,PF,INJ MMR 05/04/2000 Moderna 10/06/2020, 09/08/2020 Usgy-PKR-2-Vaccination (COVID) Tdap 01/31/2020, 07/25/2000 documented as of [...] Date Type Specialty Jordan Kelley MD [address] [address] 02/05/2021 Office Visit Misha Weller MD [address] [place] [address] 02/25/2021 Office Visit Health Maintenance Due Date [...] Procedure Name Priority Date/Time Associated Diag nosis CREATININE, SERUM Routine 01/19/2021 Gross hematu victor m 12:12 PM EDT BUN Routine 01/19/2021 Gross hematuria 12:12 PM EDT documented in this encounter Results * Creatinine, Serum (01/19/2021 12:12 PM EDT) Creatinine 0.6 0.5 - 1.0 mg/dL [facility] eGFR >60 >60 mL/min/1.73m*2 [facility] Specimen Blood - Blood, Venous Performing Organization Address [facility] P zuhair Number [facility] [address] [place] [address] * BUN (01/19/2021 12:12 PM EDT) BUN 5 (L) 7 - 23 mg/dL [facility] Specimen Blood - Blood, Venous Performing Organization Address [facility] P zuhair Number [facility] [phone] [place] [address] documented in this encounter Visit Diagnoses Diagnosis Gross hematuria documented in this encounter Insurance Type Payer Benefit Subscriber ID Effective Phone Address Plan / Dates Group [facility] [id number] 2019-P [address] MEDICAID REPLACEMENT [place] [address] [place] [id number] documented as of this encounter 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
--- OUTSIDE RECORDS SUMMARY | 2021-03-13 09:45 | CCD | Summary of Care ---
Author Author [facility] Organization [facility] Address Unknown Phone Unavailable Care Team Providers Care Travel Counselor Name Role Phone Misha Weller MD PP Reason for Visit * Reason Onset Date Comments Covid-19 Screening 01/28/2021 Encounter Details Care Team Description Date Type Department Screening for viral disease (Primary Dx); Cough; Exposure to 2019 novel coronavirus 01/28/2021 Clinical S Walk-In [facility] [address] [facility] [address] [place] [address] Allergies Comments Active Allergy Reactions Severity Noted [...] Follows up with psychiatrist Stevo graves at [place] for bipolar disorder and anxiety and depression. [...] intermittent catheterization. She states she is run [employer] on catheter supplies and we will work to resupply her. I recommend catheterizing 4 times daily. Nasal septal deviation 01/21/2015 Wrist pain, chronic 03/14/2014 Female genital symptoms 11/17/2013 Overview: Formatting of this note might be differ ent from the original. Follows up with INTEGRATION ANALYST status post hystere ctomy Kidney stone 11/17/2013 [...] ent from the original. Follows up with INTEGRATION ANALYST status post hystere ctomy documented as of [...] Follows up with pain management at [facility] palliative care for pain management Patient [...] 01/31/2020 ant,Quadrvlnt,PF,INJ MMR 05/04/2000 Moderna 10/06/2020, 09/08/2020 Xkjo-NPF-5-Vaccination (COVID) Tdap 01/31/2020, 07/25/2000 documented as of [...] this encounter Patient Instructions * Patient Instructions* Connie Abarca RN - 01/28/2021 4:15 PM EDT Preventing Al Virus (COVID-19) spread Self-isolation advice:Preventing the spread to others while you are awaiting your results You have been advised by your healthcare provider to self-isolate while awaiting results.Please follow the instructions below to reduce the risk of spreading illness to others: Travel to/from the hospital or healthcare provider's office Do not use public transportation. Drive yourself if possible. If this is not pos sible, arrange a ride with a friend, family member, taxi, car service or ambulan ce. If travelling with another person, you must wear a mask. The healthcare prov ider's office or hospital should provide you with a mask to use during transport ation. Stay home except to get medical care Avoid activities outside your home, except for getting medical care. Do not go t o work, school, or public areas. Avoid using public transportation, ride-sharing , or taxis. Separate yourself from other people in your home As much as possible, stay in a different room from other people in your home. Us e a separate bathroom, if available. Do not have visitors into your home. Call ahead before visiting your doctor Before your medical appointment, call the healthcare provider and tell them that you have, or are being assessed for COVID-19. This will help the healthcare pro viders office take steps to keep other people from getting infected. Wear a facemask Wear a facemask when you are in the same room with other people and when you vis it a healthcare provider. If you cannot wear a facemask, the people who live wit h you should wear one while they are in the same room with you. Cover your coughs and sneezes Cover your mouth and nose with a tissue when you cough or sneeze and throw out t he tissue immediately after use. If there is no tissue available, you can cough or sneeze into your sleeve/arm. Immediately wash your hands with soap and water or use hand dairy cattle farm manager. Wash your hands Wash your hands often and thoroughly with soap and water for at least 20 seconds . You can use an alcohol-based hand dairy cattle farm manager if soap and water are not availabl e and if your hands are not visibly dirty. Avoid touching your eyes, nose, and m outh with unwashed hands. Avoid sharing household items Do not share dishes, drinking glasses, cups, eating utensils, towels, bedding, o r other items with other people in your home. After using these items, you shoul d wash them thoroughly with soap and water. Clean all high-touch surfaces everyday High touch surfaces include counters, tabletops, doorknobs, bathroom fixtures, t oilets, phones, keyboards, tablets, and bedside tables. Monitor your symptoms Seek prompt medical attention if your illness is worsening (e.g., difficulty jena athing).Beforeseeking medical attention, call your healthcare provider o r Emergency Department and tell them that you are being assessed for the 2019 No khris Coronavirus infection. If you have a medical emergency and need to call 911, notify the dispatch person maite that you have, or are being evaluated for COVID-19. https://www.cdc.gov/coronavirus/2019-ncov/about/pcymc-bvos-csfb.html https://www.cdc.gov/coronavirus/2019-ncov/aampdbip-gxximrg-whhkdn.html documented in this encounter Plan of Treatment Care Team Description Date Type Specialty Jordan Kelley MD [address] [facility] [address] [place] [address] 02/05/2021 Office Visit Misha Weller MD [address] [place] [address] 02/25/2021 Office Visit Date/Time Name Type Priority Associated Diag noses 01/28/2021 3:31 PM EDT COVID-19 ORDERABLE [facility] Lab Routine Cough Exposure to 2019 novel coronavirus 01/28/2021 3:31 PM EDT SARS-COV-2 by [facility]AT Microbiology Routine Cough Exposure to 2019 novel coronavirus [...] filedocumented in this encounter Visit Diagnoses Diagnosis Screening for viral disease - Primary Special screening examination for unspe cified viral disease Cough Exposure to 2019 novel coronavirus documented in this encounter Additional Health Concerns Onset Date Resolved Time Infection Last Indicated 01/28/2021 COVID-19 Rule-Out Moderate risk 01/28/2021 documented as of this encounter Insurance Type Payer Benefit Subscriber ID Effective Phone Address Plan / Dates Group [facility] [id number] 2019-P [address] MEDICAID REPLACEMENT [place] [address] [place] [id number] 2 documented as of this encounter 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
--- OUTSIDE RECORDS SUMMARY | 2021-03-13 09:46 | CCD | Summary of Care ---
Author Author [facility] Organization [facility] Address Unknown Phone Unavailable Care Team Providers Care Television Antenna Installer Name Role Phone Misha Weller MD PP Encounter Details Care Team Description Date Type Department Velma Izquierdo PA [address] [place] [address] Arrived 12/13/2020 Virtual Visit [facility] Walk-In [address] (Walk-In) [address] [place] [address] Allergies Comments Active Allergy Reactions Severity Noted [...] as of this encounter (statuses as of 12/13/2020) Medications End Date Status Medication Sig Dispensed [...] as of this encounter (statuses as of 12/13/2020) Active Problems Problem Noted Date Gross hematuria [...] Follows up with psychiatrist Stevo graves at [place] for bipolar disorder and anxiety and depression. [...] ent from the original. Follows up with CRM MARKETING ANALYST status post hystere ctomy Kidney stone [...] ent from the original. Follows up with CRM MARKETING ANALYST status post hystere ctomy documented as of this encounter (statuses as of 12/13/2020) Resolved Problems Problem Noted Date Resolved Date [...] original. Follows up with pain management at [facility] palliative care for pain management Patient was on medical marijuana prescr ibed by Karol Baig. Patient is on morphine sulfate extended release 15 mg tablet as well as on oxycodone acetaminophen. She also take s Valium 10 mg 3 times a day as needed Urinary retention 03/07/2013 01/31/2020 documented as of this encounter (statuses as of 12/13/2020) Immunizations Name Administration Dates Next Due Flu, Recombinant, 01/31/2020 Quadrivalent, PF MMR 05/04/2000 Moderna 10/06/2020, 09/08/2020 Krhs-PNW-2-Vaccination (COVID) Tdap 01/31/2020, 07/25/2000 documented as of [...] Date Type Specialty Jordan Kelley MD [address] [place] [address] 02/05/2021 Office Visit Health Maintenance Due Date [...] Address Plan / Dates Group [facility] [id number] 2019-P [address] MEDICAID REPLACEMENT [place] [address] [place] [id number] 2 documented as of this encounter 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
--- OUTSIDE RECORDS SUMMARY | 2021-03-13 09:47 | CCD ---
Author Author [facility] Organization [facility] Address Unknown Phone Unavailable Care Team Providers Care Associate Of Science In Nursing Name Role Phone CARVER, E RAYNE Unavailable Unavailable CARVER, E RAYNE Unavailable Unavailable Charlebois, A Lashay RPA C Unavailable Unavailable Charlebois, A Lashay RPA C Unavailable Unavailable Charlebois, A Lashay RPA C Unavailable Unavailable Charlebois, A Lashay RPA C Unavailable Unavailable Charlebois, A Lashay RPA C Unavailable Unavailable Charlebois, A Lashay RPA C Unavailable Unavailable Charlebois, A Lashay RPA C Unavailable Unavailable Charlebois, A Lashay RPA C Unavailable Unavailable Charlebois, A Lashay RPA C Unavailable Unavailable Charlebois, A Lashay RPA C Unavailable Unavailable Charlebois, A Lashay RPA C Unavailable Unavailable Charlebois, A Lashay RPA C Unavailable Unavailable Charlebois, A Lashay RPA C Unavailable Unavailable Charlebois, A Lashay RPA C Unavailable Unavailable Charlebois, A Lashay RPA C Unavailable Unavailable Charlebois, A Lashay RPA C Unavailable Unavailable Charlebois, A Lashay RPA C Unavailable Unavailable Charlebois, A Lashay RPA C Unavailable Unavailable Charlebois, A Lashay RPA C Unavailable Unavailable Charlebois, A Lashay RPA C Unavailable Unavailable Charlebois, A Lashay RPA C Unavailable Unavailable Charlebois, A Lashay RPA C Unavailable Unavailable Charlebois, A Lashay RPA C Unavailable Unavailable Charlebois, A Lashay RPA C Unavailable Unavailable Charlebois, A Lashay RPA C Unavailable Unavailable Charlebois, A Lashay RPA C Unavailable Unavailable Charlebois, A Lashay RPA C Unavailable Unavailable Charlebois, A Lashay RPA C Unavailable Unavailable Charlebois, A Lashay RPA C Unavailable Unavailable Charlebois, A Lashay RPA C Unavailable Unavailable Charlebois, A Lashay RPA C Unavailable Unavailable Charlebois, A Lashay RPA C Unavailable Unavailable Charlebois, A Lashay RPA C Unavailable Unavailable Justino Dorman MD Unavailable Unavailable Justino Dorman MD Unavailable Unavailable Justino Dorman MD Unavailable Unavailable Justino Dorman MD Unavailable Unavailable Justino Dorman MD Unavailable Unavailable Justino Dorman MD Unavailable Unavailable Justino Dorman MD Unavailable Unavailable Justino Dorman MD Unavailable Unavailable Justino Dorman MD Unavailable Unavailable Justino Dorman MD Unavailable Unavailable Justino Dorman MD Unavailable Unavailable AhJustino mo MD Unavailable Unavailable AhJustino mo MD Unavailable Unavailable AhJustino mo MD Unavailable Unavailable Kravets, A Zoryana Unavailable Kravets, A Zoryana Unavailable Kravets, A Zoryana Unavailable Kravets, A Zoryana Unavailable Kravets, A Zoryana Unavailable Libin, Georia Unavailable Unavailable Libin, Georia Unavailable Unavailable Libin, Georia Unavailable Unavailable [facility], [id number] Unavailable Unavailable Clint MD CHAITANYA Austin Unavailable Clint MD CHAITANYA Austin Unavailable Clint MD CHAITANYA Austin Unavailable Clint MD CHAITANYA Austin Unavailable Clint MD CHAITANYA Austin Unavailable Clint MD CHAITANYA Austin Unavailable Clint MD CHAITANYA Austin Unavailable Clint MD CHAITANYA Austin Unavailable Clint MD CHAITANYA Austin Unavailable Clint MD CHAITANYA Austin Unavailable Clint MD CHAITANYA Austin Unavailable Clint MD CHAITANYA Austin Unavailable HEENA MONAE Unavailable Unavailable Nithin, Upasana Unavailable Nithin, Upasana Unavailable Nithin, Upasana Unavailable Nithin, Upasana Unavailable Nithin, Upasana Unavailable Nithin, Upasana Unavailable Nithin, Upasana Unavailable Nithin, Upasana Unavailable Nithin, Upasana Unavailable Nithin, Upasana Unavailable Nithin, Upasana Unavailable Vineet Alexandre Unavailable Unavailable Isabella Brown Unavailable Isabella Brown Unavailable [facility], [id number] Unavailable [phone] [facility], [id number] Unavailable [phone] [facility], [id number] Unavailable [phone] Iofred, Ashish TAVARES Unavailable Unavailable Ioffe, Ashish TAVARES Unavailable Unavailable Ioffe, Ashish TAVARES Unavailable Unavailable Ioffe, Ashish TAVARES Unavailable Unavailable Ioffe, Ashish TAVARES Unavailable Unavailable Ioffe, Ashish TAVARES Unavailable Unavailable Ioffe, Ashish TAVARES Unavailable Unavailable Ioffe, Ashish TAVARES Unavailable Unavailable Ioffe, Ashish TAVARES Unavailable Unavailable Ioffe, Ashish TAVARES Unavailable Unavailable Ioffe, sAhish TAVARES Unavailable Unavailable Ioffe, Ashish TAVARES Unavailable Unavailable Ioffe, Ashish TAVARES Unavailable Unavailable Ioffe, Ashish MD Unavailable Unavailable Indira Jiang SALES FLOOR ASSOCIATE Unavailable Indira Jiang SALES FLOOR ASSOCIATE Unavailable Indira Jiang SALES FLOOR ASSOCIATE Unavailable Indira Jiang SALES FLOOR ASSOCIATE Unavailable Indira Jiang SALES FLOOR ASSOCIATE Unavailable YAYO BENEDICT Unavailable Unavailable Snow Carbajal Unavailable Snow Carbajal Maryanne Unavailable Snow Carbajal Maryanne Unavailable Snow Carbajal Maryanne Unavailable Snow Carbajal Unavailable + Snow Carbajal Unavailable + Snow Carbajal Unavailable + TAYLOR BARBOZA DO Unavailable Unavailable TAYLOR BARBOZA DO Unavailable Unavailable ALFREDA Ildefonso NAVARRO Unavailable Unavailable Krunal HUTSON Unavailable Unavailable Krunal HUTSON Unavailable Unavailable [facility], [id number] Unavailable [phone] [facility], [id number] Unavailable [phone] [facility], [id number] Unavailable [phone] [facility], [id number] Unavailable [phone] Re-disclosure Warning The records that you are about to access may contain information from federally-assisted alcohol or drug abuse programs. If such information is present, then the following federally mandated warning applies: This information has been disclosed to you from records protected by federal confidentiality rules (42 CFR part 2). The federal rules prohibit you from making any further disclosure of this information unless further disclosure is expressly permitted by the written consent of the person to whom it pertains or as otherwise permitted by 42 CFR part 2. A general authorization for the release of medical or other information is NOT sufficient for this purpose. The Federal rules restrict any use of the information to criminally investigate or prosecute any alcohol or drug abuse patient.The records that you are about to access may contain highly sensitive health information, the redisclosure of which is protected by Article 27-F of the [facility] Public Health law. If you continue you may have access to information: Regarding HIV / AIDS; Provided by facilities licensed or operated by the [facility] Office of Mental Health; or Provided by the [facility] Office for People With Developmental Disabilities. If such information is present, then the following [facility] mandated warning applies: This information has been disclosed to you from confidential records which are protected by state law. State law prohibits you from making any further disclosure of this information without the specific written consent of the person to whom it pertains, or as otherwise permitted by law. Any unauthorized further disclosure in violation of state law may result in a fine or snf sentence or both. A general authorization for the release of medical or other information is NOT sufficient authorization for further disc losure. Allergies and Adverse Reactions Type Description Substance Reaction Status Data Source(s ) Propensity to adverse reactions ALLERGIES NOT ON FILE ALLERGIES NOT O N FILE [facility] Family History Family Member Name Family Member Gender Family Member Status Date o f Status Description Data Source(s) Unknown Diagnosis 11/17/2011 12:00:00 AM EDT [facility] Encounters Encounter Providers Location Date Indications Data Source(s ) Outpatient 02/25/2021 08:45:59 AM EDT - 08:53:57 AM EDT [facility] Patient discharged. Outpatient Attender: Misha Weller 07:36:10 AM EDT - 02/25/2021 08:42:24 AM EDT Annual Exam [facility] Annual Exam Patient discharged. Outpatient Attender: Ashish Farrell MD 2020 02:31:38 PM EDT - 02/11/2021 03:34:36 PM EDT cysto [facility] cysto Patient discharged. Outpatient 02/10/2021 07:35:36 AM EDT - 11:59:00 PM EDT [facility] Patient discharged. Outpatient Attender: Justino Dorman MD 09:52:25 AM EDT - 02/05/2021 11:23:39 AM EDT Follow-up [facility] Follow-up Patient discharged. Outpatient 01/28/2021 01:51:25 PM EDT - 01/28/2021 05:51:49 PM EDT Covid-19 Screening [facility] Covid-19 Screening Patient discharged. Outpatient Attender: Gallo Valero 10:24:25 AM EDT - 01/28/2021 10:58:23 AM EDT [facility] Patient discharged. Outpatient 01/19/2021 11:55:59 AM EDT - 12:12:47 PM EDT [facility] Patient discharged. Outpatient Attender: [id number] [facility] 12/13/2020 10:26:41 AM EDT - 12/13/2020 10:43:50 AM EDT [facility] Patient discharged. Outpatient Attender: [id number] [facility] 12/11/2020 01:08:56 PM EDT - 12/11/2020 01:42:26 PM EDT [facility] Patient discharged. Outpatient Attender: Lashay Guevara/Malcolm/Reba mansfield/Lidia 11/27/2020 11:00:00 AM EDT [facility] ([facility] ) Outpatient 10/23/2020 01:23:37 PM EDT - 01:31:17 PM EDT [facility] Patient discharged. Outpatient Attender: Adam Jiang NP 08/23 12:37:33 PM EDT - 09/02/2020 01:16:15 PM EDT [facility] Patient discharged. Outpatient 09/01/2020 10:03:21 AM EDT - 11:59:00 PM EDT [facility] Patient discharged. Outpatient Attender: Gallo Valero 12:20:07 PM EDT - 08/28/2020 01:46:25 PM EDT Urinary Problem [facility] Urinary Problem Patient discharged. Emergency Attender: TAYLOR MICHEL DO 08/16/2020 02:29:00 PM EDT - 08/16/2020 06:45:00 PM EDT Back Pain [facility] Back Pain Patient discharged. 08/15/2020 09:36:57 AM EDT [facility] Outpatient Attender: Adam Jiang NP 07/24 02:37:44 PM EDT - 08/11/2020 03:59:17 PM EDT [facility] Patient discharged. Outpatient 08/06/2020 05:42:05 PM EDT - 11:59:00 PM EDT [facility] Patient discharged. Outpatient Attender: Isabella Brown 07/30/2020 03:16:56 PM EDT - 07/30/2020 03:42:19 PM EDT Follow-up [facility] Follow-up Patient discharged. Emergency Attender: Pablito Lubin tender: AMAR PATELAdmitter: Pablito Alexandre ACC-ACC 07/25/2020 12:24:00 PM EDT - 07/25/2020 03:46:00 PM EDT [facility]ia [facility] - [facility] Patient discharged. Outpatient 07/24/2020 09:10:44 AM EDT - 021 11:59:00 PM EDT [facility] Patient discharged. Outpatient 07/24/2020 09:10:25 AM EDT - 021 11:59:00 PM EDT [facility] Patient discharged. Outpatient 07/24/2020 09:10:09 AM EDT - 021 11:59:00 PM EDT [facility] Patient discharged. Outpatient 07/24/2020 09:09:15 AM EDT - 021 09:09:00 AM EDT [facility] Patient discharged. Outpatient 07/24/2020 08:19:05 AM EDT - 021 08:59:00 AM EDT [facility] Patient discharged. 07/22/2020 12:50:00 PM EDT [facility] Outpatient 07/21/2020 07:46:49 AM EDT - 07/21/2020 03:28:06 PM EDT Covid-19 Screening [facility] Covid-19 Screening Patient discharged. Outpatient Attender: HEENA MONAE 02:14:34 PM EST - 06/29/2020 02:18:07 PM EST [facility] Patient discharged. Outpatient Attender: Justino Dorman MD 11:21:56 AM EST - 06/20/2020 12:03:49 PM EST Chest Pain [facility] Chest Pain Patient discharged. Outpatient 06/18/2020 10:26:20 AM EST - 11:59:00 PM EST [facility] Patient discharged. Outpatient Attender: Maryanne Carbajal 06/17/2020 03:42:49 PM EST - 06/17/2020 04:14:27 PM EST [facility] Patient discharged. Outpatient Attender: JANIE HUTSON 09:37:30 AM EST - 05/21/2020 09:40:39 AM EST [facility] Patient discharged. Outpatient Attender: RAYNE ECHEVERRIA 04/07/20 10:53:32 AM EST - 04/07/2020 12:16:46 PM EST Sinusitis [facility] Sinusitis Patient discharged. Outpatient Attender: MD Austin Jaramillo MD 12/2019 06:17:59 AM EST - 04/02/2020 11:59:00 PM EST [facility] Patient discharged. Outpatient 03/28/2020 06:44:59 AM EST - 03/28/2020 08:45:31 AM EST Covid-19 Screening [facility] Covid-19 Screening Patient discharged. Attender: Benito Desouza 03/24/2020 09:16:07 A M EST [facility] 03/07/2020 09:50:43 AM EST [facility] Outpatient Attender: [id number] [facility] 03/04/2020 12:00:39 AM EST [facility] Outpatient 02/28/2020 12:55:10 PM EST - 11:59:00 PM EST [facility] Patient discharged. Outpatient 02/28/2020 12:24:05 PM EST - 12:54:00 PM EST [facility] Patient discharged. Outpatient Attender: Benito Desouza 02/11/2020 11:1 7:21 AM EDT Abdominal Pain [facility] Abdominal Pain Outpatient Attender: Misha Weller 12:30:56 PM EDT - 01/31/2020 02:43:22 PM EDT Follow-up [facility] Follow-up Patient discharged. Emergency Attender: YAYO BENEDICT 01/16/20 11:10:00 AM EDT - 01/16/2020 03:52:00 PM EDT Fall [facility] Fall Patient discharged. Immunizations Vaccine Date Status Description Data Source(s) 207 10/06/2020 12:00:00 AM EDT completed <td I D="[id number]">Moderna Aecu-MBF-9-Vaccination (COVID)</td><td>10/06/2020, 09/08/2020</td><td></td> [facility] COVID-19 VACCINE Moderna 10/06/2020 12:00:00 AM EDT completed NYSIIS Vaccine Series Complete: YESThis Data wa s Submitted to [facility] Via [employer]. 207 09/08/2020 12:00:00 AM EDT completed <td I D="[id number]">Moderna Zosk-QFO-7-Vaccination (COVID)</td><td>10/06/2020, 09/08/2020</td><td></td> [facility] COVID-19 VACCINE Moderna 09/08/2020 12:00:00 AM EDT completed NYSIIS Vaccine Series Complete: NOThis Data was Submitted to [facility] Via [employer]. Tdap 01/31/2020 12:00:00 AM EDT completed <td ID="[id number]">Tdap</td><td>01/31/2020, 07/25/2000</td><td></td> [facility] influenza, recombinant, quadrIvalent,injectable, prese rvative free 01/31/2020 12:00:00 AM EDT completed <td ID="[id number]"> Influenza,18Yrs+ Recomb Quad Egg Free-Flublok</td><td>01/31/2020</td><td></td> [facility] Medications Medication Brand Name Start Date Product Form Dose Route Admi nistrative Instructions Pharmacy Instructions Status Indications Reaction Description Data Source(s) Amoxicillin 875 MG / Clavulanate 125 MG Oral Tablet amoxicillin-pot clavulanate (AUGMENTIN) 875-125 mg tablet amoxicillin-pot clavulanate (AUGMENTIN) 875-125 mg tablet 02/25/2021 12:00:00 AM EDT 1 {tbl} oral completed Take 1 tablet by mouth twice a day for 10 days. [facility] Take 1 tablet by mouth twice a day for 1 0 days. Amoxicillin 875 MG / Clavulanate 125 MG Oral Tablet amoxicillin-pot clavulanate (AUGMENTIN) 875-125 mg tablet amoxicillin-pot clavulanate (AUGMENTIN) 875-125 mg tablet 02/25/2021 12:00:00 AM EDT 1 {tbl} oral completed Take 1 tablet by mouth twice a day for 10 days. [facility] Take 1 tablet by mouth twice a day for 1 0 days. Amoxicillin 875 MG / Clavulanate 125 MG Oral Tablet amoxicillin-pot clavulanate (AUGMENTIN) 875-125 mg tablet amoxicillin-pot clavulanate (AUGMENTIN) 875-125 mg tablet 02/25/2021 12:00:00 AM EDT 1 {tbl} oral completed Take 1 tablet by mouth twice a day for 10 days. [facility] Take 1 tablet by mouth twice a day for 1 0 days. Amoxicillin 875 MG / Clavulanate 125 MG Oral Tablet amoxicillin-pot clavulanate (AUGMENTIN) 875-125 mg tablet amoxicillin-pot clavulanate (AUGMENTIN) 875-125 mg tablet 02/25/2021 12:00:00 AM EDT 1 {tbl} oral completed Take 1 tablet by mouth twice a day for 10 days. [facility] Take 1 tablet by mouth twice a day for 1 0 days. atorvastatin 20 MG Oral Tablet atorvastatin (LIPITOR) 20 mg tablet atorvastatin (LIPITOR) 20 mg tablet 02/25/2021 12:00:00 AM EDT 20 mg oral completed Take 1 tablet by [facility] a [facility] Take 1 tablet by mouth once a day. atorvastatin 20 MG Oral Tablet atorvastatin (LIPITOR) 20 mg tablet atorvastatin (LIPITOR) 20 mg tablet 02/25/2021 12:00:00 AM EDT 20 mg oral completed Take 1 tablet by mouth once a day. [facility] Take 1 tablet by mouth once a day. Amoxicillin 875 MG / Clavulanate 125 MG Oral Tablet amoxicillin-pot clavulanate (AUGMENTIN) 875-125 mg tablet amoxicillin-pot clavulanate (AUGMENTIN) 875-125 mg tablet 02/25/2021 12:00:00 AM EDT 1 {tbl} oral completed Take 1 tablet by mouth twice a day for 10 days. [facility] Take 1 tablet by mouth twice a day for 1 0 days. Prednisone 50 MG Oral Tablet predniSONE (DELTASONE) 50 mg tablet predniSONE (DELTASONE) 50 mg tablet 11/17/2020 12:00:00 AM EDT 50 mg oral completed Take 1 tablet by mouth if ne eded (premedication) for up to 1 day. Take one tab po 13 hours, 7 hours and [address] [facility] Take 1 tablet by mouth if needed (premed ication) for up to 1 day. Take one tab po 13 hours, 7 hours and [address] Prednisone 50 MG Oral Tablet predniSONE (DELTASONE) 50 mg tablet predniSONE (DELTASONE) 50 mg tablet 11/17/2020 12:00:00 AM EDT 50 mg oral completed Take 1 tablet by mouth if ne eded (premedication) for up to 1 day. Take one tab po 13 hours, 7 hours and [address] [facility] Take 1 tablet by mouth if needed (premed ication) for up to 1 day. Take one tab po 13 hours, 7 hours and [address] Prednisone 50 MG Oral Tablet predniSONE (DELTASONE) 50 mg tablet predniSONE (DELTASONE) 50 mg tablet 11/17/2020 12:00:00 AM EDT 50 mg oral completed Take 1 tablet by mouth if ne eded (premedication) for up to 1 day. Take one tab po 13 hours, 7 hours and [address] [facility] Take 1 tablet by mouth if needed (premed ication) for up to 1 day. Take one tab po 13 hours, 7 hours and [address] Sulfamethoxazole 800 MG / Trimethoprim 1 60 MG Oral Tablet sulfamethoxazole- trimethoprim (Bactrim DS) 800-160 mg tablet sulfamethoxazole-trimethoprim (Bactrim DS) 800-160 mg tablet 08/28/2020 12:00:00 AM EDT 1 {tbl} or al completed Acute UTI Take 1 tablet by mouth 2 (two) t imes a day for 7 days. [facility] Acute UTI Take 1 tablet by mouth 2 (two) times a d ay for 7 days. Sulfamethoxazole 800 MG / Trimethoprim 1 60 MG Oral Tablet sulfamethoxazole- trimethoprim (Bactrim DS) 800-160 mg tablet sulfamethoxazole-trimethoprim (Bactrim DS) 800-160 mg tablet 08/28/2020 12:00:00 AM EDT 1 {tbl} or al completed Acute UTI Take 1 tablet by mouth 2 (two) t imes a day for 7 days. [facility] Acute UTI Take 1 tablet by mouth 2 (two) times a d ay for 7 days. Sulfamethoxazole 800 MG / Trimethoprim 1 60 MG Oral Tablet sulfamethoxazole- trimethoprim (Bactrim DS) 800-160 mg tablet sulfamethoxazole-trimethoprim (Bactrim DS) 800-160 mg tablet 08/28/2020 12:00:00 AM EDT 1 {tbl} or al completed Acute UTI Take 1 tablet by mouth 2 (two) t imes a day for 7 days. [facility] Acute UTI Take 1 tablet by mouth 2 (two) times a d ay for 7 days. plecanatide 3 mg tablet [id number] 08/18/2020 12:00:00 AM EDT 3 mg oral completed Take 3 mg by mouth 1 (one) time each day. [facility] Take 3 mg by mouth 1 (one) time each day . plecanatide 3 mg tablet [id number] 08/18/2020 12:00:00 AM EDT 3 mg oral completed Take 3 mg by mouth 1 (one) time each day. [facility] Take 3 mg by mouth 1 (one) time each day . plecanatide 3 mg tablet [id number] 08/18/2020 12:00:00 AM EDT 3 mg oral completed Take 3 mg by mouth 1 (one) time each day. [facility] Take 3 mg by mouth 1 (one) time each day . plecanatide 3 mg tablet [id number] 08/18/2020 12:00:00 AM EDT 3 mg oral completed Take 3 mg by mouth 1 (one) time each day. [facility] Take 3 mg by mouth 1 (one) time each day . plecanatide 3 mg tablet [id number] 08/18/2020 12:00:00 AM EDT 3 mg oral completed Take 3 mg by mouth 1 (one) time each day. [facility] Take 3 mg by mouth 1 (one) time each day . plecanatide 3 mg tablet [id number] 08/18/2020 12:00:00 AM EDT 3 mg oral completed Take 3 mg by mouth 1 (one) time each day. [facility] Take 3 mg by mouth 1 (one) time each day . plecanatide 3 mg tablet [id number] 08/18/2020 12:00:00 AM EDT 3 mg oral completed Take 3 mg by mouth 1 (one) time each day. [facility] Take 3 mg by mouth 1 (one) time each day . plecanatide 3 mg tablet [id number] 08/18/2020 12:00:00 AM EDT 3 mg oral completed Take 3 mg by mouth 1 (one) time each day. [facility] Take 3 mg by mouth 1 (one) time each day . plecanatide 3 mg tablet [id number] 08/18/2020 12:00:00 AM EDT 3 mg oral completed Take 3 mg by mouth 1 (one) time each day. [facility] Take 3 mg by mouth 1 (one) time each day . plecanatide 3 mg tablet [id number] 08/18/2020 12:00:00 AM EDT 3 mg oral completed Take 3 mg by mouth 1 (one) time each day. [facility] Take 3 mg by mouth 1 (one) time each day . plecanatide 3 mg tablet [id number] 08/18/2020 12:00:00 AM EDT 3 mg oral completed Take 3 mg by mouth 1 (one) time each day. [facility] Take 3 mg by mouth 1 (one) time each day . plecanatide 3 mg tablet [id number] 08/18/2020 12:00:00 AM EDT 3 mg oral completed Take 3 mg by mouth 1 (one) time each day. [facility] Take 3 mg by mouth 1 (one) time each day . plecanatide 3 mg tablet [id number] 08/18/2020 12:00:00 AM EDT 3 mg oral completed Take 3 mg by mouth 1 (one) time each day. [facility] Take 3 mg by mouth 1 (one) time each day . plecanatide 3 mg tablet [id number] 08/18/2020 12:00:00 AM EDT 3 mg oral completed Take 3 mg by mouth 1 (one) time each day. [facility] Take 3 mg by mouth 1 (one) time each day . plecanatide 3 mg tablet [id number] 08/18/2020 12:00:00 AM EDT 3 mg oral completed Take 3 mg by mouth 1 (one) time each day. [facility] Take 3 mg by mouth 1 (one) time each day . plecanatide 3 mg tablet [id number] 08/18/2020 12:00:00 AM EDT 3 mg oral completed Take 3 mg by mouth 1 (one) time each day. [facility] Take 3 mg by mouth 1 (one) time each day . plecanatide 3 mg tablet [id number] 08/18/2020 12:00:00 AM EDT 3 mg oral completed Take 3 mg by mouth 1 (one) time each day. [facility] Take 3 mg by mouth 1 (one) time each day . plecanatide 3 mg tablet [id number] 08/18/2020 12:00:00 AM EDT 3 mg oral completed Take 3 mg by mouth 1 (one) time each day. [facility] Take 3 mg by mouth 1 (one) time each day . plecanatide 3 mg tablet [id number] 08/18/2020 12:00:00 AM EDT 3 mg oral completed Take 3 mg by mouth 1 (one) time each day. [facility] Take 3 mg by mouth 1 (one) time each day . plecanatide 3 mg tablet [id number] 08/18/2020 12:00:00 AM EDT 3 mg oral completed Take 3 mg by mouth 1 (one) time each day. [facility] Take 3 mg by mouth 1 (one) time each day . plecanatide 3 mg tablet [id number] 08/18/2020 12:00:00 AM EDT 3 mg oral completed Take 3 mg by mouth 1 (one) time each day. [facility] Take 3 mg by mouth 1 (one) time each day . plecanatide 3 mg tablet [id number] 08/18/2020 12:00:00 AM EDT 3 mg oral completed Take 3 mg by mouth 1 (one) time each day. [facility] Take 3 mg by mouth 1 (one) time each day . plecanatide 3 mg tablet [id number] 08/18/2020 12:00:00 AM EDT 3 mg oral completed Take 3 mg by mouth 1 (one) time each day. [facility] Take 3 mg by mouth 1 (one) time each day . plecanatide 3 mg tablet [id number] 08/18/2020 12:00:00 AM EDT 3 mg oral completed Take 3 mg by mouth 1 (one) time each day. [facility] Take 3 mg by mouth 1 (one) time each day . plecanatide 3 mg tablet [id number] 08/18/2020 12:00:00 AM EDT 3 mg oral completed Take 3 mg by mouth 1 (one) time each day. [facility] Take 3 mg by mouth 1 (one) time each day . plecanatide 3 mg tablet [id number] 08/18/2020 12:00:00 AM EDT 3 mg oral completed Take 3 mg by mouth 1 (one) time each day. [facility] Take 3 mg by mouth 1 (one) time each day . plecanatide 3 mg tablet [id number] 08/18/2020 12:00:00 AM EDT 3 mg oral completed Take 3 mg by mouth 1 (one) time each day. [facility] Take 3 mg by mouth 1 (one) time each day . plecanatide 3 mg tablet [id number] 08/18/2020 12:00:00 AM EDT 3 mg oral completed Take 3 mg by mouth 1 (one) time each day. [facility] Take 3 mg by mouth 1 (one) time each day . plecanatide 3 mg tablet [id number] 08/18/2020 12:00:00 AM EDT 3 mg oral completed Take 3 mg by mouth 1 (one) time each day. [facility] Take 3 mg by mouth 1 (one) time each day . plecanatide 3 mg tablet [id number] 08/18/2020 12:00:00 AM EDT 3 mg oral completed Take 3 mg by mouth 1 (one) time each day. [facility] Take 3 mg by mouth 1 (one) time each day . plecanatide 3 mg tablet [id number] 08/18/2020 12:00:00 AM EDT 3 mg oral completed Take 3 mg by mouth 1 (one) time each day. [facility] Take 3 mg by mouth 1 (one) time each day . plecanatide 3 mg tablet [id number] 08/18/2020 12:00:00 AM EDT 3 mg oral completed Take 3 mg by mouth 1 (one) time each day. [facility] Take 3 mg by mouth 1 (one) time each day . plecanatide 3 mg tablet [id number] 08/18/2020 12:00:00 AM EDT 3 mg oral completed Take 3 mg by mouth 1 (one) time each day. [facility] Take 3 mg by mouth 1 (one) time each day . 12 HR Orphenadrine Citrate 100 MG Extend ed Release Oral Tablet orphenadrine (NORFLEX) 100 mg 12 hr tablet orphenadrine (NORFLEX) 100 mg 12 hr tablet 08/16/2020 12:00:00 AM EDT 100 mg oral completed Take 1 tablet by mouth 2 (two) times a day if needed for muscle spasms for up to 10 days. Swallow whole. Do not crush, chew, or split. [facility] Take 1 tablet by mouth 2 (two) times a d ay if needed for muscle spasms for up to 10 days. Swallow whole. Do not crush, chew, or split. Dexamethasone 2 MG Oral Tablet dexAMETHasone (DECADRON ) 2 mg tablet dexAMETHasone (DECADRON) 2 mg tablet 08/16/2020 12:00:00 AM EDT 2 mg oral completed Take 1 tablet by mouth 2 (two) t imes a day with meals for 5 days. [facility] Take 1 tablet by mouth 2 (two) times a d ay with meals for 5 days. 12 HR Orphenadrine Citrate 100 MG Extend ed Release Oral Tablet orphenadrine (NORFLEX) 100 mg 12 hr tablet orphenadrine (NORFLEX) 100 mg 12 hr tablet 08/16/2020 12:00:00 AM EDT 100 mg oral completed Take 1 tablet by mouth 2 (two) times a day if needed for muscle spasms for up to 10 days. Swallow whole. Do not crush, chew, or split. [facility] Take 1 tablet by mouth 2 (two) times a d ay if needed for muscle spasms for up to 10 days. Swallow whole. Do not crush, chew, or split. 12 HR Orphenadrine Citrate 100 MG Extend ed Release Oral Tablet orphenadrine (NORFLEX) 100 mg 12 hr tablet orphenadrine (NORFLEX) 100 mg 12 hr tablet 08/16/2020 12:00:00 AM EDT 100 mg oral completed Take 1 tablet by mouth 2 (two) times a day if needed for muscle spasms for up to 10 days. Swallow whole. Do not crush, chew, or split. [facility] Take 1 tablet by mouth 2 (two) times a d ay if needed for muscle spasms for up to 10 days. Swallow whole. Do not crush, chew, or split. 12 HR Orphenadrine Citrate 100 MG Extend ed Release Oral Tablet orphenadrine (NORFLEX) 100 mg 12 hr tablet orphenadrine (NORFLEX) 100 mg 12 hr tablet 08/16/2020 12:00:00 AM EDT 100 mg oral completed Take 1 tablet by mouth 2 (two) times a day if needed for muscle spasms for up to 10 days. Swallow whole. Do not crush, chew, or split. [facility] Take 1 tablet by mouth 2 (two) times a d ay if needed for muscle spasms for up to 10 days. Swallow whole. Do not crush, chew, or split. Dexamethasone 2 MG Oral Tablet dexAMETHasone (DECADRON ) 2 mg tablet dexAMETHasone (DECADRON) 2 mg tablet 08/16/2020 12:00:00 AM EDT 2 mg oral completed Take 1 tablet by mouth 2 (two) t imes a day with meals for 5 days. [facility] Take 1 tablet by mouth 2 (two) times a d ay with meals for 5 days. Dexamethasone 2 MG Oral Tablet dexAMETHasone (DECADRON ) 2 mg tablet dexAMETHasone (DECADRON) 2 mg tablet 08/16/2020 12:00:00 AM EDT 2 mg oral completed Take 1 tablet by mouth 2 (two) t imes a day with meals for 5 days. [facility] Take 1 tablet by mouth 2 (two) times a d ay with meals for 5 days. 12 HR Orphenadrine Citrate 100 MG Extend ed Release Oral Tablet orphenadrine (NORFLEX) 100 mg 12 hr tablet orphenadrine (NORFLEX) 100 mg 12 hr tablet 08/16/2020 12:00:00 AM EDT 100 mg oral completed Take 1 tablet by mouth 2 (two) times a day if needed for muscle spasms for up to 10 days. Swallow whole. Do not crush, chew, or split. [facility] Take 1 tablet by mouth 2 (two) times a d ay if needed for muscle spasms for up to 10 days. Swallow whole. Do not crush, chew, or split. Dexamethasone 2 MG Oral Tablet dexAMETHasone (DECADRON ) 2 mg tablet dexAMETHasone (DECADRON) 2 mg tablet 08/16/2020 12:00:00 AM EDT 2 mg oral completed Take 1 tablet by mouth 2 (two) t imes a day with meals for 5 days. [facility] Take 1 tablet by mouth 2 (two) times a d ay with meals for 5 days. Dexamethasone 2 MG Oral Tablet dexAMETHasone (DECADRON ) 2 mg tablet dexAMETHasone (DECADRON) 2 mg tablet 08/16/2020 12:00:00 AM EDT 2 mg oral completed Take 1 tablet by mouth 2 (two) t imes a day with meals for 5 days. [facility] Take 1 tablet by mouth 2 (two) times a d ay with meals for 5 days. 12 HR Orphenadrine Citrate 100 MG Extend ed Release Oral Tablet orphenadrine (NORFLEX) 100 mg 12 hr tablet orphenadrine (NORFLEX) 100 mg 12 hr tablet 08/16/2020 12:00:00 AM EDT 100 mg oral completed Take 1 tablet by mouth 2 (two) times a day if needed for muscle spasms for up to 10 days. Swallow whole. Do not crush, chew, or split. [facility] Take 1 tablet by mouth 2 (two) times a d ay if needed for muscle spasms for up to 10 days. Swallow whole. Do not crush, chew, or split. Dexamethasone 2 MG Oral Tablet dexAMETHasone (DECADRON ) 2 mg tablet dexAMETHasone (DECADRON) 2 mg tablet 08/16/2020 12:00:00 AM EDT 2 mg oral completed Take 1 tablet by mouth 2 (two) t imes a day with meals for 5 days. [facility] Take 1 tablet by mouth 2 (two) times a d ay with meals for 5 days. 12 HR Orphenadrine Citrate 100 MG Extend ed Release Oral Tablet orphenadrine (NORFLEX) 100 mg 12 hr tablet orphenadrine (NORFLEX) 100 mg 12 hr tablet 08/16/2020 12:00:00 AM EDT 100 mg oral completed Take 1 tablet by mouth 2 (two) times a day if needed for muscle spasms for up to 10 days. Swallow whole. Do not crush, chew, or split. [facility] Take 1 tablet by mouth 2 (two) times a d ay if needed for muscle spasms for up to 10 days. Swallow whole. Do not crush, chew, or split. Dexamethasone 2 MG Oral Tablet dexAMETHasone (DECADRON ) 2 mg tablet dexAMETHasone (DECADRON) 2 mg tablet 08/16/2020 12:00:00 AM EDT 2 mg oral completed Take 1 tablet by mouth 2 (two) t imes a day with meals for 5 days. [facility] Take 1 tablet by mouth 2 (two) times a d ay with meals for 5 days. Dexamethasone 2 MG Oral Tablet dexAMETHasone (DECADRON ) 2 mg tablet dexAMETHasone (DECADRON) 2 mg tablet 08/16/2020 12:00:00 AM EDT 2 mg oral completed Take 1 tablet by mouth 2 (two) t imes a day with meals for 5 days. [facility] Take 1 tablet by mouth 2 (two) times a d ay with meals for 5 days. 12 HR Orphenadrine Citrate 100 MG Extend ed Release Oral Tablet orphenadrine (NORFLEX) 100 mg 12 hr tablet orphenadrine (NORFLEX) 100 mg 12 hr tablet 08/16/2020 12:00:00 AM EDT 100 mg oral completed Take 1 tablet by mouth 2 (two) times a day if needed for muscle spasms for up to 10 days. Swallow whole. Do not crush, chew, or split. [facility] Take 1 tablet by mouth 2 (two) times a d ay if needed for muscle spasms for up to 10 days. Swallow whole. Do not crush, chew, or split. 12 HR Orphenadrine Citrate 100 MG Extend ed Release Oral Tablet orphenadrine (NORFLEX) 100 mg 12 hr tablet orphenadrine (NORFLEX) 100 mg 12 hr tablet 08/16/2020 12:00:00 AM EDT 100 mg oral completed Take 1 tablet by mouth 2 (two) times a day if needed for muscle spasms for up to 10 days. Swallow whole. Do not crush, chew, or split. [facility] Take 1 tablet by mouth 2 (two) times a d ay if needed for muscle spasms for up to 10 days. Swallow whole. Do not crush, chew, or split. 12 HR Orphenadrine Citrate 100 MG Extend ed Release Oral Tablet orphenadrine (NORFLEX) 100 mg 12 hr tablet orphenadrine (NORFLEX) 100 mg 12 hr tablet 08/16/2020 12:00:00 AM EDT 100 mg oral completed Take 1 tablet by mouth 2 (two) times a day if needed for muscle spasms for up to 10 days. Swallow whole. Do not crush, chew, or split. [facility] Take 1 tablet by mouth 2 (two) times a d ay if needed for muscle spasms for up to 10 days. Swallow whole. Do not crush, chew, or split. Dexamethasone 2 MG Oral Tablet dexAMETHasone (DECADRON ) 2 mg tablet dexAMETHasone (DECADRON) 2 mg tablet 08/16/2020 12:00:00 AM EDT 2 mg oral completed Take 1 tablet by mouth 2 (two) t imes a day with meals for 5 days. [facility] Take 1 tablet by mouth 2 (two) times a d ay with meals for 5 days. Dexamethasone 2 MG Oral Tablet dexAMETHasone (DECADRON ) 2 mg tablet dexAMETHasone (DECADRON) 2 mg tablet 08/16/2020 12:00:00 AM EDT 2 mg oral completed Take 1 tablet by mouth 2 (two) t imes a day with meals for 5 days. [facility] Take 1 tablet by mouth 2 (two) times a d ay with meals for 5 days. Dexamethasone 2 MG Oral Tablet dexAMETHasone (DECADRON ) 2 mg tablet dexAMETHasone (DECADRON) 2 mg tablet 08/16/2020 12:00:00 AM EDT 2 mg oral completed Take 1 tablet by mouth 2 (two) t imes a day with meals for 5 days. [facility] Take 1 tablet by mouth 2 (two) times a d ay with meals for 5 days. Dexamethasone 2 MG Oral Tablet dexAMETHasone (DECADRON ) 2 mg tablet dexAMETHasone (DECADRON) 2 mg tablet 08/16/2020 12:00:00 AM EDT 2 mg oral completed Take 1 tablet by mouth 2 (two) t imes a day with meals for 5 days. [facility] Take 1 tablet by mouth 2 (two) times a d ay with meals for 5 days. 12 HR Orphenadrine Citrate 100 MG Extend ed Release Oral Tablet orphenadrine (NORFLEX) 100 mg 12 hr tablet orphenadrine (NORFLEX) 100 mg 12 hr tablet 08/16/2020 12:00:00 AM EDT 100 mg oral completed Take 1 tablet by mouth 2 (two) times a day if needed for muscle spasms for up to 10 days. Swallow whole. Do not crush, chew, or split. [facility] Take 1 tablet by mouth 2 (two) times a d ay if needed for muscle spasms for up to 10 days. Swallow whole. Do not crush, chew, or split. 12 HR Orphenadrine Citrate 100 MG Extend ed Release Oral Tablet orphenadrine (NORFLEX) 100 mg 12 hr tablet orphenadrine (NORFLEX) 100 mg 12 hr tablet 08/16/2020 12:00:00 AM EDT 100 mg oral completed Take 1 tablet by mouth 2 (two) times a day if needed for muscle spasms for up to 10 days. Swallow whole. Do not crush, chew, or split. [facility] Take 1 tablet by mouth 2 (two) times a d ay if needed for muscle spasms for up to 10 days. Swallow whole. Do not crush, chew, or split. 12 HR Orphenadrine Citrate 100 MG Extend ed Release Oral Tablet orphenadrine (NORFLEX) 100 mg 12 hr tablet orphenadrine (NORFLEX) 100 mg 12 hr tablet 08/16/2020 12:00:00 AM EDT 100 mg oral completed Take 1 tablet by mouth 2 (two) times a day if needed for muscle spasms for up to 10 days. Swallow whole. Do not crush, chew, or split. [facility] Take 1 tablet by mouth 2 (two) times a d ay if needed for muscle spasms for up to 10 days. Swallow whole. Do not crush, chew, or split. Dexamethasone 2 MG Oral Tablet dexAMETHasone (DECADRON ) 2 mg tablet dexAMETHasone (DECADRON) 2 mg tablet 08/16/2020 12:00:00 AM EDT 2 mg oral completed Take 1 tablet by mouth 2 (two) t imes a day with meals for 5 days. [facility] Take 1 tablet by mouth 2 (two) times a d ay with meals for 5 days. 12 HR Orphenadrine Citrate 100 MG Extend ed Release Oral Tablet orphenadrine (NORFLEX) 100 mg 12 hr tablet orphenadrine (NORFLEX) 100 mg 12 hr tablet 08/16/2020 12:00:00 AM EDT 100 mg oral completed Take 1 tablet by mouth 2 (two) times a day if needed for muscle spasms for up to 10 days. Swallow whole. Do not crush, chew, or split. [facility] Take 1 tablet by mouth 2 (two) times a d ay if needed for muscle spasms for up to 10 days. Swallow whole. Do not crush, chew, or split. Dexamethasone 2 MG Oral Tablet dexAMETHasone (DECADRON ) 2 mg tablet dexAMETHasone (DECADRON) 2 mg tablet 08/16/2020 12:00:00 AM EDT 2 mg oral completed Take 1 tablet by mouth 2 (two) t imes a day with meals for 5 days. [facility] Take 1 tablet by mouth 2 (two) times a d ay with meals for 5 days. 12 HR Orphenadrine Citrate 100 MG Extend ed Release Oral Tablet orphenadrine (NORFLEX) 100 mg 12 hr tablet orphenadrine (NORFLEX) 100 mg 12 hr tablet 08/16/2020 12:00:00 AM EDT 100 mg oral completed Take 1 tablet by mouth 2 (two) times a day if needed for muscle spasms for up to 10 days. Swallow whole. Do not crush, chew, or split. [facility] Take 1 tablet by mouth 2 (two) times a d ay if needed for muscle spasms for up to 10 days. Swallow whole. Do not crush, chew, or split. Dexamethasone 2 MG Oral Tablet dexAMETHasone (DECADRON ) 2 mg tablet dexAMETHasone (DECADRON) 2 mg tablet 08/16/2020 12:00:00 AM EDT 2 mg oral completed Take 1 tablet by mouth 2 (two) t imes a day with meals for 5 days. [facility] Take 1 tablet by mouth 2 (two) times a d ay with meals for 5 days. Dexamethasone 2 MG Oral Tablet dexAMETHasone (DECADRON ) 2 mg tablet dexAMETHasone (DECADRON) 2 mg tablet 08/16/2020 12:00:00 AM EDT 2 mg oral completed Take 1 tablet by mouth 2 (two) t imes a day with meals for 5 days. [facility] Take 1 tablet by mouth 2 (two) times a d ay with meals for 5 days. 12 HR Orphenadrine Citrate 100 MG Extend ed Release Oral Tablet orphenadrine (NORFLEX) 100 mg 12 hr tablet orphenadrine (NORFLEX) 100 mg 12 hr tablet 08/16/2020 12:00:00 AM EDT 100 mg oral completed Take 1 tablet by mouth 2 (two) times a day if needed for muscle spasms for up to 10 days. Swallow whole. Do not crush, chew, or split. [facility] Take 1 tablet by mouth 2 (two) times a d ay if needed for muscle spasms for up to 10 days. Swallow whole. Do not crush, chew, or split. 12 HR Orphenadrine Citrate 100 MG Extend ed Release Oral Tablet orphenadrine (NORFLEX) 100 mg 12 hr tablet orphenadrine (NORFLEX) 100 mg 12 hr tablet 08/16/2020 12:00:00 AM EDT 100 mg oral completed Take 1 tablet by mouth 2 (two) times a day if needed for muscle spasms for up to 10 days. Swallow whole. Do not crush, chew, or split. [facility] Take 1 tablet by mouth 2 (two) times a d ay if needed for muscle spasms for up to 10 days. Swallow whole. Do not crush, chew, or split. 12 HR Orphenadrine Citrate 100 MG Extend ed Release Oral Tablet orphenadrine (NORFLEX) 100 mg 12 hr tablet orphenadrine (NORFLEX) 100 mg 12 hr tablet 08/16/2020 12:00:00 AM EDT 100 mg oral completed Take 1 tablet by mouth 2 (two) times a day if needed for muscle spasms for up to 10 days. Swallow whole. Do not crush, chew, or split. [facility] Take 1 tablet by mouth 2 (two) times a d ay if needed for muscle spasms for up to 10 days. Swallow whole. Do not crush, chew, or split. 12 HR Orphenadrine Citrate 100 MG Extend ed Release Oral Tablet orphenadrine (NORFLEX) 100 mg 12 hr tablet orphenadrine (NORFLEX) 100 mg 12 hr tablet 08/16/2020 12:00:00 AM EDT 100 mg oral completed Take 1 tablet by mouth 2 (two) times a day if needed for muscle spasms for up to 10 days. Swallow whole. Do not crush, chew, or split. [facility] Take 1 tablet by mouth 2 (two) times a d ay if needed for muscle spasms for up to 10 days. Swallow whole. Do not crush, chew, or split. 12 HR Orphenadrine Citrate 100 MG Extend ed Release Oral Tablet orphenadrine (NORFLEX) 100 mg 12 hr tablet orphenadrine (NORFLEX) 100 mg 12 hr tablet 08/16/2020 12:00:00 AM EDT 100 mg oral completed Take 1 tablet by mouth 2 (two) times a day if needed for muscle spasms for up to 10 days. Swallow whole. Do not crush, chew, or split. [facility] Take 1 tablet by mouth 2 (two) times a d ay if needed for muscle spasms for up to 10 days. Swallow whole. Do not crush, chew, or split. Dexamethasone 2 MG Oral Tablet dexAMETHasone (DECADRON ) 2 mg tablet dexAMETHasone (DECADRON) 2 mg tablet 08/16/2020 12:00:00 AM EDT 2 mg oral completed Take 1 tablet by mouth 2 (two) t imes a day with meals for 5 days. [facility] Take 1 tablet by mouth 2 (two) times a d ay with meals for 5 days. 12 HR Orphenadrine Citrate 100 MG Extend ed Release Oral Tablet orphenadrine (NORFLEX) 100 mg 12 hr tablet orphenadrine (NORFLEX) 100 mg 12 hr tablet 08/16/2020 12:00:00 AM EDT 100 mg oral completed Take 1 tablet by mouth 2 (two) times a day if needed for muscle spasms for up to 10 days. Swallow whole. Do not crush, chew, or split. [facility] Take 1 tablet by mouth 2 (two) times a d ay if needed for muscle spasms for up to 10 days. Swallow whole. Do not crush, chew, or split. 12 HR Orphenadrine Citrate 100 MG Extend ed Release Oral Tablet orphenadrine (NORFLEX) 100 mg 12 hr tablet orphenadrine (NORFLEX) 100 mg 12 hr tablet 08/16/2020 12:00:00 AM EDT 100 mg oral completed Take 1 tablet by mouth 2 (two) times a day if needed for muscle spasms for up to 10 days. Swallow whole. Do not crush, chew, or split. [facility] Take 1 tablet by mouth 2 (two) times a d ay if needed for muscle spasms for up to 10 days. Swallow whole. Do not crush, chew, or split. 12 HR Orphenadrine Citrate 100 MG Extend ed Release Oral Tablet orphenadrine (NORFLEX) 100 mg 12 hr tablet orphenadrine (NORFLEX) 100 mg 12 hr tablet 08/16/2020 12:00:00 AM EDT 100 mg oral completed Take 1 tablet by mouth 2 (two) times a day if needed for muscle spasms for up to 10 days. Swallow whole. Do not crush, chew, or split. [facility] Take 1 tablet by mouth 2 (two) times a d ay if needed for muscle spasms for up to 10 days. Swallow whole. Do not crush, chew, or split. Dexamethasone 2 MG Oral Tablet dexAMETHasone (DECADRON ) 2 mg tablet dexAMETHasone (DECADRON) 2 mg tablet 08/16/2020 12:00:00 AM EDT 2 mg oral completed Take 1 tablet by mouth 2 (two) t imes a day with meals for 5 days. [facility] Take 1 tablet by mouth 2 (two) times a d ay with meals for 5 days. Dexamethasone 2 MG Oral Tablet dexAMETHasone (DECADRON ) 2 mg tablet dexAMETHasone (DECADRON) 2 mg tablet 08/16/2020 12:00:00 AM EDT 2 mg oral completed Take 1 tablet by mouth 2 (two) t imes a day with meals for 5 days. [facility] Take 1 tablet by mouth 2 (two) times a d ay with meals for 5 days. Dexamethasone 2 MG Oral Tablet dexAMETHasone (DECADRON ) 2 mg tablet dexAMETHasone (DECADRON) 2 mg tablet 08/16/2020 12:00:00 AM EDT 2 mg oral completed Take 1 tablet by mouth 2 (two) t imes a day with meals for 5 days. [facility] Take 1 tablet by mouth 2 (two) times a d ay with meals for 5 days. 12 HR Orphenadrine Citrate 100 MG Extend ed Release Oral Tablet orphenadrine (NORFLEX) 100 mg 12 hr tablet orphenadrine (NORFLEX) 100 mg 12 hr tablet 08/16/2020 12:00:00 AM EDT 100 mg oral completed Take 1 tablet by mouth 2 (two) times a day if needed for muscle spasms for up to 10 days. Swallow whole. Do not crush, chew, or split. [facility] Take 1 tablet by mouth 2 (two) times a d ay if needed for muscle spasms for up to 10 days. Swallow whole. Do not crush, chew, or split. 12 HR Orphenadrine Citrate 100 MG Extend ed Release Oral Tablet orphenadrine (NORFLEX) 100 mg 12 hr tablet orphenadrine (NORFLEX) 100 mg 12 hr tablet 08/16/2020 12:00:00 AM EDT 100 mg oral completed Take 1 tablet by mouth 2 (two) times a day if needed for muscle spasms for up to 10 days. Swallow whole. Do not crush, chew, or split. [facility] Take 1 tablet by mouth 2 (two) times a d ay if needed for muscle spasms for up to 10 days. Swallow whole. Do not crush, chew, or split. Dexamethasone 2 MG Oral Tablet dexAMETHasone (DECADRON ) 2 mg tablet dexAMETHasone (DECADRON) 2 mg tablet 08/16/2020 12:00:00 AM EDT 2 mg oral completed Take 1 tablet by mouth 2 (two) t imes a day with meals for 5 days. [facility] Take 1 tablet by mouth 2 (two) times a d ay with meals for 5 days. 12 HR Orphenadrine Citrate 100 MG Extend ed Release Oral Tablet orphenadrine (NORFLEX) 100 mg 12 hr tablet orphenadrine (NORFLEX) 100 mg 12 hr tablet 08/16/2020 12:00:00 AM EDT 100 mg oral completed Take 1 tablet by mouth 2 (two) times a day if needed for muscle spasms for up to 10 days. Swallow whole. Do not crush, chew, or split. [facility] Take 1 tablet by mouth 2 (two) times a d ay if needed for muscle spasms for up to 10 days. Swallow whole. Do not crush, chew, or split. Dexamethasone 2 MG Oral Tablet dexAMETHasone (DECADRON ) 2 mg tablet dexAMETHasone (DECADRON) 2 mg tablet 08/16/2020 12:00:00 AM EDT 2 mg oral completed Take 1 tablet by mouth 2 (two) t imes a day with meals for 5 days. [facility] Take 1 tablet by mouth 2 (two) times a d ay with meals for 5 days. Dexamethasone 2 MG Oral Tablet dexAMETHasone (DECADRON ) 2 mg tablet dexAMETHasone (DECADRON) 2 mg tablet 08/16/2020 12:00:00 AM EDT 2 mg oral completed Take 1 tablet by mouth 2 (two) t imes a day with meals for 5 days. [facility] Take 1 tablet by mouth 2 (two) times a d ay with meals for 5 days. 12 HR Orphenadrine Citrate 100 MG Extend ed Release Oral Tablet orphenadrine (NORFLEX) 100 mg 12 hr tablet orphenadrine (NORFLEX) 100 mg 12 hr tablet 08/16/2020 12:00:00 AM EDT 100 mg oral completed Take 1 tablet by mouth 2 (two) times a day if needed for muscle spasms for up to 10 days. Swallow whole. Do not crush, chew, or split. [facility] Take 1 tablet by mouth 2 (two) times a d ay if needed for muscle spasms for up to 10 days. Swallow whole. Do not crush, chew, or split. 12 HR Orphenadrine Citrate 100 MG Extend ed Release Oral Tablet orphenadrine (NORFLEX) 100 mg 12 hr tablet orphenadrine (NORFLEX) 100 mg 12 hr tablet 08/16/2020 12:00:00 AM EDT 100 mg oral completed Take 1 tablet by mouth 2 (two) times a day if needed for muscle spasms for up to 10 days. Swallow whole. Do not crush, chew, or split. [facility] Take 1 tablet by mouth 2 (two) times a d ay if needed for muscle spasms for up to 10 days. Swallow whole. Do not crush, chew, or split. 12 HR Orphenadrine Citrate 100 MG Extend ed Release Oral Tablet orphenadrine (NORFLEX) 100 mg 12 hr tablet orphenadrine (NORFLEX) 100 mg 12 hr tablet 08/16/2020 12:00:00 AM EDT 100 mg oral completed Take 1 tablet by mouth 2 (two) times a day if needed for muscle spasms for up to 10 days. Swallow whole. Do not crush, chew, or split. [facility] Take 1 tablet by mouth 2 (two) times a d ay if needed for muscle spasms for up to 10 days. Swallow whole. Do not crush, chew, or split. Dexamethasone 2 MG Oral Tablet dexAMETHasone (DECADRON ) 2 mg tablet dexAMETHasone (DECADRON) 2 mg tablet 08/16/2020 12:00:00 AM EDT 2 mg oral completed Take 1 tablet by mouth 2 (two) t imes a day with meals for 5 days. [facility] Take 1 tablet by mouth 2 (two) times a d ay with meals for 5 days. Dexamethasone 2 MG Oral Tablet dexAMETHasone (DECADRON ) 2 mg tablet dexAMETHasone (DECADRON) 2 mg tablet 08/16/2020 12:00:00 AM EDT 2 mg oral completed Take 1 tablet by mouth 2 (two) t imes a day with meals for 5 days. [facility] Take 1 tablet by mouth 2 (two) times a d ay with meals for 5 days. Dexamethasone 2 MG Oral Tablet dexAMETHasone (DECADRON ) 2 mg tablet dexAMETHasone (DECADRON) 2 mg tablet 08/16/2020 12:00:00 AM EDT 2 mg oral completed Take 1 tablet by mouth 2 (two) t imes a day with meals for 5 days. [facility] Take 1 tablet by mouth 2 (two) times a d ay with meals for 5 days. Dexamethasone 2 MG Oral Tablet dexAMETHasone (DECADRON ) 2 mg tablet dexAMETHasone (DECADRON) 2 mg tablet 08/16/2020 12:00:00 AM EDT 2 mg oral completed Take 1 tablet by mouth 2 (two) t imes a day with meals for 5 days. [facility] Take 1 tablet by mouth 2 (two) times a d ay with meals for 5 days. Dexamethasone 2 MG Oral Tablet dexAMETHasone (DECADRON ) 2 mg tablet dexAMETHasone (DECADRON) 2 mg tablet 08/16/2020 12:00:00 AM EDT 2 mg oral completed Take 1 tablet by mouth 2 (two) t imes a day with meals for 5 days. [facility] Take 1 tablet by mouth 2 (two) times a d ay with meals for 5 days. 12 HR Orphenadrine Citrate 100 MG Extend ed Release Oral Tablet orphenadrine (NORFLEX) 100 mg 12 hr tablet orphenadrine (NORFLEX) 100 mg 12 hr tablet 08/16/2020 12:00:00 AM EDT 100 mg oral completed Take 1 tablet by mouth 2 (two) times a day if needed for muscle spasms for up to 10 days. Swallow whole. Do not crush, chew, or split. [facility] Take 1 tablet by mouth 2 (two) times a d ay if needed for muscle spasms for up to 10 days. Swallow whole. Do not crush, chew, or split. Dexamethasone 2 MG Oral Tablet dexAMETHasone (DECADRON ) 2 mg tablet dexAMETHasone (DECADRON) 2 mg tablet 08/16/2020 12:00:00 AM EDT 2 mg oral completed Take 1 tablet by mouth 2 (two) t imes a day with meals for 5 days. [facility] Take 1 tablet by mouth 2 (two) times a d ay with meals for 5 days. Dexamethasone 2 MG Oral Tablet dexAMETHasone (DECADRON ) 2 mg tablet dexAMETHasone (DECADRON) 2 mg tablet 08/16/2020 12:00:00 AM EDT 2 mg oral completed Take 1 tablet by mouth 2 (two) t imes a day with meals for 5 days. [facility] Take 1 tablet by mouth 2 (two) times a d ay with meals for 5 days. 12 HR Orphenadrine Citrate 100 MG Extend ed Release Oral Tablet orphenadrine (NORFLEX) 100 mg 12 hr tablet orphenadrine (NORFLEX) 100 mg 12 hr tablet 08/16/2020 12:00:00 AM EDT 100 mg oral completed Take 1 tablet by mouth 2 (two) times a day if needed for muscle spasms for up to 10 days. Swallow whole. Do not crush, chew, or split. [facility] Take 1 tablet by mouth 2 (two) times a d ay if needed for muscle spasms for up to 10 days. Swallow whole. Do not crush, chew, or split. Dexamethasone 2 MG Oral Tablet dexAMETHasone (DECADRON ) 2 mg tablet dexAMETHasone (DECADRON) 2 mg tablet 08/16/2020 12:00:00 AM EDT 2 mg oral completed Take 1 tablet by mouth 2 (two) t imes a day with meals for 5 days. [facility] Take 1 tablet by mouth 2 (two) times a d ay with meals for 5 days. Metoclopramide 10 MG Oral Tablet metoclopramide (SONDRA N) 10 mg tablet metoclopramide (REGLAN) 10 mg tablet 08/14/2020 12:00:00 AM EDT completed TAKE 1 TABLET BY MOUTH 3 TIMES A DAY NEEDED FOR NAUSEA. [facility] TAKE 1 TABLET BY MOUTH 3 TIMES A DAY NEEDED FOR NAUSEA. 24 HR Divalproex Sodium 500 MG Extended Release Oral Tablet divalproex (DEPAKOTE) 500 mg 24 hr tablet divalproex (DEPAKOTE) 500 mg 24 hr tablet 08/14/2020 12:00:00 AM EDT completed TAKE 1 TABLET BY MOUTH TWICE A DAY . MAX 2 TABS PER DAY. [facility] TAKE 1 TABLET BY MOUTH TWICE A DAY . MAX 2 TABS PER DAY. plecanatide 3 mg tablet [id number] 08/08/2020 12:00:00 AM EDT 3 mg oral completed Take 3 mg by mouth 1 (one) time each day. [facility] Take 3 mg by mouth 1 (one) time each day . plecanatide 3 mg tablet [id number] 08/08/2020 12:00:00 AM EDT 3 mg oral completed Take 3 mg by mouth 1 (one) time each day. [facility] Take 3 mg by mouth 1 (one) time each day . plecanatide 3 mg tablet [id number] 08/08/2020 12:00:00 AM EDT 3 mg oral completed Take 3 mg by mouth 1 (one) time each day. [facility] Take 3 mg by mouth 1 (one) time each day . plecanatide 3 mg tablet [id number] 08/08/2020 12:00:00 AM EDT 3 mg oral completed Take 3 mg by mouth 1 (one) time each day. [facility] Take 3 mg by mouth 1 (one) time each day . Acetaminophen 325 MG Oral Tablet acetaminophen (TYLENO L) 325 mg tablet acetaminophen (TYLENOL) 325 mg tablet 07/25/2020 12:00:00 AM EDT completed TAKE 2 TABLETS BY MOUTH EVERY 4 HOURS NEEDED FOR PAIN . [facility] TAKE 2 TABLETS BY MOUTH EVERY 4 HOURS NEEDED FOR PAIN . benzonatate 100 MG Oral Capsule benzonatate (TESSALON) 100 mg capsule benzonatate (TESSALON) 100 mg capsule 06/17/2020 12:00:00 AM EST 10 0 mg oral completed Take 1 capsule by mouth 3 (three) times a day if needed for cough. Do not crush or chew. [facility] Take 1 capsule by mouth 3 (three) times a day if needed for cough. Do not crush or chew. benzonatate 100 MG Oral Capsule benzonatate (TESSALON) 100 mg capsule benzonatate (TESSALON) 100 mg capsule 06/17/2020 12:00:00 AM EST 10 0 mg oral completed Take 1 capsule by mouth 3 (three) times a day if needed for cough. Do not crush or chew. [facility] Take 1 capsule by mouth 3 (three) times a day if needed for cough. Do not crush or chew. benzonatate 100 MG Oral Capsule benzonatate (TESSALON) 100 mg capsule benzonatate (TESSALON) 100 mg capsule 06/17/2020 12:00:00 AM EST 10 0 mg oral completed Take 1 capsule by mouth 3 (three) times a day if needed for cough. Do not crush or chew. [facility] Take 1 capsule by mouth 3 (three) times a day if needed for cough. Do not crush or chew. Prednisone 20 MG Oral Tablet predniSONE (DELTASONE) 20 mg tablet predniSONE (DELTASONE) 20 mg tablet 06/17/2020 12:00:00 AM EST 40 mg oral completed Take 2 tablets by mouth 1 (one) time eac h day for 5 days. [facility] Take 2 tablets by mouth 1 (one) time eac h day for 5 days. benzonatate 100 MG Oral Capsule benzonatate (TESSALON) 100 mg capsule benzonatate (TESSALON) 100 mg capsule 06/17/2020 12:00:00 AM EST 10 0 mg oral completed Take 1 capsule by mouth 3 (three) times a day if needed for cough. Do not crush or chew. [facility] Take 1 capsule by mouth 3 (three) times a day if needed for cough. Do not crush or chew. benzonatate 100 MG Oral Capsule benzonatate (TESSALON) 100 mg capsule benzonatate (TESSALON) 100 mg capsule 06/17/2020 12:00:00 AM EST 10 0 mg oral completed Take 1 capsule by mouth 3 (three) times a day if needed for cough. Do not crush or chew. [facility] Take 1 capsule by mouth 3 (three) times a day if needed for cough. Do not crush or chew. benzonatate 100 MG Oral Capsule benzonatate (TESSALON) 100 mg capsule benzonatate (TESSALON) 100 mg capsule 06/17/2020 12:00:00 AM EST 10 0 mg oral completed Take 1 capsule by mouth 3 (three) times a day if needed for cough. Do not crush or chew. [facility] Take 1 capsule by mouth 3 (three) times a day if needed for cough. Do not crush or chew. benzonatate 100 MG Oral Capsule benzonatate (TESSALON) 100 mg capsule benzonatate (TESSALON) 100 mg capsule 06/17/2020 12:00:00 AM EST 10 0 mg oral completed Take 1 capsule by mouth 3 (three) times a day if needed for cough. Do not crush or chew. [facility] Take 1 capsule by mouth 3 (three) times a day if needed for cough. Do not crush or chew. benzonatate 100 MG Oral Capsule benzonatate (TESSALON) 100 mg capsule benzonatate (TESSALON) 100 mg capsule 06/17/2020 12:00:00 AM EST 10 0 mg oral completed Take 1 capsule by mouth 3 (three) times a day if needed for cough. Do not crush or chew. [facility] Take 1 capsule by mouth 3 (three) times a day if needed for cough. Do not crush or chew. benzonatate 100 MG Oral Capsule benzonatate (TESSALON) 100 mg capsule benzonatate (TESSALON) 100 mg capsule 06/17/2020 12:00:00 AM EST 10 0 mg oral completed Take 1 capsule by mouth 3 (three) times a day if needed for cough. Do not crush or chew. [facility] Take 1 capsule by mouth 3 (three) times a day if needed for cough. Do not crush or chew. benzonatate 100 MG Oral Capsule benzonatate (TESSALON) 100 mg capsule benzonatate (TESSALON) 100 mg capsule 06/17/2020 12:00:00 AM EST 10 0 mg oral completed Take 1 capsule by mouth 3 (three) times a day if needed for cough. Do not crush or chew. [facility] Take 1 capsule by mouth 3 (three) times a day if needed for cough. Do not crush or chew. benzonatate 100 MG Oral Capsule benzonatate (TESSALON) 100 mg capsule benzonatate (TESSALON) 100 mg capsule 06/17/2020 12:00:00 AM EST 10 0 mg oral completed Take 1 capsule by mouth 3 (three) times a day if needed for cough. Do not crush or chew. [facility] Take 1 capsule by mouth 3 (three) times a day if needed for cough. Do not crush or chew. benzonatate 100 MG Oral Capsule benzonatate (TESSALON) 100 mg capsule benzonatate (TESSALON) 100 mg capsule 06/17/2020 12:00:00 AM EST 10 0 mg oral completed Take 1 capsule by mouth 3 (three) times a day if needed for cough. Do not crush or chew. [facility] Take 1 capsule by mouth 3 (three) times a day if needed for cough. Do not crush or chew. benzonatate 100 MG Oral Capsule benzonatate (TESSALON) 100 mg capsule benzonatate (TESSALON) 100 mg capsule 06/17/2020 12:00:00 AM EST 10 0 mg oral completed Take 1 capsule by mouth 3 (three) times a day if needed for cough. Do not crush or chew. [facility] Take 1 capsule by mouth 3 (three) times a day if needed for cough. Do not crush or chew. benzonatate 100 MG Oral Capsule benzonatate (TESSALON) 100 mg capsule benzonatate (TESSALON) 100 mg capsule 06/17/2020 12:00:00 AM EST 10 0 mg oral completed Take 1 capsule by mouth 3 (three) times a day if needed for cough. Do not crush or chew. [facility] Take 1 capsule by mouth 3 (three) times a day if needed for cough. Do not crush or chew. benzonatate 100 MG Oral Capsule benzonatate (TESSALON) 100 mg capsule benzonatate (TESSALON) 100 mg capsule 06/17/2020 12:00:00 AM EST 10 0 mg oral completed Take 1 capsule by mouth 3 (three) times a day if needed for cough. Do not crush or chew. [facility] Take 1 capsule by mouth 3 (three) times a day if needed for cough. Do not crush or chew. Prednisone 20 MG Oral Tablet predniSONE (DELTASONE) 20 mg tablet predniSONE (DELTASONE) 20 mg tablet 06/17/2020 12:00:00 AM EST 40 mg oral completed Take 2 tablets by mouth 1 (one) time eac h day for 5 days. [facility] Take 2 tablets by mouth 1 (one) time eac h day for 5 days. benzonatate 100 MG Oral Capsule benzonatate (TESSALON) 100 mg capsule benzonatate (TESSALON) 100 mg capsule 06/17/2020 12:00:00 AM EST 10 0 mg oral completed Take 1 capsule by mouth 3 (three) times a day if needed for cough. Do not crush or chew. [facility] Take 1 capsule by mouth 3 (three) times a day if needed for cough. Do not crush or chew. benzonatate 100 MG Oral Capsule benzonatate (TESSALON) 100 mg capsule benzonatate (TESSALON) 100 mg capsule 06/17/2020 12:00:00 AM EST 10 0 mg oral completed Take 1 capsule by mouth 3 (three) times a day if needed for cough. Do not crush or chew. [facility] Take 1 capsule by mouth 3 (three) times a day if needed for cough. Do not crush or chew. benzonatate 100 MG Oral Capsule benzonatate (TESSALON) 100 mg capsule benzonatate (TESSALON) 100 mg capsule 06/17/2020 12:00:00 AM EST 10 0 mg oral completed Take 1 capsule by mouth 3 (three) times a day if needed for cough. Do not crush or chew. [facility] Take 1 capsule by mouth 3 (three) times a day if needed for cough. Do not crush or chew. benzonatate 100 MG Oral Capsule benzonatate (TESSALON) 100 mg capsule benzonatate (TESSALON) 100 mg capsule 06/17/2020 12:00:00 AM EST 10 0 mg oral completed Take 1 capsule by mouth 3 (three) times a day if needed for cough. Do not crush or chew. [facility] Take 1 capsule by mouth 3 (three) times a day if needed for cough. Do not crush or chew. benzonatate 100 MG Oral Capsule benzonatate (TESSALON) 100 mg capsule benzonatate (TESSALON) 100 mg capsule 06/17/2020 12:00:00 AM EST 10 0 mg oral completed Take 1 capsule by mouth 3 (three) times a day if needed for cough. Do not crush or chew. [facility] Take 1 capsule by mouth 3 (three) times a day if needed for cough. Do not crush or chew. benzonatate 100 MG Oral Capsule benzonatate (TESSALON) 100 mg capsule benzonatate (TESSALON) 100 mg capsule 06/17/2020 12:00:00 AM EST 10 0 mg oral completed Take 1 capsule by mouth 3 (three) times a day if needed for cough. Do not crush or chew. [facility] Take 1 capsule by mouth 3 (three) times a day if needed for cough. Do not crush or chew. benzonatate 100 MG Oral Capsule benzonatate (TESSALON) 100 mg capsule benzonatate (TESSALON) 100 mg capsule 06/17/2020 12:00:00 AM EST 10 0 mg oral completed Take 1 capsule by mouth 3 (three) times a day if needed for cough. Do not crush or chew. [facility] Take 1 capsule by mouth 3 (three) times a day if needed for cough. Do not crush or chew. benzonatate 100 MG Oral Capsule benzonatate (TESSALON) 100 mg capsule benzonatate (TESSALON) 100 mg capsule 06/17/2020 12:00:00 AM EST 10 0 mg oral completed Take 1 capsule by mouth 3 (three) times a day if needed for cough. Do not crush or chew. [facility] Take 1 capsule by mouth 3 (three) times a day if needed for cough. Do not crush or chew. benzonatate 100 MG Oral Capsule benzonatate (TESSALON) 100 mg capsule benzonatate (TESSALON) 100 mg capsule 06/17/2020 12:00:00 AM EST 10 0 mg oral completed Take 1 capsule by mouth 3 (three) times a day if needed for cough. Do not crush or chew. [facility] Take 1 capsule by mouth 3 (three) times a day if needed for cough. Do not crush or chew. benzonatate 100 MG Oral Capsule benzonatate (TESSALON) 100 mg capsule benzonatate (TESSALON) 100 mg capsule 06/17/2020 12:00:00 AM EST 10 0 mg oral completed Take 1 capsule by mouth 3 (three) times a day if needed for cough. Do not crush or chew. [facility] Take 1 capsule by mouth 3 (three) times a day if needed for cough. Do not crush or chew. benzonatate 100 MG Oral Capsule benzonatate (TESSALON) 100 mg capsule benzonatate (TESSALON) 100 mg capsule 06/17/2020 12:00:00 AM EST 10 0 mg oral completed Take 1 capsule by mouth 3 (three) times a day if needed for cough. Do not crush or chew. [facility] Take 1 capsule by mouth 3 (three) times a day if needed for cough. Do not crush or chew. benzonatate 100 MG Oral Capsule benzonatate (TESSALON) 100 mg capsule benzonatate (TESSALON) 100 mg capsule 06/17/2020 12:00:00 AM EST 10 0 mg oral completed Take 1 capsule by mouth 3 (three) times a day if needed for cough. Do not crush or chew. [facility] Take 1 capsule by mouth 3 (three) times a day if needed for cough. Do not crush or chew. benzonatate 100 MG Oral Capsule benzonatate (TESSALON) 100 mg capsule benzonatate (TESSALON) 100 mg capsule 06/17/2020 12:00:00 AM EST 10 0 mg oral completed Take 1 capsule by mouth 3 (three) times a day if needed for cough. Do not crush or chew. [facility] Take 1 capsule by mouth 3 (three) times a day if needed for cough. Do not crush or chew. benzonatate 100 MG Oral Capsule benzonatate (TESSALON) 100 mg capsule benzonatate (TESSALON) 100 mg capsule 06/17/2020 12:00:00 AM EST 10 0 mg oral completed Take 1 capsule by mouth 3 (three) times a day if needed for cough. Do not crush or chew. [facility] Take 1 capsule by mouth 3 (three) times a day if needed for cough. Do not crush or chew. Prednisone 20 MG Oral Tablet predniSONE (DELTASONE) 20 mg tablet predniSONE (DELTASONE) 20 mg tablet 06/17/2020 12:00:00 AM EST 40 mg oral completed Take 2 tablets by mouth 1 (one) time eac h day for 5 days. [facility] Take 2 tablets by mouth 1 (one) time eac h day for 5 days. benzonatate 100 MG Oral Capsule benzonatate (TESSALON) 100 mg capsule benzonatate (TESSALON) 100 mg capsule 06/17/2020 12:00:00 AM EST 10 0 mg oral completed Take 1 capsule by mouth 3 (three) times a day if needed for cough. Do not crush or chew. [facility] Take 1 capsule by mouth 3 (three) times a day if needed for cough. Do not crush or chew. benzonatate 100 MG Oral Capsule benzonatate (TESSALON) 100 mg capsule benzonatate (TESSALON) 100 mg capsule 06/17/2020 12:00:00 AM EST 10 0 mg oral completed Take 1 capsule by mouth 3 (three) times a day if needed for cough. Do not crush or chew. [facility] Take 1 capsule by mouth 3 (three) times a day if needed for cough. Do not crush or chew. Prednisone 20 MG Oral Tablet predniSONE (DELTASONE) 20 mg tablet predniSONE (DELTASONE) 20 mg tablet 06/17/2020 12:00:00 AM EST 40 mg oral completed Take 2 tablets by mouth 1 (one) time eac h day for 5 days. [facility] Take 2 tablets by mouth 1 (one) time eac h day for 5 days. benzonatate 100 MG Oral Capsule benzonatate (TESSALON) 100 mg capsule benzonatate (TESSALON) 100 mg capsule 06/17/2020 12:00:00 AM EST 10 0 mg oral completed Take 1 capsule by mouth 3 (three) times a day if needed for cough. Do not crush or chew. [facility] Take 1 capsule by mouth 3 (three) times a day if needed for cough. Do not crush or chew. benzonatate 100 MG Oral Capsule benzonatate (TESSALON) 100 mg capsule benzonatate (TESSALON) 100 mg capsule 06/17/2020 12:00:00 AM EST 10 0 mg oral completed Take 1 capsule by mouth 3 (three) times a day if needed for cough. Do not crush or chew. [facility] Take 1 capsule by mouth 3 (three) times a day if needed for cough. Do not crush or chew. benzonatate 100 MG Oral Capsule benzonatate (TESSALON) 100 mg capsule benzonatate (TESSALON) 100 mg capsule 06/17/2020 12:00:00 AM EST 10 0 mg oral completed Take 1 capsule by mouth 3 (three) times a day if needed for cough. Do not crush or chew. [facility] Take 1 capsule by mouth 3 (three) times a day if needed for cough. Do not crush or chew. benzonatate 100 MG Oral Capsule benzonatate (TESSALON) 100 mg capsule benzonatate (TESSALON) 100 mg capsule 06/17/2020 12:00:00 AM EST 10 0 mg oral completed Take 1 capsule by mouth 3 (three) times a day if needed for cough. Do not crush or chew. [facility] Take 1 capsule by mouth 3 (three) times a day if needed for cough. Do not crush or chew. benzonatate 100 MG Oral Capsule benzonatate (TESSALON) 100 mg capsule benzonatate (TESSALON) 100 mg capsule 06/17/2020 12:00:00 AM EST 10 0 mg oral completed Take 1 capsule by mouth 3 (three) times a day if needed for cough. Do not crush or chew. [facility] Take 1 capsule by mouth 3 (three) times a day if needed for cough. Do not crush or chew. benzonatate 100 MG Oral Capsule benzonatate (TESSALON) 100 mg capsule benzonatate (TESSALON) 100 mg capsule 06/17/2020 12:00:00 AM EST 10 0 mg oral completed Take 1 capsule by mouth 3 (three) times a day if needed for cough. Do not crush or chew. [facility] Take 1 capsule by mouth 3 (three) times a day if needed for cough. Do not crush or chew. benzonatate 100 MG Oral Capsule benzonatate (TESSALON) 100 mg capsule benzonatate (TESSALON) 100 mg capsule 06/17/2020 12:00:00 AM EST 10 0 mg oral completed Take 1 capsule by mouth 3 (three) times a day if needed for cough. Do not crush or chew. [facility] Take 1 capsule by mouth 3 (three) times a day if needed for cough. Do not crush or chew. benzonatate 100 MG Oral Capsule benzonatate (TESSALON) 100 mg capsule benzonatate (TESSALON) 100 mg capsule 06/17/2020 12:00:00 AM EST 10 0 mg oral completed Take 1 capsule by mouth 3 (three) times a day if needed for cough. Do not crush or chew. [facility] Take 1 capsule by mouth 3 (three) times a day if needed for cough. Do not crush or chew. benzonatate 100 MG Oral Capsule benzonatate (TESSALON) 100 mg capsule benzonatate (TESSALON) 100 mg capsule 06/17/2020 12:00:00 AM EST 10 0 mg oral completed Take 1 capsule by mouth 3 (three) times a day if needed for cough. Do not crush or chew. [facility] Take 1 capsule by mouth 3 (three) times a day if needed for cough. Do not crush or chew. benzonatate 100 MG Oral Capsule benzonatate (TESSALON) 100 mg capsule benzonatate (TESSALON) 100 mg capsule 06/17/2020 12:00:00 AM EST 10 0 mg oral completed Take 1 capsule by mouth 3 (three) times a day if needed for cough. Do not crush or chew. [facility] Take 1 capsule by mouth 3 (three) times a day if needed for cough. Do not crush or chew. benzonatate 100 MG Oral Capsule benzonatate (TESSALON) 100 mg capsule benzonatate (TESSALON) 100 mg capsule 06/17/2020 12:00:00 AM EST 10 0 mg oral completed Take 1 capsule by mouth 3 (three) times a day if needed for cough. Do not crush or chew. [facility] Take 1 capsule by mouth 3 (three) times a day if needed for cough. Do not crush or chew. benzonatate 100 MG Oral Capsule benzonatate (TESSALON) 100 mg capsule benzonatate (TESSALON) 100 mg capsule 06/17/2020 12:00:00 AM EST 10 0 mg oral completed Take 1 capsule by mouth 3 (three) times a day if needed for cough. Do not crush or chew. [facility] Take 1 capsule by mouth 3 (three) times a day if needed for cough. Do not crush or chew. benzonatate 100 MG Oral Capsule benzonatate (TESSALON) 100 mg capsule benzonatate (TESSALON) 100 mg capsule 06/17/2020 12:00:00 AM EST 10 0 mg oral completed Take 1 capsule by mouth 3 (three) times a day if needed for cough. Do not crush or chew. [facility] Take 1 capsule by mouth 3 (three) times a day if needed for cough. Do not crush or chew. benzonatate 100 MG Oral Capsule benzonatate (TESSALON) 100 mg capsule benzonatate (TESSALON) 100 mg capsule 06/17/2020 12:00:00 AM EST 10 0 mg oral completed Take 1 capsule by mouth 3 (three) times a day if needed for cough. Do not crush or chew. [facility] Take 1 capsule by mouth 3 (three) times a day if needed for cough. Do not crush or chew. benzonatate 100 MG Oral Capsule benzonatate (TESSALON) 100 mg capsule benzonatate (TESSALON) 100 mg capsule 06/17/2020 12:00:00 AM EST 10 0 mg oral completed Take 1 capsule by mouth 3 (three) times a day if needed for cough. Do not crush or chew. [facility] Take 1 capsule by mouth 3 (three) times a day if needed for cough. Do not crush or chew. Prednisone 20 MG Oral Tablet predniSONE (DELTASONE) 20 mg tablet predniSONE (DELTASONE) 20 mg tablet 06/17/2020 12:00:00 AM EST 40 mg oral completed Take 2 tablets by mouth 1 (one) time eac h day for 5 days. [facility] Take 2 tablets by mouth 1 (one) time eac h day for 5 days. benzonatate 100 MG Oral Capsule benzonatate (TESSALON) 100 mg capsule benzonatate (TESSALON) 100 mg capsule 06/17/2020 12:00:00 AM EST 10 0 mg oral completed Take 1 capsule by mouth 3 (three) times a day if needed for cough. Do not crush or chew. [facility] Take 1 capsule by mouth 3 (three) times a day if needed for cough. Do not crush or chew. benzonatate 100 MG Oral Capsule benzonatate (TESSALON) 100 mg capsule benzonatate (TESSALON) 100 mg capsule 06/17/2020 12:00:00 AM EST 10 0 mg oral completed Take 1 capsule by mouth 3 (three) times a day if needed for cough. Do not crush or chew. [facility] Take 1 capsule by mouth 3 (three) times a day if needed for cough. Do not crush or chew. Lidocaine 0.05 MG/MG Topical Ointment lidocaine (XYLOC MICHELLE) 5 % ointment lidocaine (XYLOCAINE) 5 % ointment 05/24/2020 12:00:00 AM EST completed SMALL AMOUNT TO PAINFUL ARM TWIC E A DAY NEEDED [facility] SMALL AMOUNT TO PAINFUL ARM TWICE A DAY NEEDED Lidocaine 0.05 MG/MG Topical Ointment lidocaine (XYLOC MICHELLE) 5 % ointment lidocaine (XYLOCAINE) 5 % ointment 05/24/2020 12:00:00 AM EST completed SMALL AMOUNT TO PAINFUL ARM TWIC E A DAY NEEDED [facility] SMALL AMOUNT TO PAINFUL ARM TWICE A DAY NEEDED Lidocaine 0.05 MG/MG Topical Ointment lidocaine (XYLOC MICHELLE) 5 % ointment lidocaine (XYLOCAINE) 5 % ointment 05/24/2020 12:00:00 AM EST completed SMALL AMOUNT TO PAINFUL ARM TWIC E A DAY NEEDED [facility] SMALL AMOUNT TO PAINFUL ARM TWICE A DAY NEEDED Lidocaine 0.05 MG/MG Topical Ointment lidocaine (XYLOC MICHELLE) 5 % ointment lidocaine (XYLOCAINE) 5 % ointment 05/24/2020 12:00:00 AM EST completed SMALL AMOUNT TO PAINFUL ARM TWIC E A DAY NEEDED [facility] SMALL AMOUNT TO PAINFUL ARM TWICE A DAY NEEDED Lidocaine 0.05 MG/MG Topical Ointment lidocaine (XYLOC MICHELLE) 5 % ointment lidocaine (XYLOCAINE) 5 % ointment 05/24/2020 12:00:00 AM EST completed SMALL AMOUNT TO PAINFUL ARM TWIC E A DAY NEEDED [facility] SMALL AMOUNT TO PAINFUL ARM TWICE A DAY NEEDED Lidocaine 0.05 MG/MG Topical Ointment lidocaine (XYLOC MICHELLE) 5 % ointment lidocaine (XYLOCAINE) 5 % ointment 05/24/2020 12:00:00 AM EST completed SMALL AMOUNT TO PAINFUL ARM TWIC E A DAY NEEDED [facility] SMALL AMOUNT TO PAINFUL ARM TWICE A DAY NEEDED Lidocaine 0.05 MG/MG Topical Ointment lidocaine (XYLOC MICHELLE) 5 % ointment lidocaine (XYLOCAINE) 5 % ointment 05/24/2020 12:00:00 AM EST completed SMALL AMOUNT TO PAINFUL ARM TWIC E A DAY NEEDED [facility] SMALL AMOUNT TO PAINFUL ARM TWICE A DAY NEEDED Lidocaine 0.05 MG/MG Topical Ointment lidocaine (XYLOC MICHELLE) 5 % ointment lidocaine (XYLOCAINE) 5 % ointment 05/24/2020 12:00:00 AM EST completed SMALL AMOUNT TO PAINFUL ARM TWIC E A DAY NEEDED [facility] SMALL AMOUNT TO PAINFUL ARM TWICE A DAY NEEDED Lidocaine 0.05 MG/MG Topical Ointment lidocaine (XYLOC MICHELLE) 5 % ointment lidocaine (XYLOCAINE) 5 % ointment 05/24/2020 12:00:00 AM EST completed SMALL AMOUNT TO PAINFUL ARM TWIC E A DAY NEEDED [facility] SMALL AMOUNT TO PAINFUL ARM TWICE A DAY NEEDED Lidocaine 0.05 MG/MG Topical Ointment lidocaine (XYLOC MICHELLE) 5 % ointment lidocaine (XYLOCAINE) 5 % ointment 05/24/2020 12:00:00 AM EST completed SMALL AMOUNT TO PAINFUL ARM TWIC E A DAY NEEDED [facility] SMALL AMOUNT TO PAINFUL ARM TWICE A DAY NEEDED Lidocaine 0.05 MG/MG Topical Ointment lidocaine (XYLOC MICHELLE) 5 % ointment lidocaine (XYLOCAINE) 5 % ointment 05/24/2020 12:00:00 AM EST completed SMALL AMOUNT TO PAINFUL ARM TWIC E A DAY NEEDED [facility] SMALL AMOUNT TO PAINFUL ARM TWICE A DAY NEEDED albuterol (PROVENTIL) 90 mcg/actuation inhaler [id number] 05/21/2020 12:00:00 AM EST 2 {puff} inhalation completed Encounter for observation for suspected exposure to other biological agents ruled out Inhale 2 puffs every 4 (four) hours if needed for wheezing or shortness of breath. [facility] Encounter for observation for suspected exposure to other biological agents ruled out Inhale 2 puffs every 4 (four) hours if n eeded for wheezing or shortness of breath. albuterol (PROVENTIL) 90 mcg/actuation inhaler [id number] 05/21/2020 12:00:00 AM EST 2 {puff} inhalation completed Encounter for observation for suspected exposure to other biological agents ruled out Inhale 2 puffs every 4 (four) hours if needed for wheezing or shortness of breath. [facility] Encounter for observation for suspected exposure to other biological agents ruled out Inhale 2 puffs every 4 (four) hours if n eeded for wheezing or shortness of breath. albuterol (PROVENTIL) 90 mcg/actuation inhaler [id number] 05/21/2020 12:00:00 AM EST 2 {puff} inhalation completed Encounter for observation for suspected exposure to other biological agents ruled out Inhale 2 puffs every 4 (four) hours if needed for wheezing or shortness of breath. [facility] Encounter for observation for suspected exposure to other biological agents ruled out Inhale 2 puffs every 4 (four) hours if n eeded for wheezing or shortness of breath. albuterol (PROVENTIL) 90 mcg/actuation inhaler [id number] 05/21/2020 12:00:00 AM EST 2 {puff} inhalation completed Encounter for observation for suspected exposure to other biological agents ruled out Inhale 2 puffs every 4 (four) hours if needed for wheezing or shortness of breath. [facility] Encounter for observation for suspected exposure to other biological agents ruled out Inhale 2 puffs every 4 (four) hours if n eeded for wheezing or shortness of breath. albuterol (PROVENTIL) 90 mcg/actuation inhaler [id number] 05/21/2020 12:00:00 AM EST 2 {puff} inhalation completed Encounter for observation for suspected exposure to other biological agents ruled out Inhale 2 puffs every 4 (four) hours if needed for wheezing or shortness of breath. [facility] Encounter for observation for suspected exposure to other biological agents ruled out Inhale 2 puffs every 4 (four) hours if n eeded for wheezing or shortness of breath. albuterol (PROVENTIL) 90 mcg/actuation inhaler [id number] 05/21/2020 12:00:00 AM EST 2 {puff} inhalation completed Encounter for observation for suspected exposure to other biological agents ruled out Inhale 2 puffs every 4 (four) hours if needed for wheezing or shortness of breath. [facility] Encounter for observation for suspected exposure to other biological agents ruled out Inhale 2 puffs every 4 (four) hours if n eeded for wheezing or shortness of breath. albuterol (PROVENTIL) 90 mcg/actuation inhaler [id number] 05/21/2020 12:00:00 AM EST 2 {puff} inhalation completed Encounter for observation for suspected exposure to other biological agents ruled out Inhale 2 puffs every 4 (four) hours if needed for wheezing or shortness of breath. [facility] Encounter for observation for suspected exposure to other biological agents ruled out Inhale 2 puffs every 4 (four) hours if n eeded for wheezing or shortness of breath. albuterol (PROVENTIL) 90 mcg/actuation inhaler [id number] 05/21/2020 12:00:00 AM EST 2 {puff} inhalation completed Encounter for observation for suspected exposure to other biological agents ruled out Inhale 2 puffs every 4 (four) hours if needed for wheezing or shortness of breath. [facility] Encounter for observation for suspected exposure to other biological agents ruled out Inhale 2 puffs every 4 (four) hours if n eeded for wheezing or shortness of breath. albuterol (PROVENTIL) 90 mcg/actuation inhaler [id number] 05/21/2020 12:00:00 AM EST 2 {puff} inhalation completed Encounter for observation for suspected exposure to other biological agents ruled out Inhale 2 puffs every 4 (four) hours if needed for wheezing or shortness of breath. [facility] Encounter for observation for suspected exposure to other biological agents ruled out Inhale 2 puffs every 4 (four) hours if n eeded for wheezing or shortness of breath. albuterol (PROVENTIL) 90 mcg/actuation inhaler [id number] 05/21/2020 12:00:00 AM EST 2 {puff} inhalation completed Encounter for observation for suspected exposure to other biological agents ruled out Inhale 2 puffs every 4 (four) hours if needed for wheezing or shortness of breath. [facility] Encounter for observation for suspected exposure to other biological agents ruled out Inhale 2 puffs every 4 (four) hours if n eeded for wheezing or shortness of breath. albuterol (PROVENTIL) 90 mcg/actuation inhaler [id number] 05/21/2020 12:00:00 AM EST 2 {puff} inhalation completed Encounter for observation for suspected exposure to other biological agents ruled out Inhale 2 puffs every 4 (four) hours if needed for wheezing or shortness of breath. [facility] Encounter for observation for suspected exposure to other biological agents ruled out Inhale 2 puffs every 4 (four) hours if n eeded for wheezing or shortness of breath. albuterol (PROVENTIL) 90 mcg/actuation inhaler [id number] 05/21/2020 12:00:00 AM EST 2 {puff} inhalation completed Encounter for observation for suspected exposure to other biological agents ruled out Inhale 2 puffs every 4 (four) hours if needed for wheezing or shortness of breath. [facility] Encounter for observation for suspected exposure to other biological agents ruled out Inhale 2 puffs every 4 (four) hours if n eeded for wheezing or shortness of breath. albuterol (PROVENTIL) 90 mcg/actuation inhaler [id number] 05/21/2020 12:00:00 AM EST 2 {puff} inhalation completed Encounter for observation for suspected exposure to other biological agents ruled out Inhale 2 puffs every 4 (four) hours if needed for wheezing or shortness of breath. [facility] Encounter for observation for suspected exposure to other biological agents ruled out Inhale 2 puffs every 4 (four) hours if n eeded for wheezing or shortness of breath. albuterol (PROVENTIL) 90 mcg/actuation inhaler [id number] 05/21/2020 12:00:00 AM EST 2 {puff} inhalation completed Encounter for observation for suspected exposure to other biological agents ruled out Inhale 2 puffs every 4 (four) hours if needed for wheezing or shortness of breath. [facility] Encounter for observation for suspected exposure to other biological agents ruled out Inhale 2 puffs every 4 (four) hours if n eeded for wheezing or shortness of breath. albuterol (PROVENTIL) 90 mcg/actuation inhaler [id number] 05/21/2020 12:00:00 AM EST 2 {puff} inhalation completed Encounter for observation for suspected exposure to other biological agents ruled out Inhale 2 puffs every 4 (four) hours if needed for wheezing or shortness of breath. [facility] Encounter for observation for suspected exposure to other biological agents ruled out Inhale 2 puffs every 4 (four) hours if n eeded for wheezing or shortness of breath. albuterol (PROVENTIL) 90 mcg/actuation inhaler [id number] 05/21/2020 12:00:00 AM EST 2 {puff} inhalation completed Encounter for observation for suspected exposure to other biological agents ruled out Inhale 2 puffs every 4 (four) hours if needed for wheezing or shortness of breath. [facility] Encounter for observation for suspected exposure to other biological agents ruled out Inhale 2 puffs every 4 (four) hours if n eeded for wheezing or shortness of breath. albuterol (PROVENTIL) 90 mcg/actuation inhaler [id number] 05/21/2020 12:00:00 AM EST 2 {puff} inhalation completed Encounter for observation for suspected exposure to other biological agents ruled out Inhale 2 puffs every 4 (four) hours if needed for wheezing or shortness of breath. [facility] Encounter for observation for suspected exposure to other biological agents ruled out Inhale 2 puffs every 4 (four) hours if n eeded for wheezing or shortness of breath. albuterol (PROVENTIL) 90 mcg/actuation inhaler [id number] 05/21/2020 12:00:00 AM EST 2 {puff} inhalation completed Encounter for observation for suspected exposure to other biological agents ruled out Inhale 2 puffs every 4 (four) hours if needed for wheezing or shortness of breath. [facility] Encounter for observation for suspected exposure to other biological agents ruled out Inhale 2 puffs every 4 (four) hours if n eeded for wheezing or shortness of breath. albuterol (PROVENTIL) 90 mcg/actuation inhaler [id number] 05/21/2020 12:00:00 AM EST 2 {puff} inhalation completed Encounter for observation for suspected exposure to other biological agents ruled out Inhale 2 puffs every 4 (four) hours if needed for wheezing or shortness of breath. [facility] Encounter for observation for suspected exposure to other biological agents ruled out Inhale 2 puffs every 4 (four) hours if n eeded for wheezing or shortness of breath. albuterol (PROVENTIL) 90 mcg/actuation inhaler [id number] 05/21/2020 12:00:00 AM EST 2 {puff} inhalation completed Encounter for observation for suspected exposure to other biological agents ruled out Inhale 2 puffs every 4 (four) hours if needed for wheezing or shortness of breath. [facility] Encounter for observation for suspected exposure to other biological agents ruled out Inhale 2 puffs every 4 (four) hours if n eeded for wheezing or shortness of breath. albuterol (PROVENTIL) 90 mcg/actuation inhaler [id number] 05/21/2020 12:00:00 AM EST 2 {puff} inhalation completed Encounter for observation for suspected exposure to other biological agents ruled out Inhale 2 puffs every 4 (four) hours if needed for wheezing or shortness of breath. [facility] Encounter for observation for suspected exposure to other biological agents ruled out Inhale 2 puffs every 4 (four) hours if n eeded for wheezing or shortness of breath. albuterol (PROVENTIL) 90 mcg/actuation inhaler [id number] 05/21/2020 12:00:00 AM EST 2 {puff} inhalation completed Encounter for observation for suspected exposure to other biological agents ruled out Inhale 2 puffs every 4 (four) hours if needed for wheezing or shortness of breath. [facility] Encounter for observation for suspected exposure to other biological agents ruled out Inhale 2 puffs every 4 (four) hours if n eeded for wheezing or shortness of breath. albuterol (PROVENTIL) 90 mcg/actuation inhaler [id number] 05/21/2020 12:00:00 AM EST 2 {puff} inhalation completed Encounter for observation for suspected exposure to other biological agents ruled out Inhale 2 puffs every 4 (four) hours if needed for wheezing or shortness of breath. [facility] Encounter for observation for suspected exposure to other biological agents ruled out Inhale 2 puffs every 4 (four) hours if n eeded for wheezing or shortness of breath. albuterol (PROVENTIL) 90 mcg/actuation inhaler [id number] 05/21/2020 12:00:00 AM EST 2 {puff} inhalation completed Encounter for observation for suspected exposure to other biological agents ruled out Inhale 2 puffs every 4 (four) hours if needed for wheezing or shortness of breath. [facility] Encounter for observation for suspected exposure to other biological agents ruled out Inhale 2 puffs every 4 (four) hours if n eeded for wheezing or shortness of breath. albuterol (PROVENTIL) 90 mcg/actuation inhaler [id number] 05/21/2020 12:00:00 AM EST 2 {puff} inhalation completed Encounter for observation for suspected exposure to other biological agents ruled out Inhale 2 puffs every 4 (four) hours if needed for wheezing or shortness of breath. [facility] Encounter for observation for suspected exposure to other biological agents ruled out Inhale 2 puffs every 4 (four) hours if n eeded for wheezing or shortness of breath. albuterol (PROVENTIL) 90 mcg/actuation inhaler [id number] 05/21/2020 12:00:00 AM EST 2 {puff} inhalation completed Encounter for observation for suspected exposure to other biological agents ruled out Inhale 2 puffs every 4 (four) hours if needed for wheezing or shortness of breath. [facility] Encounter for observation for suspected exposure to other biological agents ruled out Inhale 2 puffs every 4 (four) hours if n eeded for wheezing or shortness of breath. albuterol (PROVENTIL) 90 mcg/actuation inhaler [id number] 05/21/2020 12:00:00 AM EST 2 {puff} inhalation completed Encounter for observation for suspected exposure to other biological agents ruled out Inhale 2 puffs every 4 (four) hours if needed for wheezing or shortness of breath. [facility] Encounter for observation for suspected exposure to other biological agents ruled out Inhale 2 puffs every 4 (four) hours if n eeded for wheezing or shortness of breath. albuterol (PROVENTIL) 90 mcg/actuation inhaler [id number] 05/21/2020 12:00:00 AM EST 2 {puff} inhalation active Encounter for observation for suspected exposure to other biological agents ruled out Inhale 2 puffs every 4 (four) hours if needed for wheezing or shortness of breath. [facility] Encounter for observation for suspected exposure to other biological agents ruled out albuterol (PROVENTIL) 90 mcg/actuation inhaler [id number] 05/21/2020 12:00:00 AM EST 2 {puff} inhalation completed Encounter for observation for suspected exposure to other biological agents ruled out Inhale 2 puffs every 4 (four) hours if needed for wheezing or shortness of breath. [facility] Encounter for observation for suspected exposure to other biological agents ruled out Inhale 2 puffs every 4 (four) hours if n eeded for wheezing or shortness of breath. albuterol (PROVENTIL) 90 mcg/actuation inhaler [id number] 05/21/2020 12:00:00 AM EST 2 {puff} inhalation completed Encounter for observation for suspected exposure to other biological agents ruled out Inhale 2 puffs every 4 (four) hours if needed for wheezing or shortness of breath. [facility] Encounter for observation for suspected exposure to other biological agents ruled out Inhale 2 puffs every 4 (four) hours if n eeded for wheezing or shortness of breath. albuterol (PROVENTIL) 90 mcg/actuation inhaler [id number] 05/21/2020 12:00:00 AM EST 2 {puff} inhalation completed Encounter for observation for suspected exposure to other biological agents ruled out Inhale 2 puffs every 4 (four) hours if needed for wheezing or shortness of breath. [facility] Encounter for observation for suspected exposure to other biological agents ruled out Inhale 2 puffs every 4 (four) hours if n eeded for wheezing or shortness of breath. albuterol (PROVENTIL) 90 mcg/actuation inhaler [id number] 05/21/2020 12:00:00 AM EST 2 {puff} inhalation completed Encounter for observation for suspected exposure to other biological agents ruled out Inhale 2 puffs every 4 (four) hours if needed for wheezing or shortness of breath. [facility] Encounter for observation for suspected exposure to other biological agents ruled out Inhale 2 puffs every 4 (four) hours if n eeded for wheezing or shortness of breath. albuterol (PROVENTIL) 90 mcg/actuation inhaler [id number] 05/21/2020 12:00:00 AM EST 2 {puff} inhalation completed Encounter for observation for suspected exposure to other biological agents ruled out Inhale 2 puffs every 4 (four) hours if needed for wheezing or shortness of breath. [facility] Encounter for observation for suspected exposure to other biological agents ruled out Inhale 2 puffs every 4 (four) hours if n eeded for wheezing or shortness of breath. albuterol (PROVENTIL) 90 mcg/actuation inhaler [id number] 05/21/2020 12:00:00 AM EST 2 {puff} inhalation completed Encounter for observation for suspected exposure to other biological agents ruled out Inhale 2 puffs every 4 (four) hours if needed for wheezing or shortness of breath. [facility] Encounter for observation for suspected exposure to other biological agents ruled out Inhale 2 puffs every 4 (four) hours if n eeded for wheezing or shortness of breath. albuterol (PROVENTIL) 90 mcg/actuation inhaler [id number] 05/21/2020 12:00:00 AM EST 2 {puff} inhalation completed Encounter for observation for suspected exposure to other biological agents ruled out Inhale 2 puffs every 4 (four) hours if needed for wheezing or shortness of breath. [facility] Encounter for observation for suspected exposure to other biological agents ruled out Inhale 2 puffs every 4 (four) hours if n eeded for wheezing or shortness of breath. albuterol (PROVENTIL) 90 mcg/actuation inhaler [id number] 05/21/2020 12:00:00 AM EST 2 {puff} inhalation completed Encounter for observation for suspected exposure to other biological agents ruled out Inhale 2 puffs every 4 (four) hours if needed for wheezing or shortness of breath. [facility] Encounter for observation for suspected exposure to other biological agents ruled out Inhale 2 puffs every 4 (four) hours if n eeded for wheezing or shortness of breath. albuterol (PROVENTIL) 90 mcg/actuation inhaler [id number] 05/21/2020 12:00:00 AM EST 2 {puff} inhalation completed Encounter for observation for suspected exposure to other biological agents ruled out Inhale 2 puffs every 4 (four) hours if needed for wheezing or shortness of breath. [facility] Encounter for observation for suspected exposure to other biological agents ruled out Inhale 2 puffs every 4 (four) hours if n eeded for wheezing or shortness of breath. albuterol (PROVENTIL) 90 mcg/actuation inhaler [id number] 05/21/2020 12:00:00 AM EST 2 {puff} inhalation completed Encounter for observation for suspected exposure to other biological agents ruled out Inhale 2 puffs every 4 (four) hours if needed for wheezing or shortness of breath. [facility] Encounter for observation for suspected exposure to other biological agents ruled out Inhale 2 puffs every 4 (four) hours if n eeded for wheezing or shortness of breath. albuterol (PROVENTIL) 90 mcg/actuation inhaler [id number] 05/21/2020 12:00:00 AM EST 2 {puff} inhalation completed Encounter for observation for suspected exposure to other biological agents ruled out Inhale 2 puffs every 4 (four) hours if needed for wheezing or shortness of breath. [facility] Encounter for observation for suspected exposure to other biological agents ruled out Inhale 2 puffs every 4 (four) hours if n eeded for wheezing or shortness of breath. albuterol (PROVENTIL) 90 mcg/actuation inhaler [id number] 05/21/2020 12:00:00 AM EST 2 {puff} inhalation completed Encounter for observation for suspected exposure to other biological agents ruled out Inhale 2 puffs every 4 (four) hours if needed for wheezing or shortness of breath. [facility] Encounter for observation for suspected exposure to other biological agents ruled out Inhale 2 puffs every 4 (four) hours if n eeded for wheezing or shortness of breath. albuterol (PROVENTIL) 90 mcg/actuation inhaler [id number] 05/21/2020 12:00:00 AM EST 2 {puff} inhalation completed Encounter for observation for suspected exposure to other biological agents ruled out Inhale 2 puffs every 4 (four) hours if needed for wheezing or shortness of breath. [facility] Encounter for observation for suspected exposure to other biological agents ruled out Inhale 2 puffs every 4 (four) hours if n eeded for wheezing or shortness of breath. albuterol (PROVENTIL) 90 mcg/actuation inhaler [id number] 05/21/2020 12:00:00 AM EST 2 {puff} inhalation completed Encounter for observation for suspected exposure to other biological agents ruled out Inhale 2 puffs every 4 (four) hours if needed for wheezing or shortness of breath. [facility] Encounter for observation for suspected exposure to other biological agents ruled out Inhale 2 puffs every 4 (four) hours if n eeded for wheezing or shortness of breath. albuterol (PROVENTIL) 90 mcg/actuation inhaler [id number] 05/21/2020 12:00:00 AM EST 2 {puff} inhalation completed Encounter for observation for suspected exposure to other biological agents ruled out Inhale 2 puffs every 4 (four) hours if needed for wheezing or shortness of breath. [facility] Encounter for observation for suspected exposure to other biological agents ruled out Inhale 2 puffs every 4 (four) hours if n eeded for wheezing or shortness of breath. albuterol (PROVENTIL) 90 mcg/actuation inhaler [id number] 05/21/2020 12:00:00 AM EST 2 {puff} inhalation completed Encounter for observation for suspected exposure to other biological agents ruled out Inhale 2 puffs every 4 (four) hours if needed for wheezing or shortness of breath. [facility] Encounter for observation for suspected exposure to other biological agents ruled out Inhale 2 puffs every 4 (four) hours if n eeded for wheezing or shortness of breath. albuterol (PROVENTIL) 90 mcg/actuation inhaler [id number] 05/21/2020 12:00:00 AM EST 2 {puff} inhalation completed Encounter for observation for suspected exposure to other biological agents ruled out Inhale 2 puffs every 4 (four) hours if needed for wheezing or shortness of breath. [facility] Encounter for observation for suspected exposure to other biological agents ruled out Inhale 2 puffs every 4 (four) hours if n eeded for wheezing or shortness of breath. albuterol (PROVENTIL) 90 mcg/actuation inhaler [id number] 05/21/2020 12:00:00 AM EST 2 {puff} inhalation completed Encounter for observation for suspected exposure to other biological agents ruled out Inhale 2 puffs every 4 (four) hours if needed for wheezing or shortness of breath. [facility] Encounter for observation for suspected exposure to other biological agents ruled out Inhale 2 puffs every 4 (four) hours if n eeded for wheezing or shortness of breath. albuterol (PROVENTIL) 90 mcg/actuation inhaler [id number] 05/21/2020 12:00:00 AM EST 2 {puff} inhalation completed Encounter for observation for suspected exposure to other biological agents ruled out Inhale 2 puffs every 4 (four) hours if needed for wheezing or shortness of breath. [facility] Encounter for observation for suspected exposure to other biological agents ruled out Inhale 2 puffs every 4 (four) hours if n eeded for wheezing or shortness of breath. albuterol (PROVENTIL) 90 mcg/actuation inhaler [id number] 05/21/2020 12:00:00 AM EST 2 {puff} inhalation completed Encounter for observation for suspected exposure to other biological agents ruled out Inhale 2 puffs every 4 (four) hours if needed for wheezing or shortness of breath. [facility] Encounter for observation for suspected exposure to other biological agents ruled out Inhale 2 puffs every 4 (four) hours if n eeded for wheezing or shortness of breath. albuterol (PROVENTIL) 90 mcg/actuation inhaler [id number] 05/21/2020 12:00:00 AM EST 2 {puff} inhalation completed Encounter for observation for suspected exposure to other biological agents ruled out Inhale 2 puffs every 4 (four) hours if needed for wheezing or shortness of breath. [facility] Encounter for observation for suspected exposure to other biological agents ruled out Inhale 2 puffs every 4 (four) hours if n eeded for wheezing or shortness of breath. albuterol (PROVENTIL) 90 mcg/actuation inhaler [id number] 05/21/2020 12:00:00 AM EST 2 {puff} inhalation completed Encounter for observation for suspected exposure to other biological agents ruled out Inhale 2 puffs every 4 (four) hours if needed for wheezing or shortness of breath. [facility] Encounter for observation for suspected exposure to other biological agents ruled out Inhale 2 puffs every 4 (four) hours if n eeded for wheezing or shortness of breath. albuterol (PROVENTIL) 90 mcg/actuation inhaler [id number] 05/21/2020 12:00:00 AM EST 2 {puff} inhalation completed Encounter for observation for suspected exposure to other biological agents ruled out Inhale 2 puffs every 4 (four) hours if needed for wheezing or shortness of breath. [facility] Encounter for observation for suspected exposure to other biological agents ruled out Inhale 2 puffs every 4 (four) hours if n eeded for wheezing or shortness of breath. albuterol (PROVENTIL) 90 mcg/actuation inhaler [id number] 05/21/2020 12:00:00 AM EST 2 {puff} inhalation completed Encounter for observation for suspected exposure to other biological agents ruled out Inhale 2 puffs every 4 (four) hours if needed for wheezing or shortness of breath. [facility] Encounter for observation for suspected exposure to other biological agents ruled out Inhale 2 puffs every 4 (four) hours if n eeded for wheezing or shortness of breath. albuterol (PROVENTIL) 90 mcg/actuation inhaler [id number] 05/21/2020 12:00:00 AM EST 2 {puff} inhalation completed Encounter for observation for suspected exposure to other biological agents ruled out Inhale 2 puffs every 4 (four) hours if needed for wheezing or shortness of breath. [facility] Encounter for observation for suspected exposure to other biological agents ruled out Inhale 2 puffs every 4 (four) hours if n eeded for wheezing or shortness of breath. albuterol (PROVENTIL) 90 mcg/actuation inhaler [id number] 05/21/2020 12:00:00 AM EST 2 {puff} inhalation completed Encounter for observation for suspected exposure to other biological agents ruled out Inhale 2 puffs every 4 (four) hours if needed for wheezing or shortness of breath. [facility] Encounter for observation for suspected exposure to other biological agents ruled out Inhale 2 puffs every 4 (four) hours if n eeded for wheezing or shortness of breath. albuterol (PROVENTIL) 90 mcg/actuation inhaler [id number] 05/21/2020 12:00:00 AM EST 2 {puff} inhalation completed Encounter for observation for suspected exposure to other biological agents ruled out Inhale 2 puffs every 4 (four) hours if needed for wheezing or shortness of breath. [facility] Encounter for observation for suspected exposure to other biological agents ruled out Inhale 2 puffs every 4 (four) hours if n eeded for wheezing or shortness of breath. albuterol (PROVENTIL) 90 mcg/actuation inhaler [id number] 05/21/2020 12:00:00 AM EST 2 {puff} inhalation completed Encounter for observation for suspected exposure to other biological agents ruled out Inhale 2 puffs every 4 (four) hours if needed for wheezing or shortness of breath. [facility] Encounter for observation for suspected exposure to other biological agents ruled out Inhale 2 puffs every 4 (four) hours if n eeded for wheezing or shortness of breath. Metoclopramide 10 MG Oral Tablet metoclopramide (SONDRA N) 10 mg tablet metoclopramide (REGLAN) 10 mg tablet 04/29/2020 12:00:00 AM EST completed TAKE 1 TABLET BY MOUTH 3 TIMES A DAY NEEDED FOR NAUSEA. [facility] TAKE 1 TABLET BY MOUTH 3 TIMES A DAY NEEDED FOR NAUSEA. 24 HR Divalproex Sodium 500 MG Extended Release Oral Tablet divalproex (DEPAKOTE) 500 mg 24 hr tablet divalproex (DEPAKOTE) 500 mg 24 hr tablet 04/24/2020 12:00:00 AM EST completed TAKE 1 TABLET BY MOUTH TWICE A DAY . MAX 2 TABS PER DAY. [facility] TAKE 1 TABLET BY MOUTH TWICE A DAY . MAX 2 TABS PER DAY. doxycycline hyclate 100 MG Oral Capsule doxycycline (V IBRAMYCIN) 100 mg capsule doxycycline (VIBRAMYCIN) 100 mg capsule 04/07/2020 12:00:00 AM EST 100 mg oral completed Take 1 capsule (100 mg total) by mouth 2 (two) times a day for 7 days. Take with at least 8 ounces (large glass) of water, do not lie down for 30 minutes after [facility] Take 1 capsule (100 mg total) by mouth 2 (two) times a day for 7 days. Take with at least 8 ounces (large glass) of water, do not lie down for 30 minutes after doxycycline hyclate 100 MG Oral Capsule doxycycline (V IBRAMYCIN) 100 mg capsule doxycycline (VIBRAMYCIN) 100 mg capsule 04/07/2020 12:00:00 AM EST 100 mg oral completed Take 1 capsule (100 mg total) by mouth 2 (two) times a day for 7 days. Take with at least 8 ounces (large glass) of water, do not lie down for 30 minutes after [facility] Take 1 capsule (100 mg total) by mouth 2 (two) times a day for 7 days. Take with at least 8 ounces (large glass) of water, do not lie down for 30 minutes after Ondansetron 4 MG Oral Tablet ondansetron (ZOFRAN) 4 mg tablet ondansetron (ZOFRAN) 4 mg tablet 03/28/2020 12:00:00 AM EST 4 mg oral completed Take 1 tablet (4 mg total) by mouth every 8 (eight) hours. [facility] Take 1 tablet (4 mg total) by mouth ever y 8 (eight) hours. Ondansetron 4 MG Oral Tablet ondansetron (ZOFRAN) 4 mg tablet ondansetron (ZOFRAN) 4 mg tablet 03/28/2020 12:00:00 AM EST 4 mg oral completed Take 1 tablet (4 mg total) by mouth every 8 (eight) hours. [facility] Take 1 tablet (4 mg total) by mouth ever y 8 (eight) hours. Ondansetron 4 MG Oral Tablet ondansetron (ZOFRAN) 4 mg tablet ondansetron (ZOFRAN) 4 mg tablet 03/28/2020 12:00:00 AM EST 4 mg oral completed Take 1 tablet (4 mg total) by mouth every 8 (eight) hours. [facility] Take 1 tablet (4 mg total) by mouth ever y 8 (eight) hours. Ondansetron 4 MG Oral Tablet ondansetron (ZOFRAN) 4 mg tablet ondansetron (ZOFRAN) 4 mg tablet 03/28/2020 12:00:00 AM EST 4 mg oral completed Take 1 tablet (4 mg total) by mouth every 8 (eight) hours. [facility] Take 1 tablet (4 mg total) by mouth ever y 8 (eight) hours. Ondansetron 4 MG Oral Tablet ondansetron (ZOFRAN) 4 mg tablet ondansetron (ZOFRAN) 4 mg tablet 03/28/2020 12:00:00 AM EST 4 mg oral completed Take 1 tablet (4 mg total) by mouth every 8 (eight) hours. [facility] Take 1 tablet (4 mg total) by mouth ever y 8 (eight) hours. Ondansetron 4 MG Oral Tablet ondansetron (ZOFRAN) 4 mg tablet ondansetron (ZOFRAN) 4 mg tablet 03/28/2020 12:00:00 AM EST 4 mg oral completed Take 1 tablet (4 mg total) by mouth every 8 (eight) hours. [facility] Take 1 tablet (4 mg total) by mouth ever y 8 (eight) hours. Ondansetron 4 MG Oral Tablet ondansetron (ZOFRAN) 4 mg tablet ondansetron (ZOFRAN) 4 mg tablet 03/28/2020 12:00:00 AM EST 4 mg oral completed Take 1 tablet (4 mg total) by mouth every 8 (eight) hours. [facility] Take 1 tablet (4 mg total) by mouth ever y 8 (eight) hours. Ondansetron 4 MG Oral Tablet ondansetron (ZOFRAN) 4 mg tablet ondansetron (ZOFRAN) 4 mg tablet 03/28/2020 12:00:00 AM EST 4 mg oral completed Take 1 tablet (4 mg total) by mouth every 8 (eight) hours. [facility] Take 1 tablet (4 mg total) by mouth ever y 8 (eight) hours. Ondansetron 4 MG Oral Tablet ondansetron (ZOFRAN) 4 mg tablet ondansetron (ZOFRAN) 4 mg tablet 03/28/2020 12:00:00 AM EST 4 mg oral completed Take 1 tablet (4 mg total) by mouth every 8 (eight) hours. [facility] Take 1 tablet (4 mg total) by mouth ever y 8 (eight) hours. Ondansetron 4 MG Oral Tablet ondansetron (ZOFRAN) 4 mg tablet ondansetron (ZOFRAN) 4 mg tablet 03/28/2020 12:00:00 AM EST 4 mg oral completed Take 1 tablet (4 mg total) by mouth every 8 (eight) hours. [facility] Take 1 tablet (4 mg total) by mouth ever y 8 (eight) hours. Ondansetron 4 MG Oral Tablet ondansetron (ZOFRAN) 4 mg tablet ondansetron (ZOFRAN) 4 mg tablet 03/28/2020 12:00:00 AM EST 4 mg oral completed Take 1 tablet (4 mg total) by mouth every 8 (eight) hours. [facility] Take 1 tablet (4 mg total) by mouth ever y 8 (eight) hours. Ondansetron 4 MG Oral Tablet ondansetron (ZOFRAN) 4 mg tablet ondansetron (ZOFRAN) 4 mg tablet 03/28/2020 12:00:00 AM EST 4 mg oral completed Take 1 tablet (4 mg total) by mouth every 8 (eight) hours. [facility] Take 1 tablet (4 mg total) by mouth ever y 8 (eight) hours. Ondansetron 4 MG Oral Tablet ondansetron (ZOFRAN) 4 mg tablet ondansetron (ZOFRAN) 4 mg tablet 03/28/2020 12:00:00 AM EST 4 mg oral completed Take 1 tablet (4 mg total) by mouth every 8 (eight) hours. [facility] Take 1 tablet (4 mg total) by mouth ever y 8 (eight) hours. Ondansetron 4 MG Oral Tablet ondansetron (ZOFRAN) 4 mg tablet ondansetron (ZOFRAN) 4 mg tablet 03/28/2020 12:00:00 AM EST 4 mg oral completed Take 1 tablet (4 mg total) by mouth every 8 (eight) hours. [facility] Take 1 tablet (4 mg total) by mouth ever y 8 (eight) hours. Ondansetron 4 MG Oral Tablet ondansetron (ZOFRAN) 4 mg tablet ondansetron (ZOFRAN) 4 mg tablet 03/28/2020 12:00:00 AM EST 4 mg oral completed Take 1 tablet (4 mg total) by mouth every 8 (eight) hours. [facility] Take 1 tablet (4 mg total) by mouth ever y 8 (eight) hours. Ondansetron 4 MG Oral Tablet ondansetron (ZOFRAN) 4 mg tablet ondansetron (ZOFRAN) 4 mg tablet 03/28/2020 12:00:00 AM EST 4 mg oral completed Take 1 tablet (4 mg total) by mouth every 8 (eight) hours. [facility] Take 1 tablet (4 mg total) by mouth ever y 8 (eight) hours. Ondansetron 4 MG Oral Tablet ondansetron (ZOFRAN) 4 mg tablet ondansetron (ZOFRAN) 4 mg tablet 03/28/2020 12:00:00 AM EST 4 mg oral completed Take 1 tablet (4 mg total) by mouth every 8 (eight) hours. [facility] Take 1 tablet (4 mg total) by mouth ever y 8 (eight) hours. Ondansetron 4 MG Oral Tablet ondansetron (ZOFRAN) 4 mg tablet ondansetron (ZOFRAN) 4 mg tablet 03/28/2020 12:00:00 AM EST 4 mg oral completed Take 1 tablet (4 mg total) by mouth every 8 (eight) hours. [facility] Take 1 tablet (4 mg total) by mouth ever y 8 (eight) hours. Ondansetron 4 MG Oral Tablet ondansetron (ZOFRAN) 4 mg tablet ondansetron (ZOFRAN) 4 mg tablet 03/28/2020 12:00:00 AM EST 4 mg oral completed Take 1 tablet (4 mg total) by mouth every 8 (eight) hours. [facility] Take 1 tablet (4 mg total) by mouth ever y 8 (eight) hours. Ondansetron 4 MG Oral Tablet ondansetron (ZOFRAN) 4 mg tablet ondansetron (ZOFRAN) 4 mg tablet 03/28/2020 12:00:00 AM EST 4 mg oral completed Take 1 tablet (4 mg total) by mouth every 8 (eight) hours. [facility] Take 1 tablet (4 mg total) by mouth ever y 8 (eight) hours. Ondansetron 4 MG Oral Tablet ondansetron (ZOFRAN) 4 mg tablet ondansetron (ZOFRAN) 4 mg tablet 03/28/2020 12:00:00 AM EST 4 mg oral completed Take 1 tablet (4 mg total) by mouth every 8 (eight) hours. [facility] Take 1 tablet (4 mg total) by mouth ever y 8 (eight) hours. Ondansetron 4 MG Oral Tablet ondansetron (ZOFRAN) 4 mg tablet ondansetron (ZOFRAN) 4 mg tablet 03/28/2020 12:00:00 AM EST 4 mg oral completed Take 1 tablet (4 mg total) by mouth every 8 (eight) hours. [facility] Take 1 tablet (4 mg total) by mouth ever y 8 (eight) hours. Ondansetron 4 MG Oral Tablet ondansetron (ZOFRAN) 4 mg tablet ondansetron (ZOFRAN) 4 mg tablet 03/28/2020 12:00:00 AM EST 4 mg oral completed Take 1 tablet (4 mg total) by mouth every 8 (eight) hours. [facility] Take 1 tablet (4 mg total) by mouth ever y 8 (eight) hours. Ondansetron 4 MG Oral Tablet ondansetron (ZOFRAN) 4 mg tablet ondansetron (ZOFRAN) 4 mg tablet 03/28/2020 12:00:00 AM EST 4 mg oral completed Take 1 tablet (4 mg total) by mouth every 8 (eight) hours. [facility] Take 1 tablet (4 mg total) by mouth ever y 8 (eight) hours. Ondansetron 4 MG Oral Tablet ondansetron (ZOFRAN) 4 mg tablet ondansetron (ZOFRAN) 4 mg tablet 03/28/2020 12:00:00 AM EST 4 mg oral completed Take 1 tablet (4 mg total) by mouth every 8 (eight) hours. [facility] Take 1 tablet (4 mg total) by mouth ever y 8 (eight) hours. Ondansetron 4 MG Oral Tablet ondansetron (ZOFRAN) 4 mg tablet ondansetron (ZOFRAN) 4 mg tablet 03/28/2020 12:00:00 AM EST 4 mg oral completed Take 1 tablet (4 mg total) by mouth every 8 (eight) hours. [facility] Take 1 tablet (4 mg total) by mouth ever y 8 (eight) hours. Ondansetron 4 MG Oral Tablet ondansetron (ZOFRAN) 4 mg tablet ondansetron (ZOFRAN) 4 mg tablet 03/28/2020 12:00:00 AM EST 4 mg oral completed Take 1 tablet (4 mg total) by mouth every 8 (eight) hours. [facility] Take 1 tablet (4 mg total) by mouth ever y 8 (eight) hours. Ondansetron 4 MG Oral Tablet ondansetron (ZOFRAN) 4 mg tablet ondansetron (ZOFRAN) 4 mg tablet 03/28/2020 12:00:00 AM EST 4 mg oral completed Take 1 tablet (4 mg total) by mouth every 8 (eight) hours. [facility] Take 1 tablet (4 mg total) by mouth ever y 8 (eight) hours. Ondansetron 4 MG Oral Tablet ondansetron (ZOFRAN) 4 mg tablet ondansetron (ZOFRAN) 4 mg tablet 03/28/2020 12:00:00 AM EST 4 mg oral completed Take 1 tablet (4 mg total) by mouth every 8 (eight) hours. [facility] Take 1 tablet (4 mg total) by mouth ever y 8 (eight) hours. Ondansetron 4 MG Oral Tablet ondansetron (ZOFRAN) 4 mg tablet ondansetron (ZOFRAN) 4 mg tablet 03/28/2020 12:00:00 AM EST 4 mg oral completed Take 1 tablet (4 mg total) by mouth every 8 (eight) hours. [facility] Take 1 tablet (4 mg total) by mouth ever y 8 (eight) hours. Ondansetron 4 MG Oral Tablet ondansetron (ZOFRAN) 4 mg tablet ondansetron (ZOFRAN) 4 mg tablet 03/28/2020 12:00:00 AM EST 4 mg oral completed Take 1 tablet (4 mg total) by mouth every 8 (eight) hours. [facility] Take 1 tablet (4 mg total) by mouth ever y 8 (eight) hours. Ondansetron 4 MG Oral Tablet ondansetron (ZOFRAN) 4 mg tablet ondansetron (ZOFRAN) 4 mg tablet 03/28/2020 12:00:00 AM EST 4 mg oral completed Take 1 tablet (4 mg total) by mouth every 8 (eight) hours. [facility] Take 1 tablet (4 mg total) by mouth ever y 8 (eight) hours. Ondansetron 4 MG Oral Tablet ondansetron (ZOFRAN) 4 mg tablet ondansetron (ZOFRAN) 4 mg tablet 03/28/2020 12:00:00 AM EST 4 mg oral completed Take 1 tablet (4 mg total) by mouth every 8 (eight) hours. [facility] Take 1 tablet (4 mg total) by mouth ever y 8 (eight) hours. Ondansetron 4 MG Oral Tablet ondansetron (ZOFRAN) 4 mg tablet ondansetron (ZOFRAN) 4 mg tablet 03/28/2020 12:00:00 AM EST 4 mg oral completed Take 1 tablet (4 mg total) by mouth every 8 (eight) hours. [facility] Take 1 tablet (4 mg total) by mouth ever y 8 (eight) hours. Ondansetron 4 MG Oral Tablet ondansetron (ZOFRAN) 4 mg tablet ondansetron (ZOFRAN) 4 mg tablet 03/28/2020 12:00:00 AM EST 4 mg oral completed Take 1 tablet (4 mg total) by mouth every 8 (eight) hours. [facility] Take 1 tablet (4 mg total) by mouth ever y 8 (eight) hours. Ondansetron 4 MG Oral Tablet ondansetron (ZOFRAN) 4 mg tablet ondansetron (ZOFRAN) 4 mg tablet 03/28/2020 12:00:00 AM EST 4 mg oral completed Take 1 tablet (4 mg total) by mouth every 8 (eight) hours. [facility] Take 1 tablet (4 mg total) by mouth ever y 8 (eight) hours. Ondansetron 4 MG Oral Tablet ondansetron (ZOFRAN) 4 mg tablet ondansetron (ZOFRAN) 4 mg tablet 03/28/2020 12:00:00 AM EST 4 mg oral completed Take 1 tablet (4 mg total) by mouth every 8 (eight) hours. [facility] Take 1 tablet (4 mg total) by mouth ever y 8 (eight) hours. Ondansetron 4 MG Oral Tablet ondansetron (ZOFRAN) 4 mg tablet ondansetron (ZOFRAN) 4 mg tablet 03/28/2020 12:00:00 AM EST 4 mg oral completed Take 1 tablet (4 mg total) by mouth every 8 (eight) hours. [facility] Take 1 tablet (4 mg total) by mouth ever y 8 (eight) hours. Ondansetron 4 MG Oral Tablet ondansetron (ZOFRAN) 4 mg tablet ondansetron (ZOFRAN) 4 mg tablet 03/28/2020 12:00:00 AM EST 4 mg oral completed Take 1 tablet (4 mg total) by mouth every 8 (eight) hours. [facility] Take 1 tablet (4 mg total) by mouth ever y 8 (eight) hours. Ondansetron 4 MG Oral Tablet ondansetron (ZOFRAN) 4 mg tablet ondansetron (ZOFRAN) 4 mg tablet 03/28/2020 12:00:00 AM EST 4 mg oral completed Take 1 tablet (4 mg total) by mouth every 8 (eight) hours. [facility] Take 1 tablet (4 mg total) by mouth ever y 8 (eight) hours. Ondansetron 4 MG Oral Tablet ondansetron (ZOFRAN) 4 mg tablet ondansetron (ZOFRAN) 4 mg tablet 03/28/2020 12:00:00 AM EST 4 mg oral completed Take 1 tablet (4 mg total) by mouth every 8 (eight) hours. [facility] Take 1 tablet (4 mg total) by mouth ever y 8 (eight) hours. Ondansetron 4 MG Oral Tablet ondansetron (ZOFRAN) 4 mg tablet ondansetron (ZOFRAN) 4 mg tablet 03/28/2020 12:00:00 AM EST 4 mg oral completed Take 1 tablet (4 mg total) by mouth every 8 (eight) hours. [facility] Take 1 tablet (4 mg total) by mouth ever y 8 (eight) hours. Ondansetron 4 MG Oral Tablet ondansetron (ZOFRAN) 4 mg tablet ondansetron (ZOFRAN) 4 mg tablet 03/28/2020 12:00:00 AM EST 4 mg oral completed Take 1 tablet (4 mg total) by mouth every 8 (eight) hours. [facility] Take 1 tablet (4 mg total) by mouth ever y 8 (eight) hours. Ondansetron 4 MG Oral Tablet ondansetron (ZOFRAN) 4 mg tablet ondansetron (ZOFRAN) 4 mg tablet 03/28/2020 12:00:00 AM EST 4 mg oral completed Take 1 tablet (4 mg total) by mouth every 8 (eight) hours. [facility] Take 1 tablet (4 mg total) by mouth ever y 8 (eight) hours. Ondansetron 4 MG Oral Tablet ondansetron (ZOFRAN) 4 mg tablet ondansetron (ZOFRAN) 4 mg tablet 03/28/2020 12:00:00 AM EST 4 mg oral completed Take 1 tablet (4 mg total) by mouth every 8 (eight) hours. [facility] Take 1 tablet (4 mg total) by mouth ever y 8 (eight) hours. Ondansetron 4 MG Oral Tablet ondansetron (ZOFRAN) 4 mg tablet ondansetron (ZOFRAN) 4 mg tablet 03/28/2020 12:00:00 AM EST 4 mg oral completed Take 1 tablet (4 mg total) by mouth every 8 (eight) hours. [facility] Take 1 tablet (4 mg total) by mouth ever y 8 (eight) hours. Ondansetron 4 MG Oral Tablet ondansetron (ZOFRAN) 4 mg tablet ondansetron (ZOFRAN) 4 mg tablet 03/28/2020 12:00:00 AM EST 4 mg oral completed Take 1 tablet (4 mg total) by mouth every 8 (eight) hours. [facility] Take 1 tablet (4 mg total) by mouth ever y 8 (eight) hours. Ondansetron 4 MG Oral Tablet ondansetron (ZOFRAN) 4 mg tablet ondansetron (ZOFRAN) 4 mg tablet 03/28/2020 12:00:00 AM EST 4 mg oral completed Take 1 tablet (4 mg total) by mouth every 8 (eight) hours. [facility] Take 1 tablet (4 mg total) by mouth ever y 8 (eight) hours. Ondansetron 4 MG Oral Tablet ondansetron (ZOFRAN) 4 mg tablet ondansetron (ZOFRAN) 4 mg tablet 03/28/2020 12:00:00 AM EST 4 mg oral completed Take 1 tablet (4 mg total) by mouth every 8 (eight) hours. [facility] Take 1 tablet (4 mg total) by mouth ever y 8 (eight) hours. Ondansetron 4 MG Oral Tablet ondansetron (ZOFRAN) 4 mg tablet ondansetron (ZOFRAN) 4 mg tablet 03/28/2020 12:00:00 AM EST 4 mg oral completed Take 1 tablet (4 mg total) by mouth every 8 (eight) hours. [facility] Take 1 tablet (4 mg total) by mouth ever y 8 (eight) hours. Ondansetron 4 MG Oral Tablet ondansetron (ZOFRAN) 4 mg tablet ondansetron (ZOFRAN) 4 mg tablet 03/28/2020 12:00:00 AM EST 4 mg oral completed Take 1 tablet (4 mg total) by mouth every 8 (eight) hours. [facility] Take 1 tablet (4 mg total) by mouth ever y 8 (eight) hours. Ondansetron 4 MG Oral Tablet ondansetron (ZOFRAN) 4 mg tablet ondansetron (ZOFRAN) 4 mg tablet 03/28/2020 12:00:00 AM EST 4 mg oral completed Take 1 tablet (4 mg total) by mouth every 8 (eight) hours. [facility] Take 1 tablet (4 mg total) by mouth ever y 8 (eight) hours. Ondansetron 4 MG Oral Tablet ondansetron (ZOFRAN) 4 mg tablet ondansetron (ZOFRAN) 4 mg tablet 03/28/2020 12:00:00 AM EST 4 mg oral completed Take 1 tablet (4 mg total) by mouth every 8 (eight) hours. [facility] Take 1 tablet (4 mg total) by mouth ever y 8 (eight) hours. Ondansetron 4 MG Oral Tablet ondansetron (ZOFRAN) 4 mg tablet ondansetron (ZOFRAN) 4 mg tablet 03/28/2020 12:00:00 AM EST 4 mg oral completed Take 1 tablet (4 mg total) by mouth every 8 (eight) hours. [facility] Take 1 tablet (4 mg total) by mouth ever y 8 (eight) hours. Ondansetron 4 MG Oral Tablet ondansetron (ZOFRAN) 4 mg tablet ondansetron (ZOFRAN) 4 mg tablet 03/28/2020 12:00:00 AM EST 4 mg oral completed Take 1 tablet (4 mg total) by mouth every 8 (eight) hours. [facility] Take 1 tablet (4 mg total) by mouth ever y 8 (eight) hours. plecanatide (Trulance) 3 mg tablet [id number] 02/28/2020 12:00:00 AM EST 3 mg oral completed Take 3 mg by mouth 1 ( one) time each day. [facility] Take 3 mg by mouth 1 (one) time each day . plecanatide (Trulance) 3 mg tablet [id number] 02/28/2020 12:00:00 AM EST 3 mg oral completed Take 3 mg by mouth 1 ( one) time each day. [facility] Take 3 mg by mouth 1 (one) time each day . plecanatide (Trulance) 3 mg tablet [id number] 02/28/2020 12:00:00 AM EST 3 mg oral completed Take 3 mg by mouth 1 ( one) time each day. [facility] Take 3 mg by mouth 1 (one) time each day . plecanatide (Trulance) 3 mg tablet [id number] 02/28/2020 12:00:00 AM EST 3 mg oral completed Take 3 mg by mouth 1 ( one) time each day. [facility] Take 3 mg by mouth 1 (one) time each day . plecanatide (Trulance) 3 mg tablet [id number] 02/28/2020 12:00:00 AM EST 3 mg oral completed Take 3 mg by mouth 1 ( one) time each day. [facility] Take 3 mg by mouth 1 (one) time each day . plecanatide (Trulance) 3 mg tablet [id number] 02/28/2020 12:00:00 AM EST 3 mg oral completed Take 3 mg by mouth 1 ( one) time each day. [facility] Take 3 mg by mouth 1 (one) time each day . plecanatide (Trulance) 3 mg tablet [id number] 02/28/2020 12:00:00 AM EST 3 mg oral completed Take 3 mg by mouth 1 ( one) time each day. [facility] Take 3 mg by mouth 1 (one) time each day . plecanatide (Trulance) 3 mg tablet [id number] 02/28/2020 12:00:00 AM EST 3 mg oral completed Take 3 mg by mouth 1 ( one) time each day. [facility] Take 3 mg by mouth 1 (one) time each day . plecanatide (Trulance) 3 mg tablet [id number] 02/28/2020 12:00:00 AM EST 3 mg oral completed Take 3 mg by mouth 1 ( one) time each day. [facility] Take 3 mg by mouth 1 (one) time each day . Omeprazole 40 MG Delayed Release Oral Ca psule omeprazole (PriLOSEC) [address] capsule omeprazole (PriLOSEC) [address] capsule 02/11/2020 12:00:00 AM ED T 40 mg oral completed Take 1 cap derrick (40 mg total) by mouth 1 (one) time each day. Do not crush or chew. [facility] Take 1 capsule (40 mg total) by mouth 1 (one) time each day. Do not crush or chew. Omeprazole 40 MG Delayed Release Oral Ca psule omeprazole (PriLOSEC) [address] capsule omeprazole (PriLOSEC) [address] capsule 02/11/2020 12:00:00 AM ED T 40 mg oral completed Take 1 cap derrick (40 mg total) by mouth 1 (one) time each day. Do not crush or chew. [facility] Take 1 capsule (40 mg total) by mouth 1 (one) time each day. Do not crush or chew. Omeprazole 40 MG Delayed Release Oral Ca psule omeprazole (PriLOSEC) [address] capsule omeprazole (PriLOSEC) [address] capsule 02/11/2020 12:00:00 AM ED T 40 mg oral completed Take 1 cap derrick (40 mg total) by mouth 1 (one) time each day. Do not crush or chew. [facility] Take 1 capsule (40 mg total) by mouth 1 (one) time each day. Do not crush or chew. Omeprazole 40 MG Delayed Release Oral Ca psule omeprazole (PriLOSEC) [address] capsule omeprazole (PriLOSEC) [address] capsule 02/11/2020 12:00:00 AM ED T 40 mg oral completed Take 1 cap derrick (40 mg total) by mouth 1 (one) time each day. Do not crush or chew. [facility] Take 1 capsule (40 mg total) by mouth 1 (one) time each day. Do not crush or chew. Omeprazole 40 MG Delayed Release Oral Ca psule omeprazole (PriLOSEC) [address] capsule omeprazole (PriLOSEC) [address] capsule 02/11/2020 12:00:00 AM ED T 40 mg oral completed Take 1 cap derrick (40 mg total) by mouth 1 (one) time each day. Do not crush or chew. [facility] Take 1 capsule (40 mg total) by mouth 1 (one) time each day. Do not crush or chew. linaclotide 0.145 MG Oral Capsule linaCLOtide (Linzess ) 145 mcg capsule linaCLOtide (Linzess) 145 mcg capsule 02/11/2020 12:00:00 AM EDT 14 5 ug oral completed Take 1 capsule (145 mcg total) by mouth 1 (one) time each day before breakfast. [facility] Take 1 capsule (145 mcg total) by mouth 1 (one) time each day before breakfast. linaclotide 0.145 MG Oral Capsule linaCLOtide (Linzess ) 145 mcg capsule linaCLOtide (Linzess) 145 mcg capsule 02/11/2020 12:00:00 AM EDT 14 5 ug oral completed Take 1 capsule (145 mcg total) by mouth 1 (one) time each day before breakfast. [facility] Take 1 capsule (145 mcg total) by mouth 1 (one) time each day before breakfast. Omeprazole 40 MG Delayed Release Oral Ca psule omeprazole (PriLOSEC) [address] capsule omeprazole (PriLOSEC) [address] capsule 02/11/2020 12:00:00 AM ED T 40 mg oral completed Take 1 cap derrick (40 mg total) by mouth 1 (one) time each day. Do not crush or chew. [facility] Take 1 capsule (40 mg total) by mouth 1 (one) time each day. Do not crush or chew. Omeprazole 40 MG Delayed Release Oral Ca psule omeprazole (PriLOSEC) [address] capsule omeprazole (PriLOSEC) [address] capsule 02/11/2020 12:00:00 AM ED T 40 mg oral completed Take 1 cap derrick (40 mg total) by mouth 1 (one) time each day. Do not crush or chew. [facility] Take 1 capsule (40 mg total) by mouth 1 (one) time each day. Do not crush or chew. linaclotide 0.145 MG Oral Capsule linaCLOtide (Linzess ) 145 mcg capsule linaCLOtide (Linzess) 145 mcg capsule 02/11/2020 12:00:00 AM EDT 14 5 ug oral completed Take 1 capsule (145 mcg total) by mouth 1 (one) time each day before breakfast. [facility] Take 1 capsule (145 mcg total) by mouth 1 (one) time each day before breakfast. POLYETHYLENE GLYCOL 3350 105 MG/ML / Pot assium Chloride 0.09377 MEQ/ML / Sodium Bicarbonate 0.017 MEQ/ML / Sodium Chloride 0.0479 MEQ/ML Oral Solution polyethylene glycol-electrolytes (GaviLyte-N) 420 gram solution polyethylene glycol-electrolytes (GaviLyte-N) 420 gram solution 02/11/2020 12:00:00 AM EDT 4000 mL oral completed Take 4,000 mL by mouth 1 (one) time for 1 dose. Use as directed for bowel prep [facility] Take 4,000 mL by mouth 1 (one) time for 1 dose. Use as directed for bowel prep Omeprazole 40 MG Delayed Release Oral Ca psule omeprazole (PriLOSEC) [address] capsule omeprazole (PriLOSEC) [address] capsule 02/11/2020 12:00:00 AM ED T 40 mg oral completed Take 1 cap derrick (40 mg total) by mouth 1 (one) time each day. Do not crush or chew. [facility] Take 1 capsule (40 mg total) by mouth 1 (one) time each day. Do not crush or chew. linaclotide 0.145 MG Oral Capsule linaCLOtide (Linzess ) 145 mcg capsule linaCLOtide (Linzess) 145 mcg capsule 02/11/2020 12:00:00 AM EDT 14 5 ug oral completed Take 1 capsule (145 mcg total) by mouth 1 (one) time each day before breakfast. [facility] Take 1 capsule (145 mcg total) by mouth 1 (one) time each day before breakfast. Omeprazole 40 MG Delayed Release Oral Ca psule omeprazole (PriLOSEC) [address] capsule omeprazole (PriLOSEC) [address] capsule 02/11/2020 12:00:00 AM ED T 40 mg oral completed Take 1 cap derrick (40 mg total) by mouth 1 (one) time each day. Do not crush or chew. [facility] Take 1 capsule (40 mg total) by mouth 1 (one) time each day. Do not crush or chew. POLYETHYLENE GLYCOL 3350 105 MG/ML / Pot assium Chloride 0.64135 MEQ/ML / Sodium Bicarbonate 0.017 MEQ/ML / Sodium Chloride 0.0479 MEQ/ML Oral Solution polyethylene glycol-electrolytes (GaviLyte-N) 420 gram solution polyethylene glycol-electrolytes (GaviLyte-N) 420 gram solution 02/11/2020 12:00:00 AM EDT 4000 mL oral completed Take 4,000 mL by mouth 1 (one) time for 1 dose. Use as directed for bowel prep [facility] Take 4,000 mL by mouth 1 (one) time for 1 dose. Use as directed for bowel prep Omeprazole 40 MG Delayed Release Oral Ca psule omeprazole (PriLOSEC) [address] capsule omeprazole (PriLOSEC) [address] capsule 02/11/2020 12:00:00 AM ED T 40 mg oral completed Take 1 cap derrick (40 mg total) by mouth 1 (one) time each day. Do not crush or chew. [facility] Take 1 capsule (40 mg total) by mouth 1 (one) time each day. Do not crush or chew. Omeprazole 40 MG Delayed Release Oral Ca psule omeprazole (PriLOSEC) [address] capsule omeprazole (PriLOSEC) [address] capsule 02/11/2020 12:00:00 AM ED T 40 mg oral completed Take 1 cap derrick (40 mg total) by mouth 1 (one) time each day. Do not crush or chew. [facility] Take 1 capsule (40 mg total) by mouth 1 (one) time each day. Do not crush or chew. Omeprazole 40 MG Delayed Release Oral Ca psule omeprazole (PriLOSEC) [address] capsule omeprazole (PriLOSEC) [address] capsule 02/11/2020 12:00:00 AM ED T 40 mg oral completed Take 1 cap derrick (40 mg total) by mouth 1 (one) time each day. Do not crush or chew. [facility] Take 1 capsule (40 mg total) by mouth 1 (one) time each day. Do not crush or chew. Amoxicillin 875 MG / Clavulanate 125 MG Oral Tablet amoxicillin-pot clavulanate (AUGMENTIN) 875-125 mg tablet amoxicillin-pot clavulanate (AUGMENTIN) 875-125 mg tablet 01/31/2020 12:00:00 AM EDT 1 {tbl} oral completed Take 1 tablet by mouth 2 (two) times a day for 10 days. [facility] Take 1 tablet by mouth 2 (two) times a d ay for 10 days. Amoxicillin 875 MG / Clavulanate 125 MG Oral Tablet amoxicillin-pot clavulanate (AUGMENTIN) 875-125 mg tablet amoxicillin-pot clavulanate (AUGMENTIN) 875-125 mg tablet 01/31/2020 12:00:00 AM EDT 1 {tbl} oral completed Take 1 tablet by mouth 2 (two) times a day for 10 days. [facility] Take 1 tablet by mouth 2 (two) times a d ay for 10 days. Omeprazole 20 MG Delayed Release Oral Ta blet omeprazole (PRILOSEC) 20 mg tablet,delayed release (DR/EC) omeprazole (PRILOSEC) 20 mg tablet,delay ed release (DR/EC) 12/26/2019 12:00:00 AM EDT oral co mpleted Take by mouth. [facility] Take by mouth. Doxycycline Monohydrate 100 MG Oral Caps ule doxycycline (MONODOX) 100 mg capsule doxycycline (MONODOX) 100 mg capsule 11/29/2019 12:00:00 AM EDT 1 {capsule} oral completed Take 1 capsule by [facility] 2 (two) times a day. [facility] Take 1 capsule by mouth 2 (two) times a day. Ketorolac Tromethamine 10 MG Oral Tablet ketorolac (TO RADOL) 10 mg tablet ketorolac (TORADOL) 10 mg tablet 02/08/2019 12:00:00 AM EDT 1 {tbl} oral completed Take 1 tablet by mouth every 8 ( eight) hours if needed. [facility] Take 1 tablet by mouth every 8 (eight) h ours if needed. Phenazopyridine hydrochloride 200 MG Ora l Tablet phenazopyridine (Pyridium) 200 mg tablet phenazopyridine (Pyridium) 200 mg tablet 01/29/2019 12:00:00 AM EDT 1 {tbl} oral completed Take 1 tablet by mouth . [facility] Take 1 tablet by mouth. Acetaminophen 325 MG / Hydrocodone Estevan trate 7.5 MG Oral Tablet HYDROcodone- acetaminophen ([place]) 7.5-325 mg tablet HYDROcodone-acetaminophen ([place]) 7.5- 325 mg tablet 01/29/2019 12:00:00 AM EDT 1 {tbl} oral com pleted Take 1 tablet by mouth every 6 (six) hours if needed. [facility] Take 1 tablet by mouth every 6 (six) darcie rs if needed. 24 HR Oxybutynin chloride 10 MG Extended Release Oral Tablet oxybutynin XL (DITROPAN-XL) 10 mg 24 hr tablet oxybutynin XL (DITROPAN-XL) 10 mg 24 hr tablet 01/29/2019 12:00:00 AM EDT 1 {tbl} oral completed Take 1 tablet by mouth 1 (one) time each day. [facility] Take 1 tablet by mouth 1 (one) time each day. Hydroxyzine Hydrochloride 50 MG Oral Tab let hydrOXYzine HCL (ATARAX) 50 mg tablet hydrOXYzine HCL (ATARAX) 50 mg tablet 03/23/2018 12:00:00 AM EST completed [facility] ersamir Acetaminophen 325 MG / Oxycodone Hydroch loride 5 MG Oral Tablet oxyCODONE- acetaminophen (Percocet) 5-325 mg tablet oxyCODONE-acetaminophen (Percocet) 5- 325 mg tablet 03/22/2018 12:00:00 AM EST 1 {tbl} oral com pleted Take 1 tablet by mouth every 6 (six) hours if needed. [facility] Take 1 tablet by mouth every 6 (six) darcie rs if needed. 24 HR Bupropion Hydrochloride 300 MG Ext ended Release Oral Tablet buPROPion XL (WELLBUTRIN XL) 300 mg 24 hr tablet buPROPion XL (WELLBUTRIN XL) 300 mg 24 h r tablet 03/09/2018 12:00:00 AM EST completed [facility] potassium citrate 15 MEQ Extended Releas e Oral Tablet potassium citrate (UROCIT- K) 15 mEq SR tablet potassium citrate (UROCIT-K) 15 mEq SR tablet 02/11/20 18 12:00:00 AM EDT completed [facility] potassium citrate 10 MEQ Extended Releas e Oral Tablet potassium citrate (UROCIT- K) 10 mEq CR tablet potassium citrate (UROCIT-K) 10 mEq CR tablet 01/19/20 18 12:00:00 AM EDT 1 {tbl} oral completed Take 1 tablet by mouth 3 times a day. [facility] Take 1 tablet by mouth 3 times a day. Morphine Sulfate 15 MG Extended Release Oral Tablet morphine (MS CONTIN) 15 mg 12 hr tablet morphine (MS CONTIN) 15 mg 12 hr tablet 04/23/2016 12:00:00 AM EST completed TAKE ONE TABLE T BY MOUTH EVERY DAY MAXIMUM DAILY DOSE 1 [facility] TAKE ONE TABLET BY MOUTH EVERY DAY MAXIM UM DAILY DOSE 1 albuterol (PROVENTIL) 90 mcg/actuation inhaler [id number] 2 {puff} inhalation completed Inhale 2 puffs. [facility] Inhale 2 puffs. Cephalexin 500 MG Oral Capsule cephalexin (KEFLEX) 500 mg capsule cephalexin (KEFLEX) 500 mg capsule 1 {capsule} oral completed Take 1 capsule by mouth twice a day. [facility] Take 1 capsule by mouth twice a day. Bisacodyl 5 MG Delayed Release Oral Tabl et bisacodyL (Dulcolax, bisacodyl,) 5 mg EC tablet bisacodyL (Dulcolax, bisacodyl,) 5 mg EC tablet 1 {tbl } oral completed Take 1 tablet by mouth 1 (one) t daryl each day. [facility] Take 1 tablet by mouth 1 (one) time each day. Divalproex Sodium 125 MG Delayed Release Oral Tablet divalproex (Depakote) 125 mg EC tablet divalproex (Depakote) 125 mg EC tablet 1 {tbl} oral completed Take 1 tablet by mouth twice a d ay. [facility] Take 1 tablet by mouth twice a day. Morphine Sulfate 15 MG Oral Tablet morphine (MSIR) 15 mg tablet morphine (MSIR) 15 mg tablet 1 {tbl} oral completed Take 1 tablet by mouth. [facility] Take 1 tablet by mouth. Insurance Providers Payer name Policy type / Coverage type Policy ID Covered libertarian ID Covered libertarian's relationship to anguiano Policy Anguiano Plan Information Medicaid S [id number] S [id number] MEDICAID M [id number] Self [id number] [facility] I [id number] Self [id number] Managed Care - Community Plan [facility] P [id number] S [id number] [facility] Health Maintenance Organization (HMO) [id number] Self Medicaid S [id number] S [id number] Managed Care - Community Plan [facility] P [id number] S [id number] Medicaid S [id number] S [id number] Managed Care - Community Plan [facility] P [id number] S [id number] Managed Care - Community Plan [facility] P [id number] S [id number] Managed Care - [facility] Community Plan P [id number] S [id number] Managed Care - Community Plan [facility] P [id number] S [id number] [facility] MEDICAID REPLACEMENT [facility] MEDICAID REPLACEMENT [id number] ANSI-Medicaid [id number] ANS-Medicaid [id number] ANS-Medicaid [id number] ANSI-Medicaid [id number] ANSI-Medicaid [id number] ANSI-Medicaid [id number] ANS-Medicaid [id number] ANS-Medicaid [id number] ANS-Medicaid [id number] ANSI-Medicaid [id number] ANSI-Medicaid [id number] ANSI-Medicaid [id number] [facility] [id number] A [id number] ANSI-Medicaid [id number] ANSI-Medicaid [id number] [facility] Commercial [id number] ANSI-Medicaid [id number] ANSI-Medicaid [id number] ANSI-Medicaid [id number] ANSI-Medicaid [id number] ANSI-Medicaid [id number] ANSI-Medicaid [id number] ANSI-Medicaid [id number] ANSI-Medicaid [id number] ANSI-Medicaid [id number] ANSI-Medicaid [id number] ANSI-Medicaid [id number] ANSI-Medicaid [id number] ANSI-Medicaid [id number] ANSI-Medicaid [id number] [facility] [id number] Self [id number] MEDICAID M [id number] S [id number] [facility](MCAID) O [id number] S [id number] [facility] [id number] Self UN COMMUNITY PLAN [facility] [id number] SP [id number] [facility] Commercial [id number] Self [facility] [id number] Commercial Insurance [facility] Commercial [id number] Self MEDICAID [id number] SP [id number] [facility] Health Maintenance Organization (HMO) [id number] Self MEDICAID 3 [id number] SELFPAY 5 UNAVAILABLE 1 UNAVAILA BLE SELF PAY UNAVAILABLE UNAVAILA BLE Self Pay O na S na [facility] [id number] SP [id number] [employer] [id number] U [id number] [place] [id number] HU [id number] [employer] [place] [id number] CIGNA/MVP/CONN GEN/PREFE P [id number] S [id number] [facility] P [id number] S [id number] O UNAVAILABLE UNAVAILA BLE [id number] 2 UN COMMUNITY PLAN [facility] [id number] SP [id number] RX PRESCRIPTION SOLUTIONS [facility] MEDICAID [id number] SP [id number] [facility] [id number] A [id number] [employer] [id number] Self [id number] [facility] [id number] [place] [facility] [place] [id number] [place] [id number] SP [id number] [facility] [id number] Self [id number] Medicaid [id number] Self [id number] ANSI-Medicaid [id number] ANSI-Medicaid [id number] ANSI-Medicaid [id number] ANSI-Medicaid [id number] Problems, Conditions, and Diagnoses Code Display Name Description Problem Type Effective Dates Data Source(s) L98.9 Disorder of the skin and subcutaneous ti ssue, unspecified Disorder of the skin and subcutaneous tissue, unspecified Diagnosis 02/25/2021 10:35:4 0 AM EDT [facility] J01.01 Acute recurrent maxillary sinusitis Acute recurr ent maxillary sinusitis Diagnosis 02/25/2021 10:33:35 AM EDT [facility] Z13.6 Encounter for screening for cardiovascul ar disorders Encounter for screening for cardiovascular disorders Diagnosis 02/25/2021 08:45:59 A M EDT [facility] Z13.220 Encounter for screening for lipoid disor ders Encounter for screening for lipoid disorders Diagnosis 02/25/2021 08:45:59 AM EDT [facility] cysto cysto Diagnosis 02/11/2021 02:31:38 PM ED T [facility] Follow-up Follow-up Diagnosis 02/05/2021 09:52:25 AM ED T [facility] Z11.59 Encounter for screening for other viral diseases Encounter for screening for other viral diseases Diagnosis 01/28/2021 01:51:25 PM EDT [facility] Z20.822 Contact with and (suspected) exposure to covid-19 Contact with and (suspected) exposure to covid-19 Diagnosis 01/28/2021 10:24:25 AM EDT [facility] R05.9 Cough, unspecified Cough, unspecified Diagnosis 09/2020 10:24:25 AM EDT [facility] R31.0 Gross hematuria Gross hematuria Diagnosis 09/02/2020 01:0 6:30 PM EDT [facility] R30.0 Dysuria Dysuria Diagnosis 08/28/2020 12:20:07 PM ED T [facility] N39.0 Urinary tract infection, site not specif ied Urinary tract infection, site not specified Diagnosis 08/28/2020 12:20:07 PM EDT [facility] Urinary Problem Urinary Problem Diagnosis 08/28/2020 12:2 0:07 PM EDT [facility] M54.16 Radiculopathy, lumbar region Radiculopathy, lumbar reg ion Diagnosis 08/16/2020 02:49:00 PM EDT [facility] Back Pain Back Pain Diagnosis 08/16/2020 02:49:00 PM ED T [facility] put her back out yesterday put her back out yesterday Diagnosis 08/16/2020 02:29:00 PM EDT [facility] I10 Essential (primary) hypertension Essential (primary) h ypertension Diagnosis 07/29/2020 09:02:47 AM EDT [facility] R07.9 Chest pain, unspecified Chest pain, unspecified Diagno sis 07/29/2020 09:02:37 AM EDT [facility] [id number] Pain in left knee Pain in left knee Diagnosis 07/25/2020 12:24:00 PM EDT [facility] Y999 Unspecified external cause status Unspecified ex ternal cause status Diagnosis 07/25/2020 12:24:00 PM EDT [facility] Y[address] or not applicable Unspecified place or not applicable Diagnosis 07/25/2020 12:24:00 PM EDT [facility] Y939 Activity, unspecified Activity, unspecified Diagnosis 07/25/2020 12:24:00 PM EDT [facility] [id number] Overexertion from prolonged static or aw kward postures, init Overexertion from prolonged static or awkward postures, init Diagnosis 07/25/2020 12:24:00 PM EDT [facility], [facility] [id number] Nicotine dependence, cigarettes, uncompl icated Nicotine dependence, cigarettes, uncomplicated Diagnosis 07/25/2020 12:24:00 PM EDT [facility], [facility] 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 seafood Diagnosis 05/2020 12:24:00 PM EDT [facility] [id number] Bee allergy status Bee allergy status Diagnosis 05/2020 12:24:00 PM EDT [facility], [facility] Z888 Allergy status to other drug/meds/biol s ubst Allergy status to other drug/meds/biol subst Diagnosis 07/25/2020 12:24:00 PM EDT [facility] Liza cosby - [facility], [facility] [id number] 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 (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 Diagnosis 07/25/2020 12:24:00 PM EDT [facility] Dora rdbrady - [facility], [facility] [id number] Other specified postprocedural states Ot her specified postprocedural states Diagnosis 07/25/2020 12:24:00 PM EDT [facility] Dora rdes - [facility], [facility] [id number] Sprain of unspecified ligament of left a nkle, init encntr Sprain of unspecified ligament of left ankle, init encntr Diagnosis 2020 12:24:00 PM EDT [facility], [facility] L ANKLE AND KNEE INJ L ANKLE AND KNEE INJ Diagnosis 07/25/2020 12:24:00 PM EDT [facility], [facility] [id number] Pain in left ankle Pain in left ankle Diagnosis 05/2020 12:24:00 PM EDT Leia Mon - [facility], [facility] Z01.818 Encounter for other preprocedural examin ation Encounter for other preprocedural examination Diagnosis 07/21/2020 07:46:49 AM EDT [facility] I25.9 Chronic ischemic heart disease, unspecif ied Chronic ischemic heart disease, unspecified Diagnosis 06/20/2020 12:00:51 PM EST [facility] R06.02 Shortness of breath Shortness of breath Diagnosis 0 06/18/2020 10:26:20 AM EST [facility] U07.1 COVID-19 COVID-19 Diagnosis 06/18/2020 10:26:20 AM [facility] J45.21 Mild intermittent asthma with (acute) ex acerbation Mild intermittent asthma with (acute) exacerbation Diagnosis 06/17/2020 03:42:49 PM EST [facility] Z03.818 Encounter for observation fo r suspected exposure to other biological agents ruled out Encounter for observation for suspected exposure to other biological agents ruled out Diagnosis 05/21/2020 09:37:30 AM EST [facility] J01.40 Acute pansinusitis, unspecified Acute pansinusit is, unspecified Diagnosis 04/07/2020 10:53:32 AM EST [facility] Sinusitis Sinusitis Diagnosis 04/07/2020 10:53:32 AM [facility] R11.0 Nausea Nausea Diagnosis 04/02/2020 06:17:59 AM [facility] R10.13 Epigastric pain Epigastric pain Diagnosis 02/13/2020 03:1 7:06 PM EDT [facility] K59.00 Constipation, unspecified Constipation, unspecified Di agnosis 02/13/2020 03:17:04 PM EDT [facility] Z91.81 History of falling History of falling Diagnosis 11/2019 02:01:05 PM EDT [facility] J01.90 Acute sinusitis, unspecified Acute sinusitis, unspecif ied Diagnosis 01/31/2020 01:59:24 PM EDT [facility] Z00.00 Encounter for general adult medical examination without abnormal findings Encounter for general adult medical examination with t abnormal findings Diagnosis 01/31/2020 01:19:50 PM EDT [facility] T14.8XXA Other injury of unspecified body region, initial encounter Other injury of unspecified body region, initial encounter Diagnosis 01/16/20 11:22:00 AM EDT [facility] W19.XXXA Unspecified fall, initial encounter Unsp ecified fall, initial encounter Diagnosis 01/16/2020 11:22:00 AM EDT [facility] N20.0 Calculus of kidney Calculus of kidney Diagnosis 11:21:01 AM EDT [facility] E78.5 Hyperlipidemia, unspecified Hyperlipidemia, unspecifie d Diagnosis 01/16/2020 11:21:01 AM EDT [facility] N31.9 Neuromuscular dysfunction of bladder, un specified Neuromuscular dysfunction of bladder, unspecified Diagnosis 01/16/2020 11:21:01 AM E DT [facility] M54.5 Low back pain Low back pain Diagnosis 01/16/2020 11:21:01 AM EDT [facility] Shortness of Breath Shortness of Breath Diagnosis 020 11:10:00 AM EDT [facility] Chest Pain Chest Pain Diagnosis 01/16/2020 11:10:00 AM ED T [facility] Fall Fall Diagnosis 01/16/2020 11:10:00 AM ED T [facility] fell down stairs/left side pain fell down stairs/left side pain Diagnosis 01/16/2020 11:10:00 AM EDT [facility] Surgeries/Procedures Procedure Description Date Indications Data Source(s) COMPREHENSIVE METABOLIC PANEL COMPREHENSIVE METABOLIC PANEL 02/25/2021 08:53:00 AM EDT [facility] LIPID PANEL LIPID PANEL 02/25/2021 08:53:00 AM EDT [facility] NON-GYNECOLOGIC CYTOLOGY NON-GYNECOLOGIC CYTOLOGY 02/11/2021 04:02: 00 PM EDT [facility] CT UROGRAM CT UROGRAM 02/10/2021 08:34:47 AM EDT [facility] ECG 12-LEAD ECG 12-LEAD 02/05/2021 10:30:51 AM EDT [facility] SARS-COV-2 BY NAAT SARS-COV-2 BY NAAT 01/28/2021 03:31:00 PM EDT [facility] COVID-19 ORDERABLE [facility] COVID-19 ORDERABLE [facility] 01/28/2021 03:31:00 P M EDT [facility] CREATININE, SERUM CREATININE, SERUM 01/19/2021 12:12:00 PM EDT [facility] BUN BUN 01/19/2021 12:12:00 PM EDT [facility] OFFICE OUTPATIENT VISIT 15 MINUTES 11/27/2020 12:00:00 AM EDT [facility] ([facility], ) CT ABDOMEN PELVIS WO CONTRAST CT ABDOMEN PELVIS WO CONTRAST 09/01/2020 10:21:43 AM EDT [facility] URINE CULTURE URINE CULTURE 08/28/2020 01:33:00 PM EDT [facility] POCT URINALYSIS DIPSTICK POCT URINALYSIS DIPSTICK 08/28/2020 01:04: 00 PM EDT [facility] XR ABDOMEN 1 VIEW XR ABDOMEN 1 VIEW 08/06/2020 05:17:51 PM EDT [facility] NM HEART PERFUSION SPECT STRESS AND REST NM HEART PERF USION SPECT STRESS AND REST 07/24/2020 11:35:00 AM EDT [facility] MYOCARDIAL SPECT MULTIPLE STUDIES STRESS TEST WITH MYOCARDIA L PERFUSION 07/24/2020 11:35:00 AM EDT [facility] TRANSTHORACIC ECHO (TTE) COMPLETE TRANSTHORACIC ECHO (TTE) C OMPLETE 07/24/2020 09:44:18 AM EDT [facility] AMB REFERRAL TO CARDIOLOGY AMB REFERRAL TO CARDIOLOGY 2020 11:21:56 AM [facility] XR CHEST 2 VIEWS XR CHEST 2 VIEWS 06/18/2020 10:36:24 AM [facility] EGD EGD 04/02/2020 09:10:12 AM [facility] COLONOSCOPY COLONOSCOPY 04/02/2020 09:10:12 AM [facility] DISCHARGE PATIENT DISCHARGE PATIENT 04/02/2020 09:06:38 AM [facility] TISSUE EXAM TISSUE EXAM 04/02/2020 08:56:[address] [facility] PLACE IN OUTPATIENT/HOSPITAL AMBULATORY SURGERY PLACE IN OUTPATIENT/HOSPITAL AMBULATORY SURGERY 04/02/2020 07:29:01 AM [facility] FULL CODE FULL CODE 04/02/2020 07:29:01 AM [facility] BI MAMMO SCREENING TOMOSYNTHESIS BILATERAL BI MAMMO SC REENING TOMOSYNTHESIS BILATERAL 02/28/2020 12:53:26 PM [facility] BI MAMMO SCREENING BILATERAL BI MAMMO SCREENING BILATERAL 12:24:05 PM EST [facility] AMB REFERRAL TO GASTROENTEROLOGY AMB REFERRAL TO GASTROENTER OLOGY 02/11/2020 11:17:21 AM EDT [facility] TDAP VACCINE GREATER THAN OR EQUAL TO 7YO IM TDAP VACC INE GREATER THAN OR EQUAL TO 8YO IM 01/31/2020 01:09:58 PM EDT [facility] FLU VACCINE, RECOMBINANT, QUADRIVALENT, P-FREE FLU VAC CINE, RECOMBINANT, QUADRIVALENT, P-FREE 01/31/2020 01:08:05 PM EDT [facility] CBC AUTO DIFF CBC AUTO DIFF 01/16/2020 02:08:00 PM EDT [facility] HCG, QUANTITATIVE, HCG, QUANTITATIVE, 02:08:00 PM EDT [facility] C-REACTIVE PROTEIN C-REACTIVE PROTEIN 01/16/2020 02:08:00 PM EDT [facility] AMYLASE AMYLASE 01/16/2020 02:08:00 PM EDT [facility] LIPASE LIPASE 01/16/2020 02:08:00 PM EDT [facility] CBC WITH AUTO DIFFERENTIAL CBC WITH AUTO DIFFERENTIAL 2019 02:08:00 PM EDT [facility] YELLOW TOP YELLOW TOP 01/16/2020 02:06:00 PM EDT [facility] EXTRA TUBES EXTRA TUBES 01/16/2020 02:06:00 PM EDT [facility] TROPONIN I TROPONIN I 01/16/2020 02:06:00 PM EDT [facility] URINALYSIS WITH REFLEX MICROSCOPIC URINALYSIS WITH REFLEX OH CROSCOPIC 01/16/2020 01:44:00 PM EDT [facility] CT LUMBAR SPINE WO CONTRAST CT LUMBAR SPINE WO CONTRAST 12/25 01:12:21 PM EDT [facility] CT THORACIC SPINE WO CONTRAST CT THORACIC SPINE WO CONTRAST 01/16/2020 01:12:21 PM EDT [facility] XR RIBS LEFT WITH CHEST ANTEROPOSTERIOR XR RIBS LEFT WITH CH EST ANTEROPOSTERIOR 01/16/2020 01:00:45 PM EDT [facility] XR WRIST 3+ VIEWS BILATERAL XR WRIST 3+ VIEWS BILATERAL 12/25 01:00:21 PM EDT [facility] XR ANKLE 3+ VIEWS LEFT XR ANKLE 3+ VIEWS LEFT 01/16/2020 12:59:29 P M EDT [facility] XR HIP 2 OR 3 VW LEFT W PELVIS XR HIP 2 OR 3 VW LEFT W PELVI S 01/16/2020 12:57:32 PM EDT [facility] Results ID Date Data Source [id number] 02/25/2021 10:36:30 AM EDT [facility] Name Value Range Interpretation Code Description Data Avani rce(s) Supporting Document(s) Progress Note [facility] rvices XQJPBb2lIzCIBwVp96/MUSfgFSRhk5BaYJkhSQt2DBopZGFeX2HsVEK4jT5nNAN4CEmIIcNkUzGkGZWj lbm WtXlsQKqVaLYVuUkwJJfNrMTaaIikjoPBbJK7OkNF6YFWnH50fAEQuWKYbK9VfGAG3BCH+Fq5OEDHwbX WlRA2QMwpI3I6ehqeEMa1cbQ+zRYF5EoCYl3bzHqHp2WXXlkRXqLCsinKZQ2fW28dPgq+knDpPVfQJS5 LVJKOaxzrqnyGknqaEZz7bYocznvokWg0QHb/zmxgF [file] 9Eo2iP/bxpVQ6wgHI50Du7Lkp9wdybTWE+/xGx [file] b/DDBe2I88DAM7YNBFDNxPrlgUGRs380N7QK/SUPERVISOR PUMPING STATION+Vf [file] ICAgICAgICAgICAgICAgICAgICAgICAgICAgICAgICAgICAgICAgICAgICAgICAgICAgICAgICAgICAg ICAgICAgICAgICAgICAgDQogICAgICAgICAgICAgIC AgICAgICAgICAgICAgICAgICAgICAgICAgICAgICAgICAgICAgICAgICAgICAgICAgICAgICAgICAgIC AgICAgICAgICAgICAgICAgICAgICAgICAgDQogICAgICAgICAgICAgICAgICAgICAgICAgICAgICAgIC AgICAgICAgICAgICAgICAgICAgICAgICAgICAgICAg ICAgICAgICAgICAgICAgICAgICAgICAgICAgICAgICAgICAgDQogICAgICAgICAgICAgICAgICAgICAg ICAgICAgICAgICAgICAgICAgICAgICAgICAgICAgICAgICAgICAgICAgICAgICAgICAgICAgICAgICAg ICAgICAgICAgICAgICAgICAgDQogICAgICAgICAgIC AgICAgICAgICAgICAgICAgICAgICAgICAgICAgICAgICAgICAgICAgICAgICAgICAgICAgICAgICAgIC AgICAgICAgICAgICAgICAgICAgICAgICAgICAgDQogICAgICAgICAgICAgICAgICAgICAgICAgICAgIC AgICAgICAgICAgICAgICAgICAgICAgICAgICAgICAg ICAgICAgICAgICAgICAgICAgICAgICAgICAgICAgICAgICAgICAgDQogICAgICAgICAgICAgICAgICAg ICAgICAgICAgICAgICAgICAgICAgICAgICAgICAgICAgICAgICAgICAgICAgICAgICAgICAgICAgICAg ICAgICAgICAgICAgICAgICAgICAgDQogICAgICAgIC AgICAgICAgICAgICAgICAgICAgICAgICAgICAgICAgICAgICAgICAgICAgICAgICAgICAgICAgICAgIC AgICAgICAgICAgICAgICAgICAgICAgICAgICAgICAgDQogICAgICAgICAgICAgICAgICAgICAgICAgIC AgICAgICAgICAgICAgICAgICAgICAgICAgICAgICAg ICAgICAgICAgICAgICAgICAgICAgICAgICAgICAgICAgICAgICAgICAgDQogICAgICAgICAgICAgICAg ICAgICAgICAgICAgICAgICAgICAgICAgICAgICAgICAgICAgICAgICAgICAgICAgICAgICAgICAgICAg KHGkIKShHLJqMHIjBFRxTCDkOMBpOFKoOSh3J6bvNS VkFPHrSB7rREq2Sp8+PMlCBlRfKBO0soEsfR5AAL1yb2ZyWCqrTUHbf5XsYHa4DK3ZOFXvHEwdVQ7QXG jeja5NWKXxIHSnkGPVr5dcBsRqHOD4YRLvIpaaZP5IAPGxU6cjmlTiUQYpZXGNJRcoMIOTJOcwVPSFPO TtUNQhGrMfJlQgUJHcOXVsJCEITEQ1GBSePiHvXXjc NO2Br4TslRX0YEt+Xa4DMU2cl7LkVDl0LjRlES2vbh6YGBgXHvSpC4AjnyE0FDG7YRIaQc7JRWFhHWBv oIV7SJBnBZQRDuVoY6PbhJ23PAKZQe0+KPkmxqEqZzjMVzD6KOHij7GpTIz1KW3DLTQyXZh8tYMvXLJg B6Kng9ScOq10ZUSfEdciQTXkh8QrAUQJoPnbqqryKW 2YNYR2HVRjJtOmBrZfLQYqVRscLOUWEOyBDbMkZ3Ioz8ErSuR3IOWcVcIhTVaaGTNmDzFzSF31nUoyDD 0JFTIuHRSxNO27RIC2LEAvDy6PQj6YRmQyRC4eea5GVJlqCYQpFrzOXqj1XLbgMR0PsCCfZ8JyuHQen2 tLXdOvC8DEBCV9JBAkRe9YUTHrIzKrRCIrPMftQU7z VLXqFUMLoLcweoF2YL4DAA3tffRsUO8MCpHpPm5qBu4TTjAbJ3HoL2CkRGUnAMWMXBrpMF9HKEwhKO4h PY5Ux2PXfJNhsF8jej2FIETaPSQiJdcipn5MFkbmP7J3xEjlKRRxLNokSFCJDXwcQU1QKHKiFZU9LUU4 FiFdUDKCTaWoG51eEY4UZ8Qbd08bKdE5YHVmIlErRV zcKI16oZtblbQcfFJfyRoiQU8WOs7+SUoxacPqBsqBXfzeVKAKShGiQLYWBcNcTCMcQBEdXYYwGcS2Bl HsPd3FWDItPAQtPGNnSxSlEHNtJTCvZKstSKLiFJjmKnD4NLCxWASoYX7BXeOuIKZyFVNqEZcaMGXpQK Lnyu8NXTZaHNKgWNE7XqHoXMWqUKGzQPmvGCLoNZYo UIYeZMJeXBWjEB8NVeAnEJVqTHNbSNVjQVYzNURoxm6IULNwEZOmQZPaJDXrETUcXAMrLYjlGZIdKJI9 RWSsBQBhLWUrMP7GZkYyHVZsSZwjKLiyENGhLLSilj1LCUFfXAXpYuX1IySwSJFqEGWbLEeuLWZbOVE6 WsSkOYZlVUDtJL6LPgTaXMZeQBn2PlgbYBIsCXYrua 5JEFEqSIOlCaPnZoCsSWRhIFTmBSsnZTNtMGKoRdKeNVCeYYBdHI9DUtHrWTVyIPY6OsImLIObWRVmrx 1VZTJxOUGjSXT4GqZiHHYzDUJzNPukTNSxIYG2VGS9RYWhENPuGA5YGpBkCFDeZGIgCRTvGAPmDGBtih 1YLIZvAVLuSyg6VBXjATVcLNTjCGvyJPTsGEN6YUzy AROjRKLrJL7HMpTvSGZrVTuqJZLgKNAnUHMyzn9XZAXrXMKeRFNfHqLeZQVuDZPbGSlcBRJrUTR7EGG9 PGQcEHAxMZ9WSfTdHTCjTJj3RKOmEQTlPIVvog7EHGVdHYXnEFC7QhOuCFJhWPWsDJfxFEEdSOQpDcJ4 SJGlTMBmDS5MRgXhUWDoLhQ2TxmzGIYmIRTqms2DOV UtWEZsUNioOhLkDVWmKKEzLGrnUVDtJSUxDSOiURBtIFWhJE1RNcWvGGIeWuA0KFRoKHXaEOSpdx9MZM StMVXeBsR6WzNsSVRfVRHkTRpsFHIxZOYyCeu2MJLrDEKoIA0OHuAbXMMjNgNmDNpuDTLfAPJevv7MRI VhLBQhSuCfWjKvRHTfPJTgCZnuJBQrICKhORq3MEDn FKUtBY7RLqOhBQIvLUS5AZHiZRJrIXMmnz2FPHKoZOY9OZDuXZIoPWNiTMIiUCrtFDZnPKA9QfF4FLIl REOvJD4KTiVfONEkGSWmBfkrFBWgVBKman4CLDXxENF8TEKtOmAuRGWoKTLmXPexEPFmRCZ4HOL8UNFc OGHoJB3QLcQfXOWfJZS0LtQbAFZkEOXyzb0OBZQmQX J5Sav5UKDfWXFyEKBbFPzwDUOcSFP6KCG9EAAdRAEkHG7YYbDrUUJhQBZnPHWrTJTkIDHeil1UHVJtNU T6Fju1HFOkGYRpCFEuMDtvVNZnBVp4PcR9DKTwNXHqBK5HDqUoDNTkFGFoPbpeKNAtCHUzpe8OLITxJV F8LUJ1HdQdZIYrHIGsDCh4wwEhoCFhSVo6VK3CW4Ri wdGhHAAVCx3Zt086OZW4ETVoEu0XW3wdSq7yXOPzGKHMHu8YGEy1N3O1OvMnG6KqUPXkZAHiGapkTHWy OWI4DXqvTPQxBgD+DXeiZCmrFWN6GRQuNxB3JWOgNGG3ZQViXIZnTlPwORS8XQ5gWVTSBh6+DQpzdGFy bEbpEDOTPli7AaDjTCcgLRYSTx3M ID Date Data Source [id number] 02/25/2021 11:48:51 AM EDT [facility] Name Value Range Interpretation Code Description Data Avani rce(s) Supporting Document(s) SODIUM (MMOL/L) IN SER/PLAS 135-146 Un [facility] POTASSIUM (MMOL/L) IN SER/PLAS 3.5-5.3 [facility] CHLORIDE (MMOL/L) IN SER/PLAS 98-107 [facility] CARBON DIOXIDE, TOTAL (MMOL/L) IN SER/PLAS 21-32 [facility] ANION GAP IN SER/PLAS 5-15 [facility] NITROGEN (MG/DL) IN SER/PLAS 7-23 [facility] CREATININE (MG/DL) IN SER/PLAS 0.5-1.0 [facility] UREA NITROGEN/CREATININE (MASS RATIO) IN SER/PLAS [facility] GLUCOSE (MG/DL) IN SER/PLAS 65-99 [facility] CALCIUM (MG/DL) IN SER/PLAS 8.4-10.4 [facility] ASPARTATE AMINOTRANSFERASE (SGOT) (U/L) IN SER/PLAS <59 [facility] ALANINE AMINOTRANSFERASE (SGPT) (U/L) IN SER/PLAS <35 [facility] ALKALINE PHOSPHATASE (U/L) IN SER/PLAS 38-126 [facility] PROTEIN (G/DL) IN SER/PLAS 6.3-8.2 Uni [facility] ALBUMIN (G/DL) IN SER/PLAS 3.5-5.0 [facility] ALBUMIN/GLOBULIN (G/G RATIO) IN SER/PLAS [facility] BILIRUBIN TOTAL (MG/DL) IN SER/PLAS 0.1-1.3 [facility] GLOMERULAR FILTRATION RATE ML/MIN/1.73 SQ M.PREDICTED >60 [facility] ID Date Data Source [id number] 02/25/2021 11:48:51 AM EDT [facility] Name Value Range Interpretation Code Description Data Avani rce(s) Supporting Document(s) TRIGLYCERIDE (MG/DL) IN SER/PLAS <200 [facility] CHOLESTEROL (MG/DL) IN SER/PLAS <200 Above high norm al [facility] CHOLESTEROL IN LDL (MG/DL) IN SERUM OR PLASMA BY CALCULATION <100 mg/dL Above high normal [facility] CHOLESTEROL IN HDL (MG/DL) IN SER/PLAS >40 [facility] RISK [facility] NON HDL CHOLESTEROL 60-100 Above high normal [facility] ID Date Data Source [id number] 02/13/2021 05:23:56 PM EDT [facility] Non-gynecologic Cytology Case: [id number] Provider: Ahsish Farrell MD Collected: 02/11/2021 1602Ordering Location: [facility] Urology Received: 02/11/2021 1602Pathologist: RHIANNON Carvalhopecimen: Urinary BladderUrine (cytospin smear):- Satisfactory for evaluation.- Negative for high-grade urothelial carcinoma.- Benign urothelial cells, squamous cells, crystals, and few white blood cells. Name Value Range Interpretation Code Description Data Avani rce(s) Supporting Document(s) LAB AP CLINICAL INFORMATION [facility] A. Urinary Bladder.Specimen ReceivedUrin medina BladderSpecimen DataReceived 40 ml. Clear yellow fluidTotal Number of Slides: 1Cytospin Slides: 1Cell Blocks: 0 ID Date Data Source [id number] 02/11/2021 03:29:05 PM EDT [facility] Name Value Range Interpretation Code Description Data Avani rce(s) Supporting Document(s) Progress Note [facility] rvices LUQBLh6cNcZDOaNj09/AJSteBTCgb3WbYXxyFZz1ZJwdQTJuN5GbEWX7vA6uYJT2IPlNLjVpFgEqUHLq lbm [file] ICAgICAgICAgICAgICAgICAgICAgICAgICAgICAgIC AgICAgICAgICAgICAgICAgICAgICAgICANCiAgICAgICAgICAgICAgICAgICAgICAgICAgICAgICAgIC AgICAgICAgICAgICAgICAgICAgICAgICAgICAgICAgICAgICAgICAgICAgICAgICAgICAgICAgICAgIC AgICAgICANCiAgICAgICAgICAgICAgICAgICAgICAg ICAgICAgICAgICAgICAgICAgICAgICAgICAgICAgICAgICAgICAgICAgICAgICAgICAgICAgICAgICAg ICAgICAgICAgICAgICAgICANCiAgICAgICAgICAgICAgICAgICAgICAgICAgICAgICAgICAgICAgICAg ICAgICAgICAgICAgICAgICAgICAgICAgICAgICAgIC AgICAgICAgICAgICAgICAgICAgICAgICAgICANCiAgICAgICAgICAgICAgICAgICAgICAgICAgICAgIC AgICAgICAgICAgICAgICAgICAgICAgICAgICAgICAgICAgICAgICAgICAgICAgICAgICAgICAgICAgIC AgICAgICAgICANCiAgICAgICAgICAgICAgICAgICAg ICAgICAgICAgICAgICAgICAgICAgICAgICAgICAgICAgICAgICAgICAgICAgICAgICAgICAgICAgICAg ICAgICAgICAgICAgICAgICAgICANCiAgICAgICAgICAgICAgICAgICAgICAgICAgICAgICAgICAgICAg ICAgICAgICAgICAgICAgICAgICAgICAgICAgICAgIC AgICAgICAgICAgICAgICAgICAgICAgICAgICAgICANCiAgICAgICAgICAgICAgICAgICAgICAgICAgIC AgICAgICAgICAgICAgICAgICAgICAgICAgICAgICAgICAgICAgICAgICAgICAgICAgICAgICAgICAgIC AgICAgICAgICAgICANCiAgICAgICAgICAgICAgICAg ICAgICAgICAgICAgICAgICAgICAgICAgICAgICAgICAgICAgICAgICAgICAgICAgICAgICAgICAgICAg ICAgICAgICAgICAgICAgICAgICAgICANCiAgICAgICAgICAgICAgICAgICAgICAgICAgICAgICAgICAg ICAgICAgICAgICAgICAgICAgICAgICAgICAgICAgIC AgICAgICAgICAgICAgICAgICAgICAgICAgICAgICAgICANCjw/eOXlM1felICprzL7D8fbZt2THq4RRE 2zx4CzANAzPIlbssAlVrfZLtPcTRPuIahHJtb7OIohFC4ByTBwO7EmX0HuNLdaUG7VPXMoBRPwjIYyOX NvUQTyPuE5KTHvMQojUW4AyRYaNHibPIYzNKGxEuYd DHDpNUKkXXQsMEIwGCZYEUYlQTFgIlZlSGwpFX7Yo7RpjSX4ZTd+An1HGP8zw1CkGFw7YXXaNZ7ejo8F MGrMMcLhG6HbrcT5SCQ7YANgCj3NWZZvKRIqfYO9OXUfFCPSAuEcB8PxeG36WHVRZq6+DQplbmRvYmoN RjX5HGTtj2RmKKh5JL3RBHQqQOp9gMZyAKRrL5Lku1 YoAi20AEBrBlhqBYK2MTOcGLyiRuMnVEDSTKDsvRMfSH1eBW0tFWVuNNZsRoN8NRUAIK1RAWVuYBGmnB ZlSQAlTSCVGG7GOUgdTRW4JZNctnJucFIvVOeeZW2HKXSzykGxSBZnAEHLEDg+Em1ZIX6fj6LcUZz0Op JgOP5ivc1ULUnHBzDoU6M3qKIoF7B2OHgnYk3OUFEy FMQaIGSmYBXVFCfgXU2CRA9xyhR1PS0CoPUdGUDrMWOhcSMlNEw6N85dhALuZVhxGM2DIAL+Debbie+Pg0K ELIfDTZzUJZaGeQcHMEAKoGeV0GvD5XFe8DbJ3ElHB01tQnmlyRmUThcIR2NHZ1bQYQsWSRBKZ6UiIVm nY4memX8BRLvPKGMMbGgV43mrZUoZEAwABJkRZZmEw 3YNUEdS7MupsPrwVzpxqHvCGOeSVUXSV5NYSskhzLldIQavTxvXY99cJmaJD6CBt7ERvXoPW5ava2YpL LcAq4HSVI3Ze6BBAAxPDBlMUFgBDX2GZHsWfGbPBzkNIVrLKFiKOP0RPYiDABgFQ0LWzQdYKDqPTDiGS PoNGDdEGRgal6QUNJtPRX7Fwe3PKRdSJJiSWOrVEch VTNjBOKgAKT3OFSjEXPqSL1NMyBrWYXuRXY7MZLfWUFcZZDwmq4RVMEgBIStScPcHWExAIMyMVNhJCwt DEIrVKQ8ODSvCOFyRVKqGA2MBtUiLZKzBWVfLjPyWDIvIJHhlw7IYGVnMXXiHYAbIHAzAOMuQSFlKQjo KVLyNXO7XyS0BPXjUYWeWN4VKwUeTFKjVQPsXsjwEJ RgVTJloo9UDAJmNCEoNLD9ItArGUXeADVjKVoyAIHdULJkSWO7YKPtEZQgRH0LOoVuDFEoJAI6HdNwTT AbKSCpzt3QHJMeJWTqXEnhCGBjFQHaNHMcRApmNKEuPBC4HTU5XSYxBVUeOA1GOfMvLOTlMUDeMOZyZX YtRBAdup5WINEmVRFzPzX8EWHbZRIaAVIyQWwhMFCp ILH0JpVnAXEhPTRwKV2TVoNfYRVfQAJ8UHgmUKXzGKBvgu7QHNKcQXUfPqz0YUZbLTDePIFsVOtbYHIb EYY2SVO0FNHkLEKcSO6VXfGaQTGdKdmsReFiKUUzQOZhnq3JBXIwBMLyRPL2XcWoCLCyIQVmILbrACAb UMW4JbZ8REUrNPKkZQ7FAhLhBZXrVfl6VSUyVBVgHW Jipq4OLVMtKWXqDOfdAaVpWURjDHAmJHdyKRUaVSInZVQ9UQReXJApLJ6MHcUkJHAoNgA7KNXwTYSoCI Zdqv6GNZCvTIXsYPSuTdPuWHWvDTJoKFsaBPGgEOCdUeK4OSDrYVKrTK3XSsBbFVNwNaVeGJHrGFDiBW Kfhp0VCLUvRPJmKlL1HpYwNHUnNBRmWCtnEJIkYBYt QzKuQLLlNNYtPG6ZYxLqWHHrSJG4ACouIEZfETZlyl5YUUAwWKO8SzY0XSTcOFPnDCHzDMqzCFYeXKMm ScAdYXRpDFBiPD0SAtJuSHUcSIJ6KTHvLYAcKXKrbm5KAXJwHYF3HHH0EPMvFUNyNPTkJDbtVWJxKDW1 TqE3WXAcVFZtAU6WCtZxQOBhOWH6JIcsFBTsOVZkme 3CXPVwQOH5XEf8FUVfAREeKMMbSUgvRBLoHQM4IFL5FCSuLRXaDE3AVqSmMHGhNQx5IsGrXCKfBSEaqp 0YJGVbRLS5Row4MALlKDOoFFDrSVnhQUVyQWC7ORGmGYBkSXRgIC4ZVkPrIPypYFBDEaz5FGgqU8y8RJ R3Xq1WX5Kwh1DjYCHeGGCHGFgeHQ8wybPuBRLgQj1B S8yMMrukFrMhNnecWSNiErh2UlMzYvLjVIIpZsu0DMLhUbbgDe7xHEScRgQfFYF8Z4G1YoXfYBG1KYOh CbQdUVb7EXC9V4UcNlFoNB7XRn7IIeS1WKZ1qNJaTp4IUJrtRMJFXnZsXZ7BPDf= ID Date Data Source [id number] 02/10/2021 10:04:12 AM EDT [facility] -REPORT:PROCEDURE: CT UROGRAMDATE AND TI ME: 02/10/2021 8:15 AM EDTHISTORY: Gross hematuria. Please evaluate for cause.COMPARISON: Nonenhanced CT from September 01, 2020TECHNIQUE:CT Urogram was performed. Nonenhanced exam was performed throughabdomen and pelvis. After contrast injection, venous phase images wereobtained through the kidneys and delayed images through abdomen andpelvis. 150 ml of Omnipaque 350 was injected intravenously. No oralcontrast was administered.Coronal and sagittal reformatted images and coronal MIP reconstructedimages were created and reviewed.This CT exam was performed using one or more of the following dosereduction techniques: automated exposure control, adjustment of the mAand/or kV according to patient size, and/or use iterative reconstructiontechniques.FINDINGS:There is no acute disease at the lung bases. A tiny hypodensity in thelateral segment of the liver is likely a cyst. There are no calcifiedgallstones. The spleen, pancreas and adrenals are unremarkable. There eva tiny faint, roughly 2 mm calcification in right upper pole kidney andthere is scattered right renal cortical scarring, mostly upper pole.There is no renal mass or cyst. There is no obstructive uropathy. Thereis mild fullness of the right extrarenal pelvis. There are no fillingdefects within the collecting systems. The urinary bladder is normal.There is no appreciable atherosclerosis and renal arteries and veins areunremarkable. The uterus is absent. There are few tiny left folliclesand physiologic fluid in the cul-de-sac. There is no acute bowel gaspathology. There is scattered stool. Normal appendix is seen. There isno abdominal mass or adenopathy. There is an implanted device in theleft buttocks with left spinal stimulator lead. There is calcifying fatnecrosis in the right buttocks. There are no acute bony findings.IMPRESSION:1. Mild right renal cortical scarring and tiny right upper polenonobstructing right stone..DWS: [id number] SIGNATURE: Augustus Ron MD Name Value Range Interpretation Code Description Data Avani rce(s) Supporting Document(s) ID Date Data Source [id number] 02/05/2021 10:33:24 AM EDT [facility] Name Value Range Interpretation Code Description Data Avani rce(s) Supporting Document(s) Progress Note [facility] rvices MLYBBx9kRcWZIvTh54/UFBznDGIdd6UuXBnwDFy1QTdoWLXsD4VzPKM5jN1bUUC1LBeCYeNtOiTbSYI6 lbm [file] AgICAgICAgICAgICAgICAgICAgICAgICAgICAgICAgICAgICAgICAgICAgICAgICAgICAgICAgICAgIC AgICAgICAgICAgICAgICAgDQogICAgICAgICAgICAgICAgICAgICAgICAgICAgICAgICAgICAgICAgIC AgICAgICAgICAgICAgICAgICAgICAgICAgICAgICAg ICAgICAgICAgICAgICAgICAgICAgICAgICAgDQogICAgICAgICAgICAgICAgICAgICAgICAgICAgICAg ICAgICAgICAgICAgICAgICAgICAgICAgICAgICAgICAgICAgICAgICAgICAgICAgICAgICAgICAgICAg ICAgICAgICAgDQogICAgICAgICAgICAgICAgICAgIC AgICAgICAgICAgICAgICAgICAgICAgICAgICAgICAgICAgICAgICAgICAgICAgICAgICAgICAgICAgIC AgICAgICAgICAgICAgICAgICAgDQogICAgICAgICAgICAgICAgICAgICAgICAgICAgICAgICAgICAgIC AgICAgICAgICAgICAgICAgICAgICAgICAgICAgICAg ICAgICAgICAgICAgICAgICAgICAgICAgICAgICAgDQogICAgICAgICAgICAgICAgICAgICAgICAgICAg ICAgICAgICAgICAgICAgICAgICAgICAgICAgICAgICAgICAgICAgICAgICAgICAgICAgICAgICAgICAg ICAgICAgICAgICAgDQogICAgICAgICAgICAgICAgIC AgICAgICAgICAgICAgICAgICAgICAgICAgICAgICAgICAgICAgICAgICAgICAgICAgICAgICAgICAgIC AgICAgICAgICAgICAgICAgICAgICAgDQogICAgICAgICAgICAgICAgICAgICAgICAgICAgICAgICAgIC AgICAgICAgICAgICAgICAgICAgICAgICAgICAgICAg ICAgICAgICAgICAgICAgICAgICAgICAgICAgICAgICAgDQogICAgICAgICAgICAgICAgICAgICAgICAg ICAgICAgICAgICAgICAgICAgICAgICAgICAgICAgICAgICAgICAgICAgICAgICAgICAgICAgICAgICAg ICAgICAgICAgICAgICAgDQogICAgICAgICAgICAgIC AgICAgICAgICAgICAgICAgICAgICAgICAgICAgICAgICAgICAgICAgICAgICAgICAgICAgICAgICAgIC SnBHQcQFYhOKBpLJWlSAMlOZCpABLoCUFaAEh1P2nqVPRvIPCfKW6aZIg6Vv9+XIaECkSgEJY3udGtjY 0HYW2tc1OfARspJJGun8YuFCt0JG8EBHKjQCteKE3F HLcuyo2THUZpMWMmvNNVe4gdEbYzTIW6MPFyXrzdMH1YYQGzQ7qbodWcJVRhSQUMPBijBEXUWRjtVYFS UYDmPXXeOeYkZbTvZINoATUsIWRSYY9HAsPeS6IjhP18AJOAQy4+HQcaqyNfWblOWkS5CBGsc7TdBIg9 XP4LMVQrXsuyd5EfLXzbSGTHHMrvDT9QVAG9OLX8UW LiJr6WCCBwB294duJjGG1YUn7RAsBmOX8zhm1NDRipAKXlVhiFQzr8URlzRF6RaPHgRArHvp0yeoZvgd HCf3BtofWdwTWHx1UlemUUaX4vGZplQGHaJXAuHHJhUCGlToUnZVMrMThsTQVJAXeOUvIoK0Pbr9EvZq N1YDIyEmQqLVeeMRRgHsEoXS81gCkrJS0HECAfTJRv BN94SWL4QRFnMs2VAe1QTvBsMT1obm8QFNRdRMYvEbdTNhb8OMzyML4AfIIeA0PuaUDzz8kNPxLaS6BE VMC6IFAdYg9MDFTdZqEcNIYvKDfjXD9eDKSqHIQLnUicpiH7LC1UWE3kqvSqHJ0MIvRwRu6rTl9SScOn L9IfG7CfQCIhNOYVQOocZX4JUVtjEP9iTS6Cd5ANmE ZhhB2hfy7XIBQkNJMsMejfxv0FHpqrN3B2dWvkWSLgWItsMFNQBGrhCV2MVJKxEJX8EBB4RkFsCZSPId TzO47rHG7UF3Nta32kGjA2LAKwOqXuLVakBA65mDarnuQtwZYuzEtoCY9GVg4+DQplbmRvYmoNCnhyZW TFVaBtFGNGIyQgEHGfYYSzCMMvPoW5PzHiWc8BSXIb MEBrSMYsTgNmBLExQTUiZSzaVNBjOVSeNXJdJJJkLNIkOT7JZfUsPGEoZEY0EyRpITLcVTEdzy7ILMPy HZYyNIV1ApLsMZDvOQNjIEruNHXzAJPzQkC0ADSuDZRfNO1ENoTdEQUnDKN4OyCkTIWhUAStml4CXHPx QZAyYqZ5MOPhGULxZNOuKUjpKZZpTWY8AvM5ABHgPQ KoWV8WTiEnXZRgWKn7NDavINUaKCZmvb4QULQzACYlTYT1CfCgLOArQFSqTYyeGJUzCDSnDwo2HZVlPE TrXE5ORqFdXIRzLMF1WFAsJQXcWCSyuj3VPOGmIJOsRiGpMONxSUAbNKNaRKxfDUMyTTErUdY9JNAlCS BeHU5OOrAbUTZeHBBiXhweHOInKSQqqv9SORMcOFUw XMF8ZRUdBSGgQEPnZDipPEHoMRM8YCS0CQVqAIHpKJ3LMtSwDGMfCGP6BRGnZLHaGEHwyd2YNARmOHNt PNpgYUPiVNZnKJYuSSqbPTUdDBH5WHrjJQOvZMShSP4SLyGzZBEzZCtbEXFaCYVdQGTiyl5QDNDoKXKc MoX6TsXpLDEwUHJcBCtzAWXzRFB8RxZuXTMaSYQiIL 7YQjWeLMGoDab0LunxXKDsLZXwxa5OLUMnPCEpLHZ7VeIzWONaMCIrLHfvYBJbSMB3Msg0GSIbIKUkZJ 7UDkCrRGPuMmf0QeTtUEHxZKBvvw6JZZKrFIVjNVW4BbNsLYMeJUKfZZeyNMKnWXRnGyW1EISzHABzBK 2CHkTwJRLbQsA2EUPoSRMhWGVrvq0IPIGkVCQeHRh0 TsOpSPSsQYOhDYdzCGRzQBBdFAvdUVJzBOXuZU1LUmAnQOKaNpDeQAKjRLRtEHRlpz1CYBBmXVK4HCh4 IBAfOVKpLWXnEAplRGNsUEW5OkEbMGTxKOTxDV6MDwWhKQGhBTA8KkSzRPYbAXKnbe5XBQDpHUQ4VKe7 GWIbCJBbFACgLXbsICRqTXK0YQXfXCUdARKbOZ9FVo YdAFYeFJM5CYCwLMAsMJDbzg5RIYMjVJB4SwN9IzQaMTCnHDFtTYqeCSJwTBO3JeF6JOSvSNFrZO4OQf BaMONxNJZySZFvNMJiTHMtui5MUFKgUBW3CmHsGLMdXLRyQYFuVPvvDTZvEMOjTvHfNZFvCLLfGB6OQp DfVRKbDVU3OGEsLTOvXPCqoe3NYBIjGCQ8BeHfVFGg AUAuRKVnRTafLFEvJTPuHYgxRGRnKTAtUS6RYeTlLAUfINT3RWNzHNPgYUNwyl5SSMYjSLC8GSRhBnLk IFYrXHCmIFtkBQExYYC9INnpDIHxVNAtFV7FZwMrCHgjWHNHVmn3YFsaM8m1PEI4IN5IK6Rgi7UsJQFr HARCBYqfBT6ahtNyGQDdDj3DS1eENnnjFTM5RBTfQ0 XfWDVyVTQzEKZ1UAD5VWR3B6Q5SHelQU1tIVC6ADU2RLWvYLCwLOHlPzDaDMZoMKndAty3HAn8GCCsVe FvZY2CBw3RSmH1CWE4gCFzDa0ZXHM7WLYBWbKhJC0PUJf= ID Date Data Source [id number] 01/28/2021 03:31:00 PM EDT [facility] Name Value Range Interpretation Code Description Data Avani rce(s) Supporting Document(s) SARS-CoV-2 RNA Resp Ql MILTON+probe Negative [facility] This lab was ordered by [facility] Dimitri MOB a nd reported by [facility]. ID Date Data Source [id number] 01/29/2021 01:35:38 AM EDT [facility] Name Value Range Interpretation Code Description Data Avani rce(s) Supporting Document(s) SARS-COV-2 BY NAAT Negative [facility] NUCLEIC ACID SEQUENCES OF THE 2019 NOVEL CORONAVIRUSWERE NOT DETECTED BY PCR.NOTE: THIS TEST WAS DEVELOPED FOR THE PURPOSE OFDIAGNOSTIC TESTING TO ALLOW FOR RAPID RESPONSEDURING A DECLARED PUBLIC HEALTH EMERGENCY AND HASEUA CLEARANCE FROM THE FDA. NEGATIVE RESULTS DO NOTPRECLUDE 2019_nCoV INFECTION AND SHOULD NOT BEUSED THE SOLE BASIS FOR PATIENT MANAGEMENT DECISIONS. ID Date Data Source [id number] 01/28/2021 10:50:16 AM EDT [facility] Name Value Range Interpretation Code Description Data Avani rce(s) Supporting Document(s) Progress Note [facility] rvices TJTCRp1uFgIDGnVs30/YQFggDRJjp9MvZNmxQYy3UBgpWLTgK6FmXZS3oH5mGMG0QRlJJkWdOgWsXBN6 lbm [file] 9GDQo= ID Date Data Source [id number] 01/19/2021 03:49:09 PM EDT [facility] Name Value Range Interpretation Code Description Data Avani rce(s) Supporting Document(s) CREATININE (MG/DL) IN SER/PLAS 0.5-1.0 [facility] GLOMERULAR FILTRATION RATE ML/MIN/1.73 SQ M.PREDICTED >60 [facility] ID Date Data Source [id number] 01/19/2021 03:49:09 PM EDT [facility] Name Value Range Interpretation Code Description Data Avani rce(s) Supporting Document(s) UREA NITROGEN (MG/DL) IN SER/PLAS 7-23 Below [facility] ID Date Data Source [id number] 10/23/2020 04:56:18 PM EDT [facility] Name Value Range Interpretation Code Description Data Avani rce(s) Supporting Document(s) UREA NITROGEN (MG/DL) IN SER/PLAS 7-23 [facility] ID Date Data Source -[id number] 10/23/2020 04:56:18 PM EDT [facility] Name Value Range Interpretation Code Description Data Avani rce(s) Supporting Document(s) CREATININE (MG/DL) IN SER/PLAS 0.5-1.0 [facility] GLOMERULAR FILTRATION RATE ML/MIN/1.73 SQ M.PREDICTED >60 [facility] ID Date Data Source [id number] 09/02/2020 01:12:47 PM EDT [facility] Name Value Range Interpretation Code Description Data Avani rce(s) Supporting Document(s) Progress Note [facility] JMAEKi0eQmLWUeQh04/YMKojKZXdd7GyKFyvIHh1DPmhBNMiS2OtGCG5oI1qSIL9QHkVBdWkZeTtISUi lbm [file] account clerk+1cNmReFnzxyMV8K3bXJOCbkhoGY0A4Eaps9aPsT+Y8xg8Ty7m/ri4rJsf3c2BkRYcroSdflJ41fg [file] XPB7BMTl== ID Date Data Source [id number] 09/02/2020 01:12:42 PM EDT [facility] Name Value Range Interpretation Code Description Data Avani rce(s) Supporting Document(s) Progress Note [facility] IUDNZd2nWtGCPpYc66/PQVvtZEKum3FaBUqcAGh8GWeiBUVrI5ZxAAB9fY3kYNR7FCoZUlRlDjCyHFHe lbm [file] ICAgICAgICAgICAgICAgICAgICAgICAgICAgICAgIC DnBIGcIWDzNXAaZACrVTRsMC9QRMBmZFFdSSUwHBUpQJCuNAAeNEDdRQXwNPVnUFSdIAThJKErIFFhHS AgICAgICAgICAgICAgICAgICAgICAgICAgICAgICAgICAgICAgICAgICAgICAgICAgICAgICAgICAgIA 0KICAgICAgICAgICAgICAgICAgICAgICAgICAgICAg ICAgICAgICAgICAgICAgICAgICAgICAgICAgICAgICAgICAgICAgICAgICAgICAgICAgICAgICAgICAg EFIbIGEmWMAfDK8DLKKqLGXmRBYjIEGtJUThOBLlPQNuBCIdWGUdZVUsSFFpNFOqPFZmDTLiDHKhIOYr ICAgICAgICAgICAgICAgICAgICAgICAgICAgICAgIC IxZBQyELHzJKNsAFHdUAUzSJMnMS2TXUMmEANoRTHwKQEzPWEkSYDmNJMlWMWiSKRjDBEhLIHtKKAzTJ AgICAgICAgICAgICAgICAgICAgICAgICAgICAgICAgICAgICAgICAgICAgICAgICAgICAgICAgICAgIC UlLC3TNROePYCwIYQsNGJnYBXmSPVvNNIjYSDeJICq ICAgICAgICAgICAgICAgICAgICAgICAgICAgICAgICAgICAgICAgICAgICAgICAgICAgICAgICAgICAg BDGnTAMkWLYoAEAnHK0CMSUgRISnMRYyIYAjESOhRTJnPQUvNBZqYTTpVZNsAMEaQKTdZQTfXUUhZYMo ICAgICAgICAgICAgICAgICAgICAgICAgICAgICAgIC PlSTPxNWKrPQGaNBZjBLFuYNXqODGaCF2WXRSbSGBzKKPbLZGnEHHyHVPsFRTkWKHoMJVmLKCnHEQlBN AgICAgICAgICAgICAgICAgICAgICAgICAgICAgICAgICAgICAgICAgICAgICAgICAgICAgICAgICAgIC AfTKIqJX0TTPPgLTUkKYRxQNAaCJJuSXAbWBHrCONy ICAgICAgICAgICAgICAgICAgICAgICAgICAgICAgICAgICAgICAgICAgICAgICAgICAgICAgICAgICAg SZLwNWJjKMQuXPCtXNSdRS7OUERgBVEhHJEaLWOyBKGmVTZfJLCiFRImKFGoZUCqSDCfKUJrPSTdYMFt ICAgICAgICAgICAgICAgICAgICAgICAgICAgICAgIC YpUBHsSNYrIXTvCTRwDRRyQSJeCJVxXFCcCL9DXN21mLWzc1Z6YBJsCG8vaoh/Ix8HPBcymxWvdNBkOM 2NJdFeRO1gul6DBuBiTC8dqi0ZPVkSMyXfO9E7uJAcRXVnJFBSDbKjU52xCSsoOl38IHvkLCRhVbPgKE g4Dp0XMsBwO7abNEEnAyP9GVUwZwGaXHkjRP2Ej8Lt dCAxDQo+Aj8BLS1sv8ZyQPpcNwHgHL3ery2HFVlJMmGwN9XxchR3MDKfCSBrFn5DXSKcUEFntUPxQuOd NXDIDuRfK2TyaJ79UTOEZp7+FAbfcmHlMskHZkSrLMYio8VdZXm6BH1MULUbWTx0hJWxWUIvH3Zxc2Qi Ey96RQDvDwopQEJ6waowCPckPH8qoNNbWVBPZT8mTS ZtCE1uAZ5qBGGfRRKbWzNsDXPRLN3THXWaGUXuwOKkHETjDIUFFL9NNVplFEC2OOLullHtlBHbRIkcLU 9QYXJlbnQgMjIgMCBSDQo+Xn9LWJ7re6BuZWdgOJZnIE2hio0AWDiYRoGmS5S0xELtF2S5UZgmJz8FZK MzXVTiLtPfGBVFAWuzRP6PJP5kesC8DW0AeGUqCZMn DUGcjPAdVLs9L94yeRXgBFreCC0MMQO+Debbie+Yo4QEFDvLJOzBNJwRjAlGABXPuPfR7XeO0HSa3UtS8Co QW78nSfkrqUlTIzfEW1SOH1tZATnVMSSUI3MoXBpjS0lpbWsZkWiMVTDYvXeX17ijSKxIHXsTOIgXGAt Wl9NITReL6AunuMqtFfpoeEtYKXhCSTTRI9WNHlwpb AtjMLiwQthLM90eDbuHZ1OAf8HAmFiBY4vpc4NcKZwMl5TOBZbMT2SGKKhRPHhYXZcQJC1BUKrCzDuMX onYWZqNGCfDGX9NLLiDASzOS1KJsNsJHPgCZsmFpUiSFQlYWTryq2JAEXuICBcJPAvXSFkIDDsAFCiUI ruVFPiJWSuWCK1PVOkDTVpNT7WCiFqEDHlEZJ0QZTz VUYxTFLhth0EWTGiRRCiCFLzTGZgVHWeLZPpRUlgPGUzBCBhHID3SUTwGQSkGM8IXuAdDGIaENKuVnlc RWPtYUJesc9MXIKcKFGvSwK6BHHsFNXrBNKvMWzsGHFoAQXcUuYoTAYcSPRwZS8DYaYzVMQlWJG6TBNn LEYpMUBnzg0LUXZgCCRlSqQ6LrKmNCAiVNSqHJbkJQ JjRJD3JEJrYBTlCVXtVU3UIuYgSXPaKSYbBNonJMWdZYOnjh2RZIPaWHBxGBF7VeZeWJLkOXVdANfnIB NgFYK3HNP1RIRjFMLiYY5NImVxFNRvCWT2AXKoLQWbPWQpex7RFIQpZOMeAev6SSAwHWPgJNMoFVzaMN DfYOF3APi1WMLlEUYtDD6QEfKgJZDzGAxtEQCpQIXb WAEdis8MIIVhDHGdTgW3DTXuYVUwBBFnJLhmYMAuBMK4ODH7WVGrTZTnPK7JGuPuIKDwUYdvJjylLXBj MOBtpc4EMNRbNFXjMMQjEYAtGBQgMIYmGJr2zpZjuYKzNBg7PR2SU2KknwTdReYKZq9Yt498CIS3IQFk Vi8LS0vrMj4jITAaVIBIDd5IXTe0QkU9NZCbMiW8WP CjBDO3UVP9SEB6HPQmTECfQWYsATE+HCmbDpftYEMcPwwvSLG0EPp2VvQzVMKiQWNcMwLyJMBpKx7uXZ ANCj4+BNeaiYPocQxnPPTNIoL2OFdlJPsfDSNCNw8U ID Date Data Source [id number] 09/01/2020 10:36:03 AM EDT [facility] [place] [facility] -REPORT:PROCEDURES: CT ABDOMEN PELVIS WO CONTRASTDATE AND TIME: 09/01/2020 10:10 AM EDTHISTORY: Calculus of kidneyCLINICAL: Right flank pain. Please evaluate for passing ureteralstone.CT OF THE ABDOMEN AND PELVIS WITHOUT CONTRAST 09/01/2020 10:03 AM EDT:TECHNIQUE: Helical CT exam are obtained from the lung bases through theischial tuberosities without the intravenous administration of contrast.Auto Exposure Controls are utilized during the CT exam to meet ALARAstandards for radiation dose reduction.This CT exam is performed using one or more of the following dosereduction techniques: automated exposure control, adjustment of the mAand/or kV according to patient size, and/or use iterative reconstructiontechniques.COMPARISON STUDY: February 14, 2019ABDOMEN/PELVIS FINDINGSLUNG BASES: No significant abnormality.LIVER: No significant abnormality.GALLBLADDER / BILE DUCTS: No significant abnormality.RIGHT KIDNEY / URETER: Punctate nonobstructing calculi.LEFT KIDNEY / URETER: No significant abnormality.PANCREAS: No significant abnormality.SPLEEN: No significant abnormality.ADRENAL GLANDS: No significant abnormality.GI TRACT: No significant abnormality.AORTA: No significant abnormality.BLADDER: No significant abnormality.REPRODUCTIVE: No significant abnormality.ADENOPATHY: None.ASCITES: None.BONES: A pelvic stimulator device is identified. There is a 17.1 mmpartially calcified subcutaneous lesion in the right buttock that couldrepresent an injection granuloma or developing fat necrosis.IMPRESSION:1. Punctate nonobstructing calculi within the right kidney. No urinaryobstruction is seen.2. Previously described cystic pelvic mass in the left adnexa is notseen.3. 17.1 mm subcutaneous lesion in the right buttock suggestinginjection granuloma or developing fat necrosis.DWS: [id number] SIGNATURE: Jeyson Tse DO Name Value Range Interpretation Code Description Data Avani rce(s) Supporting Document(s) ID Date Data Source [id number] 08/28/2020 01:59:55 PM EDT [facility] Name Value Range Interpretation Code Description Data Avani rce(s) Supporting Document(s) Progress Note [facility] rvices PPBBTd0eJuTBPyPr63/JJJttTYAbw4XoTMhaGQg7AIuqVLDcY0LcVSG7lC4qLQJ2LBsFWwNjUhWxXUP9 lbm EyUjeTNzVpKJRdYfzQAtBmFJkoTffesNBvYK4ElFW4ZSLfX34qSAOnXLEvT3ZqJAP7ZRY+Es7FNHNuuB PzQI7NMcxE5Nnst6u2Rz1doS+FZ6mHsmIntSvPDRW9reMRmmsbw/lk0OxBo4sszKa7Wvow0ddq8ydeSl Vapey5ExTqAYWeq4LEsGy0vjUn9LOBJD5/G1sAJZGA iurf3c/GvKI9GS/2XwnOmism3C9yO8Iy1IRYUrJG+mDIlf2kfwbeOXzrqWXqczQSfWDG/uQzEYe+eGiU FpeTB+tvutdfnLU7rlCVwYjvNYysSrVazqLg8HBnbbkuZdPXVTtXpbpMDvyM9+j4mKyEnezCs8JldW7a vezuBZ6Y8Z+reurJ1BrE7zvfmMHDFdTMkmlhgxYUyk [file] ID Date Data Source [id number] 08/30/2020 08:20:57 AM EDT [facility] Name Value Range Interpretation Code Description Data Avani rce(s) Supporting Document(s) URINE CULTURE [facility] rvices >100,000 CFU/mL Klebsiella pneumoniaeSus ceptibility performed ID Date Data Source [id number] 08/30/2020 08:20:57 AM EDT [facility] Name Value Range Interpretation Code Description Data Avani rce(s) Supporting Document(s) Ampicillin [Susceptibility] Results entered -- not verified [facility] Cefazolin [Susceptibility] by Disk diffusion (KB) Susceptible. Indicates for microbiology susceptibilities only. [facility] Cefepime [Susceptibility] Suscep tible. Indicates for microbiology susceptibilities only. [facility] Ciprofloxacin [Susceptibility] S usceptible. Indicates for microbiology susceptibilities only. [facility] Ertapenem [Susceptibility] Susce ptible. Indicates for microbiology susceptibilities only. [facility] Gentamicin [Susceptibility] Susc eptible. Indicates for microbiology susceptibilities only. [facility] Levofloxacin [Susceptibility] [place]ustillos sceptible. Indicates for microbiology susceptibilities only. [facility] Meropenem [Susceptibility] Susce ptible. Indicates for microbiology susceptibilities only. [facility] Nitrofurantoin [Susceptibility] Specimen in lab ; results pending [facility] Trimethoprim+Sulfamethoxazole [Susceptibility] Susceptible. Indicates for microbiology susceptibilities only. [facility] ID Date Data Source [id number] 08/28/2020 01:04:00 PM EDT [facility] Name Value Range Interpretation Code Description Data Avani rce(s) Supporting Document(s) POCT URINE COLOR Light Yellow, Yellow Un [facility] POCT URINE CLARITY Clear Abnormal (applies to non-num moriah results) [facility] POCT SPECIFIC GRAVITY 1.005, 1.010, 1.015, 1.020, 1.025, 1 .030 [facility] POCT URINE PH pH 5, pH 6, pH 7, pH 6.5 [facility] POCT URINE LEUKOCYTES Negative Abnormal (applies to non- numeric results) [facility] POCT URINE NITRATE Negative Abnormal (applies to non-num moriah results) [facility] POCT URINE PROTEIN Negative Abnormal (applies to non-num moriah results) [facility] POCT URINE GLUCOSE Normal [facility] POCT URINE KETONES Negative [facility] POCT URINE UROBILINOGEN Normal [facility] POCT URINE BILIRUBIN Negative [facility] POCT URINE BLOOD Negative Abnormal (applies to non-numer ic results) [facility] ID Date Data Source [id number] 08/15/2020 09:36:57 AM EDT [facility] Name Value Range Interpretation Code Description Data Avani rce(s) Supporting Document(s) Progress Note [facility] FMPMNz4hBhXQZkDp15/BFGjsWPEqp3RtZMzuNLp0WHfwSVHgA9UzWRS0uV6cVOH7ONgARcMkJhYnSYIq lbm [file] AgICAgICAgICAgICAgICAgICAgICAgICAgICAgICAgICAgICAgICAgICAgICAgICAgICAgICAgICAgIC MuIPOnEXCaPLHcVZAhRTUlXVEkBHFoRXJmVU7LICHiBRZtQYNhOBJqQUEyXTDlEVUeVLKoGMCjTAKiRJ AgICAgICAgICAgICAgICAgICAgICAgICAgICAgICAg TNJbZHQuJTYnVPLlYGCmJVFcEXZlCPNyPKVeAWReNHCwHSEcBL9FJSBxHPXfZASmPZWjJVWsGGAtENYu ICAgICAgICAgICAgICAgICAgICAgICAgICAgICAgICAgICAgICAgICAgICAgICAgICAgICAgICAgICAg TURnQMNnLBOyABOhFZDiZADmOL3UEOYzMWJeWZHaJN AgICAgICAgICAgICAgICAgICAgICAgICAgICAgICAgICAgICAgICAgICAgICAgICAgICAgICAgICAgIC LgHJZqMJOpGHYbJLCcQZXsKISbIOOnQASbSFOzAH6ROQNlESGmRSAaAHBbSYWaKHJrZSKmMOBtUKVvZQ AgICAgICAgICAgICAgICAgICAgICAgICAgICAgICAg PKOyGGIcODQxKSOrYQHtFLBzBYHsZRNfFQQgXINiPPGiIYIhUZWxJI2ICVPqHXKkPKLiJDTdLPYjNYXi ICAgICAgICAgICAgICAgICAgICAgICAgICAgICAgICAgICAgICAgICAgICAgICAgICAgICAgICAgICAg EDAeNNRnXKBnHERuRUHtKNVzCLSyWH8OGTAzURVoUJ AgICAgICAgICAgICAgICAgICAgICAgICAgICAgICAgICAgICAgICAgICAgICAgICAgICAgICAgICAgIC PmKRFsKQJrOHWiPFHuPWSnXRZsMQHuQTAlMGBtQQIxJF5JKLDgKTWiOXGxLFLhUZDnUPMxOCIjEVZcVR AgICAgICAgICAgICAgICAgICAgICAgICAgICAgICAg YQLsHHMeOUYsJOZoZDOuLTNeCPVjXFZpBCCxBMCcCLJmWYDcQHNvHFRaTQ9OORIvGGBtPQGpLSCrVATh ICAgICAgICAgICAgICAgICAgICAgICAgICAgICAgICAgICAgICAgICAgICAgICAgICAgICAgICAgICAg BXAxYVRhNSZtPSKnKXUvWUIrDEBtCVUqKW7JKDNhMJ AgICAgICAgICAgICAgICAgICAgICAgICAgICAgICAgICAgICAgICAgICAgICAgICAgICAgICAgICAgIC TvRAYyKHVtAQErOXOuQZWvPZNbURRcRTVpTXLwWQXgZMWxDU5KVY60uYDvg3X5DIJhIK6xgmi/Pg0KDQ aoiuDarLViUM9IUmKfJF5xtv0TDsZxIU8oeh1KUKxW VmDqR9U5lSFcSLHnNHQOZsGsY12rXXdkAq18TPqdOGMxJrUoWUf1Oj2XWwFbP5ozMVUvDwW1QDJyHyOa JAubMM4Xx4EhmFBpBGw+Gy1GIZ3hv1RsKIoyIiDxKG5gsb2PBVwMFcKwL3WxgjL5QBJpYKRkHm2JOASg GBZckFGzJaRcJBEFPyUtD5YrrP45CAANCv1+DQplbm UaWbhFBrByGKDtw4LfLDs5BQ3CHKHjDKe3hIFcHXLiB7Wgu4TwLq26GSJxEennWZTxoBSjcfPcAxAXqG eyHSmiRNVgLX0bJp1bUOQwFQO1IvG3HHHXJW1WSQWvMHWzmYLrGBSlJOYHHG8ITXcyFND8HDJtzfDtdF ZgHQjnMU8KLXOumbKuQsKhJREYDVk+Tu8VNE7tr0Xu XXtkAPJmEH0wcb2GTRvYSvPiI7T7aOYvP2M5GYsmGy6KXCLoJYGqRhLqFSBEDYdaIZ9JAF5ekvG1XU7N tDTdTHSdCSCjhLFyWVd3F65rwBTcSQcvKJ2HSHO+Debbie+Ti1NPTKbAPOfJNPvGfVpSLLZWbQcH4WmP6DL b4SoY0UzRI98uSzpfxIbTLkjPP3FKY8tVCCoRQJEBY 8QxLIyuT5itoLjYwUdYDPWMvStW54txZHvKZIuEJWlWTJuWg0NGDOgE6WnafZxfIjewiRkEBEiTHCRRC 4LOImaxoUnoUEyeIfmZJ78nXdtYP0XNr9ENhPhNM8rfw4NfPRvQs2FYKPlLG0XBCSzJUOaEDXgITA5UJ ZqOuXdKJhbMIQwDXMuUEV3YPAlJKRlLH6ILeZyAJJi RHsdXZOuGZAqCCSlgi5YVKTmZXHdJAZ6PzXqWGBhPKGeKFleQPJxDMXhWIG3ORUqOSVnRO0SHlCxHOSs SOR4GzYxICBnLPWrfn2GODKzZQWyGOW7SDWaRAPuCHVnNUwmIYSjXFDhJVH8KPGiAOKkZZ9BPdGcYAZm GGCsInaeRJLzLLJtez5TIIIpXRMlJgDuWkUuZLTnKS BkOLzhPEHrJKFdErjbVATqZWYmHM9SRgLdDDXgADY8RbpoGDAnUXSxit6NTIHtMRHlRet7PYYrPCTsBD YnPHfeTGYoYMC8VXKgSNArSVBoEN1SQqMtJOFbQVF1XmKhPALaTOLqwp4HWMRhLQGeLVYqHFSiBCMcUH PxLHdeUINqGZH3PCd4VLPjYGTqGC6GVaNsOCOwNQWg GrIyVTExKUTgwh6HUNNvBOSvBcj3ZqYqTFXyUNLhNSodDOChUFH2HYH2WRJnYMYgND7MZbNbUPJzMRso BsElXKReUVCfkc7WQEDfIDFvHbtgHqXpKVHtBYKlGVraTNIiSLD4KPh3FMLqIGOpBT2AWrGkWMShNJhf CWCqIWCsHZAqmx1MSXIiTOQoIAC2WQOtIEVgWGKqLR m5caIycZMaAAi7KM2IJ6PsmhYgHxWWBp3Dz604LRE8EFCoGa3LH1feYj3hMGLoYDPKXl1PKSy2MeO8Yy Y6TuO1OYO6ZJU3LMMmEqFnOHArBXD7WFTwELW+ATjrRWqzNeEnROL2Hxj3HLpoClUfPZU0KBFlZrrhJg ItXV7nBTWFWt9+JXjufDDrmHjtVOKLRsW7OlP9ITjyNBEYSm4B ID Date Data Source [id number] 08/13/2020 10:12:24 AM EDT [facility] Name Value Range Interpretation Code Description Data Avani rce(s) Supporting Document(s) Progress Note [facility] rvices KPQEZj7qTmFVInGb17/IMIrnEJVwz8BmTUtkJLp6TAyqRUJrH2JkTFN0yR0mHHF7QLuJQaAzZoAxTDDz lbm [file] sBDrBt8LEXm0BPKGSjDpFQ9NJVc= ID Date Data Source [id number] 08/13/2020 09:45:28 AM EDT [facility] Name Value Range Interpretation Code Description Data Avani rce(s) Supporting Document(s) Progress Note [facility] NQHMVv1qCxUEKqLv29/SXUrgDQQob3PuZOphKEi0TNytMRFjQ0OgRPD8vS4fSST8GAlCAcKoWiSdZFXn lbm [file] PRMOHt2M ID Date Data Source [id number] 08/11/2020 03:10:05 PM EDT [facility] Name Value Range Interpretation Code Description Data Avani rce(s) Supporting Document(s) Progress Note [facility] SHLECp2rXtLZRcSi20/PYBxhVUIpg2MvJQxzEXc7DJnzPRInO7AzGFR4jL9yIUG8GKfWPjNrDqIeXCO1 lbm [file] AgICAgICAgICAgICAgICAgICAgICAgICAgICAgICAg ICAgICAgICAgICAgICAgICAgICAgICAgICAgICAgICAgICAgICAgICAgICAgICAgICAgICANCiAgICAg ICAgICAgICAgICAgICAgICAgICAgICAgICAgICAgICAgICAgICAgICAgICAgICAgICAgICAgICAgICAg ICAgICAgICAgICAgICAgICAgICAgICAgICAgICAgIC AgICANCiAgICAgICAgICAgICAgICAgICAgICAgICAgICAgICAgICAgICAgICAgICAgICAgICAgICAgIC AgICAgICAgICAgICAgICAgICAgICAgICAgICAgICAgICAgICAgICAgICAgICANCiAgICAgICAgICAgIC AgICAgICAgICAgICAgICAgICAgICAgICAgICAgICAg ICAgICAgICAgICAgICAgICAgICAgICAgICAgICAgICAgICAgICAgICAgICAgICAgICAgICAgICANCiAg ICAgICAgICAgICAgICAgICAgICAgICAgICAgICAgICAgICAgICAgICAgICAgICAgICAgICAgICAgICAg ICAgICAgICAgICAgICAgICAgICAgICAgICAgICAgIC AgICAgICANCiAgICAgICAgICAgICAgICAgICAgICAgICAgICAgICAgICAgICAgICAgICAgICAgICAgIC AgICAgICAgICAgICAgICAgICAgICAgICAgICAgICAgICAgICAgICAgICAgICAgICANCiAgICAgICAgIC AgICAgICAgICAgICAgICAgICAgICAgICAgICAgICAg ICAgICAgICAgICAgICAgICAgICAgICAgICAgICAgICAgICAgICAgICAgICAgICAgICAgICAgICAgICAN CiAgICAgICAgICAgICAgICAgICAgICAgICAgICAgICAgICAgICAgICAgICAgICAgICAgICAgICAgICAg ICAgICAgICAgICAgICAgICAgICAgICAgICAgICAgIC AgICAgICAgICANCiAgICAgICAgICAgICAgICAgICAgICAgICAgICAgICAgICAgICAgICAgICAgICAgIC AgICAgICAgICAgICAgICAgICAgICAgICAgICAgICAgICAgICAgICAgICAgICAgICAgICANCiAgICAgIC AgICAgICAgICAgICAgICAgICAgICAgICAgICAgICAg ICAgICAgICAgICAgICAgICAgICAgICAgICAgICAgICAgICAgICAgICAgICAgICAgICAgICAgICAgICAg ICANCjw/sFCwK8hxbWLqhnK1Z4htTk8AUx1NXD2xg7WrAJAuMIsghoPvClsYDiBwLHUpNbiRZvm9BRgx YD9CtXIcM1FyC3EaPYbyEH2QNFDoIPDmlLOyAMFzZA TnRfG0BEYqLFmwHW5QpLDbYWsfGQHgGUPzZdBuYIBkVIHjZFZdQDTrOICFKALbFNWjHlJyANrnWA7Zi0 OmfHO1BHu+Pa4FQO8gc2EjBNa6CINvZE5grb1PDVdPTwDeY1MmelG0FJS6BTErOa0HLQGlBVVqzKJ2PN EyKLLMNyDuA0PasB40AXYMHr8+DQplbmRvYmoNCjQ1 ZKDlg5DpOWk1GM3ENONxRHg4eYOcJTUiO4Bwe3IvQa23JLIzSrzmI5QymHvceuCXNXA1xA2bcjbfIfQd LIKiMQ9rBR4gZBHtYGO4KmNoSJPOYQ9ZZRGlZVOmrVCjXSAuGZXTIK1VFUzbKXZ0GIGmrnPzbSAnOGtm EI4MJMQdqvXcJGCpOAEFLMl+Ig4VNQ8lo4DcBWp5So SsZN8plu8QQMfOZrOqK0G1mJLnD8T4JXasBq3MHEQjOGFsRUQzMLCZHPxsSY5EJG8txhT5QS5IjJGzWA KiNDGkbGYtCZr6F41bjGOsTRcjDD6YZQA+Debbie+Mz5VMGZnUDMyWZCkIcVdZWPWFsMeT4KmL5ABu0TfP6 JmMS31xAdhmqXrABubEJ3RME8pSTJfUQDMLJ5VsVAk cK7rqyK7BIWrRVKZZdUfB83esTNkVAJtWCZpWSYsHg2RVCZhW2DnlgSngNkrqvUmUVScYJNYMT2PXSur fbKsvAEqwUksGC22qPlgZZ0CZy1ASuFcNT6ehw8FzDMpSe8BLVQ0Jv3UMSIoBFSkYMQlHBN3PUChOaMb HKujYSPaZEAvQGN5VJDqDXDcBD6LMtLeCMSsZCr5LW PtGANvZAIcxc3ROMLwVYK2DUA1VMNxAPTtJUOvKHsaDJBoLNYkPGM1XYLhLOJdWB9MJjTuCDNpFOJ4OZ EiTTJiQGXnuv6LXNLnGHIoMta0DWUiDWLzCQUzPGasJGOfECR9IXK7WKOoMNXkAA3JJsQsCIOmTLU7Xa glRGYvWOUqzk3ZBXNeRAJuEzt9RkWdCWJwPDYrJHvm PZUjYVT8GFszWRKzABYpDZ5TGxBaGRHpWOHlISbzREApJBOblv4JYHEcWGBvXAIhIKJlVRJlXUAeNLtd VHCaEJPdWNFmVWFgSNFxWF8QWwQrWJLpFDNaAxyzCRBcIADvnm2ULFDsLYSyMOR1YsIwKGCyHOAeHGal HWWwZMP9Uik8QYYpFYDqLV2IFfKzBUWcFMV5IWgiFL PpKXOvme5ECYMrOYOiTqU3VoBcVRRzZVSzITucPDRgZEX8TqG8TAGcNXCmWK3YBaJqLRKxJXI9YfckBZ SuHJPumc0QOTLyJYClBRJ6WvRnFNHaOWFsEGwuLIGyPYW9TTkvDOJvUZSeJL3WWhDvOTUbKki9MOOiEH JgQNQcpp4WSGEvKEOpRTf5ATVtHIUkAOAuWRlcULSx JEU3YOq4UVSdQTGnFT5EZmBzTWMhYkZqMjjfTRUvILJawo3GJGKiBYTtIEWoCKSuFMKmGADoEPhbADRa WVPnWur4QSAsDLVtSY4OVcQtQBCbNyPrUamhDZHpKDHtvj1IDPLxDHThZTPbIBAmDYKkCJBhOSnpCGYb RAMzKwo8DYCyEBGiWP1CCpTbOWJlWqN9QsAnNKRrQR Sflp1WOYDpZEJfUsgeCAFhTFCxTTEhNRozAYOsJLCfAOe3HGJiCMDrZS9JGcZxCEQuNMB2ZjyjPTMrEA Qspk7BXDYpOKH1HSK0MjHqBRJeAXXpHPttYOUgKFO1Zoz1YDYiUNMpMJ7ZQmJpXFTvHDJiDVJxPNHwBX Tgai6AYWPyPSL1YoM7GXPdZTVzEVDoURilMGUoDKR5 WpEcHOBiLIXxTH6IRmQnGPClVVo2RQJuOSJpAAMkdw8GNREvPQP7ByQ5YoYmFXPrPYYxMUmdJAYeBPQ5 YJE1GSNeVAPgFN9YZoYuZBNcGWs1CMvhGLPvQXQvgj2QHVItVUA1SMR6KRLzWCQmGVXtSXrqOPKfQKT1 FUTeRQBbVSDzFA7CRyKpXAwmLPZCUvj9OSyoY8t8FP I4Eo0OA3Dhn8XcRBSxEKASBXqfXK5vfdUyVRJyYf4YX1oEJhduEqA4NFZrMTXyUwAvTPDlANT9CAAoJq X2RRJdWUJaVu4cTHWeZJFeQDSlAVAkPaW6AUXvZVhiBDUtBvKsYKG9WTNcEfPnFT0BGg8HQeB6FFN8kT WzPj8AJsLcWMTHIsCnHR5RNPb= ID Date Data Source [id number] 08/11/2020 03:10:00 PM EDT [facility] Name Value Range Interpretation Code Description Data Avani rce(s) Supporting Document(s) Progress Note [facility] CMAHQe3sUqXORoTz45/HVJlnHMMrl3IxJIejROz5VZkpZVMwK7RaBRR3eF4rZEM3JJcAPgFdHaRfPKK5 lbm [file] 0gDQo+Bj5Oi9MhraY2qlRhVPgwKRV1Eo3ITDTGO8IBNo== ID Date Data Source [id number] 08/06/2020 05:39:52 PM EDT [facility] -REPORT:PROCEDURE: XR ABDOMEN 1 VIEWDATE AND TIME: 08/06/2020 5:12 PM EDTHISTORY: Kidney stone follow-up.Calculus of kidneyCOMPARISON: February 28, 2020TECHNIQUE: AP supine.IMPRESSION:Increased stool seen throughout the colon.There is no definite pneumoperitoneum.There are no indirect signs of abnormal soft tissue mass or fluidcollection.Left sacral stimulating device is present, unchanged.The lung bases are clear.No significant bony abnormality is detected.DWS: [id number] SIGNATURE: Ashish Bah MD Name Value Range Interpretation Code Description Data Avani rce(s) Supporting Document(s) ID Date Data Source [id number] 07/30/2020 05:04:42 PM EDT [facility] Name Value Range Interpretation Code Description Data Avani rce(s) Supporting Document(s) Progress Note [facility] GVYULk8tDeRNTaFp28/UHXotMQUoj9LwGByqPUj7NLwrXPRfM6WyDKH4sX1uRNJ5LIrNKdVjYiXrLIT7 lbm [file] gcMwAEs1IgH4Dq5MZBPFG9EDAz== ID Date Data Source [id number] 07/29/2020 09:23:20 AM EDT [facility] IE COMPLAINT:one week ago the patient injuried her left foot ankle and kneeHISTORY OF PRESENT ILLNESS:Patient is a 44-year-old female with a left foot ankle and kneepain after a fall 4 daysago, pain is getting better then got acutely worse when she twisted herankle again 1 day ago.Has had some difficulty walking since then, but no difficulty bearing weight. Left leg painLocation: Left knee, left ankle, left footQuality: SharpSeverity: ModerateDuration: 4 days,Timing: improved now worse againContext: After a fall in which her child fell on her legREVIEW OF SYSTEMS: Constitutional: No Fever, No ChillsENT/Mouth: No Ear Pain, No Sore throatEyes: No Eye Pain, No SwellingCardiovascular: No Chest Pain, No Peripheral EdemaRespiratory: No SOBGastrointestinal: No Nausea, No Vomiting, No Abdominal PainGenitourinary: No dysuria, No Vaginal Pain, No Pelvic PainMusculoskeletal: No Arthralgias, No Myalgias, No Joint SwellingNeuro: No Weakness, No Numbness, No HeadacheHematologic/Lymphatic: No Lymphadenopathy Nursing notes reviewed for Pmhx, sh, fh, medications and allergies (unlessotherwisedocumented).PROBLEM LIST/PAST MEDICAL HISTORY:OngoingAcute tension headacheHistoricalNo qualifying dataPROCEDURE/SURGICAL HISTORY:Release of ulnar nerve in Guyon's canal (Release of ulnar nerve in Guyon'scanal)Hysterectomy (Hysterectomy)Lithotripsy (Lithotripsy)Miscellaneous operations (Miscellaneous operations)HOME MEDICATIONS:Home Medications (3) Activeacetaminophen-oxyCODONE 325 mg-5 mg oral tablet 1 tab(s), PO (oral), biddiazePAM 10 mg oral tablet 10 mg = 1 tab(s), PO (oral), qidmorphine 15 mg/8 hr oral tablet, extended release 15 mg = 1 tab(s), PO(oral), g4mGWRWBWCSG:Bee Stings (breathing diffucutly)FlexerilLyrica (unsure)MacrobidSeafood (hives, throat closes)Toradol (unsure)ciprofloxacingabapentin (unsure)SOCIAL HISTORY:Tobacco/Nicotine4 or less cigarettes(less than 1/4 pack)/day in last 30 days Use:.,04/08/2018FAMILY HISTORY:Father: Positive Head injuryPHYSICAL EXAM:I have reviewed the triage vital signs and nursing notes. Gen: No acute distress, Well developedEyes: No scleral icterus, EOMIHEENT: Normocephalic, Atraumatic, Trachea appears midlineCV: Normal RatePulm: Normal work of breathing, Symmetric chest riseAbd: No abdominal distension, no voluntary/involuntary guardingSkin: No jaundice, No visible bruising, rashes, lesions or woundsMSK: Moving all 4 extremities spontaneously, Normal ROM, left lowerextremity with nobruising, no swelling, moderate generalized tenderness of the ankleNeuro: AAOx3, Face appears symmetricPsych: Appropriate mood and affectDIAGNOSTIC RESULTS:No qualifying data available.CARDIOLOGY RESULTS:No qualifying data available.ED COURSE: Medication Dose Route Frequency acetaminophen (Tylenol) 1,000 mg PO(oral) Tab Now DIAGNOSIS AND IMPRESSION: Diagnosis Classification Dx Type Admitting Ankle sprain Medical Discharge MDMAs patient is weightbearing, most likely strain or sprainFracture was unlikely, and imaging confirms no fractures seen todayTylenol for pain, patient was given crutches in the ER to assist withmobility until she isimprovedCare plan discussed with the patient and they express agreement and understandfor returnprecautions and the plan for follow-up. Stable for discharge.PLAN:InpatientNo active inpatient medicationsHomeacetaminophen-oxyCODONE 325 mg-5 mg oral tablet, 1 tab(s), PO (oral), biddiazePAM 10 mg oral tablet, 10 mg= 1 tab(s), PO (oral), qidmorphine 15 mg/8 hr oral tablet, extended release, 15 mg= 1 tab(s), PO (oral),v5xRoka document was authenticated by Pablito Alexandre MD MD on 109:23 AM Name Value Range Interpretation Code Description Data Avani rce(s) Supporting Document(s) ID Date Data Source [id number] 07/25/2020 01:16:05 PM EDT [facility] - [facility], [facility] EXAM:XR TIBIA/FIBULA LEFTORDERING PROVID ER:Navarro Bridges MDCLINICAL HISTORY:PainCOMPARISON STUDY:NoneTECHNIQUE:2 views of the left tibia and fibula are performed. FINDINGS:There is no fracture or dislocation. There are no lytic or blastic abnormalities or advanced arthritic changes. There are no soft tissue abnormalities or radiopaque foreign bodies. There is normal joint alignment.IMPRESSION: No acute abnormalityThis document has been authenticated by Pj Rock MD on 07/25/2020 1:13PM. Thank you for referring your patient to [facility]. Name Value Range Interpretation Code Description Data [facility] rce(s) Supporting Document(s) ID Date Data Source [id number] 07/25/2020 01:08:53 PM EDT [facility] - [facility], [facility] EXAM:XR FOOT COMPLETE LEFTMRN:[id number] OF :1975ORDERING PROVIDER:Navarro Bridges MDCLINICAL INDICATION:Left ankle and knee injury, painCOMPARISON STUDY:None.TECHNIQUE: 3 views left foot FINDINGS: No evidence of acute fracture, lytic or blastic bony lesion ordislocation. Joint spaces relatively well- preserved. No joint effusionidentified. No metallic radiodense foreign objects.IMPRESSION:1. No radiographic evidence of acute osseous abnormality or fracture.This document has been authenticated by Jasbir Reed MD on 07/25/2020 1:06PM. Thank you for referring your patient to [facility]. Name Value Range Interpretation Code Description Data [facility] Document(s) ID Date Data Source [id number] 07/24/2020 01:16:18 PM EDT [facility] -REPORT:PROCEDURE: NM HEART PERFUSION SP ECT STRESS AND REST, STRESS TEST WITHMYOCARDIAL PERFUSIONDATE AND TIME: 07/24/2020 9:30 AM EDTHISTORY: chest pain.TECHNIQUE: The patient received 9.2 mCi of Technetium-99m Myoview forresting portion of the study. Patient exercised on the treadmill for atotal of 11 minutes 31 seconds reaching a peak exertional capacity of13.4 METS and 32.2 mCi of Technetium-99m Myoview were injectedintravenously prior to termination of the treadmill stress study.Following the rest and stress injections, single photon emissioncomputed tomographic (SPECT) images of the heart were obtained. Gatedwall motion images were obtained at rest following the stress injection.Resting heart rate was 67 bpm with blood pressure 109/74 mm Hg.At peak stress the heart rate was 171 bpm that represents 96 % of themaximal age-predicted heart rate. Peak blood pressure noted wsb255/61mmHg.EKG at baseline revealed normal sinus rhythm without any significant STdeviations.At peak stress and during the recovery phases no significant STdeviations were noted as compared to the baseline.Patient denied any chest pain or shortness of breath during the study.FINDINGS: Uptake of the radiopharmaceutical within the myocardium iswithin normal limits both on the stress and rest images. There is noevidence of chamber enlargement. Gated wall motion images demonstratedwall motion to be within normal limits. The left ventricular ejectionfraction is calculated to be 73%. Left ventricular end diastolic [id number] cc's and end- systolic volume 11 cc's.IMPRESSION:1. This is a normal myocardial perfusion study without any evidence ofmyocardial ischemia or scar.2. Excellent effort tolerance at 13.4 metabolic equivalents with normalhemodynamic response.3. The stress test is negative for ischemia by EKG, symptoms and imagingcriteria.DWS: [id number] SIGNATURE: Chase Altman MD Name Value Range Interpretation Code Description Data Avani rce(s) Supporting Document(s) ID Date Data Source [id number] 07/24/2020 01:16:18 PM EDT [facility] -REPORT:PROCEDURE: NM HEART PERFUSION SP ECT STRESS AND REST, STRESS TEST WITHMYOCARDIAL PERFUSIONDATE AND TIME: 07/24/2020 9:30 AM EDTHISTORY: chest pain.TECHNIQUE: The patient received 9.2 mCi of Technetium-99m Myoview forresting portion of the study. Patient exercised on the treadmill for atotal of 11 minutes 31 seconds reaching a peak exertional capacity of13.4 METS and 32.2 mCi of Technetium-99m Myoview were injectedintravenously prior to termination of the treadmill stress study.Following the rest and stress injections, single photon emissioncomputed tomographic (SPECT) images of the heart were obtained. Gatedwall motion images were obtained at rest following the stress injection.Resting heart rate was 67 bpm with blood pressure 109/74 mm Hg.At peak stress the heart rate was 171 bpm that represents 96 % of themaximal age-predicted heart rate. Peak blood pressure noted lyo113/61mmHg.EKG at baseline revealed normal sinus rhythm without any significant STdeviations.At peak stress and during the recovery phases no significant STdeviations were noted as compared to the baseline.Patient denied any chest pain or shortness of breath during the study.FINDINGS: Uptake of the radiopharmaceutical within the myocardium iswithin normal limits both on the stress and rest images. There is noevidence of chamber enlargement. Gated wall motion images demonstratedwall motion to be within normal limits. The left ventricular ejectionfraction is calculated to be 73%. Left ventricular end diastolic [id number] cc's and end- systolic volume 11 cc's.IMPRESSION:1. This is a normal myocardial perfusion study without any evidence ofmyocardial ischemia or scar.2. Excellent effort tolerance at 13.4 metabolic equivalents with normalhemodynamic response.3. The stress test is negative for ischemia by EKG, symptoms and imagingcriteria.DWS: [id number] SIGNATURE: Chase Altman MD Name Value Range Interpretation Code Description Data Avani rce(s) Supporting Document(s) ID Date Data Source [id number] 07/24/2020 01:05:11 PM EDT [facility] [address] [place], [place] [address]Wxfnu: [phone] Echocardiogram Report ____Name: GURWINDER SWANN Study Date: 07/24/2020MRN: [id number] : 1975Account #: [id number] Age: 44 yrsGender: FemaleHistory: ASTHMA, HX COVID 19Patient [facility] For Study: Chest pain (hx PVD, TIA, CVA, CVD or Peripheral embolism)Ordering Physician: Aleksander DORMAN Care Physician LAKIA ___Height: 62 in Weight: 137 lb BSA: 1.6 m2 BP: 101/67 mmHg_ INT ERPRETATION SUMMARYEjection Fraction = 55-60%.Normal Echocardiogram.Procedure DetailsA complete two-dimensional transthoracic echocardiogram was performed (2D, M-mode, Doppler and color flow Doppler). The subcostal views were difficultto obtain and are suboptimal in quality.Left VentricleThe left ventricle is normal in size. Ejection Fraction = 55-60%. Diastolic Function is probably normal for age.Right VentricleThe right ventricle is normal in size and function.AtriaThe left atrial size is normal. Right atrial size is n ormal.Aortic ValveThe aortic valve opens well. No aortic regurgitation is present.Mitral ValveThe mitral valve is normal. There is trace to mild mitral regurgitation.Pulmonic ValveThe pulmonic valve is not well visualized. There is no pulmonic valvular regurgitation.Tricuspid ValveThe tricuspid valve is normal in structure and function. No tricuspid regurgitation.Great VesselsInferior Vena Cava is normal in size and respiratory variation.Pericardium/PleuralThere is no pericardial effusion.Rhythm:MMode/2D Measurements & CalculationsIVSd: 0.79 cm AoV gregory diam: 2.1 cm RVDd MID: 3.1 cmLVIDd: 3.4 cm Ao root diam: 2.9 cm RVDd BASE: 3.4 cmLVIDs: 2.0 cm TAPSE: 1.6 cmLVPWd: 0.98 cm IVC Diameter: 1.0 cm EF MOD-bp: 59.5 % RAP systole: 5.5 mmHgLAV(MOD-bp) Indexed: 16.9 ml/c1Tlzzskf Measurements & CalculationsMV E/A: 1.6 TV s': 9.1 cm/sec MV Lat e': 10.3 cm/secMV Med e' Peak Khris: 9.1 cm/secMV E/e': 8.2MV E max khris: 74.1 cm/sec ____MV Lateral E/e': 7.2 ___ Performed By: Odessa BlairReferring Physician: JUSTINO DORMAN Name Value Range Interpretation Code Description Data Avani rce(s) Supporting Document(s) ID Date Data Source [id number] 07/22/2020 12:50:00 PM EDT [facility] Name Value Range Interpretation Code Description Data Avani rce(s) Supporting Document(s) Progress Note [facility] QCLQSq9eYeWSFbVu49/ADNkaGDGgy5DfLKnlSIs4QCwjUFYqS2QwNZR6kN5yETQ4EKyILzDfVgUzNhGl lbm [file] ID Date Data Source [id number] 07/21/2020 03:10:13 PM EDT [facility] Name Value Range Interpretation Code Description Data Avani rce(s) Supporting Document(s) Progress Note [facility] YSLASk2cUgKHAzCh39/MXPolVHIcu8OkUYncIYg1ZVdhZUPtE7EmYJP2sO0jPHT7FSrQQpUzPjEqCrI1 lbm [file] ICAgICAgICAgICAgICAgICAgICAgICAgICAgICAgIC AgICAgICAgICAgICAgICAgICAgICANCiAgICAgICAgICAgICAgICAgICAgICAgICAgICAgICAgICAgIC AgICAgICAgICAgICAgICAgICAgICAgICAgICAgICAgICAgICAgICAgICAgICAgICAgICAgICAgICAgIC AgICANCiAgICAgICAgICAgICAgICAgICAgICAgICAg ICAgICAgICAgICAgICAgICAgICAgICAgICAgICAgICAgICAgICAgICAgICAgICAgICAgICAgICAgICAg ICAgICAgICAgICAgICANCiAgICAgICAgICAgICAgICAgICAgICAgICAgICAgICAgICAgICAgICAgICAg ICAgICAgICAgICAgICAgICAgICAgICAgICAgICAgIC AgICAgICAgICAgICAgICAgICAgICAgICANCiAgICAgICAgICAgICAgICAgICAgICAgICAgICAgICAgIC AgICAgICAgICAgICAgICAgICAgICAgICAgICAgICAgICAgICAgICAgICAgICAgICAgICAgICAgICAgIC AgICAgICANCiAgICAgICAgICAgICAgICAgICAgICAg ICAgICAgICAgICAgICAgICAgICAgICAgICAgICAgICAgICAgICAgICAgICAgICAgICAgICAgICAgICAg ICAgICAgICAgICAgICAgICANCiAgICAgICAgICAgICAgICAgICAgICAgICAgICAgICAgICAgICAgICAg ICAgICAgICAgICAgICAgICAgICAgICAgICAgICAgIC AgICAgICAgICAgICAgICAgICAgICAgICAgICANCiAgICAgICAgICAgICAgICAgICAgICAgICAgICAgIC AgICAgICAgICAgICAgICAgICAgICAgICAgICAgICAgICAgICAgICAgICAgICAgICAgICAgICAgICAgIC AgICAgICAgICANCiAgICAgICAgICAgICAgICAgICAg ICAgICAgICAgICAgICAgICAgICAgICAgICAgICAgICAgICAgICAgICAgICAgICAgICAgICAgICAgICAg ICAgICAgICAgICAgICAgICAgICANCiAgICAgICAgICAgICAgICAgICAgICAgICAgICAgICAgICAgICAg ICAgICAgICAgICAgICAgICAgICAgICAgICAgICAgIC AgICAgICAgICAgICAgICAgICAgICAgICAgICAgICANCjw/ePTmN9tkiSQkgdR3F2zaMj2NLg9IWA3fi4 QfJLGvDQrddoUmRviTRbUmUVNaYaeYBwn3LZphKA8EeQQhF4XvR2KrKHayMU7NOJZoCQDfzHRvBLSbXE CxLtY1OLEtBQqbXK4RqEZuZCluCGSkKLYqZX1HZUDu O166ygYbDH2UEx5GJxIcQU9xnf5DYcPhNBLdNnoXUhf4KOiuBX8FpGBvrSOcHcNjVEWHUxStX0rmx6Qc FfZsAXOHECvxGV3Jz7YluDAzTOb+Ng9JLL6qz4ZmYNnxTfMcZO8qyv4HIYgDUsBwX8FpxTphZVFhz4gg NRDrCS5rjXFaZLO3WPHcpuurZATpJW23xvbwXKZPAC 3hXFQjIy6bJS9pYQUhIRCsMxJaQIRQED0XNFTqIXDpsTHiWKQqJNAIXM6FUBdnARB2DBSakuSgjTNiHP vhFH5KCAPetdPyCkAxUPTMIVc+Xp2OFM9yg7GhGUxrNNZhRW4zvp2CCTtLRcVvG9M5pNIfO2V6YVuiAk 1RJJHnOVLmLlBwVSRISXxnOP9ELA2lnnO5VL7QnROs WRMaELAhgYGyXOs4H24bvIHvJSxzAE9LOPU+Debbie+Mc5MRJYpIFCiXHPvUnGvQGKTDcYiL1IhZ4QAm7Do S2LfAR99vDbluaNaRGhgZB7UVF2gAGNeWLOMXQ9VfRTcuM2ugxZpIjAoIBPPOcKcG98hiYIcZEEfTGUh ACXcAq5JWBIuU4OvvgCawPbqsaZbLGAnFIOOPN8SIR kjwwKcoDEeeFdrBM90cMurYC0PQx9NDkEvPC7lmv9QsLXwCh3UBRMqYI8NILAaGHRtWRPzRUK9RJJnQv JyRLvgQLVcQOLqSAU9CZWjGXWfBS4YAyIrFJSmYSfiCitzCIGbBIJlpg5XJIAgXKBhYGHyUmEeWLPxSK OfKCqfUPEyDDHsGKK7MJVaWIFoDK0GQjBgPTGjGRJ8 KCKgZINeUAKinc2UVNGpCSXjKIVfMZRlSFXrRYLbYYnhVMVqNRFoSZgzBXSvUWCpZD2XLxVqSKRfVPUw JpOxQUJrXZWozf7WMRMjMHAbFzF8AOPbOOAaEDMoHEcsWIMdRVWsSvS9VKRqKRGpLK2EHuRgARZeRUI6 HPBoDWQlSVYyvt3YOXVcUYAhAmZ3HoOyDFYnIQQbAC lzKIRrISC8ONP7MOBxLJVxWM9EFhDaXIWzYRAlQjYfKDJhAGDipu6SGPHlIGIzYPI6FWQvMKLaHPEfPI eaEXTaBDW1OTIgJIKmZQGvNH3LAzCyEAPhTMO7NDDcEUVbMQSakr4NSTEgQWJxQkb1LBIbNKKbGOAiCK ayUQKlAKO3RXcwCNFiKGQwKM4VUuEfCPSsIKrfYVSr WOGiZSMclu6ESLLiPLViWvV7NxJwPTDnPVJeGBvuEQTpIKI5JVXtLGKcOTMpEZ7OHjGoHRJrTLtjRSYw QKHrZGUquh2VHHIiJELoZZPeUSEuTEIhFJZhREy5leBqvJAkPHr1FU0SX4OjraGtRhNJAi6Zr516EQK7 AYYmHs9HP8xaNs1wZAEuTAZHDb8WJAx5GFOkY2JlZA HjYRDtCnJ2NKQxOaz0EEKxHQU2NTSeULN+MFk7GfO5P9JwBoRoBJR8QhwgOgR7DPQbIvHsGfY2QQUmKP 3iLXUBKf6+WNxakVNucItnZOGWAlN8TOk6KYqdYJRLVc9H ID Date Data Source [id number] 07/21/2020 03:09:00 PM EDT [facility] Name Value Range Interpretation Code Description Data Avani rce(s) Supporting Document(s) SARS-CoV-2 RNA Resp Ql MILTON+probe Negative [facility] This lab was ordered by [facility] Dimitri MOB a nd reported by [facility]. ID Date Data Source [id number] 07/21/2020 08:48:00 PM EDT [facility] Name Value Range Interpretation Code Description Data Avani rce(s) Supporting Document(s) SARS-COV-2 BY NAAT Negative, Indeterminate [facility] NUCLEIC ACID SEQUENCES OF THE 2019 NOVEL CORONAVIRUSWERE NOT DETECTED BY NAAT.NOTE: THIS TEST WAS DEVELOPED FOR THE PURPOSE OFDIAGNOSTIC TESTING TO ALLOW FOR RAPID RESPONSEDURING A DECLARED PUBLIC HEALTH EMERGENCY AND HASEUA CLEARANCE FROM THE FDA. NEGATIVE RESULTS DO NOTPRECLUDE 2019_nCoV INFECTION AND SHOULD NOT BEUSED THE SOLE BASIS FOR PATIENT MANAGEMENT DECISIONS. ID Date Data Source [id number] 06/20/2020 12:03:25 PM EST [facility] Name Value Range Interpretation Code Description Data Avani rce(s) Supporting Document(s) Progress Note [facility] rvices XUNJRv7nUkYSGoTx79/MSGajVUDjh7ToQHeiAIx0CVimLZYaN2CbGIV0dU8fTFT3UJkHHuFbAoHnFxH5 lbm [file] UjPI5IETx= ID Date Data Source [id number] 06/18/2020 10:40:02 AM EST [facility] -REPORT:ORDER DATE AND TIME: 06/18/2020 1 0:29 AM ESTPROCEDURE: XR CHEST 2 VIEWSHISTORY: shortness of -uejx-pmv female with history of shortness of breath and cough forseveral weeks. Patient was Covid 19 positive on 05/21/2020 and 05/23/2020.COMPARISON: Chest one view exam and left rib series from December.FINDINGS: PA and lateral views of the chest were obtained. The heart andmediastinal contours appear grossly normal. Bones and soft tissuesappear unremarkable. There is no pleural disease seen. The lungs appearclear.IMPRESSION:No evidence of acute cardiopulmonary disease.DWS: [id number] ELECTRONIC SIGNATURE: Del Tyler MD Name Value Range Interpretation Code Description Data Avani rce(s) Supporting Document(s) ID Date Data Source [id number] 06/17/2020 03:50:32 PM EST [facility] Name Value Range Interpretation Code Description Data Avani rce(s) Supporting Document(s) Progress Note [facility] HJIXBw8aCzBFZxSi63/JQPrzIYXih6FzTCicLRn4CFbmCXNiK0JkTQF1dV8oXXI6MAwSKxKeIpDvFjFt lbm [file] PuX9UC3sVGGFVf4+MQvmfPShbKdrJJDLEoG7EoP3CMhfJFHWJu9V ID Date Data Source [id number] 05/21/2020 10:59:00 AM EST [facility] Name Value Range Interpretation Code Description Data Avani rce(s) Supporting Document(s) SARS-CoV-2 RNA Resp Ql MILTON+probe Detected [facility] This lab was ordered by [facility] Dimitri MOB a nd reported by [facility]. ID Date Data Source [id number] 05/23/2020 08:22:00 AM EST [facility] Name Value Range Interpretation Code Description Data Avani rce(s) Supporting Document(s) SARS-COV-2 BY NAAT Not Detected, Indeterminate V teja abnormal (applies to non- numeric units [facility] ID Date Data Source [id number] 05/21/2020 09:54:10 AM EST [facility] Name Value Range Interpretation Code Description Data Avani rce(s) Supporting Document(s) Progress Note [facility] URJMGt5vLwYLXgBu37/SGFdqBFClr8ZzLEegCJn2PCdjRXRkG4TxBVX3jE7vMTX0MNqWFgUfAcGmQZN7 lbm [file] zlGT3ieFR95Ie7Yop7ajtxGWO+/xGx3/Qffro/ [file] NTQ+LM7lADf+Pn0Jk5GmkvU7evQtNFlnERceOK1QRBOVA0KQXp== ID Date Data Source [id number] 05/21/2020 09:40:02 AM EST [facility] Name Value Range Interpretation Code Description Data Avani rce(s) Supporting Document(s) Progress Note [facility] BFOZWo2iNyEXDtXo15/RLMhiGMBtf2VeKDgfGMp6TPqkWEKdZ8KyCZB8fM0tHCR1TDtHSeIgJfYyRKE6 lbm [file] EXCkVkHJ6QJCi= ID Date Data Source [id number] 04/07/2020 12:25:06 PM EST [facility] Name Value Range Interpretation Code Description Data Avani rce(s) Supporting Document(s) Progress Note [facility] rvices HAISXw1yMqOYIhVt07/IQBefACMxi6WnUJjkWUs9TGkmHCGuL0HnVON6vQ8fCZB2XIsJRqYpKcIvJyL6 lbm [file] DQogICAgICAgICAgICAgICAgICAgICAgICAgICAgICAgICAgICAgICAgICAgICAgICAgICAgICAgICAg ICAgICAgICAgICAgICAgICAgICAgICAgICAgICAgICAgICAgICAgICAgDQogICAgICAgICAgICAgICAg ICAgICAgICAgICAgICAgICAgICAgICAgICAgICAgIC AgICAgICAgICAgICAgICAgICAgICAgICAgICAgICAgICAgICAgICAgICAgICAgICAgICAgDQogICAgIC AgICAgICAgICAgICAgICAgICAgICAgICAgICAgICAgICAgICAgICAgICAgICAgICAgICAgICAgICAgIC AgICAgICAgICAgICAgICAgICAgICAgICAgICAgICAg ICAgDQogICAgICAgICAgICAgICAgICAgICAgICAgICAgICAgICAgICAgICAgICAgICAgICAgICAgICAg ICAgICAgICAgICAgICAgICAgICAgICAgICAgICAgICAgICAgICAgICAgICAgDQogICAgICAgICAgICAg ICAgICAgICAgICAgICAgICAgICAgICAgICAgICAgIC AgICAgICAgICAgICAgICAgICAgICAgICAgICAgICAgICAgICAgICAgICAgICAgICAgICAgICAgDQogIC AgICAgICAgICAgICAgICAgICAgICAgICAgICAgICAgICAgICAgICAgICAgICAgICAgICAgICAgICAgIC AgICAgICAgICAgICAgICAgICAgICAgICAgICAgICAg ICAgICAgDQogICAgICAgICAgICAgICAgICAgICAgICAgICAgICAgICAgICAgICAgICAgICAgICAgICAg ICAgICAgICAgICAgICAgICAgICAgICAgICAgICAgICAgICAgICAgICAgICAgICAgDQogICAgICAgICAg ICAgICAgICAgICAgICAgICAgICAgICAgICAgICAgIC AgICAgICAgICAgICAgICAgICAgICAgICAgICAgICAgICAgICAgICAgICAgICAgICAgICAgICAgICAgDQ ogICAgICAgICAgICAgICAgICAgICAgICAgICAgICAgICAgICAgICAgICAgICAgICAgICAgICAgICAgIC AgICAgICAgICAgICAgICAgICAgICAgICAgICAgICAg ICAgICAgICAgDQogICAgICAgICAgICAgICAgICAgICAgICAgICAgICAgICAgICAgICAgICAgICAgICAg TCXbVCWhOOOfZAFnHBQoECTyGQBhVJWaGQLuDWUhQNTtFYBxBVLvQSGmRZGfSOBhBFOcLXo5L1qeIQJw IDKiUU3tPEb8Tj2+WMzDRoVaNBO6cbOgrQ7AJS4nm2 WjHQsaXHAds3RoWWm5KQ4DZZPkMGjcHK1JLQknuc6VOUSnULLcyWNHm9hvRmXjSAI6OQRnYtbaWH7GJW SvR5bdktGyPTHtQQSVUWmgHEYIVFseKBTSFY6QAwHdY1FcuB29SMBJAv1+XNrhnpPqBlfKCyP3BGQib0 LaNTl3AM8FHMPmThhpm0MwVsJoPZHRDYwhHO8MWYJ7 XMFhEXDhPq4GZTXmK629irBzWJ0SJo3HJzRvTA0njv9AYhQrBGGlVxwUWje0OCieKG8VvFXhWDsSkw1x frSoisKSd9XytbHokGMKrHNlQlqdSSQKWQY3NXIuFMRKCQP3PTYfNuM2SbHeCwGdQMT6QKAqLR3hMPuj TX5YFEX3MLwdUUIaFYEsI4eVCdMqVQh2EuWpmBqeEL 8NWaUkI2JyobOodTOdGTIhRRSGCa6+IPsrzyPvYruVUaGkKTGos6KtIEj0KL7CWUPjGUfzBK1WGNZtzD 6sBDbdLJ1ZKtRfKdGcBQKNCmMnJ19xdVAtPIv6Y4TuZxUoGLPsEtjfLMDrXUsaPpCjMDAuMzLtQLwrVI 4+ID4+FRotTO6TLOvehoBtRLHfOg3NNUZlDQBvYS9c LYKyCMAmZ9A3lRtkMFYOJiDyV0hsiqwgVH4cTRXpT495kYrnemQdBXY5QCPyUx0KNYMqTUU7QQZoxRQx XeoyLNBLPBajKM5LzWNmFDF5cG9cIGxvQUJnZIZwU4dJYvNlkAndIV32fOnsznIhsQKfCHr+Fi3LQQ5w m4TfOSl3eyKzAYdfWFNpYRwnOPCoMKFbFKLrUKI9YV J9HOCJGqOcSCRiLPVlQKsoXUHnYNJtcv1YBTHzXEMdYHO3JTLsMQMoFSBaNVhtIOGdHCG3JXG7TBWmVG VdVL7KZkOlFEXdWXTkJJdhQRIxNJHhye5DGADiJQIqMdx9TUDpKLXqVZUaDJjsRMKeXSBvSDi0HRHaBN OsWT2NDwMpZFWeLLVqLRkjVYWxIJHpbk7GWTWrZCGe CLNwNlGfJGZbNROvXHtuUULyUHX7VismLINkPDDiOM1EDdZuJWHnKJp5DVAsYMIdGYKvfp0FMREoEKOu KWC0ZWVqEQXiWUAeIPmeTFCmKWW9AlC4WOKzBDMhXY1JUeVxQGLnKRi2VqLpEQQlDJZqrs0TNYHcHKUt AYu2FTYkDZRzCCMqHTztEAXrMVW2GWjvLAWkXWReCN 7FWlFlJXHcXMMjYtQaWNIqVAPuuc9YRKEwRLOcWAHcAiSnSOYgXSYcVKcqJMRfHOHtLSW4BIZlZUIoRD 6ZDcMlSLDpWgWgORcpFGXfMKGnno4PPEQdTWUkXbX4QOZcSPGqPRLtECubTOHfFUPxNXR9FHClHOCuEN 3ZGlPkYHQlIoUkKntwTXQxASYnik9CEUFvEVToHmI1 RRNzEKKjNGZxADotBCDqTNBmGnP2CZVgUZQpQD7ZQcPrTEYpFjM8KHbdXLNcIULzfc9SBWNcSIAdYFs4 HxGjKJUgFUCxLXrcTWIrXZV3ZLB6XDOuVDVwGK5YCaEwWTGlCkK3ScrrMBDfRXSebg7JPZKbCBWbCcwv OIIzYBYlRBOeDWyzIJMlFWF1DXZrCZCvOLKfOR9AUy CdVPSiXnwtFKUhDYKdSEJdaw5WoROitEfiax6BDYgYIf7ZzKpwOZGeJEtnMg0ocXVtKAJrRGMBYl9Ryw AhYSOmHPUWZJkbOFEwXMslGKPoJUNfMqX6QXvqMhY0IKOjBANoONF7FOE9UWHeBvP0ZzDcI1U0IZD0Wu i2EOLbHmK7TVXoWlQ0LrOaNpp2KTA+MY0cVLj+Vd0Wh6JwjkL5gtWwRGcuCwF2OW6FSETXV3IXEc== ID Date Data Source [id number] 04/04/2020 10:33:00 AM [facility] Surgical Pathology Case: [id number] of colon polyps, dyspepsia, dysphagiaAuthorizing Provider: Austin Jaramillo MD Collected: 04/02/2020 [id number] Location: [facility] Mark Received: 04/02/2020 1608GeneralPathologist: RHIANNON Estrellapecimens: A) - Small Intestine, Duodenum, Duodenal biopsyB) - Stomach, Gastric biopsyC) - Large Intestine, Colon, Random colon biopsyA. Duodenum, biopsy:- Duodenal mucosa with preserved villous architecture and no significanthistopathologic findings.B. Stomach, biopsy:- Gastric body/fundic mucosa with no significant histopathologic findings.- No Helicobacter pylori organisms seen.C. Colon, random, biopsy:- Colonic mucosa with no significant histopathologic findings. Name Value Range Interpretation Code Description Data Avani rce(s) Supporting Document(s) LAB AP CLINICAL INFORMATION [facility] A. Small Intestine, Duodenum.Received in formalin labeled duodenal biopsy are multiple patel-walker, raggedand glistening strips of mucosal soft tissue that range from 0.2 to 0.5 cmin greatest dimension. 1 ES.B. Stomach.Received in formalin labeled gastric biopsy are 3 patel-brown, speckled andglistening tissue fragments that range from 0.2 to 0.3 cm in greatestdimension. 1 ES.C. Large Intestine, Colon.Received in formalin labeled random colon biopsy are multiple patel- walker,feathery and glistening tissue fragments that range from 0.4 to 0.6 cm ingreatest dimension. 1 ES. LM ID Date Data Source [id number] 04/02/2020 08:39:23 AM EST [facility] Name Value Range Interpretation Code Description Data Avani rce(s) Supporting Document(s) H&P [facility] STUOLw5kPuYUPqRk12/MAKfvSFLhx9HlYHzeXPc9LKutOABbS9EqIRW4tR5gPVJ7KPyUDyGrCfFfHvC0 m [file] fL+XvEE2Ee6ALMbVvvnAgyMmPFf8f7+lhoMsXWc84+orEDoD2+I/M69T3G4JUz+5+z1YbcN3+M/Principal Electrical Engineer/k7 [file] AgICAgICAgICAgICAgICAgICAgICAgICAgICAgICAgICAgICAgICAgICAgICAgICAgICAgICAgICAgIC AgICAgDQogICAgICAgICAgICAgICAgICAgICAgICAg ICAgICAgICAgICAgICAgICAgICAgICAgICAgICAgICAgICAgICAgICAgICAgICAgICAgICAgICAgICAg ICAgICAgICAgICAgICAgDQogICAgICAgICAgICAgICAgICAgICAgICAgICAgICAgICAgICAgICAgICAg ICAgICAgICAgICAgICAgICAgICAgICAgICAgICAgIC AgICAgICAgICAgICAgICAgICAgICAgICAgDQogICAgICAgICAgICAgICAgICAgICAgICAgICAgICAgIC AgICAgICAgICAgICAgICAgICAgICAgICAgICAgICAgICAgICAgICAgICAgICAgICAgICAgICAgICAgIC AgICAgICAgDQogICAgICAgICAgICAgICAgICAgICAg ICAgICAgICAgICAgICAgICAgICAgICAgICAgICAgICAgICAgICAgICAgICAgICAgICAgICAgICAgICAg ICAgICAgICAgICAgICAgICAgDQogICAgICAgICAgICAgICAgICAgICAgICAgICAgICAgICAgICAgICAg ICAgICAgICAgICAgICAgICAgICAgICAgICAgICAgIC AgICAgICAgICAgICAgICAgICAgICAgICAgICAgDQogICAgICAgICAgICAgICAgICAgICAgICAgICAgIC AgICAgICAgICAgICAgICAgICAgICAgICAgICAgICAgICAgICAgICAgICAgICAgICAgICAgICAgICAgIC AgICAgICAgICAgDQogICAgICAgICAgICAgICAgICAg ICAgICAgICAgICAgICAgICAgICAgICAgICAgICAgICAgICAgICAgICAgICAgICAgICAgICAgICAgICAg ICAgICAgICAgICAgICAgICAgICAgDQogICAgICAgICAgICAgICAgICAgICAgICAgICAgICAgICAgICAg ICAgICAgICAgICAgICAgICAgICAgICAgICAgICAgIC AgICAgICAgICAgICAgICAgICAgICAgICAgICAgICAgDQogICAgICAgICAgICAgICAgICAgICAgICAgIC AgICAgICAgICAgICAgICAgICAgICAgICAgICAgICAgICAgICAgICAgICAgICAgICAgICAgICAgICAgIC OsFQDrSPUaLPAjJEHnWXp2J1ioRZAmFHRaEK4hURx6 Jz8+DQwGFwVkZSQ8voOitE8CBS2us4HmCFscMDKep1MxICj0HB9PEMHgFRvaQJ2ZMOelmc2MKKJmSZBh yVZQc9eyGqMzNNF4VWBiXahmOY1YYGMkC7spygEhYCJbRFCSOHafHJCASWgwMLQRDGErYJVsCkWoXfJf UFGdCI7PCRFwC912eeNjZY0SSd2XCiHeIN6joq7XDv RbUYAyOlbTDqd6PAicPM5TlOXeqWMmLhMrTUMBVsJnB7igx7RbGrreXGTYPJwuIZ6Km0LflFTnUWz+Pg 2GPG3cx9DgHLlgYnHoST1ysg9LNCaJMbBpE4IepYpnGKrbHXIhpCXAiStcNVYubXSvhBglHSInYTHwKJ EbAC9dBMGbQNI0LnSiTVBRGS7VUEFsQGUukOQgOHHd IMXTUW8IRSfkWWU7JKYzatSawHMwPSxaCX3XALUfksSjLbScWBICWFr+Wy8AQE5rs9AnZBfuYIHoZK3u jv1EXIpRJhEwN6X5tFYlO5R2YVdyRt0ZWUMwRUOgVlCfTUDXYBzuJC5RJP1bjhZ9RA2NtUGoTLHwBASy fUBoZBa5X45oqRNpSLtoHS2TNTD+Debbie+Yl0TUWMdPR SwUGZeEzXkZRVWOiMpA0YrX0SQt8ZtU4VcYJ71uCgharWwFWuwHF5ORC3iALQsPSYHTE7ZyVEymW2dzd BxXjCfQMIDMgAmZ39ngXFoFCOnOWM4EOXnUy6MCBUsY0GlzwCmjRccguAxXCLqCQVSKO8QXZoogdWvaH IeoNniEB57dGnqKT5DMy2GOpDkIF1srb3RkNJsIb5C QZUaBI1VUCLiBOUlKGEcDDN5NHKjIdTpEVoaKGHxWTBaYTV5KIOxRBWkVS3HAgMiGCRqMbQvMFKyJSXu HIMerj1LUIEiKYTcVgj3KxHqSTJxPJVtIXvtUYUjTGTeWPB8MRLjTTPoOB1VDkMzVOLtFLF6TMxdGOQx IAOyfi7QWDJuPOAbLnl0XiKkZPMwEAOgTMmkEFKkRX V2HqnlZTCyDPWkHF4XUnXpCXUlYCO5SrKvXGZmQCDtsf6NNZNcYZTyGgSdMPInTGCoQQRfEPifBMUmIT U2XrJjLHDwLESzFL2MQbGlXLFqPFH2EYiuPUXaYRYaqn5UXGUwOTVtUMf1DYUqTNAhNMOkACpgEBMlUF ZxLUn3CICyAISjYL8RStJyPFEjWLH9ZLWlAUUcEHXz yq4EMUMnKXFySqW4TQKbEOHmBVAbMQccVYQoQARqIYHeTTIyCPLnUG9EFtBuLIBnJVEdPATdUQQkYOAy qz5YIXKkFTExHGRvYZTtPXIkAHVrSOipDHBsJHZ8YkW7FPDlOXQhHK5KWbFeEFCwTGLzYKUeVMAeOOBm aq1IWGHcZAPkIFR6EXHqVFEqHAJwRTsaSKViEEY1ID Q6KUFhBXYqZC1KTuIdKXEzDAK1RJhbLNOzRBSwga1YFAIkQGLaHyhqIVTpIDGxNOShFEufXOOwMGH6OU I5FMGyCGZaVU3BJsUxFEFaQEabWDLlAKEwALPgxv9ATWZsJGJvLFacVtNlCPOrFYNmVSwdGPUeRBIoOq Z4QKZyVUKjUF7CDeNdFTSmHsN4SxUyMXZgCXXxky6X AHGkPKVrBMpbHDDfUFMuGGKhYTvhDJEvKTHkARR3MEXpJGBjET8VUsEjFEPmNgY4MXDkVHAlQWXmyw6Q PGQpXKDfGEg6ChDfFNYoKSVxKEwjVBMyKUXqUOnuTBZiZMPqBI6CMqRiXOMiIqD2EuKxRYWzQBQkzh5F NCIzSJHjJHT3ShPcYURbCLUdWHfgHMHzTAX0DHK4EC CdWWYmGL4YVyKoQDTsWfGfUUAlZDBoMNBjdt9RsJSwaFrjxu6TEJuQEb2NjEdpOEK4ZPrjKg9xcMIqSB YcMNWUOi8NprJhFFGdJGQJIQhwFHIqUCSfMLGrY3WlWIb6CINxJRQ1NsZxUdFzFeGpALeqNDH5BiD0L1 NrNCFuXMLuYJyzBlU1NymjZYPeHFAqMPOsR5YsEdS+ OW6pNDm+Dh9Zy6YrhtF9pyExLMobSMBoAl3YHWPTQ1QXAx== ID Date Data Source [id number] 03/28/2020 08:45:29 AM EST [facility] Name Value Range Interpretation Code Description Data Avani rce(s) Supporting Document(s) Progress Note [facility] ZVULCv4iGmGNEaHr91/HLPssAWOys8UbUQagVPc7KKbsOWVdG5LbCSH3xZ0xDFL9TNnRHaDmJyJiEjL9 lbm [file] AgICAgICAgICAgICAgICAgICAgICAgICAgICAgICAgICAgICAgICAgICAgICAgICAgICAgICAgICAgIC AgICAgICAgICAgICAgICAgICAgICAgICAgICAgICANCiAgICAgICAgICAgICAgICAgICAgICAgICAgIC AgICAgICAgICAgICAgICAgICAgICAgICAgICAgICAg ICAgICAgICAgICAgICAgICAgICAgICAgICAgICAgICAgICAgICAgICANCiAgICAgICAgICAgICAgICAg ICAgICAgICAgICAgICAgICAgICAgICAgICAgICAgICAgICAgICAgICAgICAgICAgICAgICAgICAgICAg ICAgICAgICAgICAgICAgICAgICAgICANCiAgICAgIC AgICAgICAgICAgICAgICAgICAgICAgICAgICAgICAgICAgICAgICAgICAgICAgICAgICAgICAgICAgIC AgICAgICAgICAgICAgICAgICAgICAgICAgICAgICAgICANCiAgICAgICAgICAgICAgICAgICAgICAgIC AgICAgICAgICAgICAgICAgICAgICAgICAgICAgICAg ICAgICAgICAgICAgICAgICAgICAgICAgICAgICAgICAgICAgICAgICAgICANCiAgICAgICAgICAgICAg ICAgICAgICAgICAgICAgICAgICAgICAgICAgICAgICAgICAgICAgICAgICAgICAgICAgICAgICAgICAg ICAgICAgICAgICAgICAgICAgICAgICAgICANCiAgIC AgICAgICAgICAgICAgICAgICAgICAgICAgICAgICAgICAgICAgICAgICAgICAgICAgICAgICAgICAgIC AgICAgICAgICAgICAgICAgICAgICAgICAgICAgICAgICAgICANCiAgICAgICAgICAgICAgICAgICAgIC AgICAgICAgICAgICAgICAgICAgICAgICAgICAgICAg ICAgICAgICAgICAgICAgICAgICAgICAgICAgICAgICAgICAgICAgICAgICAgICANCiAgICAgICAgICAg ICAgICAgICAgICAgICAgICAgICAgICAgICAgICAgICAgICAgICAgICAgICAgICAgICAgICAgICAgICAg ICAgICAgICAgICAgICAgICAgICAgICAgICAgICANCi AgICAgICAgICAgICAgICAgICAgICAgICAgICAgICAgICAgICAgICAgICAgICAgICAgICAgICAgICAgIC AgICAgICAgICAgICAgICAgICAgICAgICAgICAgICAgICAgICAgICANCjw/iAJpM7lacWPwdsI2H7yyEb 8OKp9YCM4mg0JjMMNhFBitngBhMkcZTiGvGIUkVvwP Hqt2DNpyYE3OeSLkC4MgX2YhOXjcJV6JTBKtYIZobFRzCOEdCXRzIkW8FISvQOpsSU5NdBTwRYgdDAAl XXYrWA0XSMZbO685afUgFD3OQa1BRcRvSN6sli1JOgRgCQUfXjuINwg1HLbyME6FbVKfmRNzSeGiYDZA ThMlO9yod2XwHbPeHTPNTUapOJ6Ni4FdtZCkJVl+Pg 3SDM1oi6MhVEhkPgZmGW7kyy6DTSiOZqFeX1PgkQxtDOHms8ydHAAtAW1yxSDnKJF5ZF0PUQnLSeYSXf beT4UMH9UQJJwrRYNeMQAaPK7nOEKkHPN8LnQvOAIHGO5DEQZhFKJeoQLrWYPmDSRFTJ1GWJpgUZV6YJ LmwwWtsKKhWAewSV8FXFZdxaXqFeIqUQOBMTr+Pg0K DC9gm9QaUTriAZKfUC7jts5FJUlXJdDhT5I2sBUwM7L5KDwbBs3XMAWaWNDwOvUcQAJYCBuaCI0MNE1q ryB0UY5WxOUkKUSmHKImaTObFRm2V68raHZvWLwtJF9QGKC+Debbie+Pi4SGJEtHTIhGPZyQiCuICDYFtHv A1QpW1NUw2LrE2WfPB72zGaymqYuHMqqRD1TUO4gPR ZtOGECHF3PbVDpiC9ejfWzFzAuEHIYZmGuG85xmAQqAJUmOMPiFLVrYa5QVMAcF6EcgrXdrMfbioPnVC EtYZQVZL1VOAjdrzFguPGsnBpdKO75vKmfBU4ZYf7KQjWdAW0fqs0LwJSlUe7ZXSDlJA9IWJWqVKFjMB WkWUE5BCYiGmTeTDmoCWKvBIHrLKR3KPUsQVKtCO3E SmDkXKAdFSssLZmuZOXbAJLbud0OLWUpOLDoQKV1FWFbJRMySCCoLXmhIJWuBVBkNBR8XJLrRYDeHQ3R XxCvTZGkLFM3OdfvHHUbQXRtws8VOAVyKABwGZZ1NrAsQIQmRWMwZNjhMYYnSSNbJCBbJCPvUIUpJX5F PoGoRIYsBHXxFLTjZSCzWPLvrn9TTHHsNUOqHwNdOu UiFLHdRHJrOKduYAHoMIDwNtm2ZDHxILMyCS0WKnYfWXTgTCO5LAOvQUVhJBHunm9IOGDxBIGzElc8HQ YqDNPcELQdLBljBGJfHKB3BKU7IXDjIBIaYJ7EDzXlKFUeJDP4OzTvXQLrCNKjbk3ZHZIxIDFgQGQnLG XwVLYeHONpBMtdEANwKGL9UMc0BHIcMMGeDI9GFmQm LHTiRHWgPpVqZWByELCnfu9KOBVfTCImIrp3BwDtPVCeLRWeXMflACHoIAN4EJRqFYNtTZPjJN2NDcDn ZODyBHgbZaFhUILySVCkby8ZCBCjIGCwZsj2SCZbDYUtPHYxIVnrUPIoXAB3HZu5GYVsDQOgEJ8QHoQf MNMcYYhvQFDkKAMtFXEpom8LIKUkICQcSRJcFRUqGK QnEZQyLEx3ifIujGTuMZq9ER0ME1HruqWsWbCGAx0Ht693KZF3IXZdAj8DC7cgQz5zBQFyKGBALb7TPS f1NJD2ZYS2HaF3NlYcVwEbVRCcMWjlXRA4AUXdCRLrUQM+QRwfVok9HsFrPTEfKdQ1ERVdXPHfEbWzOx WnEDYdQlWhZh9cSNLWYx1+AIagcPBdvQrmHLZAIjV9QgD0OJsrMWLQUc1K ID Date Data Source [id number] 03/28/2020 08:28:00 AM EST [facility] Name Value Range Interpretation Code Description Data Avani rce(s) Supporting Document(s) SARS-CoV-2 RNA Resp Ql [facility]+probe [facility] This lab was ordered by [facility] Dimitri MOB a nd reported by [facility]. ID Date Data Source [id number] 03/28/2020 02:20:00 PM EST [facility] Name Value Range Interpretation Code Description Data Avani rce(s) Supporting Document(s) SARS-COV-2 BY NAAT Negative [facility] To be done 5 days prior to procedure.NUC LEIC ACID SEQUENCES OF THE 2019 NOVEL CORONAVIRUSWERE NOT DETECTED BY NAAT.NOTE: THIS TEST WAS DEVELOPED FOR THE PURPOSE OFDIAGNOSTIC TESTING TO ALLOW FOR RAPID RESPONSEDURING A DECLARED PUBLIC HEALTH EMERGENCY AND HASEUA CLEARANCE FROM THE FDA. NEGATIVE RESULTS DO NOTPRECLUDE 2019_nCoV INFECTION AND SHOULD NOT BEUSED THE SOLE BASIS FOR PATIENT MANAGEMENT DECISIONS. ID Date Data Source [id number] 03/24/2020 09:16:07 AM EST [facility] Name Value Range Interpretation Code Description Data Avani rce(s) Supporting Document(s) Progress Note [facility] rvices YMGFUs0vWhCHGyFa58/ULRutMITmt1XhLGpxLWa7RXqzIQCjF9QzGLL2gN5jJAU2KAuUPwHwFlGcECZy lbm [file] ICAgICAgICAgICAgICAgICAgICAgICAgICAgICAgICAgICAgICAgICAgICAgICAgICAgICAgICAgICAg ICAgICAgICAgICAgICANCiAgICAgICAgICAgICAgIC AgICAgICAgICAgICAgICAgICAgICAgICAgICAgICAgICAgICAgICAgICAgICAgICAgICAgICAgICAgIC AgICAgICAgICAgICAgICAgICAgICAgICANCiAgICAgICAgICAgICAgICAgICAgICAgICAgICAgICAgIC AgICAgICAgICAgICAgICAgICAgICAgICAgICAgICAg ICAgICAgICAgICAgICAgICAgICAgICAgICAgICAgICAgICANCiAgICAgICAgICAgICAgICAgICAgICAg ICAgICAgICAgICAgICAgICAgICAgICAgICAgICAgICAgICAgICAgICAgICAgICAgICAgICAgICAgICAg ICAgICAgICAgICAgICAgICANCiAgICAgICAgICAgIC AgICAgICAgICAgICAgICAgICAgICAgICAgICAgICAgICAgICAgICAgICAgICAgICAgICAgICAgICAgIC AgICAgICAgICAgICAgICAgICAgICAgICAgICANCiAgICAgICAgICAgICAgICAgICAgICAgICAgICAgIC AgICAgICAgICAgICAgICAgICAgICAgICAgICAgICAg ICAgICAgICAgICAgICAgICAgICAgICAgICAgICAgICAgICAgICANCiAgICAgICAgICAgICAgICAgICAg ICAgICAgICAgICAgICAgICAgICAgICAgICAgICAgICAgICAgICAgICAgICAgICAgICAgICAgICAgICAg ICAgICAgICAgICAgICAgICAgICANCiAgICAgICAgIC AgICAgICAgICAgICAgICAgICAgICAgICAgICAgICAgICAgICAgICAgICAgICAgICAgICAgICAgICAgIC AgICAgICAgICAgICAgICAgICAgICAgICAgICAgICANCiAgICAgICAgICAgICAgICAgICAgICAgICAgIC AgICAgICAgICAgICAgICAgICAgICAgICAgICAgICAg ICAgICAgICAgICAgICAgICAgICAgICAgICAgICAgICAgICAgICAgICANCiAgICAgICAgICAgICAgICAg ICAgICAgICAgICAgICAgICAgICAgICAgICAgICAgICAgICAgICAgICAgICAgICAgICAgICAgICAgICAg ICAgICAgICAgICAgICAgICAgICAgICANCjw/eHBhY2 qcaPUgggV1U1uaSp2LGu8NPS0se2UiPAMhXBazvdOtJjvRMmMwVDEhUxxOKfi0WTnzLR7NiNIzV5ZmJ4 OfYArpZZ5JARAuAPMjbGGkRTSvKCSwCuH0OYUwCPznYH7UnHYlMNsxVSSzDMAmNX8ITZEyM843syEtGT 1LIb9EBeTeRV3dkr7CRnQfIBKhJkdUPyg6KMecZY6L jXMcqDFrDjOqGDDZYmKsK4kor8NuCvBtFYKBJTnuLG1Sa7XlbMPuSSj+Bq8XQM4mb3NwJCvhTeRpAX2v ja5ADZzPKqKcD3PkoZguJJEzk3mxOJPyVN8lmRIeHUL9MYxzudpisjTfRPSIoeK6ALXsOTRTZBJioOTt VL0sUH5uZBMtPKO5YsKfVUKIEZ0SKGHiWFXtmRMlWJ KyUHJEMD2JWJwlEQQ0ZFRyxvPvhACnPKvlCF7VTUXvtqMbRmSwBAIJSSj+Ly4QHR5dj9TyCUdvJHCeOS 9akx6LNNoSSeVdK5H8vSTwH4X3LQxnTa6DBHNdMPSyMbKwVKOPVYlxKS1ZHP4redC6SS0MyFJyIVJbXW RdbBAwCFq0Q84uzNTxJJiqEM0OROK+Debbie+Jc8ZUZKh LSZpKMAlKuRbJCCJVfGeQ9HgD6NWg7SsO7QcRK64tToxwnVjSRtnZB6FUX4hKCCdDTMADG9VxYGyiZ3g jlNjVeRlRDHSJmFqM04bvFPiYUDuZGSwZWQjMf6IDVXrT2YhhvFnbKuvvjYzUVFiDMHSDN7XLHitidAx rGNxqEcxEJ24iLwaZA9RBw6WDoHpUN4ozl9MmHAqBs 5ZJRTxSU4SYPNkCEFsCCNwYZJ5FDSaWxOzQDrqHCPnBCBhRFI6SAZnWSOdUD7EBtXyQOKtWCl4WBTlCG FnEBLnia6ZGGIqILMlLCN2JAItWNWfSQEaRWpeEFXtRRWsFNE0NVTySXPsXI6EBfJaFLTlLMOzZqsrTQ AhFFOlsv4FHJBnUXAqHVE9SFYpQLGgBREnYKtfUDYe DXNpSXY2RNBuGXWkVF7JCjLdNADqQAL4KGIgNYRhJOLyny9CFSClYINjLefqYBRwRJAkCDOfFOktFJCt RKJxPQp1XRPuBRZsOM4CBfIoFWRcLYUwVCBsOYWkLUAagu5CZTTkRFIdYRH0TpCuCTBtTGWzAAsyPFFy LCK8MbSdEEVrUSGyCA7LEgLgRYXpJDR9JkxiPBUlFH Hjwm0EGQLwUGKdHeTzBeAyYJCcSMAnPUqiXWBqXMB8Sfu3EPKmNBHeKR4UYaNkGHMwFCX2JzYhBPTsWF Lrhm6NCHCrFQCzEkH5RSUlYGDhQBBaGFllAPTfODD2JsKzSHVtPCGnSA4PGvSuTEAuWBb6ZoPaQCMmXT Qwrc1AZNQzXMHwSYFxGOGhMKFsFDTbVBhcUOXgDZJ0 Kxq4HBXkTRRdUB2GKnQmRCYxASr6ZCjiQPMsXTSmng0GEQKvZBOlFIqmNCDrCEOnEPMdLGc3ugFiqTMk GDb3AK7UC4KcaoDdCxEBHe4Vw007MVU1HUIlAc7RN7fiHk4mHAIvEGFCRv8UCEh2EjZ1SNO3APJoHMBv KvFlLUN3BYm3MNBlMTVzPhFtYvT+CHr4IUqdLfC5CQ M2PoTdMFIwSkl7BEOwUKQuLLO0ByYxBw8pTNLGCo4+HZntgXAzqHnsBXEWDdAxAHF1DWtcKNPWAs4L ID Date Data Source [id number] 03/07/2020 09:50:43 AM EST [facility] Name Value Range Interpretation Code Description Data Avani rce(s) Supporting Document(s) Progress Note [facility] XWBKJd9jUpSHQmHc23/KBZpzTYCwd6HyHYttMEw2TUetUQSoQ6EvHYR2aO9rCGV3LGyBXhNiTmQnDOAy lbm [file] XB6qaPQ37Nn4Mev4ymdiLUO+/xGx3/Qffro/Zc Md+mCg7mqvOnmbwjUH9EO32Iu6/zh37UL16e2OYIbCAZOSlRDWyAQXRgr5PjH60Ik1+h7K559fa+rerV dC4VmgOV++VdbEP4qY75VJJzEgaynciBtlxIe0FJ+TubPkfWmEpHQhP2gIUg1hyhb6m+WaIQoK26B/GP gA6A+GI8IboWGZNKYT/pNsrPkVpiiHM9EKobD88Mdc sWIy4q22KvBtuBe4V+nz1jynJ28E/9Yk84Lq53s3dLq2rFeOLUfWxI1U4GqASauxlHce4eHx3WZrPAWG QAUA2sW79S50f7luWriIe9K+xLuUIs+mvGFMLHd1KRfDJ8AZJYHMwYTFs4mtuNcQwzKyjluZG7iRYUf1 Dilcia+G+vaci0P4pGXeLGdFYSTzTJCNU/GqpyGNnB2v2 [file] ICAgICAgICAgICAgICAgICAgICAgICAgICAgICAgIC AgICAgICAgICAgICAgICAgICAgICAgDQogICAgICAgICAgICAgICAgICAgICAgICAgICAgICAgICAgIC AgICAgICAgICAgICAgICAgICAgICAgICAgICAgICAgICAgICAgICAgICAgICAgICAgICAgICAgICAgIC AgICAgDQogICAgICAgICAgICAgICAgICAgICAgICAg ICAgICAgICAgICAgICAgICAgICAgICAgICAgICAgICAgICAgICAgICAgICAgICAgICAgICAgICAgICAg ICAgICAgICAgICAgICAgDQogICAgICAgICAgICAgICAgICAgICAgICAgICAgICAgICAgICAgICAgICAg ICAgICAgICAgICAgICAgICAgICAgICAgICAgICAgIC AgICAgICAgICAgICAgICAgICAgICAgICAgDQogICAgICAgICAgICAgICAgICAgICAgICAgICAgICAgIC AgICAgICAgICAgICAgICAgICAgICAgICAgICAgICAgICAgICAgICAgICAgICAgICAgICAgICAgICAgIC AgICAgICAgDQogICAgICAgICAgICAgICAgICAgICAg ICAgICAgICAgICAgICAgICAgICAgICAgICAgICAgICAgICAgICAgICAgICAgICAgICAgICAgICAgICAg ICAgICAgICAgICAgICAgICAgDQogICAgICAgICAgICAgICAgICAgICAgICAgICAgICAgICAgICAgICAg ICAgICAgICAgICAgICAgICAgICAgICAgICAgICAgIC AgICAgICAgICAgICAgICAgICAgICAgICAgICAgDQogICAgICAgICAgICAgICAgICAgICAgICAgICAgIC AgICAgICAgICAgICAgICAgICAgICAgICAgICAgICAgICAgICAgICAgICAgICAgICAgICAgICAgICAgIC AgICAgICAgICAgDQogICAgICAgICAgICAgICAgICAg ICAgICAgICAgICAgICAgICAgICAgICAgICAgICAgICAgICAgICAgICAgICAgICAgICAgICAgICAgICAg ICAgICAgICAgICAgICAgICAgICAgDQogICAgICAgICAgICAgICAgICAgICAgICAgICAgICAgICAgICAg ICAgICAgICAgICAgICAgICAgICAgICAgICAgICAgIC YjCEBfYREdUACuUTGbNXFhPLMyVJTpMYRoYDXsZNNkLTb0B8ayKKYdVBHdQL5aHGk1Mm3+DQoNCmVuZH N3vlTrrK0WYX8pz5JmBSykPZUuh8XfBVd0IX5CIUUkNGwgIT3AHCtuyv9EHPJpISOxsEWKu7ijDqQuQN C1UKGdMeebOE2JVZRkZ5hbxnEiSRGeMNZCLC4RJqFb U4DlwL02INUZUc8+DJxlscYvDmoLMpBdZPNkg3EkNQk1VL4GAFJuAqyyu8IrUiPfIUSIOCnrZU9PKAB1 JHMnQGUeZt4AQTCtS972zjCrRR1BZd0ERfRnDC6lwg0MJqPuWVNeAdqLUfc7RCvvVX1ReLClAMmJgk4p heRuttMXa3NntsIraPELUVKnDWDyCKAcbWAccDLmDR 6pBq3nDZRtVVK6DhI5KJJHCQ2VTFJfXSPnwALcLARpZMPWRF8ECGzvIWF0SCJwnjKaqTPrEVxwNK6HDG JlbnQgMjIgMCBSDQo+Cb5XUN8xf6GtENiwMCJlEV0itb9UOHhDHvYjN2Y9bLBfB3M1CErsKo6ZAVHvGI BjRfUmQDXKUJezXR3MUD5jmlX7ZE2ZcCSxQBBlEXCw wNFbFWq6T65rbQAkQFkpWL2XWCM+Debbie+Ic8IEMUsSQVnAVPfTpKfMZOPKkMkT4AxF6AJt4McQ7ZuBV23 mDmvjoSmTCdfIZ8SWY2fOFLaUDURQX4NiIQozU0kpaWtExMuAVSNNxZxV08bzWFnKBRiMMNrXIKlNd7D RXRrW4VwiaKmnRqiyyXlRAZbCXCJTX0AONvmzoTvkZ IhtXtpIW20zFzjZR1GXo7RFbLpAD9klf8GgCRfQh7EXEIsNV7HPKVuOHLdOUJnUTQ0WCWtAjXsNRhvDD UaIYTtSNC1UGTjSCPzEU5DBkBjDEKvWGn9CEElHEOuAKAdhf5XXJUxTPScEPXyOnQzXKZyDEFkKTjnWZ OdASNjTAX7PPYtTAUiMR3FEhVaHESjBCPpTNLrQESa TUGqrk7IGAMcEQJqZNRgHFMpHIQpQCLcRNwcHYIzVRTkKco3LZCvCYVfSV9HAqBeZFRzTEU1GbgtQXLf OTMdvg1ZCMYlPYKsGjX4XwPqYFYsNWMnCHhiOBBeOMFuGlCkQCAxYYUlKU5TUdMbTKMcIJC3WVihQLRg OIXemj8QMDLlLNNzYFRpRKKbMGYiBUScTFuxKHVyTY Q7EjX1MJXjLSIzXI5NPtSdXYSiFPL4KxJkWVReBNPyzg5BMIZsLIUlXPz5IBRlUSAwKOMmUXyvUQYpGN W5YVR0IEErPWRhWV6BGhVlVHYfMPTcYxZpMYXyYTGtji6HNYXxXWBeBtSkQzYkMEZlGSRkLUplXZJeTZ T0Dfg3XFOqMBMvEC7IHaZoHVErGSr4AlDvLOFfJJTq tu0UUAZkETQqQst1VuQoTSTmJOVcIOltYODuIUI7QDL4OYVvDRGsPR0SVsDmHKShMJm9YSWfGHUcZZOx vi7QZZPlISOlLGRlJDDjATJtBTQxICw1aeDocHEtIEp5SB6QG1JmpxOwXyIVIz9Ym222HYH7ZVTaFx2B C3svPm8jLWPkQZCOUe6SSVn2MHAdWiXqKAO3QpFzRD ErZRFvHBE6GMAjOIMoA2Q4G0H+QIqfGXInSDZgBDCrXWQnYQQiQfR0JNj9XUR2NaYdZJLiOR7fBBNCWe 4+KPyuuMCggFxoMQAJLgS4DBoeWFqoMXLLSj2N ID Date Data Source [id number] 02/28/2020 01:12:32 PM [facility] This is a summary report. The complete r eport is available in the patient's medical record. If you cannot access the medical record, please contact the sending organization for a detailed fax or copy.-REPORT:PROCEDURE: BI MAMMO SCREENING TOMOSYNTHESIS BILATERALHISTORY: Breast cancer screen, avg risk, asymptomatic (Age => 41y)COMPARISON: January 05, 2019, January 11, 2018, January 07, 2017TECHNIQUE: Two views of each breast are evaluated. C view, tomosynthesisimaging, and computer-assisted diagnosis was utilized.Breast Density: Heterogeneously denseFINDINGS: There is no significant interval change. No suspicious masses,architectural distortion or groups of calcifications are identified.IMPRESSION:There is no mammographic evidence for malignancy. Follow- upper screening guidelines.Overall Assessment: BI-RADS: Category 1: NegativeRecommendations: Routine Screening MammogramAdditional Recommendations:- TECHNICAL NOTE: Digital supplemental views were obtained as detailed inthe body of the report. All mammographic images were obtained digitally.-TECHNICAL NOTE: Digital screening mammographic images were obtained inthe routine craniocaudal and mediolateral oblique views. The digitalimages were processed and analyzed utilizing a Computer Aided Detection(CAD) system. The CAD display was reviewed.The patient (or patient's legal guardian or health care agent) does notrecollect the patient having a clinical breast exam within the last 12months.DWS: [id number] Composition/Densitya. Almost Entirely fatty: The breasts are almost entirely fatty.b. Scattered fibroglandular density: There are areas of scatteredfibroglandular density.c. Heterogeneously Dense: The breasts are heterogeneously dense, whichmay obscure small masses.d. Extremely Dense: The breasts are extremely dense, which lowers thesensitivity of mamm ography.ELECTRONIC SIGNATURE: Jeyson Tse DO Name Value Range Interpretation Code Description Data Avani rce(s) Supporting Document(s) ID Date Data Source [id number] 02/28/2020 01:12:21 PM EST [facility] -REPORT:PROCEDURE: XR ABDOMEN 1 VIEWDATE AND TIME: 02/28/2020 12:56 PM ESTHISTORY: constipation.COMPARISON:TECHNIQUE: AP supine.IMPRESSION:Increased stool seen throughout the colon compatible with constipation.There is no definite pneumoperitoneum. There are no indirect signs ofabnormal soft tissue mass or fluid collection. Sacral stimulator is seenin the left of midline.The lung bases are clear. No significant bony abnormality is detected.DWS: [id number] SIGNATURE: Ashish Bah MD Name Value Range Interpretation Code Description Data [facility] rce(s) Supporting Document(s) ID Date Data Source [id number] 02/13/2020 03:18:16 PM EDT [facility] Name Value Range Interpretation Code Description Data [facility] rce(s) Supporting Document(s) Progress Note [facility] rvices XMGNXo2gDxCKAkPk84/GTEgrQJVzh4KuTNkdVCe0QAoaZSCyU7GaITU9fB2wQIY0UHpAVeGpZfMvXDSt lbm [file] AgICAgICAgICAgICAgICAgICAgICAgICAgICAgICAg ICAgICAgICAgICAgICAgICAgICAgICAgICAgICAgICAgICAgICAgDQogICAgICAgICAgICAgICAgICAg ICAgICAgICAgICAgICAgICAgICAgICAgICAgICAgICAgICAgICAgICAgICAgICAgICAgICAgICAgICAg ICAgICAgICAgICAgICAgICAgICAgDQogICAgICAgIC AgICAgICAgICAgICAgICAgICAgICAgICAgICAgICAgICAgICAgICAgICAgICAgICAgICAgICAgICAgIC AgICAgICAgICAgICAgICAgICAgICAgICAgICAgICAgDQogICAgICAgICAgICAgICAgICAgICAgICAgIC AgICAgICAgICAgICAgICAgICAgICAgICAgICAgICAg ICAgICAgICAgICAgICAgICAgICAgICAgICAgICAgICAgICAgICAgICAgDQogICAgICAgICAgICAgICAg ICAgICAgICAgICAgICAgICAgICAgICAgICAgICAgICAgICAgICAgICAgICAgICAgICAgICAgICAgICAg ICAgICAgICAgICAgICAgICAgICAgICAgDQogICAgIC AgICAgICAgICAgICAgICAgICAgICAgICAgICAgICAgICAgICAgICAgICAgICAgICAgICAgICAgICAgIC AgICAgICAgICAgICAgICAgICAgICAgICAgICAgICAgICAgDQogICAgICAgICAgICAgICAgICAgICAgIC AgICAgICAgICAgICAgICAgICAgICAgICAgICAgICAg ICAgICAgICAgICAgICAgICAgICAgICAgICAgICAgICAgICAgICAgICAgICAgDQogICAgICAgICAgICAg ICAgICAgICAgICAgICAgICAgICAgICAgICAgICAgICAgICAgICAgICAgICAgICAgICAgICAgICAgICAg ICAgICAgICAgICAgICAgICAgICAgICAgICAgDQogIC AgICAgICAgICAgICAgICAgICAgICAgICAgICAgICAgICAgICAgICAgICAgICAgICAgICAgICAgICAgIC AgICAgICAgICAgICAgICAgICAgICAgICAgICAgICAgICAgICAgDQogICAgICAgICAgICAgICAgICAgIC AgICAgICAgICAgICAgICAgICAgICAgICAgICAgICAg TGSpAFKmBTIoZXQfBQUbUUBhRCHrKQJmJCOrZJTyHGAsZTMhHKUbJTQqJNNlVGXbQAn7L4rcDILpKSVp OV8fHVd3Kr2+LTqNLbTxDMZ9juKjmS0JDS2pt9NgCWkjQGUzn9AqPLt4TN7PNZHkMBixDN4PAVgmwd0S YESeHQEjdBVOt0yvBnIsLYR3FCZvWktxRA9HYHStD6 vrdcYcQVGaUMAMXZkmDHWUZUvaVSXIOECuNWRyAnPvFqItHFKnEICqRYTLRJY8DBUeLiSjIIwwGZ7Ux7 TikPK6VNr+Ng1EIR2ti7RgRWl6BFPwNM9djw8LTUxCXyRvP8ReyiW8PUG5XDRrNe5VTZZgDGUyjZD0Au OoDOCETtPyE1MrjD89UEDXVo6+DQplbmRvYmoNCjQ2 NLPcc1RfLNe8OP7EIVVoGOm8yZIrBSPmC6Qdq1TmHs97SGAvYogkLe1ivGLtKQQFVSsvTPUepDPrYC1J OMO1KGBcDeQ2VnElXpLdCRM4BlWbLU2aOTtkOV7EKVH5VYqnFVNaNSWpT3oPPrSaHVb5DeLffIzmXK1V QmAeC4CikfHavVN0LXEiNXRWUa2+DQplbmRvYmoNCj M0WCPzx8GgHUd9UL7VKNLtFXwrPO9EYLQgjL4hCNpuFW0URgF2XeFwTTFNHcVbD86xpOEbOWw7E8TtCc VkZGVkRmlsZXMgPDwvTmFtZXMgWyBdDQogID4+ID4+VIpeSX8DGSzijcDyTJPjWi4VREGqASVhPL1aEK FmZKEjW5L1jJdfROVQJgNbY5ogmztnDW4hIMDuO330 hHnfbjUyOEM0CRZuBs8EKYWjJRY7GXNaaXXcMRBnKADOZRtwUS0FoNEaKOG3nB9lLIkfFFSqFOWyB0bW RaLzvXmbUF39cMmhvpOcaUBaYYi+Ma8AIA9go7ZlSJs4qhZqNIpzEWO4KRvvOJNsYGHdESHqYNE2DWG2 JHUAZiUlRHAnLOYrJWugHQSvAGIspm1PCIKmLDF0YS LsXHTrJRXhYHXkTFriUHZwNISiAxQ3EUYtSUXmQZ6ESoJcELTmMAHpQDvsMSXqPDCnse8DCBFeNSBvOt S4VaNxTBVzORPzKBtbLGIeTGFyJvj6IFAcVDDtLP9VMeAgZTNiHKO3UHNiSZJfYIUpce9TQVJkNLHlEo G3RfSnIBCyHYLwGFnqOKTzMKQ7Okb4ZKFxUJSqEF7A OuXdKKPkYXi6DCjbNOKgTIIdiq7NYFZrOIWpLNpuNMHtAQLnXIEjPMkoDANdUSAcVJPlEKWwIWMjOZ0B NuVhBTBoHHR6DpJqIHQxWWLons3JNQCtHEVkMhk6XdAlXBLzFBUvGKcwZCQcXTE2HvvaQNPkVJDpKW7I VkZaMEIsRBZ4ZkfbEXLqRKXijs2HLVOjGHXwUcA2TB EgVPVmIIIyZSgxZRNgELW5ZbAqBIKhEJScOI1JZhUoYDIjNQs6UYitSTOfDELjox4WFUQwOSRqIPnwHU IrKSTbTDWlJMzqSTTwQHC7HVO3ELJkORPnOO4OAwUrZNMlUgAoDzriHWOtTRMeiw4IRAJeWEOkDWI6Fj JbULVaOYOlPTikSWDlRTNhQTE4AXPvQXXkWQ3VPbKf XUIjPqP3YEfjOHMwYVWtsr1BBGDtJQFcLzEhFYTjUDTrLZRlSBonZOKtIOBaLjOsTGEuZMBjIO4NMaDj YVDnIcS0UfPtMTCyYXPmvr2KUSVqNJInAmwgIEFsOIIcVGBkMYbgKGYnUNVrHxLvVOMlBBPrRW3VJqKm GXTbZvY0UHMnCVFoEEDedy1EXPIeVHVhQMEpFOGsLN YpYCIeKMmlCABtKED5KWSpMEYmALTxAH4ATfJjDIAeJsHwVNglYLDqNTYjua6TPCJfCYSaZCXzQBHzBY MbZKLnXCtiTWUdWMM9SOY8HWTdKODqER6RLwWdFIGyWXv7ZMDsZAFvPODfks2ZTFZmDBK2ECfxXVNgZK NuTCLcPKtrEJQjQWS2RQTeUDOzXYGpSY3XElBqOSGs TFvdNIyzXOUsCTEqxw3IQSLsHYE6MKDgAENsPERxWYFrLCjmLITfJNLuTmVmDFBsSSOmLB6OMaMuKXYf GWK4BYBkIUKnNASzcx8MYBTrPSC1GHt0UBCaNBDqSXJvUJoaZTObOPJkSmF5NRGyFTSyQX1WWqHyNAWm LCH3OJjtUAQoORXfbe3PGIZjQRQ1RgR2ELOqLFUgSH YtSCe0cyCwlUSzTHm5CA1IT5NpfoDbSItTNj7Xe803TYX7FWDvYl8CX7pzIi5zSXBySFGIYo7IHJo8M9 PhLTYtMnTqEBTtHtOzJPRzIMZbLcGnLFE8AUd8TWE+EPihIMP0TkO5UHTqRBOcKFQeJJToFkVjMOG3Iv YyLIbkSh9pKRMVMv1+KHqoiYMmmFwgVOTNOeWxYUH3OSipJVNSVh2U ID Date Data Source [id number] 01/31/2020 02:07:56 PM EDT [facility] Name Value Range Interpretation Code Description Data Avani rce(s) Supporting Document(s) Progress Note [facility] rvices OEEKLp2cHkMJJcEn92/RMQdmMGTba3AoAQvmDOx3YRzhCCUzL2KoCEX1gV8oOSM7TBjPBkJjJvAhOAT6 lbm [file] AgICAgICAgICAgICAgICAgICAgICAgICAgICAgICAg ICAgICAgICAgICAgICAgICAgICAgICAgICAgICAgICAgICAgICAgICAgICAgICAgICAgICAgICAgICAg ICAgICANCiAgICAgICAgICAgICAgICAgICAgICAgICAgICAgICAgICAgICAgICAgICAgICAgICAgICAg ICAgICAgICAgICAgICAgICAgICAgICAgICAgICAgIC AgICAgICAgICAgICAgICANCiAgICAgICAgICAgICAgICAgICAgICAgICAgICAgICAgICAgICAgICAgIC AgICAgICAgICAgICAgICAgICAgICAgICAgICAgICAgICAgICAgICAgICAgICAgICAgICAgICAgICANCi AgICAgICAgICAgICAgICAgICAgICAgICAgICAgICAg ICAgICAgICAgICAgICAgICAgICAgICAgICAgICAgICAgICAgICAgICAgICAgICAgICAgICAgICAgICAg ICAgICAgICANCiAgICAgICAgICAgICAgICAgICAgICAgICAgICAgICAgICAgICAgICAgICAgICAgICAg ICAgICAgICAgICAgICAgICAgICAgICAgICAgICAgIC AgICAgICAgICAgICAgICAgICANCiAgICAgICAgICAgICAgICAgICAgICAgICAgICAgICAgICAgICAgIC AgICAgICAgICAgICAgICAgICAgICAgICAgICAgICAgICAgICAgICAgICAgICAgICAgICAgICAgICAgIC ANCiAgICAgICAgICAgICAgICAgICAgICAgICAgICAg ICAgICAgICAgICAgICAgICAgICAgICAgICAgICAgICAgICAgICAgICAgICAgICAgICAgICAgICAgICAg ICAgICAgICAgICANCiAgICAgICAgICAgICAgICAgICAgICAgICAgICAgICAgICAgICAgICAgICAgICAg ICAgICAgICAgICAgICAgICAgICAgICAgICAgICAgIC AgICAgICAgICAgICAgICAgICAgICANCiAgICAgICAgICAgICAgICAgICAgICAgICAgICAgICAgICAgIC AgICAgICAgICAgICAgICAgICAgICAgICAgICAgICAgICAgICAgICAgICAgICAgICAgICAgICAgICAgIC AgICANCiAgICAgICAgICAgICAgICAgICAgICAgICAg ICAgICAgICAgICAgICAgICAgICAgICAgICAgICAgICAgICAgICAgICAgICAgICAgICAgICAgICAgICAg ICAgICAgICAgICAgICANCjw/nOXxZ2swsKXzbsX6L5nyQu7JFx8QOJ4bn0LmJXYjSMwbusYqCobLSeUa UAPbScvYJjs3GSsgWZ0BrSTwN1WxV7JcKXvsXD4GEG XfDVAaoQLtKDCmNENjWwT9FYBqCVjuBE4OzNEtZXdjDKCfPBIeHoGmQYMjJWIdJCVgDGQtBXAKVT8UMv HiT8UuyF73TJRYYu7+UNxbrmJvOzdWZxJ0ZAUrr7MlJNd1EC5VJMAkDfwit8JeHKXvTVTMBEldNN5NYP F2SHEoBXFzJa7BEFLeX770ejZbFI3ZKp8UDiKiAH9p nw8VKRNaOQYeWkcSGrn9QXwpDS5UsDSfTZgNxo9edoQsouBYa6AuavEvqZJQqNYcKO9rIOHsq1StxTox FWNzKDGaPWXhRE2fYAAkHAYkXsJcPVHAPY3FDUIoASHszIEtQPDdHZBSXC3LGIqyDJP2WPYmrwIsyVJd OEoiSO5GFJVlkhNuIjzuTDCFWPv+Rn0LRL9cv4SwSL j1MCVhOO7udt2GXPkXKpQiV9N8cXEjR3E1IBpjGw7QCFRyRLFaBipoIBIJGMwwXE7UZC3nivF9BL1NeF XcIRZkTTPosMHrBBn9J01ivKTdEXwtTI3DBOM+Debbie+Kv1SULQcGNDmMPQzQrYwNNNICkNrH2AyA1EUh5 IyT5GhAB98lOngjqFyQIarLF0EXM3eLNMhGUXYVL8U eEJzfJ1hnyLlKICeCLVZXqQrC27kjYTjTQCiHTA9AJNrIp0FHGErJ6EvzlVfjTchisIxVYMpOIEEBZ7C GMkpuvVqyXLwiRahMI02jHruFI4UXk2OSjNxGS0ptz5OrZMjLd5AZXM9Wl0ESGUsYDScSYOaFXR3XQNv LiIsIUcmIPZcRGPyXCW1SBFiEAXcAI9FUjJzWGTuUD I0JjWeMYIoKCXwik3MASWyIHK2Thj5YVKtTSQwFNHiPUhrCUKzZDToPZL8JEOdXCKzEC0STqYoQVDyAN KxSvBvPTAlUADhtl6MONOqUYRkZiD9PWGhTWFcIZCyCHghVTPyOZF8OMK9MPAiJHOpWM9PMoBcRSQyWU GqNaxuFMIjZFFdwb2RZHPjYBZjLHc9TMGbUBEgFZLh INulZDWnPKD8FNUgDAFkSCViOW6EUfOuGJBoYBMyLPOiEFUsZDEzvi5TLDJzNMJzSMFhFLZjPBDxQYVz GDpxBCAkTUNjCQw2VTAxRDCeUA1TZoUbGXUyIANoFFVxANHkNXJeci0XLTBdADNhFIL7EVWsGNLdUXRg AZguCLCeADJzEBY8YXTfNNWxBT4GKpGsZNFgUZA4Nc UcRYGjUWFeod3LASYfPDWbEdviXMKbJDXjDYGmHOtwGGMyIHO1OvD0NNWvFXQpDL1CTcTiUEIgZvU9Ed NgMJJwUAAlfn2CJUWbJVWxOSc2YpDtIHScECSoNTvpPYOmNRI5HJLsSQOfMJRoQX6BXuJkBSAiXgLxWh giDPTfVOZvnp2IFNBrRASnUkTkWYSnMYKoVUAlNGoh ZSPhJNQ2DxDcZQYoTREpYU3MYwFpZZKeBmL2ESYeWFDbRUHkos7DCHAiWSXdOhTjFoEaWXRlGMXaNDvi VQKvSBW6GkG9HZByKHBlNE8RIwWiQSTwSwg9JMXoFHRdVURlrx7STRQiXSU0DLd0FSBnSGAyMNBhHJub TBBnMQK4OAjpMLTxKNNpJV8CPlWuITEqZMv3QJGsEG MqZRPepu1CQLAyJDS2CCX6NxRxIEStUQTlGYkuDMAqODXpNcBlVTXqPSKaCK8ZDlPeLAVrJWJ8YzUnZP VaBOZizu9RCJWgYIH1UNw9PMChYWYzWSMjOGziZVRcMEHuBBD7HOQhZPGaYP8AFyTtYNBzEKW1QFicMY DmEJDnxa5XIWKwFZR9The3LwNaACTwMGBmWFhzYGVj OAImDFV0CMHsFLRiZX7SHsWrYFGuZEJsWVQyYJOzWCYjyg3DdFXusHtwee2LJQvYXp7BxPofRIQyBTkg Yh3bvSO1NGOsIXULZy7BjrEpQBNgTTYWNTyvTNHkPAC2WEthI2K4JYKlLQGpBILdDWC0Z9BuIBs9ZdPq QBCuNxH4FooiOYSnJGvmTwGjV7VhZ2M6EdYxMYQ3Qb acQYJ6T4E+OZ7hUIt+Sg1Hf1WazhK0krTmDUh8JSCqIH4QYXRHV9UPAf== ID Date Data Source [id number] 01/16/2020 02:42:00 PM EDT [facility] Name Value Range Interpretation Code Description Data Avani rce(s) Supporting Document(s) C REACTIVE PROTEIN (MG/L) IN SER/PLAS <=0.9 Above hig h normal [facility] ID Date Data Source [id number] 01/16/2020 02:47:00 PM EDT [facility] Name Value Range Interpretation Code Description Data Avani rce(s) Supporting Document(s) LIPASE (U/L) IN SER/PLAS <300 [facility] ID Date Data Source [id number] 01/16/2020 02:42:00 PM EDT [facility] Name Value Range Interpretation Code Description Data Avani rce(s) Supporting Document(s) SODIUM (MMOL/L) IN SER/PLAS 135-[address] [facility] POTASSIUM (MMOL/L) IN SER/PLAS 3.5-5.3 [facility] CHLORIDE (MMOL/L) IN SER/PLAS 98-107 [facility] CARBON DIOXIDE, TOTAL (MMOL/L) IN SER/PLAS 21-32 [facility] ANION GAP IN SER/PLAS 5-[address] UREA NITROGEN (MG/DL) IN SER/PLAS 7-23 Below low nor mal [facility] CREATININE (MG/DL) IN SER/PLAS 0.5-1.0 [facility] UREA NITROGEN/CREATININE (MASS RATIO) IN SER/PLAS [facility] GLUCOSE (MG/DL) IN SER/PLAS 65-[address] [facility] CALCIUM (MG/DL) IN SER/PLAS 8.4-10.4 Un [facility] ASPARTATE AMINOTRANSFERASE (SGOT) (U/L) IN SER/PLAS <59 [facility] ALANINE AMINOTRANSFERASE (SGPT) (U/L) IN SER/PLAS <35 [facility] ALKALINE PHOSPHATASE (U/L) IN SER/PLAS 38-126 [facility] PROTEIN (G/DL) IN SER/PLAS 6.3-8.2 [facility] ALBUMIN (G/DL) IN SER/PLAS 3.5-5.0 [facility] ALBUMIN/GLOBULIN (G/G RATIO) IN SER/PLAS [facility] BILIRUBIN TOTAL (MG/DL) IN SER/PLAS 0.0-1.3 [facility] GLOMERULAR FILTRATION RATE ML/MIN/1.73 SQ M.PREDICTED >60 [facility] ID Date Data Source [id number] 01/16/2020 03:00:00 PM EDT [facility] Name Value Range Interpretation Code Description Data Avani rce(s) Supporting Document(s) CHORIOGONADOTROPIN (MIU/L) IN SER/PLAS [facility] <5.0 NEGATIVE5.0-25.0 INDETERMINATE>25 .0 POSITIVE ID Date Data Source [id number] 01/16/2020 02:42:00 PM EDT [facility] Name Value Range Interpretation Code Description Data Avani rce(s) Supporting Document(s) AMYLASE (U/L) IN SER/PLAS 30-110 [facility] ID Date Data Source [id number] 01/16/2020 02:20:00 PM EDT [facility] Name Value Range Interpretation Code Description Data Avani rce(s) Supporting Document(s) LEUKOCYTES(10*3/UL) IN BLOOD BY AUTOMATED COUNT 4.0-10.5 Above high normal [facility] ERYTHROCYTES (10*6/UL) IN BLOOD BY AUTOMATED COUNT 4.00-5. 20 [facility] HEMOGLOBIN (G/DL) IN BLOOD 12.2-15.5 [facility] HEMATOCRIT (%) IN BLOOD BY AUTOMATED COUNT 35.0-47.0 [facility] ERYTHROCYTE MEAN CORPUSCULAR VOLUME (FL) BY AUTOMATED COUNT 77.0-100.0 [facility] ERYTHROCYTE MEAN CORPUSCULAR HEMOGLOBIN (PG) BY AUTOMATED COUNT 25.0-33.0 [facility] ERYTHROCYTE MEAN CORPUSCULAR HEMOGLOBIN CONCENTRATION (G/DL) BY AUTOMATED 31.0-36.0 [facility] ERYTHROCYTE DISTRIBUTION WIDTH (RATIO) BY AUTOMATED COUNT 12.0-17.0 [facility] PLATELET MEAN VOLUME (FL) IN BLOOD BY AUTOMATED COUNT 8.0- 12.0 [facility] NEUTROPHILS/100 LEUKOCYTES IN BLOOD BY AUTOMATED COUNT 35. 0-75.0 [facility] LYMPHOCYTES/100 LEUKOCYTES IN BLOOD BY AUTOMATED COUNT 20. 0-42.0 [facility] MONOCYTES/100 LEUKOCYTES IN BLOOD BY AUTOMATED COUNT <=15. 0 [facility] EOSINOPHILS/100 LEUKOCYTES IN BLOOD BY AUTOMATED COUNT <=1 0.0 [facility] BASOPHILS/100 LEUKOCYTES IN BLOOD BY AUTOMATED COUNT <=2.0 [facility] NEUTROPHILS (10*3/UL) IN BLOOD BY AUTOMATED COUNT 1.40-8.4 0 [facility] LYMPHOCYTES (10*3/UL) IN BLOOD BY AUTOMATED COUNT 1.00-4.0 0 [facility] MONOCYTES (10*3/UL) IN BLOOD BY AUTOMATED COUNT <=1.50 [facility] EOSINOPHILS (10*3/UL) IN BLOOD BY AUTOMATED COUNT <=0.70 [facility] BASOPHILS (10*3/UL) IN BLOOD BY AUTOMATED COUNT <=0.10 [facility] PLATELETS (10*3/UL) IN BLOOD AUTOMATED COUNT 125-425 [facility] IMMATURE NEUTROPHILS/100 LEUKOCYTES IN BLOOD BY AUTOMATED COUNT <=0.5 [facility] IMMATURE NEUTROPHILS (10*3/UL) IN BLOOD BY AUTOMATED COUNT <=0.40 [facility] ID Date Data Source [id number] 01/16/2020 02:53:00 PM EDT [facility] Name Value Range Interpretation Code Description Data Avani rce(s) Supporting Document(s) TROPONIN I.CARDIAC (NG/ML) IN SERUM OR PLASMA [facility] <0.034 Normal0.034-0.119 Indeterminate>/ = 0.120 Abnormal ID Date Data Source [id number] 01/16/2020 01:51:00 PM EDT [facility] -REPORT:PROCEDURE: CT LUMBAR SPINE WO CO NTRAST, CT THORACIC SPINE WO CONTRASTDATE AND TIME: 01/16/2020 12:55 PM EDTHISTORY: Pain following trauma.COMPARISON:CT of the abdomen and pelvis dated February 14, 2019..Technique: Noncontrast CT of the thoracic and lumbar spine wasperformed.Findings: There is normal thoracic kyphosis and lumbar lordosis.Thoracic and lumbar vertebral bodies maintain normal heights. There isno subluxation within the thoracic and lumbar spine. There is nofracture within the thoracic spine there is no osseous or gross softtissue encroachment onto the spinal canal or neural foramina.There is normal lumbar lordosis. Lumbar vertebral bodies maintain normalheights. There is no subluxation within the lumbar spine. There is nofracture within the lumbar spine or visualized pelvis.There is no osseous or significant soft tissue encroachment onto thespinal canal or neural foramina.IMPRESSION:There is no fracture within the thoracic or lumbar spine. There is nosignificant central foraminal narrowing within the thoracic or lumbarspine.TECHNICAL NOTE: This CT exam was performed using one or more of thefollowing dose reduction techniques: automated exposure control,adjustment of the mA and/or kV according to patient size, and/or use ofiterative reconstruction techniques.DWS: [id number] SIGNATURE: Andrew Peña MD Name Value Range Interpretation Code Description Data Avani rce(s) Supporting Document(s) ID Date Data Source [id number] 01/16/2020 01:51:00 PM EDT [facility] -REPORT:PROCEDURE: CT LUMBAR SPINE WO CO NTRAST, CT THORACIC SPINE WO CONTRASTDATE AND TIME: 01/16/2020 12:55 PM EDTHISTORY: Pain following trauma.COMPARISON:CT of the abdomen and pelvis dated February 14, 2019..Technique: Noncontrast CT of the thoracic and lumbar spine wasperformed.Findings: There is normal thoracic kyphosis and lumbar lordosis.Thoracic and lumbar vertebral bodies maintain normal heights. There isno subluxation within the thoracic and lumbar spine. There is nofracture within the thoracic spine there is no osseous or gross softtissue encroachment onto the spinal canal or neural foramina.There is normal lumbar lordosis. Lumbar vertebral bodies maintain normalheights. There is no subluxation within the lumbar spine. There is nofracture within the lumbar spine or visualized pelvis.There is no osseous or significant soft tissue encroachment onto thespinal canal or neural foramina.IMPRESSION:There is no fracture within the thoracic or lumbar spine. There is nosignificant central foraminal narrowing within the thoracic or lumbarspine.TECHNICAL NOTE: This CT exam was performed using one or more of thefollowing dose reduction techniques: automated exposure control,adjustment of the mA and/or kV according to patient size, and/or use ofiterative reconstruction techniques.DWS: [id number] SIGNATURE: Andrew Peña MD Name Value Range Interpretation Code Description Data Avani rce(s) Supporting Document(s) ID Date Data Source [id number] 01/16/2020 01:57:00 PM EDT [facility] Name Value Range Interpretation Code Description Data Avani rce(s) Supporting Document(s) COLOR OF URINE Yellow, Light Yellow, Straw, Clear, Colorle ss, Dark Yellow [facility] CLARITY OF URINE Clear [facility] PH OF URINE 5.0, 5.5, 6.0, 6.5, 7.0, 7.5 [facility] LEUKOCYTE ESTERASE PRESENCE IN URINE BY TEST STRIP Negativ e, Trace [facility] NITRITE PRESENCE IN URINE Negative [facility] PROTEIN IN URINE BY TEST STRIP Negative, Trace [facility] GLUCOSE IN URINE Normal [facility] BILIRUBIN, PRESENCE IN URINE Negative U [facility] SPECIFIC GRAVITY OF URINE 1.005-1.030 [facility] KETONES (MG/DL) IN URINE Negative, Trace [facility] UROBILINOGEN (MG/DL) IN URINE Normal [facility] HEMOGLOBIN PRESENCE IN URINE Negative U [facility] ID Date Data Source [id number] 01/16/2020 01:08:35 PM EDT [facility] -REPORT:PROCEDURE: XR HIP 2 OR 3 VW LEFT W PELVISDATE AND TIME: 01/16/2020 12:12 PM EDTHISTORY: Left hip pain after fall.COMPARISON:TECHNIQUE:AP pelvis, AP and lateral views left hip submitted for evaluation.IMPRESSION:Both hip joints maintain anatomic alignment.Preserved joint spaces.No fracture or dislocation.Sacral stimulating device is present to the left of midline.If pain persists or worsens, MRI is recommended for further assessment.DWS: [id number] SIGNATURE: Ashish Bah MD Name Value Range Interpretation Code Description Data [facility] rce(s) Supporting Document(s) ID Date Data Source [id number] 01/16/2020 01:08:05 PM EDT [facility] -REPORT:PROCEDURE: XR RIBS LEFT WITH SUDHA ST ANTEROPOSTERIORDATE AND TIME: 01/16/2020 12:13 PM EDTHISTORY: Fall, left rib pain.COMPARISON:TECHNIQUE: AP view of the thorax, and AP, anterior and posterior obliquefilms of Left ribs and thorax were submitted for review.FINDINGS:No displaced rib fractures.No pneumothorax or pleural fluid collection.No focal consolidation or pulmonary edema.Normal cardiomediastinal silhouette.IMPRESSION:No displaced fractures. If clinical concern persists, recommendsymptomatic treatment with interval followup radiographs in 10-14 daysfor further evaluation.DWS: [id number] SIGNATURE: Ashish Bah MD Name Value Range Interpretation Code Description Data Avani rce(s) Supporting Document(s) ID Date Data Source [id number] 01/16/2020 01:06:57 PM EDT [facility] -REPORT:PROCEDURE: XR WRIST 3+ VIEWS [place] ATERALDATE AND TIME: 01/16/2020 12:13 PM EDTHISTORY: Bilateral wrist pain after fall.COMPARISON:TECHNIQUE: AP, lateral, both obliques and navicular views of rightand left iliac wrist submitted for evaluation.IMPRESSION:The bone mineralization is normal.No acute fracture, dislocation or subluxation is seen.Preserved joint spaces.Soft tissues are normal in appearance.Scaphoid fractures may be radiographically occult on initial plainfilms, interval symptomatic treatment and follow-up plain films in 10-14days or MRI recommended, if pain persists or worsens.DWS: [id number] SIGNATURE: Ashish Bah MD Name Value Range Interpretation Code Description Data Avani rce(s) Supporting Document(s) ID Date Data Source [id number] 01/16/2020 01:06:09 PM EDT [facility] -REPORT:PROCEDURE: XR ANKLE 3+ VIEWS LEF TDATE AND TIME: 01/16/2020 12:12 PM EDTHISTORY: Left ankle pain after fall.COMPARISON:TECHNIQUE: AP, lateral and mortise views of the left ankle submittedfor evaluation.IMPRESSION:The bone mineralization is normal.No acute fracture, dislocation or subluxation is seen.Preserved joint spaces.Soft tissues are normal in appearance.DWS: [id number] SIGNATURE: sAhish Bah MD Name Value Range Interpretation Code Description Data Avani rce(s) Supporting Document(s) Procedure Social History Code Duration Value Status Description Data Source(s ) Alcohol intake 02/25/2021 12:00:00 AM EDT Ex-drinker (finding) [facility] Alcohol intake 02/11/2021 12:00:00 AM EDT Ex-drinker (finding) [facility] Alcohol intake 02/05/2021 12:00:00 AM EDT Ex-drinker (finding) [facility] Alcohol intake 09/02/2020 12:00:00 AM EDT Ex-drinker (finding) comp leted Ex- drinker (finding) [facility] Alcohol intake 08/28/2020 12:00:00 AM EDT Ex-drinker (finding) [facility] Alcohol intake 08/16/2020 12:00:00 AM EDT Ex-drinker (finding) [facility] Alcohol intake 08/11/2020 12:00:00 AM EDT Ex-drinker (finding) [facility] Alcohol intake 07/30/2020 12:00:00 AM EDT Ex-drinker (finding) [facility] Alcohol intake 06/20/2020 12:00:00 AM EST Ex-drinker (finding) [facility] Alcohol intake 06/17/2020 12:00:00 AM EST Ex-drinker (finding) [facility] Alcohol intake 04/07/2020 12:00:00 AM EST Ex-drinker (finding) [facility] Alcohol intake 04/02/2020 12:00:00 AM EST Ex-drinker (finding) [facility] Alcohol intake 02/13/2020 12:00:00 AM EDT Ex-drinker (finding) [facility] Alcohol intake 02/11/2020 12:00:00 AM EDT Ex-drinker (finding) [facility] Tobacco use and exposure 01/31/2020 12:00:00 AM EDT Smokeless to bacco non-user completed Smokeless tobacco non-user [facility] Smoking 01/31/2020 12:00:00 AM EDT Ex-smoker completed Ex-smoker [facility] Alcohol intake 01/31/2020 12:00:00 AM EDT Ex-drinker (finding) [facility] Vital Signs ID Date Data Source UNK Name Value Range Interpretation Code Description Data Source(s) Systolic blood pressure 110 mm[Hg] 110 mm[facility]Hg] [facility] Diastolic blood pressure 80 mm[Hg] 80 mm[Hg] [facility] ([facility]) Body height 62 [in_i] 62 [in_i] [facility] ([facility]) 5'2" Body weight 140.00 [lb_av] 140.00 [lb_av] [place] ([facility]) Body mass index (BMI) [Ratio] 25.6 kg/m2 25.6 k g/m2 [facility] ([facility]) [place] body weight 110 [lb_av] 110 [lb_av] [place] ([facility]) Body weight 63.504 kg 63.504 kg [facility] ([facility], ) Body surface area Derived from formula 1.64 m2 1.64 m2 [facility] ID Date Data Source [id number] 03/03/2021 12:27:51 AM EST [facility] Name Value Range Interpretation Code Description Data Source(s) WEIGHT 143 lb 143 lb [facility] HEIGHT 63.5 in 63.5 in [facility] ID Date Data Source [id number] 02/13/2021 05:24:05 PM EDT [facility] Name Value Range Interpretation Code Description Data Source(s) WEIGHT 144 lb 144 lb [facility] ID Date Data Source [id number] 02/05/2021 11:23:42 AM EDT [facility] Name Value Range Interpretation Code Description Data Source(s) WEIGHT 143.74 lb 143.74 lb [facility] HEIGHT 62 in 62 in [facility] ID Date Data Source [id number] 08/30/2020 08:21:02 AM EDT [facility] Name Value Range Interpretation Code Description Data Source(s) WEIGHT 136.69 lb 136.69 lb [facility] ID Date Data Source [id number] 08/28/2020 11:05:36 PM EDT [facility] Name Value Range Interpretation Code Description Data Source(s) WEIGHT 142.42 lb 142.42 lb [facility] HEIGHT 62 in 62 in [facility] ID Date Data Source [id number] 07/08/2020 10:25:59 AM EDT [facility] Name Value Range Interpretation Code Description Data Source(s) WEIGHT 138.01 lb 138.01 lb [facility] HEIGHT 62 in 62 in [facility] ID Date Data Source [id number] 04/07/2020 12:25:06 PM EST [facility] Name Value Range Interpretation Code Description Data Source(s) WEIGHT 134.7 lb 134.7 lb [facility] HEIGHT 62 in 62 in [facility] ID Date Data Source [id number] 07/23/2020 03:44:07 PM EDT [facility] Name Value Range Interpretation Code Description Data Source(s) WEIGHT 135 lb 135 lb [facility] HEIGHT 62 in 62 in [facility] ID Date Data Source [id number] 02/28/2020 03:58:54 PM EST [facility] Name Value Range Interpretation Code Description Data Source(s) WEIGHT 134.92 lb 134.92 lb [facility] HEIGHT 62 in 62 in [facility] ID Date Data Source [id number] 01/31/2020 02:07:56 PM EDT [facility] Name Value Range Interpretation Code Description Data Source(s) WEIGHT 134.92 lb 134.92 lb [facility] HEIGHT 62 in 62 in [facility] ID Date Data Source [id number] 01/16/2020 03:52:16 PM EDT [facility] Name Value Range Interpretation Code Description Data Source(s) WEIGHT 127 lb 127 lb [facility] HEIGHT 62 in 62 in [facility] Patient Treatment Plan of Care Planned Activity Planned Date Details Description Data Source (s) albuterol (PROVENTIL) 90 mcg/actuation inhaler 05/21/2020 12:00:00 AM [facility]
[2021-03-13] MEDS ORDERED: LIDOCAINE 2% 100MG/5ML SDV (FOR ANES.) As Ordered ONE (10:59)
[2021-03-13] MEDS ORDERED: propofoL 200 MG/20 ML VIAL As Ordered ONE ×2 (10:59→11:00)
--- NOTE | 2021-03-13 11:19 | ROOR ---
Patient Name: Fariha Yanez Procedure Date: 03/13/2021 11:07 AM Date of : 1975 Age: 45 Room: [facility] Gender: Female Note Status: Finalized Procedure: Upper GI endoscopy Indications: Heartburn Providers: Ye Murillo MD Referring MD: Misha Weller MD Requesting Provider: Medicines: Monitored Anesthesia Care Complications: No immediate complications. Procedure: Pre-Anesthesia Assessment: - The heart rate, respiratory rate, oxygen saturations, blood pressure, adequacy of pulmonary ventilation, and response to care were monitored throughout the procedure. The Endoscope was introduced through the mouth, and advanced to the second part of duodenum. The upper GI endoscopy was accomplished without difficulty. The patient tolerated the procedure well. Findings: The esophagus was normal. The stomach was normal. The examined duodenum was normal. Impression: - Normal esophagus. - Normal stomach. - Normal examined duodenum. - No specimens collected. Recommendation: - Observe patient's clinical course. - Follow an antireflux regimen. Procedure Code(s): --- Professional --- 60590, Esophagogastroduodenoscopy, flexible, transoral; diagnostic, including collection of specimen(s) by brushing or washing, when performed (separate procedure) Diagnosis Code(s): --- Professional --- R12, Heartburn CPT copyright 2019 [employer]. All rights reserved. The codes documented in this report are preliminary and upon remote inpatient coder review may be revised to meet current compliance requirements. Ye Murillo MD Ye Murillo MD 03/13/2021 11:18:47 AM Electronically signed by Ye Murillo MD Number of Addenda: 0 Note Initiated On: 03/13/2021 11:07 AM Estimated Blood Loss: Estimated blood loss: none.
--- NOTE | 2021-03-13 11:31 | ROOR ---
Patient Name: Fariha Yanez Procedure Date: 03/13/2021 11:12 AM Date of : 1975 Age: 45 Room: [facility] Gender: Female Note Status: Finalized Procedure: Colonoscopy Indications: High risk colon cancer surveillance: Personal history of colonic polyps, Family history of colon cancer in multiple second-degree relatives Providers: Ye Murillo MD Referring MD: Misha Weller MD Requesting Provider: Medicines: Monitored Anesthesia Care Complications: No immediate complications. Procedure: Pre-Anesthesia Assessment: - The heart rate, respiratory rate, oxygen saturations, blood pressure, adequacy of pulmonary ventilation, and response to care were monitored throughout the procedure. The Colonoscope was introduced through the anus and advanced to the terminal ileum, with identification of the appendiceal orifice and IC valve. The colonoscopy was performed without difficulty. The patient tolerated the procedure well. The quality of the bowel preparation was good. Findings: The perianal and digital rectal examinations were normal. Small Internal Hemorrhoids. The entire examined colon appeared normal on direct and retroflexion views. Impression: - Small Internal Hemorrhoids. - The entire colon is normal on direct and retroflexion views. - No specimens collected. Recommendation: - Repeat colonoscopy in 5 years for screening purposes. Procedure Code(s): --- Professional --- 97085, Colonoscopy, flexible; diagnostic, including collection of specimen(s) by brushing or washing, when performed (separate procedure) Diagnosis Code(s): --- Professional --- Z80.0, Family history of malignant neoplasm of digestive organs Z86.010, Personal history of colonic polyps CPT copyright 2019 [employer]. All rights reserved. The codes documented in this report are preliminary and upon family support coordinator review may be revised to meet current compliance requirements. Ye Murillo MD Ye Murillo MD 03/13/2021 11:31:11 AM Electronically signed by Ye Murillo MD Number of Addenda: 0 Note Initiated On: 03/13/2021 11:12 AM Estimated Blood Loss: Estimated blood loss: none.
[2021-03-13 11:55] VITALS: BP 143/79
== END 2021-03-13 12:19 | disposition home or self-care (01) ==
LOC: M OPP 09:39
PROVIDERS: ATTEND Internal Medicine Gastroenterology
DX: Z86.010 Personal history of colon polyps (principal); Z80.0 Family history of malignant neoplasm of digestive organs; R12 Heartburn

== ENCOUNTER 2023-08-21 17:15 | Emergency (ER) | payer OTHER ==
[~2023-08-21] VITALS: Ht 160 cm; Wt 70.7 kg
[~2023-08-21 17:15] MED LIST changes: +DIAZ-654 PO; -DULE100A IN; +MOME13HF8 IN; -NS 1,000 ML IV ONE
[2023-08-21] MEDS: PHENAZOPYRIDINE 100 MG TAB PO ONE (18:24)
[2023-08-21] MEDS: KETOROLAC 30 MG/ML 1ML VIAL IV ONE (18:25)
[2023-08-21] MEDS: NS 1,000 ML IV ONE (18:25)
[2023-08-21 18:27] LABS: BASO # 0.1 10^3/uL (0.0-0.2); BASO % 0.4 % (0.0-1.0); EOS # 0.2 10^3/uL (0.0-0.5); EOS % 1.4 % (0.0-3.0); HEMATOCRIT 42.5 % (36.0-47.0); HEMOGLOBIN 13.8 g/dl (12.0-15.5); LYMPH # 2.4 10^3/uL (1.5-5.0); MEAN CORPUSCULAR HEMOGLOBIN 29.1 pg (27.0-33.0); MEAN CORPUSCULAR HGB CONC 32.5 g/dl (32.0-36.5); MEAN CORPUSCULAR VOLUME 89.7 fl (80.0-96.0); MONO # 0.7 10^3/uL (0.0-0.8); MONO % 5.6 % (2.0-8.0); NEUTROPHILS # 9.7 10^3/uL (1.5-8.5); NEUTROPHILS % 74.4 % (36.0-66.0); PLATELET COUNT, AUTOMATED 272 10^3/uL (150-450); RED BLOOD COUNT 4.74 10^6/uL (4.00-5.40)
[2023-08-21 18:38] LABS: INR 1.02; PARTIAL THROMBOPLASTIN TIME 24.6 SECONDS (24.8-34.2); PROTHROMBIN TIME 13.1 SECONDS (12.5-14.5)
[2023-08-21 18:49] LABS: ALBUMIN 3.8 G/DL (3.2-5.2); ALKALINE PHOSPHATASE 92 U/L (46-116); ALT/SGPT 11 U/L (7.0-40); AST/SGOT 16 U/L (<34); BILIRUBIN,DIRECT 0.2 MG/DL (<0.4); BILIRUBIN,TOTAL 0.6 MG/DL (0.3-1.2); BLOOD UREA NITROGEN 5 MG/DL (9-23); CALCIUM LEVEL 8.8 MG/DL (8.5-10.1); CARBON DIOXIDE LEVEL 25 MMOL/L (20-31); CHLORIDE LEVEL 106 MMOL/L (98-107); CREATININE FOR GFR 0.71 MG/DL (0.55-1.30); GLOMERULAR FILTRATION RATE > 60.0 (>58); GLUCOSE, FASTING 90 MG/DL (60-100); POTASSIUM SERUM 4.6 MMOL/L (3.5-5.1); SODIUM LEVEL 140 MMOL/L (136-145); TOTAL PROTEIN 6.7 G/DL (5.7-8.2)
[2023-08-21 21:01] VITALS: BP 126/77; TEMP 97.6; O2SAT 98
== END 2023-08-21 21:04 | disposition home or self-care (01) ==
LOC: M ED 17:15
DX: N30.01 Acute cystitis with hematuria (principal); Z88.8 Allergy status to other drugs, medicaments and biological substances; Z91.030 Bee allergy status; Z91.013 Allergy to seafood; Z79.899 Other long term (current) drug therapy
CPT/HCPCS: 51702; 74176; 80048; 80076; 81001; 85025; 85610; 85730; 87086; 96361; 96374; 99284; J1885